=== PATIENT | female | born 1940 | race Caucasian/White ===

== ENCOUNTER → 2017-06-09 | Outpatient (CLI) | payer MEDICARE ==
[~2017-06-09] MED LIST: ASP81TEC PO; DABI150C5 PO; EZET10TA5 PO; LEVO75TA57 PO; METO200T32 PO; MULT1CAP27 PO; OMEG-9 PO; OMEG1CAP53 PO; POTA10CA43 PO; TORS20TA3 PO; TRS20T PO; VRP180TCR PO; VRP240TCR PO; [UNRECOGNIZED DRUG - CODE] PO
== END ==
LOC: CARD 13:13
PROVIDERS: ATTEND Internal Medicine Cardiovascular Disease
DX: I27.2 Other secondary pulmonary hypertension (principal); G47.33 Obstructive sleep apnea (adult) (pediatric); M79.89 Other specified soft tissue disorders; I10 Essential (primary) hypertension; I65.23 Occlusion and stenosis of bilateral carotid arteries; I48.0 Paroxysmal atrial fibrillation
CPT/HCPCS: 93306

== ENCOUNTER 2018-03-29 05:30 | Outpatient (CLI) | payer MEDICARE ==
[~2018-03-29] VITALS: Ht 162.6 cm; Wt 94.1 kg
[~2018-03-29 05:30] MED LIST changes: -METO200T32 PO; +METO200T48 PO
[2018-03-29] MEDS ORDERED: LEVO88TA54 PO (13:56)
[2018-03-29] MEDS ORDERED: DABI150C5 PO (13:56)
[2018-03-29] MEDS ORDERED: FEBU80TA PO (13:56)
[2018-03-29] MEDS ORDERED: POTA10TA10 PO (13:56)
[2018-03-29] MEDS ORDERED: PEDI18TA2 PO (13:56)
== END 2018-03-29 14:06 ==
LOC: PREOP 05:30
PROVIDERS: ATTEND Specialist
DX: Z01.818 Encounter for other preprocedural examination (principal)

== ENCOUNTER 2018-04-19 14:50 | Outpatient (CLI) | payer MEDICARE ==
[~2018-04-19] VITALS: Ht 162.6 cm; Wt 94.1 kg
[~2018-04-19 14:50] MED LIST changes: +FEBU80TA PO; +LEVO88TA54 PO; +PEDI18TA2 PO; +POTA10TA10 PO
== END 2018-04-19 15:00 ==
LOC: PREOP 14:50
PROVIDERS: ATTEND Specialist
DX: Z01.818 Encounter for other preprocedural examination (principal)

== ENCOUNTER 2018-04-21 08:20 | Day surgery (SDC) | payer MEDICARE ==
[~2018-04-21] VITALS: Ht 162.6 cm; Wt 94.1 kg
[2018-04-21] MEDS ORDERED: POVIDONE (BETADINE) OPHTH SOLN 5% 30 ML OP ONE (08:30)
[2018-04-21] MEDS ORDERED: VANCOMYCIN/BSS (COMPOUNDED) 10 MG/ML SYR OP ONE (08:30)
[2018-04-21] MEDS ORDERED: EPINEPHrine INJECTION 1 MG/ML AMP INJ ONE (08:30)
[2018-04-21] MEDS ORDERED: LIDOCAINE PF 1% 2 ML AMP IR PRN (08:30)
[2018-04-21] MEDS ORDERED: TIMOLOL MALEATE 0.5% 5 ML (TIMOPTIC) BTL OU PRN (08:30)
[2018-04-21 08:35] VITALS: BP 137/81
[2018-04-21] MEDS: TETRACAINE 0.5% OPHTH SOLN 4 ML BTL (SINGLE DOSE ONLY) OU PRN ×4 (08:40→09:00)
[2018-04-21] MEDS: PHENYLEPHRINE 10% OPHTH (NEO-SYN) 5 ML BTL OU SCH ×3 (08:51→09:01)
[2018-04-21] MEDS: CYCLOPENTOLATE 1% (CYCLOGYL) 2 ML DROPS OP SCH ×3 (08:51→09:00)
--- NOTE | 2018-04-21 09:23 | Ophthalmologist Pre-Op Note ---
Pre-Operative Progress Note H&P Reviewed The H&P was reviewed, patient examined and no changes noted. Date H&P Reviewed: Apr 21, 2018 Time H&P Reviewed: 09:23 Pre-Op Dx Cataract, Left Eye SARMAD LOUIS MD Apr 21, 2018 09:23
--- NOTE | 2018-04-21 09:47 | Ophthalmology Operative Report ---
Cataract removal/placement IOL PREOPERATIVE DIAGNOSIS: Cataract Left Eye POSTOPERATIVE DIAGNOSIS: Cataract Left Eye PROCEDURE: Cataract removal and placement of posterior chamber implant, left eye SURGEON: Ryan Louis ANESTHESIA: Topical with sedation COMPLICATIONS: None ESTIMATED BLOOD LOSS: Minimal DESCRIPTION OF PROCEDURE: After proper informed consent was obtained, the patient, a 77 female, was taken to the Operating Room and the left eye was anesthetized with tetracaine. The left eye was then prepped and draped in the usual manner. A wire lid speculum was placed. A paracentesis was made at the left hand position. Preservative free lidocaine was injected into the anterior chamber followed by viscoelastic. A clear corneal incision was made in the temporal position. A capsulorrhexis was preformed and the central nuclear and cortical material were removed. The posterior capsule was polished and an Ben 24.5 SN6CWS IOL was placed into the capsular bag. The residual viscoelastic was aspirated and balanced saline solution was injected into the anterior chamber. 0.1 ml of Vancomycin (1mg/0.1ml ) was injected into the anterior chamber. The wound was checked and found to be water tight. The patient tolerated the procedure well without complications. RYAN LOUIS MD Apr 21, 2018 09:47
[2018-04-21] MEDS ORDERED: MIDAZOLAM 2 MG/2 ML (VERSED) VIAL ONE (09:49)
[2018-04-21 10:00] VITALS: BP 133/91
--- NOTE | 2018-04-21 10:36 | Anesthesia-General Post-Op ---
MAC Patient Condition Mental Status/LOC: Same as Preop Cardiovascular: Satisfactory Nausea/Vomiting: Absent Respiratory: Satisfactory Pain: Controlled Complications: Absent Post Op Complications Complications None Follow Up Care/Instructions Patient Instructions None needed. Anesthesiology Discharge Order Discharge Order Patient is doing well, no complaints, stable vital signs, no apparent adverse anesthesia problems. No complications reported per nursing. RONAK ESPINOSA CRNA Apr 21, 2018 10:36
== END 2018-04-21 10:00 | disposition home or self-care (01) ==
LOC: SDC 08:20
PROVIDERS: ATTEND Specialist
DX: H26.9 Unspecified cataract (principal); I10 Essential (primary) hypertension; I48.91 Unspecified atrial fibrillation; G47.33 Obstructive sleep apnea (adult) (pediatric); Z79.01 Long term (current) use of anticoagulants; Z79.899 Other long term (current) drug therapy

== ENCOUNTER 2018-06-11 15:43 | Emergency (ER) | payer MEDICARE ==
[~2018-06-11] VITALS: Ht 161.3 cm; Wt 95.7 kg
--- NOTE | 2018-06-11 17:12 | Diagnostic Imaging Report ---
INDICATION: Left leg pain, mass. COMPARISON: None. EXAMINATION: Left lower extremity ultrasound. FINDINGS: There is a benign 23 x 48 mm cyst in the popliteal fossa. This is compatible with a benign Chavez's cyst. IMPRESSION: Benign Chavez's cyst. Dictated by: Dictated on workstation # [id number]
[2018-06-11] MEDS ORDERED: RX-TRAMADOL 50 MG (ULTRAM) TAB PPK#4 PO STA (17:25)
[2018-06-11] MEDS ORDERED: TRAM-42 PO (17:29)
--- NOTE | 2018-06-11 17:29 | ED Lower Extremity ---
General Chief Complaint: Lower Extremity Stated Complaint: L LEG PAIN Nursing Triage Note: Pt brought to ED via wheelchair by her . Pt states she was wearing thigh high compression hose this am when her left knee began hurting. Pt states she removed the hose and now can no longer bear weight on that leg. Pt has hx of leg swelling but states she believes the left outer and upper knee are more swollen than normal today. Pt denies injury. Nursing Sepsis Screen: No Definite Risk Source: patient, family Exam Limitations: no limitations History of Present Illness Date Seen by Provider: Jun 11, 2018 Time Seen by Provider: 16:21 Initial Comments This 78-year-old woman presents to emergency room with complaints of pain into the left the, mostly in the posterior aspect. She wears thigh-high stockings to help with edema and states these stockings caused extreme pain. She has since remove them. She denies any trauma. She is on Protonix for atrial fibrillation. She is now having difficulty with weightbearing. She denies any prior episodes. Onset: this morning Allergies and Home Medications Allergies Coded Allergies: codeine (Verified Allergy, Unknown, 03/29/18) levofloxacin (Verified Allergy, Unknown, 03/29/18) metronidazole (Verified Allergy, Unknown, 03/29/18) penicillin G (Verified Allergy, Unknown, 03/29/18) Home Medications Dabigatran Etexilate Mesylate 150 Mg Capsule, 150 MG PO BID, (Reported) Febuxostat 80 Mg Tablet, 80 MG PO DAILY, (Reported) Levothyroxine Sodium 88 Mcg Tablet, 88 MCG PO DAILY, (Reported) Metoprolol Succinate 200 Mg Tab.er.24h, 200 MG PO DAILY, (Reported) Pedi Mv No.79/Ferrous Fumarate 18 Mg Tab.chew, 36 MG PO DAILY, (Reported) Potassium Chloride 10 Meq Tablet.er, 10 MEQ PO TID, (Reported) Torsemide 20 Mg Tablet, 40 MG PO DAILY, (Reported) Tramadol HCl 50 Mg Tablet, 50 MG PO Q6H PRN for PAIN-MODERATE TO SEVERE Prescribed by: YO VAIL on 06/11/18 3765 Patient Home Medication List Home Medication List Reviewed: Yes Constitutional: no symptoms reported EENTM: no symptoms reported Respiratory: no symptoms reported Cardiovascular: no symptoms reported Gastrointestinal: no symptoms reported Genitourinary: no symptoms reported Musculoskeletal: see HPI Skin: no symptoms reported Psychiatric/Neurological: No Symptoms Reported Past Stizazo-Emscwn-Zofiwk Hx Patient Social History Alcohol Use: Denies Use Recreational Drug Use: No 2nd Hand Smoke Exposure: No Recent Foreign Travel: No Contact w/Someone Who Travel: No Recent Infectious Disease Expo: No Physical Abuse: No Sexual Abuse: No Immunizations Up To Date Tetanus Booster (TDap): Less than 5yrs Date of Pneumonia Vaccine: Oct 14, 2009 Date of Influenza Vaccine: Aug 06, 2015 Past Medical History Surgeries: Yes Eye Surgery Respiratory: Yes (SLEEP APNEA-HAS CPAP MACHINE) Cardiac: Yes (AFIB) Atrial Fibrillation, Hypertension Neurological: No Reproductive Disorders: No Genitourinary: No Gastrointestinal: No Musculoskeletal: Yes Gout Endocrine: Yes Hypothyroidsim Cancer: No Psychosocial: No Nursing Suicide Risk Score: 0 Integumentary: No Blood Disorders: No Family Medical History Cancer 09 SISTER (breast ) Family history: Hypertension 03 FATHER son History of - disorder 09 SISTER (lupus) Myocardial infarction 03 MOTHER Stroke 03 FATHER No Pertinent Family Hx Physical Exam Vital Signs Vital Signs - First Documented 06/11/18 06/11/18 15:54 17:40 Temp 98.4 Pulse 78 Resp 12 B/P (MAP) 145/67 (93) Pulse Ox 96 O2 Delivery Room Air Capillary Refill : Greater Than 3 Seconds Height, Weight, BMI Height: 5'3.50" Weight: 211lbs. 8.0oz. 95.412827aj; BMI Method:Stated General Appearance: WD/WN, no apparent distress HEENT: normal ENT inspection Neck: normal inspection Cardiovascular: regular rate, rhythm, no edema, no murmur Respiratory: lungs clear, normal breath sounds, no respiratory distress, no accessory muscle use Hips: left hip non-tender, left hip normal inspection, left hip normal range of motion, left hip no evidence of injury Legs: left leg non-tender, left leg normal inspection, left leg normal range of motion, left leg no evidence of injury Knees: left knee no evidence of injury, left knee soft tissue tenderness, left knee swelling, left knee other (Tenderness primarily posterior to the knee with subtle fullness in the area. There is pain with range of motion as well) Ankles: left ankle non-tender, left ankle normal inspection, left ankle normal range of motion, left ankle no evidence of injury Feet: left foot non-tender, left foot normal inspection, left foot normal range of motion, left foot no evidence of injury, left foot other (Normal pedal pulse) Neurologic/Tendon: normal sensation, normal motor functions, normal tendon functions, responds to pain Neurologic/Psychiatric: child psychiatrist II-XII nml as tested, no motor/sensory deficits, alert, normal mood/affect, oriented x 3 Skin: normal color, warm/dry Progress/Results/Core Measures Results/Orders My Orders Orders - YO DANIELS MD Tramadol Tablet (Ultram Tablet) (06/11/18 16:45) Us Left Lower Ext [id number] (06/11/18 16:32) Rx-Tramadol Hcl (Rx-Ultram) (06/11/18 17:25) Medications Given in ED Vital Signs/I&O 06/11/18 06/11/18 15:54 17:40 Temp 98.4 97.9 Pulse 78 68 Resp 12 18 B/P (MAP) 145/67 (93) 124/60 Pulse Ox 96 O2 Delivery Room Air Room Air Blood Pressure Mean: 93 Progress Progress Note : Progress Note Exam and symptoms seem to be consistent with Chavez cyst. DVT felt very unlikely based on exam and patient's compliance with Primaxin. Ultrasound was performed and revealed Chavez cyst. Pain was treated with Ultram. Take-home packet was dispensed. Diagnostic Imaging Diagonstic Imaging: Ultrasound Plain Films/CT/US/NM/MRI: leg Comments NAME: HÉCTOR AGUILLON MED REC#: [id number] PT STATUS: REG ER : 1941 PHYSICIAN: YO DANIELS MD ADMIT DATE: 06/11/18/ER Signed Date of Exam: 06/11/18 US LEFT LOWER EXT [id number] INDICATION: Left leg pain, mass. COMPARISON: None. EXAMINATION: Left lower extremity ultrasound. FINDINGS: There is a benign 23 x 48 mm cyst in the popliteal fossa. This is compatible with a benign Chavez's cyst. IMPRESSION: Benign Chavez's cyst. Dictated by: Dictated on workstation # [id number] Dict: 06/11/18 170 Trans: 06/11/18 171 Interpreted by: ANALISA AGUILAR Electronically signed by: ANALISA AGUILAR 06/11/18 1145 Departure Impression Primary Impression: Synovial cyst of popliteal space [Chavez], left knee Disposition: 01 HOME, SELF-CARE Condition: Improved Departure-Patient Inst. Decision time for Depature: 17:26 Referrals: LINETTE JOHNSON APRN (PCP/Family) Primary Care Physician Patient Instructions: Chavez's Cyst Add. Discharge Instructions: You may take Tylenol (acetaminophen) up to 1000 mg every 6 hours as needed for pain. Add Ultram (tramadol) as prescribed for pain not controlled by Tylenol. You may also try applying ice in 20 minute intervals. Follow-up with the orthopedic provider of your choice for further evaluation and to discuss treatment options. Return to care if you have worsening symptoms despite treatment. If the compression stockings are causing significant pain, temporarily discontinue their use on the left leg. Ultram (tramadol) may cause constipation. It may be hewitt to use a stool softener such as Colace once or twice daily to prevent constipation while taking Ultram. All discharge instructions reviewed with patient and/or family. Voiced understanding. Scripts Tramadol HCl (Ultram) 50 Mg Tablet 50 MG PO Q6H PRN for PAIN-MODERATE TO SEVERE, #20 TAB Prov: YO DANIELS MD 06/11/18 YO DANIELS MD Jun 11, 2018 17:29
[2018-06-11 17:40] VITALS: BP 124/60
== END 2018-06-11 17:50 | disposition home or self-care (01) ==
LOC: EDUNIT# 15:43 → ER 15:45
DX: M71.22 Synovial cyst of popliteal space [Baker], left knee (principal); I48.91 Unspecified atrial fibrillation; I10 Essential (primary) hypertension; M10.9 Gout, unspecified; E03.9 Hypothyroidism, unspecified; G47.30 Sleep apnea, unspecified; Z88.5 Allergy status to narcotic agent; Z82.49 Family history of ischemic heart disease and other diseases of the circulatory system; Z88.1 Allergy status to other antibiotic agents; Z88.0 Allergy status to penicillin; Z88.8 Allergy status to other drugs, medicaments and biological substances; Z80.3 Family history of malignant neoplasm of breast
CPT/HCPCS: 76881

== ENCOUNTER → 2019-02-14 | Outpatient (CLI) | payer MEDICARE ==
[~2019-02-14] MED LIST changes: +TRAM-42 PO
--- NOTE | 2019-02-14 11:36 | Diagnostic Imaging Report ---
PROCEDURE: US Renal Bilateral. TECHNIQUE: Multiple real-time grayscale images were obtained over the kidneys in various projections bilaterally. INDICATION: Chronic kidney disease stage 3. Right kidney measures 9.2 x 3.4 x 4.4 cm and the left kidney measures 9.7 x 4.1 x 4.2 cm. Cortical thickness and echogenicity is normal. No calculi or hydronephrosis is seen. Bladder is unremarkable. Ureteral jets could not be visualized. IMPRESSION: Unremarkable renal ultrasound. Dictated by: Dictated on workstation # [id number]
== END ==
LOC: RAD 10:09
PROVIDERS: ATTEND Internal Medicine Nephrology
DX: N18.3 Chronic kidney disease, stage 3 (moderate) (principal)
CPT/HCPCS: 76770

== ENCOUNTER → 2021-03-09 | Outpatient (CLI) | payer MEDICARE | LOC: CARD 08:30 | PROVIDERS: ATTEND Internal Medicine Cardiovascular Disease | DX: I08.1 Rheumatic disorders of both mitral and tricuspid valves (principal) | CPT/HCPCS: 93306 ==

== ENCOUNTER → 2021-03-10 | Outpatient (CLI) | payer MEDICARE ==
[~2021-03-10] VITALS: Ht 154 cm; Wt 98.0 kg
[~2021-03-10] MED LIST changes: +CATHETER FLUSH 10 ML SYR IV PRN; +REGADENOSON 0.4 MG/5 ML SYR (LEXISCAN) IV ONE
[2021-03-10 09:07] VITALS: BP 133/68
--- NOTE | 2021-03-11 12:01 | STRESS TEST ---
DATE OF SERVICE: 03/10/2021 RESTING AND POST REGADENOSON TECHNETIUM-99M TETROFOSMIN SPECT CT IMAGING ORDERING PHYSICIAN: Dr. Hammond. PRIMARY CARE PHYSICIAN: . CLINICAL DIAGNOSES: Shortness of breath. Baseline images were carried out after injection of 10.7 mCi of technetium-99m Tetrofosmin. This was followed by 0.4 mg of Regadenoson and 28.8 mCi of technetium-99m Tetrofosmin for stress imaging. The electrocardiogram showed atrial fibrillation at baseline. It did not change significantly with the Regadenoson infusion. The patient noted mild shortness of breath, which resolved in a few minutes after the Regadenoson infusion. Overall, she tolerated the procedure well. Review of images at rest and following stress does not indicate any distinct perfusion defects consistent with significant myocardial ischemia or infarction. Mild breast attenuation is seen both at rest and following Regadenoson infusion. Gated images show normal global left ventricular systolic function with normal regional wall motion. Left ventricular ejection fraction is calculated to be 70%. Left ventricular end diastolic volume is 58 mL. TID is absent (1.11). CONCLUSIONS: 1. No evidence of significant myocardial ischemia or infarction. 2. Normal regional wall motion, normal global left ventricular systolic function with a calculated ejection fraction of 70%. Job ID: [id number] DocumentID: [id number] Dictated Date: 03/11/2021 09:44:16 Air Export Agent Date: 03/11/2021 12:00:50 Dictated By: ISABELLE HAMMOND MD, MA, FACP, FACC,
== END ==
LOC: CARD 08:00
PROVIDERS: ATTEND Internal Medicine Cardiovascular Disease
DX: R06.02 Shortness of breath (principal)
CPT/HCPCS: 78452; 93017; A9502

== ENCOUNTER 2021-07-03 13:39 | Emergency (ER) | payer MEDICARE ==
[~2021-07-03] VITALS: Ht 160 cm; Wt 100.0 kg
[~2021-07-03 13:39] MED LIST changes: -CATHETER FLUSH 10 ML SYR IV PRN; -REGADENOSON 0.4 MG/5 ML SYR (LEXISCAN) IV ONE
[2021-07-03 14:53] LABS: BASOPHILS # (AUTO) 0.1 10^3/uL (0.0-0.1); BASOPHILS % (AUTO) 1 % (0-10); EOSINOPHILS # (AUTO) 0.1 10^3/uL (0.0-0.3); EOSINOPHILS % (AUTO) 1 % (0-10); HEMATOCRIT 42 % (35-52); HEMOGLOBIN 13.9 g/dL (11.5-16.0); LYMPHOCYTES # (AUTO) 1.1 10^3/uL (1.0-4.0); LYMPHOCYTES % (AUTO) 27 % (12-44); MEAN CORPUSCULAR HEMOGLOBIN 32 pg (25-34); MEAN CORPUSCULAR HGB CONC 33 g/dL (32-36); MEAN CORPUSCULAR VOLUME 95 fL (80-99); MEAN PLATELET VOLUME 13.2 fL (9.0-12.2); MONOCYTES # (AUTO) 0.7 10^3/uL (0.0-1.0); MONOCYTES % (AUTO) 16 % (0-12); NEUTROPHILS # (AUTO) 2.3 10^3/uL (1.8-7.8); NEUTROPHILS % (AUTO) 55 % (42-75); PLATELET COUNT 122 10^3/uL (130-400); WHITE BLOOD COUNT 4.1 10^3/uL (4.3-11.0)
[2021-07-03 14:55] LABS: ALBUMIN 3.5 GM/DL (3.2-4.5)
[2021-07-03 14:56] LABS: POTASSIUM 3.8 MMOL/L (3.6-5.0)
[2021-07-03 14:57] LABS: CALCIUM 9.7 MG/DL (8.5-10.1)
[2021-07-03 14:58] LABS: TOTAL PROTEIN 7.2 GM/DL (6.4-8.2)
[2021-07-03 15:02] LABS: CREATININE SERUM 1.3 MG/DL (0.60-1.30)
[2021-07-03] MEDS ORDERED: NYST1POW22 MC (15:45)
--- NOTE | 2021-07-03 15:45 | ED General ---
General Chief Complaint: General Problems/Pain Stated Complaint: ABD/LEGS SWOLLEN/RED Nursing Triage Note: Pt to ED in wheelchair. Pt c/o severe edema bilat lower extremeties. Pt complains edema has spread into abdomen. Pt reports weight gain. Symptoms have persisted for several months. Source of Information: Patient, Old Records Exam Limitations: No Limitations (YO DANIELS MD) Source of Information: Patient Exam Limitations: No Limitations (JERAMIE CAMPOS,MED STUDENT) History of Present Illness Date Seen by Provider: Jul 03, 2021 Time Seen by Provider: 14:48 Initial Comments Patient reports long-term use of diuretics without any changes in dosages for many years. Chart was reviewed and recent cardiac work-up revealed no signific ant heart failure or other cardiac problems. Patient additionally complained of some skin rash irritation in the inguinal folds. She has an additional rash with the appearance of stasis dermatitis on her shins. (YO DANIELS MD) Initial Comments Sultana Tobin is a 81yo F with PMH of afib and FABRIZIO who presents with CC of abdominal and leg swelling. She states that since January she has had difficulty with increased swelling of her bilateral lower extremities. She is having difficulty ambulating, and believes that she has gained at least 20lbs. There is associated tibial skin irritation. Over the last 3 weeks she has noticed dramatic abdominal, hip, and buttock swelling as well. She has had no recent major surgeries. She wears compression stockings but feels that they are no longer working to contain the edema. She has had previous workup of cardiac and renal function since this began without clear explanation. She denies chest pain, SOB, n/v/d, and fever. Timing/Duration: Other (Increasing since January 2021) Associated Systoms: Rash (Anterior tibial stasis dermatitis) (JERAMIE CAMPOS,MED STUDENT) Allergies and Home Medications Allergies Coded Allergies: codeine (Verified Allergy, Unknown, 03/29/18) levofloxacin (Verified Allergy, Unknown, 03/29/18) metronidazole (Verified Allergy, Unknown, 03/29/18) penicillin G (Verified Allergy, Unknown, 03/29/18) Home Medications Dabigatran Etexilate Mesylate 150 Mg Capsule, 150 MG PO BID, (Reported) Febuxostat 80 Mg Tablet, 80 MG PO DAILY, (Reported) Levothyroxine Sodium 88 Mcg Tablet, 88 MCG PO DAILY, (Reported) Metoprolol Succinate 200 Mg Tab.er.24h, 200 MG PO DAILY, (Reported) Nystatin 1 Each Powder.ea., 1 EACH MC BID Srinkle in the affected area twice daily. Prescribed by: YO VAIL on 07/03/21 1545 Pedi Mv No.79/Ferrous Fumarate 18 Mg Tab.chew, 36 MG PO DAILY, (Reported) Potassium Chloride 10 Meq Tablet.er, 10 MEQ PO TID, (Reported) Torsemide 20 Mg Tablet, 40 MG PO DAILY, (Reported) Tramadol HCl 50 Mg Tablet, 50 MG PO Q6H PRN for PAIN-MODERATE TO SEVERE Prescribed by: YO VAIL on 06/11/18 1729 Patient Home Medication List Home Medication List Reviewed: Yes (YO DANIELS MD) Review of Systems Review of Systems Constitutional: weight gain (20lbs over 5-6 months) EENTM: no symptoms reported Respiratory: no symptoms reported Cardiovascular: No chest pain; edema; No palpitations, No syncope Gastrointestinal: see HPI; No abdominal pain; other (ascities) Genitourinary: no symptoms reported : No Musculoskeletal: no symptoms reported Skin: see HPI, rash (Lower extremities) Psychiatric/Neurological: No Symptoms Reported Hematologic/Lymphatic: No Symptoms Reported Immunological/Allergic: no symptoms reported (JERAMIE CAMPOS,MED STUDENT) Past Flrtveq-Jzbrlk-Jonhmg Hx Patient Social History Tobacco Use?: No Substance use?: No Alcohol Use?: No Pt feels they are or have been: No (YO DANIELS MD) Immunizations Up To Date Tetanus Booster (TDap): Less than 5yrs First/Initial COVID19 Vaccinat: 01/14/21 Second COVID19 Vaccination Garett: 02/11/21 COVID19 Vaccine Sheep [employer] Worker: Modernmorteza (YO DANIELS MD) Past Medical History Surgeries: Yes Eye Surgery Respiratory: Yes (SLEEP APNEA-HAS CPAP MACHINE) Cardiac: Yes (AFIB) Atrial Fibrillation, Hypertension Neurological: No Reproductive Disorders: No Genitourinary: No Gastrointestinal: No Musculoskeletal: Yes Gout Endocrine: Yes Hypothyroidsim Cancer: No Psychosocial: No Integumentary: No Blood Disorders: No (YO DANIELS MD) Family Medical History Cancer 09 SISTER (breast ) Family history: Hypertension 03 FATHER son History of - disorder 09 SISTER (lupus) Myocardial infarction 03 MOTHER Stroke 03 FATHER No Pertinent Family Hx (YO DANIELS MD) Physical Exam Vital Signs Vital Signs - First Documented 07/03/21 14:20 Temp 36.9 Pulse 63 Resp 19 B/P (MAP) 139/78 (98) Pulse Ox 96 O2 Delivery Room Air (JERAMIE CAMPOS,MED STUDENT) Vital Signs Capillary Refill : Less Than 3 Seconds (YO DANIELS MD) Height, Weight, BMI Height: 5'3.50" Weight: 211lbs. 8.0oz. 95.444533ek; 39.00 BMI Method:Stated (YO DANIELS MD) General Appearance: No Apparent Distress, WD/WN HEENT: PERRL/EOMI Neck: Full Range of Motion, Normal Inspection, Non Tender Respiratory: Normal Breath Sounds, No Respiratory Distress Cardiovascular: Regular Rate, Rhythm; No Irregularly Irregular, No JVD Gastrointestinal: Non Tender, Soft Rectal: Deferred Back: Normal Inspection Extremity: No Calf Tenderness; Pedal Edema (3+), Swelling Neurologic/Psychiatric: Alert, Oriented x3 Skin: Normal Color, Warm/Dry, Other (Intertrigo in L inguinal fold; stasis dermatitis present on bilateral anterior surfaces of tibias) (JERAMIE CAMPOS,MED STUDENT) Progress/Results/Core Measures Suspected Sepsis SIRS Temperature: Pulse: 63 Respiratory Rate: 19 Laboratory Tests 07/03/21 14:35: White Blood Count 4.1L Blood Pressure 139 /78 Mean: 98 Laboratory Tests 07/03/21 14:35: Creatinine 1.30, Platelet Count 122L, Total Bilirubin 3.0H (YO DANIELS MD) Results/Orders Lab Results Laboratory Tests Test 07/03/21 14:35 Range/Units White Blood Count 4.1 L 4.3-11.0 10^3/uL Red Blood Count 4.40 3.80-5.11 10^6/uL Hemoglobin 13.9 11.5-16.0 g/dL Hematocrit 42 35-52 % Mean Corpuscular Volume 95 80-99 fL Mean Corpuscular Hemoglobin 32 25-34 pg Mean Corpuscular Hemoglobin Concent 33 32-36 g/dL Red Cell Distribution Width 19.1 H 10.0-14.5 % Platelet Count 122 L 130-400 10^3/uL Mean Platelet Volume 13.2 H 9.0-12.2 fL Immature Granulocyte % (Auto) 0 % Neutrophils (%) (Auto) 55 42-75 % Lymphocytes (%) (Auto) 27 12-44 % Monocytes (%) (Auto) 16 H 0-12 % Eosinophils (%) (Auto) 1 0-10 % Basophils (%) (Auto) 1 0-10 % Neutrophils # (Auto) 2.3 1.8-7.8 10^3/uL Lymphocytes # (Auto) 1.1 1.0-4.0 10^3/uL Monocytes # (Auto) 0.7 0.0-1.0 10^3/uL Eosinophils # (Auto) 0.1 0.0-0.3 10^3/uL Basophils # (Auto) 0.1 0.0-0.1 10^3/uL Immature Granulocyte # (Auto) 0.0 0.0-0.1 10^3/uL Sodium Level 139 135-145 MMOL/L Potassium Level 3.8 3.6-5.0 MMOL/L Chloride Level 104 98-107 MMOL/L Carbon Dioxide Level 23 21-32 MMOL/L Anion Gap 12 5-14 MMOL/L Blood Urea Nitrogen 28 H 7-18 MG/DL Creatinine 1.30 0.60-1.30 MG/DL Estimat Glomerular Filtration Rate 39 BUN/Creatinine Ratio 22 Glucose Level 96 70-105 MG/DL Calcium Level 9.7 8.5-10.1 MG/DL Corrected Calcium 10.1 8.5-10.1 MG/DL Total Bilirubin 3.0 H 0.1-1.0 MG/DL Aspartate Amino Transf (AST/SGOT) 53 H 5-34 U/L Alanine Aminotransferase (ALT/SGPT) 27 0-55 U/L Alkaline Phosphatase 172 H 40-136 U/L B-Type Natriuretic Peptide 842.3 H <100.0 PG/ML Total Protein 7.2 6.4-8.2 GM/DL Albumin 3.5 3.2-4.5 GM/DL (JERAMIE CAMPOS,MED STUDENT) Vital Signs/I&O 07/03/21 14:20 Temp 36.9 Pulse 63 Resp 19 B/P (MAP) 139/78 (98) Pulse Ox 96 O2 Delivery Room Air (JERAMIE CAMPOS,MED STUDENT) Vital Signs/I&O Capillary Refill : Less Than 3 Seconds (YO DANIELS MD) Blood Pressure Mean: 98 Progress Note : Progress Note Labs revealed a modest elevation in BNP. Otherwise there were no significant abnormalities to explain her edema increase. We have discussed increasing her diuretic dosing as she is currently on a rather low dose. She should then follow-up with her primary care provider and/or bag machine helper for further evaluation and monitoring of electrolytes. (YO DANIELS MD) Departure Impression Primary Impression: Lower extremity edema Additional Impression: Intertrigo Disposition: 01 HOME, SELF-CARE Condition: Stable Departure-Patient Inst. Decision time for Depature: 15:40 (YO DANIELS MD) Referrals: NO,LOCAL PHYSICIAN (PCP) Primary Care Physician LINETTE JOHNSON APRN (Family) Primary Care Physician Patient Instructions: Swelling Add. Discharge Instructions: You may continue using your compression hose and elevate your feet as much as possible when at rest at home. You may increase your torsemide to 60 mg daily. You should do this under surveillance of your kidney function and electrolytes by your primary care provider. Please follow-up with your primary care provider early next week. You should have labs checked again after you have been on the increased dose for about a week. Use the nystatin antifungal powder in your skin folds to reduce yeast irritation. Try to keep skin folds clean and dry. You may periodically use a clean towel to absorb moisture if needed. Call with questions or concerns. Return to the ER if you have worsening symptoms. All discharge instructions reviewed with patient and/or family. Voiced understanding. Scripts Nystatin (Nystatin) 1 Each Powder.ea. 1 EACH MC BID, #1 UNIT Srinkle in the affected area twice daily. Prov: YO DANIELS MD 07/03/21 Medical Student Attestation and Attending Note: I have personally interviewed and examined this patient along with Jordan Campos, MS4. I have reviewed student documentation including history, physical, and assessments. I agree with the documentation except where otherwise noted. Exam: General: Alert, oriented, no acute distress, well developed HEENT: Normocephalic and atraumatic Heart: Regular rate and rhythm without murmur Lungs: Clear to auscultation bilaterally with normal effort Abdomen: Soft, nontender, nondistended, normal bowel sounds Neuropsych: Alert, oriented, no focal deficits Extremities: Soft edema throughout the lower extremities, equal bilaterally. Nontender. Skin: Warm and dry. Patchy symmetrical rash on the shins. Rash in the inguinal folds. (YO DANIELS MD) Copy Copies To 1: ISABELLE CARLTON MD FACP FAC CCDS YO DANIELS MD Jul 03, 2021 15:45 JERAMIE CAMPOS,MED STUDENT Jul 03, 2021 16:05
[2021-07-03 16:10] VITALS: BP 132/72
== END 2021-07-03 16:13 | disposition home or self-care (01) ==
LOC: EDUNIT# 13:39 → ER 13:40
DX: R60.0 Localized edema (principal); L30.4 Erythema intertrigo; I10 Essential (primary) hypertension; E03.9 Hypothyroidism, unspecified; M10.9 Gout, unspecified; I48.91 Unspecified atrial fibrillation; G47.30 Sleep apnea, unspecified; Z79.890 Hormone replacement therapy; Z79.01 Long term (current) use of anticoagulants; Z79.899 Other long term (current) drug therapy
CPT/HCPCS: 36415; 80053; 83880; 85025

== ENCOUNTER 2021-08-06 16:41 | Observation (INO) | payer MEDICARE ==
[~2021-08-06] VITALS: Ht 160 cm; Wt 99.8 kg
[~2021-08-06 16:41] MED LIST changes: +NYST1POW22 MC
[2021-08-06 16:50] VITALS: BP 131/81
[2021-08-06] MEDS ORDERED: NS IV 1000 ML 1,000 ML IV SCH (17:00)
[2021-08-06 17:52] LABS: HEMOGLOBIN 13.5 g/dL (11.5-16.0)
--- NOTE | 2021-08-06 17:52 | Consultation - Surgery ---
SOLIS NOLASCO 08/06/211751: History of Present Illness History of Present Illness Patient Consulted On(car/time) 08/06/21 17:37 Date Seen by Provider: Aug 06, 2021 Time Seen by Provider: 17:25 Reason for Visit: Lower extremity swelling History of Present Illness Patient is an 81 y/o female with LE swelling that began 6 weeks ago. Patient said that the swelling has progressively been getting worse over the last 6 weeks. Patient reports that there is some pain in her ankles and feet especially when flexing them or trying to put on shoes. Patient reports the pain as an achy pain that is worse at the end of the day. She denies any associated symptoms. Patient says her swelling extends from her feet and ankles all the way to her groin and lower abdomen. Patient denies any abdominal tenderness or thigh tenderness. Patient rates the discomfort as a 6/10. Patient has a history of AFIB. Allergies and Home Medications Allergies Coded Allergies: codeine (Verified Allergy, Unknown, 08/06/21) levofloxacin (Verified Allergy, Unknown, 08/06/21) metronidazole (Verified Allergy, Unknown, 08/06/21) penicillin G (Verified Allergy, Unknown, 08/06/21) Patient Home Medication List Allopurinol (Allopurinol) 300 Mg Tablet, 300 MG PO DAILY, (Reported) Entered as Reported by: AISHA TURNER on 08/06/211754 Last Action: Reviewed Apixaban (Eliquis) 2.5 Mg Tablet, 2.5 MG PO BID, (Reported) Entered as Reported by: AISHA TURNER on 08/06/211754 Last Action: Reviewed Levothyroxine Sodium (Levothyroxine Sodium) 88 Mcg Tablet, 88 MCG PO DAILY, (Reported) Entered as Reported by: RANJEET CAUSEY on 03/29/18 1356 Last Action: Reviewed Metoprolol Succinate (Metoprolol Succinate) 200 Mg Tab.er.24h, 200 MG PO DAILY, (Reported) Entered as Reported by: CALLY CHARLES on 10/07/15 0716 Last Action: Reviewed Pedi Mv No.79/Ferrous Fumarate (Flintstones with Iron Tab Chew) 18 Mg Tab.chew, 36 MG PO DAILY, (Reported) Entered as Reported by: RANJEET CAUSEY on 03/29/181355 Last Action: Reviewed Potassium Chloride (Potassium Chloride) 10 Meq Tablet.er, 10 MEQ PO TID, (Reported) Entered as Reported by: RANJEET CAUSEY on 03/29/181355 Last Action: Reviewed Torsemide (Torsemide) 20 Mg Tablet, 40 MG PO DAILY, (Reported) Entered as Reported by: CALLY CHARLES on 10/07/15 0716 Last Action: Reviewed Discontinued Medications Dabigatran Etexilate Mesylate (Pradaxa) 150 Mg Capsule, 150 MG PO BID, (Reported) Discontinued Reason: No Longer Taking Entered as Reported by: RANJEET CAUSEY on 03/29/181355 Last Action: Discontinued Febuxostat (Uloric) 80 Mg Tablet, 80 MG PO DAILY, (Reported) Discontinued Reason: No Longer Taking Entered as Reported by: RANJEET CAUSEY on 03/29/181355 Last Action: Discontinued Nystatin (Nystatin) 1 Each Powder.ea., 1 EACH MC BID Discontinued Reason: No Longer Taking Prescribed by: YO VAIL on 07/03/21 1545 Last Action: Discontinued Tramadol HCl (Ultram) 50 Mg Tablet, 50 MG PO Q6H PRN for PAIN-MODERATE TO SEVERE Discontinued Reason: No Longer Taking Prescribed by: YO VAIL on 06/11/18 1729 Last Action: Discontinued Past Wcoeswi-Yxmori-Hrfjhv Hx Patient Social History Smoking Status: Never a Smoker 2nd Hand Smoke Exposure: No Alcohol Use?: No Substance type: Caffeine (1 soda a day) Immunizations Up To Date Tetanus Booster (TDap): Less than 5yrs Date of Pneumonia Vaccine: Oct 14, 2009 Date of Influenza Vaccine: Aug 06, 2015 Surgeries History of Surgeries: Yes Surgeries: Eye Surgery (cataracts), Orthopedic (Knee and finger) Respiratory History of Respiratory Disorde: Yes Respiratory Disorders: Sleep Apnea Cardiovascular History of Cardiac Disorders: Yes Cardiac Disorders: Atrial Fibrillation, Hypertension Neurological History of Neurological Disord: No Reproductive System Hx Reproductive Disorders: No Genitourinary History of Genitourinary Disor: No Gastrointestinal History of Gastrointestinal Di: No Musculoskeletal History of Musculoskeletal Dis: Yes Musculoskeletal Disorders: Gout Endocrine History of Endocrine Disorders: Yes Endocrine Disorders: Hypothyroidsim Cancer History of Cancer: No Psychosocial History of Psychiatric Problem: No Integumentary History of Skin or Integumenta: No Blood Transfusions History of Blood Disorders: No Family Medical History Significant Family History: Heart Disease (CO in mother, tachycardia in father, AFIB in sister), Stroke (Father) Family Medial History: Cancer 09 SISTER (breast ) Family history: Hypertension 03 FATHER son History of - disorder 09 SISTER (lupus) Myocardial infarction 03 MOTHER Stroke 03 FATHER Review of Systems-General Constitutional: No chills, No fever EENTM: No blurred vision, No vision loss Respiratory: No cough; dyspnea on exertion Cardiovascular: No chest pain; edema (b/l LE edema); No palpitations Gastrointestinal: No abdominal pain, No constipation, No diarrhea, No hematemesis, No heartburn, No nausea, No vomiting, No other (Denies hematochezia) Genitourinary: No dysuria, No frequency Musculoskeletal: No joint pain; joint swelling (Knees and ankles); No muscle pain Psychiatric/Neurological: Denies Headache, Denies Weakness Physical Exam-General Problems Physical Exam Vital Signs Capillary Refill : General Appearance: WD/WN, no apparent distress Eyes: Bilateral Eye PERRL, Bilateral Eye EOMI Neck: non-tender, normal inspection Respiratory: chest non-tender, lungs clear, normal breath sounds, no respiratory distress, no accessory muscle use Cardiovascular: normal peripheral pulses Peripheral Pulses: 2+ Radial Pulses (R), 2+ Radial Pulses (L) Gastrointestinal: normal bowel sounds, non tender, soft Extremities: No calf tenderness; pedal edema, swelling Neurologic/Psychiatric: communicable disease specialist II-XII nml as tested, no motor/sensory deficits, a lert, normal mood/affect, oriented x 3 Skin: ecchymosis (RLE bruising) Lymphatic: no adenopathy (head and neck) Assessment/Plan Assessment/Plan Assessment/Plan 1. LE Swelling 2. Atrial fibrillation 1. Continue on diuretic. Elevate legs and ambulate as tolerated. DELIA CRYSTAL DO 08/06/211941: History of Present Illness History of Present Illness Time Seen by Provider: 19:24 History of Present Illness Surgery asked to consult regarding B/L LE edema and cellulitis. HPI: When I spoke to pt she states legs are about the same, maybe slightly worse than back in June when she came into ER. States at that time she had "blister that was running" but does not have it now. She states there has been redness which is getting worse and spread to the back of her right leg; it had been there, got better and now is back. Was told to use lotion on her legs; "I have religiously used lubriderm and have not seen any difference." She has had the swelling since January, states she saw a PA in [place] who sent her to [facility] for US of arteries and veins; "they told me it was fine, no problems". Has tried diuretics, they have not helped. She states she had a colonoscopy 10-15 yrs ago and nothing found at that time. She is also seeing Cardiology. Pt states she tripped on her foot and bent her toes back (on the right foot) "and that is why they are black". Allergies and Home Medications Allergies Coded Allergies: codeine (Verified Allergy, Unknown, 08/06/21) levofloxacin (Verified Allergy, Unknown, 08/06/21) metronidazole (Verified Allergy, Unknown, 08/06/21) penicillin G (Verified Allergy, Unknown, 08/06/21) Patient Home Medication List Home Medication List Reviewed: Yes Allopurinol (Allopurinol) 300 Mg Tablet, 300 MG PO DAILY, (Reported) Entered as Reported by: AISHA TURNER on 08/06/211754 Last Action: Reviewed Apixaban (Eliquis) 2.5 Mg Tablet, 2.5 MG PO BID, (Reported) Entered as Reported by: AISHA TURNER on 08/06/211754 Last Action: Reviewed Levothyroxine Sodium (Levothyroxine Sodium) 88 Mcg Tablet, 88 MCG PO DAILY, (Reported) Entered as Reported by: RANJEET CAUSEY on 03/29/18 505 Last Action: Reviewed Metoprolol Succinate (Metoprolol Succinate) 200 Mg Tab.er.24h, 200 MG PO DAILY, (Reported) Entered as Reported by: CALLY CHARLES on 10/07/15 0716 Last Action: Reviewed Pedi Mv No.79/Ferrous Fumarate (Flintstones with Iron Tab Chew) 18 Mg Tab.chew, 36 MG PO DAILY, (Reported) Entered as Reported by: RANJEET CAUSEY on 03/29/18 9246 Last Action: Reviewed Potassium Chloride (Potassium Chloride) 10 Meq Tablet.er, 10 MEQ PO TID, (Reported) Entered as Reported by: RANJEET CAUSEY on 03/29/18 1356 Last Action: Reviewed Torsemide (Torsemide) 20 Mg Tablet, 40 MG PO DAILY, (Reported) Entered as Reported by: CALLY CHARLES on 10/07/15 0716 Last Action: Reviewed Discontinued Medications Dabigatran Etexilate Mesylate (Pradaxa) 150 Mg Capsule, 150 MG PO BID, (Reported) Discontinued Reason: No Longer Taking Entered as Reported by: RANJEET CAUSEY on 03/29/18 1356 Last Action: Discontinued Febuxostat (Uloric) 80 Mg Tablet, 80 MG PO DAILY, (Reported) Discontinued Reason: No Longer Taking Entered as Reported by: RANJEET CAUSEY on 03/29/18 135 Last Action: Discontinued Nystatin (Nystatin) 1 Each Powder.ea., 1 EACH MC BID Discontinued Reason: No Longer Taking Prescribed by: YO VAIL on 07/03/21 1545 Last Action: Discontinued Tramadol HCl (Ultram) 50 Mg Tablet, 50 MG PO Q6H PRN for PAIN-MODERATE TO SEVERE Discontinued Reason: No Longer Taking Prescribed by: YO VAIL on 06/11/18 1729 Last Action: Discontinued Past Vluvnkg-Yzuhqn-Xlgiif Hx Patient Social History Smoking Status: Never a Smoker Alcohol Use?: No Substance type: Caffeine (1 soda a day) Surgeries History of Surgeries: Yes Surgeries: Eye Surgery (cataracts), Orthopedic (Knee and finger) Respiratory History of Respiratory Disorde: Yes Respiratory Disorders: Sleep Apnea Cardiovascular History of Cardiac Disorders: Yes Cardiac Disorders: Atrial Fibrillation, Hypertension Neurological History of Neurological Disord: No Reproductive System : No Genitourinary History of Genitourinary Disor: No Gastrointestinal History of Gastrointestinal Di: No Musculoskeletal History of Musculoskeletal Dis: Yes Musculoskeletal Disorders: Gout Endocrine History of Endocrine Disorders: No HEENT History of HEENT Disorders: No Loss of Vision: Bilateral Hearing Impairment: Hard of Hearing Cancer History of Cancer: No Psychosocial History of Psychiatric Problem: No Family Medical History Significant Family History: Heart Disease (CO in mother, tachycardia in father, AFIB in sister), Hypertension, Stroke (Father) Family Medial History: Cancer 09 SISTER (breast ) Family history: Hypertension 03 FATHER son History of - disorder 09 SISTER (lupus) Myocardial infarction 03 MOTHER Stroke 03 FATHER Review of Systems-General Constitutional: No chills, No fever EENTM: No blurred vision, No vision loss Respiratory: No cough; dyspnea on exertion Cardiovascular: No chest pain; edema (b/l LE edema), palpitations Gastrointestinal: No abdominal pain, No constipation, No diarrhea, No hematemesis, No heartburn, No nausea, No vomiting, No other (Denies hematochezia) Genitourinary: No dysuria, No frequency Musculoskeletal: No joint pain; joint swelling (Knees and ankles); No muscle pain Skin: change in color; No change in hair/nails; rash Psychiatric/Neurological: Denies Anxiety, Denies Depressed, Denies Headache, Denies Weakness Physical Exam-General Problems Physical Exam General Appearance: WD/WN, no apparent distress, obese Eyes: Bilateral Eye PERRL, Bilateral Eye EOMI HEENT: pharynx normal; No scleral icterus (R), No scleral icterus (L) Neck: non-tender, supple Respiratory: chest non-tender, lungs clear, normal breath sounds, no respiratory distress, no accessory muscle use Cardiovascular: regular rate, rhythm, no murmur Gastrointestinal: normal bowel sounds, non tender, soft, no organomegaly Rectal: deferred Back: no CVA tenderness, no vertebral tenderness Extremities: No calf tenderness; pedal edema, swelling, other (rash over tibia bilaterally) Skin: warm/dry, ecchymosis (RLE bruising) Lymphatic: no adenopathy (head and neck) Assessment/Plan Assessment/Plan Assessment/Plan 1. LE Swelling 2. Atrial fibrillation 3. Chronic Renal Failure 1. Continue on diuretic. Elevate legs and ambulate as tolerated. Plan to get CT of abd/pelvis to rule out intra-abdominal cause for LE edema. Discussed case with Dr. Bertrand. Supervisory-Addendum Brief Verification & Attestation Participated in pt care: history, MDM, physical Personally performed: exam, history, MDM, supervision of care Care discussed with: Medical Student Procedures: n/a Verification and Attestation of Medical Student E/M Service A medical student performed and documented this service. I then reviewed and verified all information documented by the medical student and made modifications to such information, when appropriate. I personally performed a physical exam, medical decision making and then discussed any differences between the notes and made revisions as necessary to create one note. Delia Crystal , 08/06/21 , 19:46 SOLIS NOLASCO Aug 06, 2021 17:52 DELIA CRYSTAL DO Aug 06, 2021 19:42
[2021-08-06 17:53] LABS: BASOPHILS % (AUTO) 1 % (0-10); EOSINOPHILS % (AUTO) 0 % (0-10); HEMATOCRIT 40 % (35-52); LYMPHOCYTES % (AUTO) 26 % (12-44); MEAN CORPUSCULAR HEMOGLOBIN 31 pg (25-34); MEAN CORPUSCULAR HGB CONC 34 g/dL (32-36); MEAN CORPUSCULAR VOLUME 93 fL (80-99); MEAN PLATELET VOLUME 11.3 fL (9.0-12.2); MONOCYTES # (AUTO) 0.6 10^3/uL (0.0-1.0); MONOCYTES % (AUTO) 15 % (0-12); NEUTROPHILS # (AUTO) 2.3 10^3/uL (1.8-7.8); NEUTROPHILS % (AUTO) 58 % (42-75); PLATELET COUNT 105 10^3/uL (130-400); WHITE BLOOD COUNT 3.9 10^3/uL (4.3-11.0)
[2021-08-06] MEDS ORDERED: APIX2.5T PO (17:55)
[2021-08-06] MEDS ORDERED: ALLO300T2 PO (17:55)
[2021-08-06 18:07] LABS: ALBUMIN 3.2 GM/DL (3.2-4.5); POTASSIUM 4.6 MMOL/L (3.6-5.0)
[2021-08-06 18:08] LABS: CALCIUM 9.5 MG/DL (8.5-10.1)
[2021-08-06 18:09] LABS: TOTAL PROTEIN 6.5 GM/DL (6.4-8.2)
[2021-08-06 18:10] LABS: INR 1.5 (0.8-1.4); PROTHROMBIN TIME PATIENT 18.3 SEC (12.2-14.7)
[2021-08-06 18:13] LABS: CREATININE SERUM 1.42 MG/DL (0.60-1.30)
[2021-08-06 19:27] VITALS: BP 118/60
[2021-08-06] MEDS ORDERED: APIXABAN 2.5 MG (ELIQUIS) TABLET PO ONE (20:00)
[2021-08-06] MEDS ORDERED: KCL 10 MEQ TAB (MICRO K) PO ONE (20:00)
[2021-08-06] MEDS: NYSTATIN CREAM (MYCOSTATIN) 30 GM TUBE TP SCH (20:01)
[2021-08-06] MEDS: TRIAMCINOLONE 0.1% CR (KENALOG) 80 GM TUBE TP SCH (20:01)
[2021-08-06 23:30] VITALS: BP 111/65
[2021-08-07 03:38] VITALS: BP 116/68
[2021-08-07 06:12] LABS: BASOPHILS # (AUTO) 0.1 10^3/uL (0.0-0.1); BASOPHILS % (AUTO) 1 % (0-10); HEMATOCRIT 38 % (35-52); HEMOGLOBIN 12.9 g/dL (11.5-16.0); MEAN CORPUSCULAR HEMOGLOBIN 32 pg (25-34); MEAN CORPUSCULAR HGB CONC 34 g/dL (32-36); MEAN CORPUSCULAR VOLUME 92 fL (80-99); MONOCYTES # (AUTO) 0.7 10^3/uL (0.0-1.0)
[2021-08-07 06:14] LABS: EOSINOPHILS # (AUTO) 0.1 10^3/uL (0.0-0.3); EOSINOPHILS % (AUTO) 1 % (0-10); LYMPHOCYTES # (AUTO) 1.1 10^3/uL (1.0-4.0); LYMPHOCYTES % (AUTO) 21 % (12-44); MEAN PLATELET VOLUME 13.4 fL (9.0-12.2); MONOCYTES % (AUTO) 14 % (0-12); NEUTROPHILS # (AUTO) 3.2 10^3/uL (1.8-7.8); NEUTROPHILS % (AUTO) 63 % (42-75); PLATELET COUNT 95 10^3/uL (130-400); WHITE BLOOD COUNT 5.1 10^3/uL (4.3-11.0)
[2021-08-07 06:26] LABS: POTASSIUM 4.2 MMOL/L (3.6-5.0)
[2021-08-07 06:27] LABS: CALCIUM 9.2 MG/DL (8.5-10.1)
[2021-08-07 06:28] LABS: TOTAL PROTEIN 6.2 GM/DL (6.4-8.2)
[2021-08-07 06:31] LABS: CREATININE SERUM 1.33 MG/DL (0.60-1.30)
[2021-08-07 07:34] VITALS: BP 125/61
--- NOTE | 2021-08-07 08:48 | Diagnostic Imaging Report ---
INDICATION: Peripheral edema PA and lateral chest There is mild pulmonary vascular congestion. There are no effusions or pneumothoraces. Heart size is normal. 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
--- NOTE | 2021-08-07 09:14 | Diagnostic Imaging Report ---
PROCEDURE: CT chest, abdomen, and pelvis without contrast. TECHNIQUE: Multiple contiguous axial images were obtained through the chest, abdomen, and pelvis without the use of intravenous contrast. Auto Exposure Controls were utilized during the CT exam to meet ALARA standards for radiation dose reduction. INDICATION: Generalized body swelling. Fall 2 weeks ago. No known cancer. COMPARISON: None. CT chest: The heart size is mildly prominent. No pericardial effusion is present. There is calcified aortic and coronary atherosclerotic plaque without aneurysm. Mildly prominent mediastinal and bilateral hilar lymph nodes are seen. A marker lymph node in the precarinal station in the mediastinum measures 0.8 cm in short axis. Scattered opacities are seen in the lung bases, right greater than left. A soft tissue nodule seen in the right lung base measuring 0.6 cm. A small right and trace left pleural effusion are present. No central endobronchial obstructing lesions. No consolidative opacities or pulmonary masses are seen. No evidence of pneumothorax. No acute osseous abnormalities are seen in the chest. CT abdomen and pelvis: The liver, spleen, pancreas, adrenal glands, and kidneys have a normal noncontrast CT appearance. The gallbladder surgically absent. There is no pathologically enlarged mesenteric or retroperitoneal adenopathy. The bowel loops are nondilated. Diverticulosis of the descending and sigmoid colon is seen without evidence of acute diverticulitis. There is no free fluid or free air. No acute osseous abnormalities in the abdomen and pelvis. There is grade 1 anterolisthesis of L4 on L5. There is calcified aortic and iliac atherosclerotic plaque without aneurysm. The inferior vena cava is distended. Anasarca is noted. The urinary bladder is nondistended. There is no free air, loculated collection, or adenopathy in the pelvis. IMPRESSION: 1. Mild cardiomegaly with distended inferior vena cava. Findings are suggestive of right heart failure. Recommend correlation with EKG findings. 2. Bilateral pleural effusions with bibasilar opacities, likely representing atelectasis. Infectious or inflammatory process is not completely excluded. 3. Nodule in the right lung base measuring 0.6 cm. Consider follow-up with chest CT in 12 months to ensure stability. 4. Mildly prominent mediastinal and bilateral hilar lymph nodes. 5. Diverticulosis of the descending and sigmoid colon without evidence of acute diverticulitis. Dictated by: Dictated on workstation # [id number]
--- NOTE | 2021-08-07 09:41 | Progress Note - Surgery ---
SOLIS NOLASCO 08/07/21 0941: Subjective Date Seen by a Provider: Aug 07, 2021 Time Seen by a Provider: 08:30 Subjective/Events-last exam Patient is an 81 y/o female with LE swelling. Patient reports that she is doing the same as yesterday. Patient does not have any new pain in her LE. She reports her swelling has not gotten better or worse overnight. She says she had trouble sleeping last night. Patient is tender to palpation over shins and feet. Review of Systems General: No Chills, No Fatigue HEENT: No Head Aches, No Visual Changes Pulmonary: No Dyspnea, No Cough Cardiovascular: No: Chest Pain, Palpitations Gastrointestinal: No: Nausea, Vomiting, Abdominal Pain Genitourinary: No Dysuria, No Frequency Musculoskeletal: other (Knee pain), leg pain (With palpation), foot pain (With palpation) Neurological: No: Weakness, Confusion Focused Exam Respiratory: Chest Non Tender, Lungs Clear, Normal Breath Sounds, No Accessory Muscle Use, No Respiratory Distress Cardiovascular: No Murmur, Normal Peripheral Pulses Peripheral Pulses: 2+ Radial Pulses (R), 2+ Radial Pulses (L) Skin: ecchymosis (Lower legs) Objective Exam Vital Signs Date Time Temp Pulse Resp B/P (MAP) Pulse Ox O2 Delivery O2 Flow Rate FiO2 08/07/21 07:34 36.3 65 18 125/61 (82) 94 Room Air 08/07/21 07:00 65 08/07/21 03:38 36.4 63 18 116/68 (84) 95 Room Air 08/07/21 01:00 60 08/06/21 23:30 36.3 65 18 111/65 (80) 95 Room Air 08/06/21 20:02 Room Air 08/06/21 19:27 36.2 62 20 118/60 (79) 96 Room Air 08/06/21 19:00 56 08/06/21 17:32 Room Air 08/06/21 16:50 36.9 66 20 131/81 (98) 96 Room Air I & O 08/07/21 07:00 Intake Total 1040 ml Balance 1040 ml Capillary Refill : General Appearance: No Apparent Distress, WD/WN HEENT: PERRL/EOMI Neck: Normal Inspection, Non Tender Respiratory: Chest Non Tender, Lungs Clear, Normal Breath Sounds, No Accessory Muscle Use, No Respiratory Distress Cardiovascular: No Murmur, Normal Peripheral Pulses Peripheral Pulses: 2+ Radial Pulses (R), 2+ Radial Pulses (L) Gastrointestinal: normal bowel sounds, non tender, soft Extremity: No Calf Tenderness, Pedal Edema, Swelling Neurologic/Psychiatric: Alert, Oriented x3, No Motor/Sensory Deficits, Normal Mood/Affect, quarantine inspector II-XII Norm as Tested Skin: Ecchymosis Lymphatic: No Adenopathy (head and neck) Results Lab Laboratory Tests 08/06/21 17:40: White Blood Count 3.9L, Red Blood Count 4.32, Hemoglobin 13.5, Hematocrit 40, Mean Corpuscular Volume 93, Mean Corpuscular Hemoglobin 31, Mean Corpuscular Hemoglobin Concent 34, Red Cell Distribution Width 19.4H, Platelet Count 105L, Mean Platelet Volume 11.3, Immature Granulocyte % (Auto) 0, Neutrophils (%) (Auto) 58, Lymphocytes (%) (Auto) 26, Monocytes (%) (Auto) 15H, Eosinophils (%) (Auto) 0, Basophils (%) (Auto) 1, Neutrophils # (Auto) 2.3, Lymphocytes # (Auto) 1.0, Monocytes # (Auto) 0.6, Eosinophils # (Auto) 0.0, Basophils # (Auto) 0.0, Immature Granulocyte # (Auto) 0.0, Percent Immature Platelet Fraction 7.2, Prothrombin Time 18.3H, INR Comment 1.5H, Activated Partial Thromboplast Time 38H, Sodium Level 141, Potassium Level 4.6, Chloride Level 106, Carbon Dioxide Level 24, Anion Gap 11, Blood Urea Nitrogen 30H, Creatinine 1.42H, Estimat Glomerular Filtration Rate 36, BUN/Creatinine Ratio 21, Glucose Level 91, Braeden cium Level 9.5, Corrected Calcium 10.1, Total Bilirubin 3.0H, Aspartate Amino Transf (AST/SGOT) 48H, Alanine Aminotransferase (ALT/SGPT) 28, Alkaline Phosphatase 174H, Total Protein 6.5, Albumin 3.2 08/07/21 05:48: White Blood Count 5.1, Red Blood Count 4.10, Hemoglobin 12.9, Hematocrit 38, Mean Corpuscular Volume 92, Mean Corpuscular Hemoglobin 32, Mean Corpuscular Hemoglobin Concent 34, Red Cell Distribution Width 19.1H, Platelet Count 95L, Mean Platelet Volume 13.4H, Immature Granulocyte % (Auto) 0, Neutrophils (%) (Auto) 63, Lymphocytes (%) (Auto) 21, Monocytes (%) (Auto) 14H, Eosinophils (%) (Auto) 1, Basophils (%) (Auto) 1, Neutrophils # (Auto) 3.2, Lymphocytes # (Auto) 1.1, Monocytes # (Auto) 0.7, Eosinophils # (Auto) 0.1, Basophils # (Auto) 0.1, Immature Granulocyte # (Auto) 0.0, Percent Immature Platelet Fraction 7.1, Sodium Level 143, Potassium Level 4.2, Chloride Level 110H, Carbon Dioxide Level 21, Anion Gap 12, Blood Urea Nitrogen 29H, Creatinine 1.33H, Estimat Glomerular Filtration Rate 38, BUN/Creatinine Ratio 22, Glucose Level 72, Calcium Level 9.2, Corrected Calcium 10.0, Total Bilirubin 3.0H, Aspartate Amino Transf (AST/SGOT) 43H, Alanine Aminotransferase (ALT/SGPT) 24, Alkaline Phosphatase 158H, Total Protein 6.2L, Albumin 3.0L Assessment/Plan Assessment/Plan Assessment/Plan 1. LE Swelling 2. Atrial fibrillation 3. Chronic Renal Failure 1. Continue on diuretic. Elevate legs and ambulate as tolerated. Continue to work with collaborate with medicine. LEO CISNEROS DO 08/07/21 1220: Subjective Time Seen by a Provider: 09:58 Subjective/Events-last exam Pt seen and examined, states she still has swelling. No better or worse. Review of Systems General: No Chills, No Fatigue Pulmonary: No Dyspnea, No Cough Cardiovascular: No: Chest Pain, Palpitations Gastrointestinal: No: Nausea, Vomiting, Abdominal Pain Genitourinary: No Dysuria, No Frequency Objective Exam General Appearance: No Apparent Distress, WD/WN Respiratory: Chest Non Tender, Lungs Clear, Normal Breath Sounds, No Accessory Muscle Use, No Respiratory Distress Cardiovascular: Regular Rate, Rhythm, No Murmur Gastrointestinal: non tender, soft Extremity: Pedal Edema, Swelling Skin: Ecchymosis Assessment/Plan Assessment/Plan Assessment/Plan 1. 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 Atrial fibrillation 3. Chronic Renal Failure Unsure of cause of IVC syndrome; no thrombus seen on US, no mass seen on CT. I reviewed the CT myself and discussed case with Dr. Bertrand, her IVC is very dilated. No ascites. Continue on diuretic. Elevate legs and ambulate as tolerated. Nothing surgical at this time and will sign off; can re-consult if needed. Supervisory-Addendum Brief Verification & Attestation Participated in pt care: history, MDM, physical Personally performed: exam, history, MDM, supervision of care Care discussed with: Medical Student Procedures: n/a Verification and Attestation of Medical Student E/M Service A medical student performed and documented this service. I then reviewed and verified all information documented by the medical student and made modifications to such information, when appropriate. I personally performed a physical exam, medical decision making and then discussed any differences between the notes and made revisions as necessary to create one note. Leo Cisneros , 08/07/21 , 12:28 SOLIS NOLASCO Aug 07, 2021 09:41 LEO CISNEROS DO Aug 07, 2021 12:20
--- NOTE | 2021-08-07 10:12 | Diagnostic Imaging Report ---
PROCEDURE: US Venous Lower Ext Steve. TECHNIQUE: Multiple real-time grayscale images were obtained over the lower extremities in various projections, bilaterally. Additional duplex Doppler and color Doppler images were also obtained. INDICATION: Leg swelling The veins of lower extremities have good color filling and compressibility. There is phasic flow and a normal response to augmentation. IMPRESSION: There is no sonographic evidence for deep vein thrombosis. Dictated by: Dictated on workstation # [id number]
[2021-08-07] MEDS: NYSTATIN CREAM (MYCOSTATIN) 30 GM TUBE TP SCH ×2 (10:15→12:37)
[2021-08-07] MEDS: TRIAMCINOLONE 0.1% CR (KENALOG) 80 GM TUBE TP SCH ×2 (10:15→12:37)
[2021-08-07] MEDS ORDERED: PED18TAB2 PO (10:23)
[2021-08-07] MEDS ORDERED: ACET-2267 PO (10:23)
[2021-08-07] MEDS ORDERED: POTA20TA15 PO (10:23)
--- NOTE | 2021-08-07 10:41 | History & Physical ---
History of Present Illness History of Present Illness Date of Admission Aug 06, 2021 at 16:41 I consulted on this patient on 08/07/21 10:41 Attending Physician Yulisa Roman DO Admitting Physician Taryn,Local Physician Consult Allergies and Home Medications Allergies Coded Allergies: codeine (Verified Allergy, Unknown, 08/06/21) levofloxacin (Verified Allergy, Unknown, 08/06/21) metronidazole (Verified Allergy, Unknown, 08/06/21) penicillin G (Verified Allergy, Unknown, 08/06/21) Patient Home Medication List Acetaminophen (Tylenol Extra Strength) 500 Mg Tablet, 500-1,000 MG PO Q8H PRN for PAIN-MILD (1-4), (Reported) Entered as Reported by: AGATA FLETCHER on 08/07/21 1023 Last Action: Reviewed Allopurinol (Allopurinol) 300 Mg Tablet, 300 MG PO DAILY, (Reported) Entered as Reported by: AISHA TURNER on 08/06/21 175 Last Action: Reviewed Apixaban (Eliquis) 2.5 Mg Tablet, 2.5 MG PO BIDPC, (Reported) Entered as Reported by: AISHA TURNER on 08/06/21 175 Last Action: Reviewed Levothyroxine Sodium (Levothyroxine Sodium) 88 Mcg Tablet, 88 MCG PO DAILY, (Reported) Entered as Reported by: RANJEET CAUSEY on 03/29/18 1356 Last Action: Reviewed Levothyroxine Sodium (Synthroid) 50 Mcg Tablet, 50 MCG PO DAILY Prescribed by: YULISA ROMAN on 08/07/21 1225 Metolazone (Metolazone) 5 Mg Tablet, 5 MG PO UD Prescribed by: YULISA ROMAN on 08/07/21 1155 Metoprolol Succinate (Metoprolol Succinate) 200 Mg Tab.er.24h, 200 MG PO DAILY, (Reported) Entered as Reported by: CALLY CHARLES on 10/07/15 0716 Last Action: Reviewed Nystatin (Nystatin) 15 Gm Cream..g., 0 GM TP TID Prescribed by: YULISA ROMAN on 08/07/21 1155 Ped Multivit #43/Iron Fumarate (Flintstones Complete Chew Tab) 18 Mg Tab.chew, 18 MG PO BID, (Reported) Entered as Reported by: AGATA FLETCHER on 08/07/21 1023 Last Action: Reviewed Potassium Chloride (Potassium Chloride) 20 Meq Tab.er.prt, 20 MEQ PO BID, (Reported) Entered as Reported by: AGATA FLETCHER on 08/07/21 1023 Last Action: Reviewed Torsemide (Torsemide) 20 Mg Tablet, 60 MG PO DAILY, (Reported) Entered as Reported by: CALLY CHARLES on 10/07/15 0716 Last Action: Reviewed Triamcinolone Acet (Triamcinolone Acetonide 0.1% Cream) 15 Gm Cr, 0 GM TP BID Prescribed by: YULISA ROMAN on 08/07/21 1155 Discontinued Medications Dabigatran Etexilate Mesylate (Pradaxa) 150 Mg Capsule, 150 MG PO BID, (Reported) Discontinued Reason: No Longer Taking Entered as Reported by: RANJEET CAUSEY on 03/29/18 135 Last Action: Discontinued Febuxostat (Uloric) 80 Mg Tablet, 80 MG PO DAILY, (Reported) Discontinued Reason: No Longer Taking Entered as Reported by: RANJEET CAUSEY on 03/29/18 135 Last Action: Discontinued Nystatin (Nystatin) 1 Each Powder.ea., 1 EACH MC BID Discontinued Reason: No Longer Taking Prescribed by: YO VAIL on 07/03/21 1545 Last Action: Discontinued Pedi Mv No.79/Ferrous Fumarate (Flintstones with Iron Tab Chew) 18 Mg Tab.chew, 36 MG PO DAILY, (Reported) Discontinued Reason: Prescription changed Entered as Reported by: RANJEET CAUSEY on 03/29/18 135 Last Action: Reviewed Potassium Chloride (Potassium Chloride) 10 Meq Tablet.er, 10 MEQ PO TID, (Rep orted) Discontinued Reason: No Longer Taking Entered as Reported by: RANJEET CAUSEY on 03/29/18 135 Last Action: Discontinued Tramadol HCl (Ultram) 50 Mg Tablet, 50 MG PO Q6H PRN for PAIN-MODERATE TO SEVERE Discontinued Reason: No Longer Taking Prescribed by: YO VAIL on 06/11/18 0669 Last Action: Discontinued Past Knrwdns-Tomool-Jkbmsz Hx Patient Social History Tobacco Use?: No Smoking Status: Never a Smoker Substance use?: No Substance type: Caffeine (1 soda a day) Alcohol Use?: No Pt feels they are or have been: No Immunizations Up To Date Date of Influenza Vaccine: Aug 06, 2015 First/Initial COVID19 Vaccinat: January 14 Second COVID19 Vaccination Garett: February 11 Tetanus Booster (TDap): Less Than 5 Years Hepatitis A: Yes Hepatitis B: Yes Date of Pneumonia Vaccine: Oct 14, 2009 Current Status status: No Advance Directives: Yes Advance Directive Location: Home Communicates: Verbally Primary Language: Trinidadian Preferred Spoken Language: Trinidadian Is interpretation needed?: No Sensory deficits: Vision impairment Implanted or Applied Medical D: None Past Medical History Surgeries: Eye Surgery (cataracts), Orthopedic (Knee and finger) Sleep Apnea Atrial Fibrillation, Hypertension Gout Hypothyroidsim Loss of Vision: Bilateral Hearing Impairment: Hard of Hearing Blood Disorders: No Family Medical History Cancer 09 SISTER (breast ) Family history: Hypertension 03 FATHER son History of - disorder 09 SISTER (lupus) Myocardial infarction 03 MOTHER Stroke 03 FATHER Heart Disease (RI in mother, tachycardia in father, AFIB in sister), Hypertension, Stroke (Father) Physical Exam Vital Signs Vital Signs - First Documented 08/06/21 16:50 Temp 36.9 Pulse 66 Resp 20 B/P (MAP) 131/81 (98) Pulse Ox 96 O2 Delivery Room Air Capillary Refill : Height, Weight, BMI Height: 5'3.50" Weight: 211lbs. 8.0oz. 95.053628ti; 38.98 BMI Method:Stated GEO WOLFE Aug 07, 2021 10:41
[2021-08-07 11:33] VITALS: BP 132/61
[2021-08-07 11:50] LABS: BILIRUBIN,URINE NEGATIVE (NEGATIVE); CLARITY,URINE CLEAR; COLOR,URINE YELLOW; GLUCOSE, URINE (UA) NEGATIVE (NEGATIVE); KETONES,URINE NEGATIVE (NEGATIVE); LEUKOCYTE ESTERASE ,URINE NEGATIVE (NEGATIVE); NITRITE,URINE NEGATIVE (NEGATIVE); PROTEIN,URINE TRACE (NEGATIVE)
[2021-08-07] MEDS ORDERED: TR1C15 TP (11:55)
[2021-08-07] MEDS ORDERED: METO5TAB6 PO (11:55)
[2021-08-07] MEDS ORDERED: NYST15CR TP (11:55)
[2021-08-07 12:04] LABS: WBC,URINE 0-2 /HPF
[2021-08-07 12:05] LABS: BACTERIA,URINE NEGATIVE /HPF
--- NOTE | 2021-08-07 12:08 | Diagnostic Imaging Report ---
INDICATION: PROCEDURE: Ultrasound abdomen complete. TECHNIQUE: Multiple real-time grayscale images were obtained of the abdomen in various projections. INDICATION: Anasarca, cholecystectomy. COMPARISON: Exam is correlated with nonenhanced abdominal CT dated 08/07/2021. FINDINGS: There is no detectable free fluid. Liver parenchyma appeared unremarkable. The portal vein shows hepatopetal directional flow with hyperdynamic pulsatility. Hepatic veins as well as the intrahepatic cava are patent but distended and showed intermittent bidirectional flow. No vascular obstruction. The gallbladder is absent. There is no intrahepatic biliary ductal dilatation. The unobstructed right kidney is 11.4 cm. The unremarkable left kidney is 8.8 cm. No hydronephrosis. Spleen is 10 cm, within normal limits. The pancreas was obscured by gas. IMPRESSION: Pulsatile venous distention of the cava and hepatic veins, hyperpulsatile portal vein. No identifiable ascites or biliary dilatation. Absent gallbladder. Obscured pancreas. Unobstructed kidneys. Dictated by: Dictated on workstation # [id number]
--- NOTE | 2021-08-07 12:18 | Consultation-Cardiology ---
HPI-Cardiology Cardiology Consultation: Date of Consultation 08/07/21 Time Seen by a Provider: 09:20 Date of Admission Attending Physician Yulisa Roman DO Admitting Physician No,Local Physician Consulting Physician ISABELLE CARLTON MD, MA, FACP, FACC, FSCAI, CCDS Physician requesting Card consult: Dr Roman HPI: Chief Complaint: Reason for Card consult: Leg swelling HPI 81 yo woman with chronic leg swelling that has been progressively getting worse for the last several months. No cp or palp or syncope. No increase in chronic, mod shortness of breath. No focal weakness. Gen malaise present. Some feeling of abd distention. No n/v/d Review of Systems-Cardiology Review of Systems Constitutional: malaise, tiredness Ears/Nose/Throat: No ear discharge, No nasal drainage, No recent hearing loss Respiratory: As described under HPI Cardiovascular: As described under HPI Gastrointestinal: As described under HPI Genitourinary: No dysuria, No hematuria Musculoskeletal: back pain (chronic), joint pain (chronic) Skin: No rash, No ulcerations Psychiatric/Neurological: No seizure, No focal weakness, No syncope Hematologic: No bleeding abnormalities OAL-Ovvnar-Xjumhh Hx Patient Social History Smoking Status: Never a Smoker 2nd Hand Smoke Exposure: No Have you traveled recently?: No Alcohol Use?: No Substance type: Caffeine (1 soda a day) Pt feels they are or have been: No Immunizations Up To Date Tetanus Booster (TDap): Less than 5yrs Date of Pneumonia Vaccine: Oct 14, 2009 Date of Influenza Vaccine: Aug 06, 2015 Past Medical History PMH As described under Assessment. Family Medical History Family History: Cancer 09 SISTER (breast ) Family history: Hypertension 03 FATHER son History of - disorder 09 SISTER (lupus) Myocardial infarction 03 MOTHER Stroke 03 FATHER Allergies and Home Medications Allergies Coded Allergies: codeine (Verified Allergy, Unknown, 08/06/21) levofloxacin (Verified Allergy, Unknown, 08/06/21) metronidazole (Verified Allergy, Unknown, 08/06/21) penicillin G (Verified Allergy, Unknown, 08/06/21) Patient Home Medication List Home Medication List Reviewed: Yes Acetaminophen (Tylenol Extra Strength) 500 Mg Tablet, 500-1,000 MG PO Q8H PRN for PAIN-MILD (1-4), (Reported) Entered as Reported by: AGATA FLETCHER on 08/07/21 1023 Last Action: Reviewed Allopurinol (Allopurinol) 300 Mg Tablet, 300 MG PO DAILY, (Reported) Entered as Reported by: AISHA TURNER on 08/06/211754 Last Action: Reviewed Apixaban (Eliquis) 2.5 Mg Tablet, 2.5 MG PO BIDPC, (Reported) Entered as Reported by: AISHA TURNER on 08/06/211754 Last Action: Reviewed Levothyroxine Sodium (Levothyroxine Sodium) 88 Mcg Tablet, 88 MCG PO DAILY, (Reported) Entered as Reported by: RANJEET CAUSEY on 03/29/18 1356 Last Action: Reviewed Metolazone (Metolazone) 5 Mg Tablet, 5 MG PO UD Prescribed by: YULISA ROMAN on 08/07/21 115 Metoprolol Succinate (Metoprolol Succinate) 200 Mg Tab.er.24h, 200 MG PO DAILY, (Reported) Entered as Reported by: CALLY CHARLES on 10/07/1516 Last Action: Reviewed Nystatin (Nystatin) 15 Gm Cream..g., 0 GM TP TID Prescribed by: YULISA ROMAN on 08/07/21 1155 Ped Multivit #43/Iron Fumarate (Flintstones Complete Chew Tab) 18 Mg Tab.chew, 18 MG PO BID, (Reported) Entered as Reported by: AGATA FLETCHER on 08/07/21 102 Last Action: Reviewed Potassium Chloride (Potassium Chloride) 20 Meq Tab.er.prt, 20 MEQ PO BID, (Reported) Entered as Reported by: AGATA FLETCHER on 08/07/21 102 Last Action: Reviewed Torsemide (Torsemide) 20 Mg Tablet, 60 MG PO DAILY, (Reported) Entered as Reported by: CALLY CHARLES on 10/07/1516 Last Action: Reviewed Triamcinolone Acet (Triamcinolone Acetonide 0.1% Cream) 15 Gm Cr, 0 GM TP BID Prescribed by: YULISA ROMAN on 08/07/21 115 Discontinued Medications Dabigatran Etexilate Mesylate (Pradaxa) 150 Mg Capsule, 150 MG PO BID, (Reported) Discontinued Reason: No Longer Taking Entered as Reported by: RANJEET CAUSEY on 5/16/18 1356 Last Action: Discontinued Febuxostat (Uloric) 80 Mg Tablet, 80 MG PO DAILY, (Reported) Discontinued Reason: No Longer Taking Entered as Reported by: RANJEET CAUSEY on 03/29/181355 Last Action: Discontinued Nystatin (Nystatin) 1 Each Powder.ea., 1 EACH MC BID Discontinued Reason: No Longer Taking Prescribed by: YO VAIL on 07/03/21 1545 Last Action: Discontinued Pedi Mv No.79/Ferrous Fumarate (Flintstones with Iron Tab Chew) 18 Mg Tab.chew, 36 MG PO DAILY, (Reported) Discontinued Reason: Prescription changed Entered as Reported by: RANJEET CAUSEY on 03/29/181355 Last Action: Reviewed Potassium Chloride (Potassium Chloride) 10 Meq Tablet.er, 10 MEQ PO TID, (Reported) Discontinued Reason: No Longer Taking Entered as Reported by: RANJEET CAUSEY on 03/29/181355 Last Action: Discontinued Tramadol HCl (Ultram) 50 Mg Tablet, 50 MG PO Q6H PRN for PAIN-MODERATE TO SEVERE Discontinued Reason: No Longer Taking Prescribed by: YO VAIL on 06/11/18 1729 Last Action: Discontinued Physical Exam-Cardiology Physical Exam Vital Signs/I&O 08/07/21 08/07/21 08/07/21 08/07/21 01:00 03:38 07:00 07:34 Temp 36.4 36.3 Pulse 60 63 65 65 Resp 18 18 B/P (MAP) 116/68 (84) 125/61 (82) Pulse Ox 95 94 O2 Delivery Room Air Room Air 08/07/21 08/07/21 08:00 11:33 Temp 36.4 Pulse 68 Resp 18 B/P (MAP) 132/61 (84) Pulse Ox 92 O2 Delivery Room Air Room Air 08/07/21 00:00 Intake Total 240 ml Balance 240 ml Capillary Refill : Constitutional: AAO x 3, well-developed, well-nourished HEENT: EOMI, hearing is well preserved; No xanthelasmas are seen Neck: carotid pulses are 2 + bilaterally, with good upstrokes Respiratory: No accessory muscle use; other (good, bilateral air entry) Cardiovascular: regular rate-rhythm, S1 and S2, systolic murmur (soft JOAO at card base) Gastrointestinal: No tender; soft; No guarding, No rebound; audible bowel sounds Rectal: deferred Extremities: No clubbing, No cyanosis; significant edema (4+ leg edema, bilateral) Neurologic/Psychiatric: oriented x 3, other (moves all limbs equally) Skin: ecchymosis (Lower legs); No rash on exposed areas, No ulcerations on exposed areas; other (bilateral leg swelling and some redness of the lower legs) Data Review Labs Laboratory Tests 08/06/21 17:40: White Blood Count 3.9L, Red Blood Count 4.32, Hemoglobin 13.5, Hematocrit 40, Mean Corpuscular Volume 93, Mean Corpuscular Hemoglobin 31, Mean Corpuscular Hemoglobin Concent 34, Red Cell Distribution Width 19.4H, Platelet Count 105L, Mean Platelet Volume 11.3, Immature Granulocyte % (Auto) 0, Neutrophils (%) (Auto) 58, Lymphocytes (%) (Auto) 26, Monocytes (%) (Auto) 15H, Eosinophils (%) (Auto) 0, Basophils (%) (Auto) 1, Neutrophils # (Auto) 2.3, Lymphocytes # (Auto) 1.0, Monocytes # (Auto) 0.6, Eosinophils # (Auto) 0.0, Basophils # (Auto) 0.0, Immature Granulocyte # (Auto) 0.0, Percent Immature Platelet Fraction 7.2, Prothrombin Time 18.3H, INR Comment 1.5H, Activated Partial Thromboplast Time 38H, Sodium Level 141, Potassium Level 4.6, Chloride Level 106, Carbon Dioxide Level 24, Anion Gap 11, Blood Urea Nitrogen 30H, Creatinine 1.42H, Estimat Glomerular Filtration Rate 36, BUN/Creatinine Ratio 21, Glucose Level 91, Calcium Level 9.5, Corrected Calcium 10.1, Total Bilirubin 3.0H, Aspartate Amino Transf (AST/SGOT) 48H, Alanine Aminotransferase (ALT/SGPT) 28, Alkaline Phosphatase 174H, Total Protein 6.5, Albumin 3.2 08/07/21 05:48: White Blood Count 5.1, Red Blood Count 4.10, Hemoglobin 12.9, Hematocrit 38, Mean Corpuscular Volume 92, Mean Corpuscular Hemoglobin 32, Mean Corpuscular Hemoglobin Concent 34, Red Cell Distribution Width 19.1H, Platelet Count 95L, Mean Platelet Volume 13.4H, Immature Granulocyte % (Auto) 0, Neutrophils (%) (Auto) 63, Lymphocytes (%) (Auto) 21, Monocytes (%) (Auto) 14H, Eosinophils (%) (Auto) 1, Basophils (%) (Auto) 1, Neutrophils # (Auto) 3.2, Lymphocytes # (Auto) 1.1, Monocytes # (Auto) 0.7, Eosinophils # (Auto) 0.1, Basophils # (Auto) 0.1, Immature Granulocyte # (Auto) 0.0, Percent Immature Platelet Fraction 7.1, Sodium Level 143, Potassium Level 4.2, Chloride Level 110H, Carbon Dioxide Level 21, Anion Gap 12, Blood Urea Nitrogen 29H, Creatinine 1.33H, Estimat Glomerular Filtration Rate 38, BUN/Creatinine Ratio 22, Glucose Level 72, Calcium Level 9.2, Corrected Calcium 10.0, Total Bilirubin 3.0H, Aspartate Amino Transf (AST/SGOT) 43H, Alanine Aminotransferase (ALT/SGPT) 24, Alkaline Phosphatase 158H, Total Protein 6.2L, Albumin 3.0L 08/07/21 10:40: Urine Color YELLOW, Urine Clarity CLEAR, Urine pH 6.0, Urine Specific [place] >=1.030, Urine Protein TRACEH, Urine Glucose (UA) NEGATIVE, Urine Ketones NEGATIVE, Urine Nitrite NEGATIVE, Urine Bilirubin NEGATIVE, Urine Urobilinogen 0.2, Urine Leukocyte Esterase NEGATIVE, Urine RBC (Auto) NEGATIVE, Urine RBC NONE, Urine WBC 0-2, Urine Squamous Epithelial Cells 2-5, Urine Crystals NONE, Urine Bacteria NEGATIVE, Urine Casts NONE, Urine Mucus NEGATIVE, Urine Culture Indicated NO 08/07/21 11:30: Ammonia 29, Amylase Level 40, Lipase 21 Laboratory Tests 08/06/21 17:40 08/07/21 05:48 A/P-Cardiology Assessment/Admission Diagnosis Leg swelling due to chronic cor pulmonale and due to chronic lymphedema CAD - Cardiac cath of 10-07-15 showed minimal coronary plaques without any obstructive disease. LVEF 60-65%. Mod elevation of LVEDP. No significant MR - MPI of 03-10-2021 shows no evidence of ischemia or infarction. LVEF 70% Paroxysmal Atrial Fibrillation - OAC with Eliquis, low dose per PCP d/t propensity to bleeding, advanced age a nd CKD Mod pulm htn and chronic cor pulmonale - consider chronic pulm thromboembolism, inadequately treated FABRIZIO, pulm fibrosis, primary pulm hypertension, etc - Echo of 03-09-2021 showed LVEF 70-75%. Mod MR. Mod to severe TR. PASP 50-55 mmHg PAD - arterial Doppler of February 2021 reported mod atheromatous plaque on both sides w/o evidence of hemodynamic significance Hyperlipidemia - unable to take statins - followed by her PCP Obesity - with a BMI of approximately 40 Hypothyroidism - managed by PCP CKD-3. - Chronic renal insuff with Cr ranging between 1 and 1.4. CKD stage 3, followed by [facility] Impaired fasting glucose - managed by PCP Carotid dz - Mild bilateral carotid art disease on carotid u/s of 02-27-2021 FABRIZIO - for which she is on CPAP therapy and is managed by the Pulm services H/o gout - managed by PCP Discussion and Recomendations * Complex management due to multiple comorbidities * I have communicated with Dr Roman and recommended the following: consider chronic pulm thromboembolism, inadequately treated FABRIZIO, pulm fibrosis, primary pulm hypertension, etc * Recheck TSH * Treat with iv diuretics for now * Monitor labs closely * Dr Velasquez covering the Card svce over the weekend ISABELLE CARLTON MD FACP FAC CCDS Aug 07, 2021 12:18
[2021-08-07] MEDS ORDERED: LEVO50TA PO (12:25)
[2021-08-07] MEDS ORDERED: KCL 20 MEQ TAB (K-DUR) PO ONE (12:30)
[2021-08-07] MEDS ORDERED: LEVOTHYROXINE 50 MCG (LEVOTHROID) TAB PO ONE (12:30)
[2021-08-07] MEDS ORDERED: FUROSEMIDE 40 MG/4 ML INJ (LASIX) IVP ONE (12:30)
--- NOTE | 2021-08-07 13:28 | Short Stay Summary ---
GEO WOLFE 08/07/21 1328: History of Present Illness History of Present Illness Reason for visit/HPI Sultana Tobin is an 81 yo female with a past medical history of Afib, CHF, FABRIZIO w/ CPAP, hypothyroid who was admitted 08/06 for anasarca. Patient reports long history of BLE edema, with acute worsening in January. She follows regularly with a rug setter [place] for management of her CHF and afib. Her edema is managed with torsemide 20mg TID. She had an echo in February 2021 that was significant for pulmonary hypertension. Stress test in February was negative. However for the past 6 weeks she has noticed that her legs have become painfully swollen. Patient is currently experiencing stress at home, as she has to make frequent appointments to for her 's lung disease. Endorses increased sitting down for lung periods of time and decreased activity. She has noticed erythema and wounds around both legs. Pt reports having an US of her legs in [place] recently, but c laims that it was "normal." Due to this increased pain, patient went to Dr. Roman on 08/06. Pt was subsequently transferred to [facility] for severe anasarca and jaundice. Today Mrs. Tobin reports that her legs are still in pain, rating the pain 6/10. She has never experienced this level of swelling and redness in her legs. Reports that her abdomen is now swollen. Denies fevers, chills, SOB. Denies chest pain palpitations, Denies abdominal pain, tenderness. Denies diarrhea, constipation Date of Admission Aug 06, 2021 at 16:41 Date of Discharge Time Seen by Provider: 09:45 Attending Physician Yulisa Roman DO Admitting Physician No,Local Physician Consult Allergies and Home Medications Allergies Coded Allergies: codeine (Verified Allergy, Unknown, 08/06/21) levofloxacin (Verified Allergy, Unknown, 08/06/21) metronidazole (Verified Allergy, Unknown, 08/06/21) penicillin G (Verified Allergy, Unknown, 08/06/21) Patient Home Medication List Home Medication List Reviewed: Yes Acetaminophen (Tylenol Extra Strength) 500 Mg Tablet, 500-1,000 MG PO Q8H PRN for PAIN-MILD (1-4), (Reported) Entered as Reported by: AGATA FLETCHER on 08/07/21 1023 Last Action: Reviewed Allopurinol (Allopurinol) 300 Mg Tablet, 300 MG PO DAILY, (Reported) Entered as Reported by: AISHA TURNER on 08/06/211754 Last Action: Reviewed Apixaban (Eliquis) 2.5 Mg Tablet, 2.5 MG PO BIDPC, (Reported) Entered as Reported by: AISHA TURNER on 08/06/211754 Last Action: Reviewed Levothyroxine Sodium (Levothyroxine Sodium) 88 Mcg Tablet, 88 MCG PO DAILY, (Reported) Entered as Reported by: RANJEET CAUSEY on 03/29/18 1356 Last Action: Reviewed Levothyroxine Sodium (Synthroid) 50 Mcg Tablet, 50 MCG PO DAILY Prescribed by: YULISA ROMAN on 08/07/21 1225 Metolazone (Metolazone) 5 Mg Tablet, 5 MG PO UD Prescribed by: YULISA ROMAN on 08/07/21 115 Metoprolol Succinate (Metoprolol Succinate) 200 Mg Tab.er.24h, 200 MG PO DAILY, (Reported) Entered as Reported by: CALLY CHARLES on 10/07/15715 Last Action: Reviewed Nystatin (Nystatin) 15 Gm Cream..g., 0 GM TP TID Prescribed by: YULISA ROMAN on 08/07/21 1155 Ped Multivit #43/Iron Fumarate (Flintstones Complete Chew Tab) 18 Mg Tab.chew, 18 MG PO BID, (Reported) Entered as Reported by: AGATA FLETCHER on 08/07/21 1023 Last Action: Reviewed Potassium Chloride (Potassium Chloride) 20 Meq Tab.er.prt, 20 MEQ PO BID, ( Reported) Entered as Reported by: AGATA FLETCHER on 08/07/21 102 Last Action: Reviewed Torsemide (Torsemide) 20 Mg Tablet, 60 MG PO DAILY, (Reported) Entered as Reported by: CALLY CHARLES on 10/07/15715 Last Action: Reviewed Triamcinolone Acet (Triamcinolone Acetonide 0.1% Cream) 15 Gm Cr, 0 GM TP BID Prescribed by: YULISA ROMAN on 08/07/21 115 Discontinued Medications Dabigatran Etexilate Mesylate (Pradaxa) 150 Mg Capsule, 150 MG PO BID, (Reported) Discontinued Reason: No Longer Taking Entered as Reported by: RANJEET CAUSEY on 03/29/181355 Last Action: Discontinued Febuxostat (Uloric) 80 Mg Tablet, 80 MG PO DAILY, (Reported) Discontinued Reason: No Longer Taking Entered as Reported by: RANJEET CAUSEY on 03/29/181355 Last Action: Discontinued Nystatin (Nystatin) 1 Each Powder.ea., 1 EACH MC BID Discontinued Reason: No Longer Taking Prescribed by: YO VAIL on 07/03/21 1545 Last Action: Discontinued Pedi Mv No.79/Ferrous Fumarate (Flintstones with Iron Tab Chew) 18 Mg Tab.chew, 36 MG PO DAILY, (Reported) Discontinued Reason: Prescription changed Entered as Reported by: RANJEET CAUSEY on 03/29/181355 Last Action: Reviewed Potassium Chloride (Potassium Chloride) 10 Meq Tablet.er, 10 MEQ PO TID, (Reported) Discontinued Reason: No Longer Taking Entered as Reported by: RANJEET CAUSEY on 03/29/181355 Last Action: Discontinued Tramadol HCl (Ultram) 50 Mg Tablet, 50 MG PO Q6H PRN for PAIN-MODERATE TO SEVERE Discontinued Reason: No Longer Taking Prescribed by: YO VAIL on 06/11/18 1729 Last Action: Discontinued Past Vjvdrox-Tjxzfm-Vccrzb Hx Patient Social History Smoking Status: Never a Smoker 2nd Hand Smoke Exposure: No Have you traveled recently?: No Alcohol Use?: No Substance type: Caffeine (1 soda a day) Pt feels they are or have been: No Immunizations Up To Date Tetanus Booster (TDap): Less than 5yrs Date of Pneumonia Vaccine: Oct 14, 2009 Date of Influenza Vaccine: Aug 06, 2015 Surgeries Yes Eye Surgery (cataracts), Orthopedic (Knee and finger) Respiratory Yes Cardiovascular Yes Atrial Fibrillation, Hypertension Neurological No Reproductive System : No Hx Reproductive Disorders: No Genitourinary No Gastrointestinal No Musculoskeletal Yes Gout Endocrine History of Endocrine Disorders: No Endocrine Disorders: Hypothyroidsim HEENT History of HEENT Disorders: No Loss of Vision: Bilateral Hearing Impairment: Hard of Hearing Cancer No Psychosocial History of Psychiatric Problem: No Integumentary History of Skin or Integumenta: No Blood Transfusions History of Blood Disorders: No Family Medical History Significant Family History: Heart Disease (UT in mother, tachycardia in father, AFIB in sister), Hypertension, Stroke (Father) Family Hx: Cancer 09 SISTER (breast ) Family history: Hypertension 03 FATHER son History of - disorder 09 SISTER (lupus) Myocardial infarction 03 MOTHER Stroke 03 FATHER Physical Exam Vital Signs Vital Signs - First Documented 08/06/21 16:50 Temp 36.9 Pulse 66 Resp 20 B/P (MAP) 131/81 (98) Pulse Ox 96 O2 Delivery Room Air Capillary Refill : Height, Weight, BMI Height: 5'3.50" Weight: 211lbs. 8.0oz. [id number]; 38.98 BMI Method:Stated General Appearance: No Apparent Distress, Other (Jaundiced) Neck: Full Range of Motion, JVD Respiratory: Chest Non Tender, Lungs Clear, Normal Breath Sounds, No Accessory Muscle Use, No Respiratory Distress Cardiovascular: Regular Rate, Rhythm Gastrointestinal: Normal Bowel Sounds, No Pulsatile Mass, Non Tender, Soft Extremity: Normal Capillary Refill, No Calf Tenderness Neurologic/Psychiatric: Alert, Oriented x3 Skin: Warm/Dry, Jaundice Short Stay Diagnosis Discharge Diagnosis-Short Stay Admission Diagnosis: Anasarca Final Discharge Diagnosis: Anasarca is likely multifactoral due to components of the following components -Cor pulmonale and pulmonary hypertension: Echo 02/2021 demonstrating RV dilation, mod-severe TR, PASP 50-55. Chest xray 08/07 demonstrating hilar ymphadenopathy, pulm vasc congestion. CT chest 08/05 demonstrating bilateral pleural effusion, mild pulm HTN, dilated IVC and small lung nodule (0.6cm) -Lymphedema: Pt reports long history of lymphedema. Has been much less active the last 6 weeks when symptoms began. Travels in car often for frequent trips to and from -Nutrition: Albumin is 3.0, which may be contributing to third spacing -Liver disease: Pt jaundiced on exam and has BMI 39 concerning for fatty liver disease. CT abdomen and US abdomen demonstrate grossly normal - no signs of cirrhosis, morphologic changes, ascites. AST 43, ALk phos 158, bilirubin 3.0 -Hypothyroid: TSH 7.0 Conclusion Labs Laboratory Tests 08/06/21 17:40: White Blood Count 3.9L, Red Blood Count 4.32, Hemoglobin 13.5, Hematocrit 40, M elisabet Corpuscular Volume 93, Mean Corpuscular Hemoglobin 31, Mean Corpuscular Hemoglobin Concent 34, Red Cell Distribution Width 19.4H, Platelet Count 105L, Mean Platelet Volume 11.3, Immature Granulocyte % (Auto) 0, Neutrophils (%) (Auto) 58, Lymphocytes (%) (Auto) 26, Monocytes (%) (Auto) 15H, Eosinophils (%) (Auto) 0, Basophils (%) (Auto) 1, Neutrophils # (Auto) 2.3, Lymphocytes # (Auto) 1.0, Monocytes # (Auto) 0.6, Eosinophils # (Auto) 0.0, Basophils # (Auto) 0.0, Immature Granulocyte # (Auto) 0.0, Percent Immature Platelet Fraction 7.2, Prothrombin Time 18.3H, INR Comment 1.5H, Activated Partial Thromboplast Time 38H, Sodium Level 141, Potassium Level 4.6, Chloride Level 106, Carbon Dioxide Level 24, Anion Gap 11, Blood Urea Nitrogen 30H, Creatinine 1.42H, Estimat Glomerular Filtration Rate 36, BUN/Creatinine Ratio 21, Glucose Level 91, Calc ium Level 9.5, Corrected Calcium 10.1, Total Bilirubin 3.0H, Aspartate Amino Transf (AST/SGOT) 48H, Alanine Aminotransferase (ALT/SGPT) 28, Alkaline Phosphatase 174H, Total Protein 6.5, Albumin 3.2 08/07/21 05:48: White Blood Count 5.1, Red Blood Count 4.10, Hemoglobin 12.9, Hematocrit 38, Mean Corpuscular Volume 92, Mean Corpuscular Hemoglobin 32, Mean Corpuscular Hemoglobin Concent 34, Red Cell Distribution Width 19.1H, Platelet Count 95L, Mean Platelet Volume 13.4H, Immature Granulocyte % (Auto) 0, Neutrophils (%) (Auto) 63, Lymphocytes (%) (Auto) 21, Monocytes (%) (Auto) 14H, Eosinophils (%) (Auto) 1, Basophils (%) (Auto) 1, Neutrophils # (Auto) 3.2, Lymphocytes # (Auto) 1.1, Monocytes # (Auto) 0.7, Eosinophils # (Auto) 0.1, Basophils # (Auto) 0.1, Immature Granulocyte # (Auto) 0.0, Percent Immature Platelet Fraction 7.1, Sodium Level 143, Potassium Level 4.2, Chloride Level 110H, Carbon Dioxide Level 21, Anion Gap 12, Blood Urea Nitrogen 29H, Creatinine 1.33H, Estimat Glomerular Filtration Rate 38, BUN/Creatinine Ratio 22, Glucose Level 72, Calcium Level 9.2, Corrected Calcium 10.0, Total Bilirubin 3.0H, Aspartate Amino Transf (AST/SGOT) 43H, Alanine Aminotransferase (ALT/SGPT) 24, Alkaline Phosphatase 158H, Total Protein 6.2L, Albumin 3.0L, D-Dimer 0.33 08/07/21 10:40: Urine Color YELLOW, Urine Clarity CLEAR, Urine pH 6.0, Urine Specific [place] >=1.030, Urine Protein TRACEH, Urine Glucose (UA) NEGATIVE, Urine Ketones NEGATIVE, Urine Nitrite NEGATIVE, Urine Bilirubin NEGATIVE, Urine Urobilinogen 0.2, Urine Leukocyte Esterase NEGATIVE, Urine RBC (Auto) NEGATIVE, Urine RBC NONE, Urine WBC 0-2, Urine Squamous Epithelial Cells 2-5, Urine Crystals NONE, Urine Bacteria NEGATIVE, Urine Casts NONE, Urine Mucus NEGATIVE, Urine Culture Indicated NO 08/07/21 11:30: Ammonia 29, Amylase Level 40, Lipase 21, Thyroid Stimulating Hormone (TSH) 7.03H Conclusion/Plan Patient discharged 08/07 as hospital findings were negative for acute disease and is medically stable. Patient will follow up with Dr. Roman outpatient. Encouraged family to order leg compression wraps. Pt is currently taking 88mcg of levothyroxine and will be discharged with an additional 50mcg. Things that will be followed up outpatient -GGT pending -Hepatitis panel pending -Per surgery: possible concern for future IVC syndrome. Will continue to monitor YULISA ROMAN DO 08/08/21 0637: History of Present Illness History of Present Illness Reason for visit/HPI Chief complaint: Anasarca History present illness: This is an 81-year-old white female brand-new patient of mine as of yesterday in clinic who presented with severe lymphedema and anasarca. Reports this has been for the last 2 months. She has been maintained on Eliquis low-dose atrial fibrillation dosing of 2.5 mg twice daily per Dr. Hammond. She has been taking more torsemide and he added Zaroxolyn to the regimen the day before. She reports she is always had lower extremity edema diagnosed several years ago by Dr. Brambila but this had increased to the point she could barely walk. We did obtain CT scan without IV contrast due to renal insufficiency which did not show any evidence of what I assume to be end-stage liver disease with ascites. Abdominal ultrasound did not show any evidence of end-stage liver disease either. The fluid appeared to be soft tissue only. She has been in the car and sitting for doctor's appointments for her the last couple of months so likely several contributing factors have been assessed as the source of the worsening lymphedema and anasarca including TSH is 7 so I did add increased dose of thyroid to the regimen. 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 Pulmonary clinic will see her for pulmonary hypertension. Time Seen by Provider: 11:00 Allergies and Home Medications Allergies Coded Allergies: codeine (Verified Allergy, Unknown, 08/06/21) levofloxacin (Verified Allergy, Unknown, 08/06/21) metronidazole (Verified Allergy, Unknown, 08/06/21) penicillin G (Verified Allergy, Unknown, 08/06/21) Patient Home Medication List Home Medication List Reviewed: Yes Acetaminophen (Tylenol Extra Strength) 500 Mg Tablet, 500-1,000 MG PO Q8H PRN for PAIN-MILD (1-4), (Reported) Entered as Reported by: AGATA FLETCHER on 08/07/21 1023 Last Action: Reviewed Allopurinol (Allopurinol) 300 Mg Tablet, 300 MG PO DAILY, (Reported) Entered as Reported by: AISHA TURNER on 08/06/211754 Last Action: Reviewed Apixaban (Eliquis) 2.5 Mg Tablet, 2.5 MG PO BIDPC, (Reported) Entered as Reported by: AISHA TURNER on 08/06/21 175 Last Action: Reviewed Levothyroxine Sodium (Levothyroxine Sodium) 88 Mcg Tablet, 88 MCG PO DAILY, (Reported) Entered as Reported by: RANJEET CAUSEY on 03/29/18 1356 Last Action: Reviewed Levothyroxine Sodium (Synthroid) 50 Mcg Tablet, 50 MCG PO DAILY Prescribed by: YULISA ROMAN on 08/07/21 1225 Metolazone (Metolazone) 5 Mg Tablet, 5 MG PO UD Prescribed by: YULISA ROMAN on 08/07/21 1155 Metoprolol Succinate (Metoprolol Succinate) 200 Mg Tab.er.24h, 200 MG PO DAILY, (Reported) Entered as Reported by: CALLY CHARLES on 10/07/15715 Last Action: Reviewed Nystatin (Nystatin) 15 Gm Cream..g., 0 GM TP TID Prescribed by: YULISA ROMAN on 08/07/21 1155 Ped Multivit #43/Iron Fumarate (Flintstones Complete Chew Tab) 18 Mg Tab.chew, 18 MG PO BID, (Reported) Entered as Reported by: AGATA FLETCHER on 08/07/21 1023 Last Action: Reviewed Potassium Chloride (Potassium Chloride) 20 Meq Tab.er.prt, 20 MEQ PO BID, (Reported) Entered as Reported by: AGATA FLETCHER on 08/07/21 102 Last Action: Reviewed Torsemide (Torsemide) 20 Mg Tablet, 60 MG PO DAILY, (Reported) Entered as Reported by: CALLY CHARLES on 10/07/15715 Last Action: Reviewed Triamcinolone Acet (Triamcinolone Acetonide 0.1% Cream) 15 Gm Cr, 0 GM TP BID Prescribed by: YULISA ROMAN on 08/07/21 1155 Discontinued Medications Dabigatran Etexilate Mesylate (Pradaxa) 150 Mg Capsule, 150 MG PO BID, (Reported) Discontinued Reason: No Longer Taking Entered as Reported by: RANJEET CAUSEY on 03/29/18 135 Last Action: Discontinued Febuxostat (Uloric) 80 Mg Tablet, 80 MG PO DAILY, (Reported) Discontinued Reason: No Longer Taking Entered as Reported by: RANJEET CAUSEY on 03/29/18 135 Last Action: Discontinued Nystatin (Nystatin) 1 Each Powder.ea., 1 EACH MC BID Discontinued Reason: No Longer Taking Prescribed by: YO VAIL on 07/03/21 2025 Last Action: Discontinued Pedi Mv No.79/Ferrous Fumarate (Flintstones with Iron Tab Chew) 18 Mg Tab.chew, 36 MG PO DAILY, (Reported) Discontinued Reason: Prescription changed Entered as Reported by: RANJEET CAUSEY on 03/29/18 1356 Last Action: Reviewed Potassium Chloride (Potassium Chloride) 10 Meq Tablet.er, 10 MEQ PO TID, (Reported) Discontinued Reason: No Longer Taking Entered as Reported by: RANJEET CAUSEY on 03/29/18 1356 Last Action: Discontinued Tramadol HCl (Ultram) 50 Mg Tablet, 50 MG PO Q6H PRN for PAIN-MODERATE TO SEVERE Discontinued Reason: No Longer Taking Prescribed by: YO VAIL on 06/11/18 1729 Last Action: Discontinued Past Qguyqbo-[place]red[place]-Oddbvr Hx Patient Social History Marrital Status: Employed/Student: retired Smoking Status: Never a Smoker Respiratory Sleep Apnea Currently Using CPAP: Yes Cardiovascular Atrial Fibrillation, High Cholesterol, Hypertension Genitourinary Renal Failure Gastrointestinal No Musculoskeletal No Endocrine Endocrine Disorders: Hypothyroidsim Family Medical History Family Hx: Cancer 09 SISTER (breast ) Family history: Hypertension 03 FATHER son History of - disorder 09 SISTER (lupus) Myocardial infarction 03 MOTHER Stroke 03 FATHER Review of Systems Constitutional: see HPI EENTM: no symptoms reported Respiratory: dyspnea on exertion Cardiovascular: edema Gastrointestinal: no symptoms reported Genitourinary: no symptoms reported Musculoskeletal: no symptoms reported Skin: change in color All Other Systems Reviewed Negative Unless Noted: Yes Physical Exam General Appearance: No Apparent Distress, WD/WN, Chronically ill, Obese Eyes: Bilateral Eye Normal Inspection, Bilateral Eye PERRL, Bilateral Eye EOMI HEENT: PERRL/EOMI, Normal ENT Inspection, Pharynx Normal Neck: Full Range of Motion, Normal Inspection, Non Tender, Supple, Carotid Bruit Respiratory: Chest Non Tender, Lungs Clear, Normal Breath Sounds, No Accessory Muscle Use, No Respiratory Distress Cardiovascular: No Gallop, No JVD, No Murmur, Normal Peripheral Pulses, Irregularly Irregular Gastrointestinal: Normal Bowel Sounds, No Organomegaly, No Pulsatile Mass, Non Tender, Soft Back: Normal Inspection, No CVA Tenderness, No Vertebral Tenderness Extremity: Normal Capillary Refill, Normal Inspection, Normal Range of Motion, Non Tender, No Calf Tenderness, Pedal Edema, Swelling Neurologic/Psychiatric: Alert, Oriented x3, No Motor/Sensory Deficits, Normal Mood/Affect Skin: Normal Color, Warm/Dry, Rash (legs) Lymphatic: No Adenopathy Clinical Quality Measures Admission Status Admission Status: Observation Short Stay Diagnosis Discharge Diagnosis-Short Stay Admission Diagnosis: Anasarca Final Discharge Diagnosis: Anasarca of uncertain source History of chronic lymphedema 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 I reviewed and verified all information documented by the medical student and made modifications to such information, when appropriate. I personally performed the physical exam and medical decision making. Yulisa Roman, Aug 08, 2021,06:35 GEO WOLFE Aug 07, 2021 13:28 YULISA ROMAN DO Aug 08, 2021 06:37
--- NOTE | 2021-08-07 16:58 | Diagnostic Imaging Report ---
PROCEDURE: US PELVIC (NON OB) TECHNIQUE: Multiple real-time grayscale images were obtained over the pelvis in various projections transabdominally. INDICATION: Pelvic mass. COMPARISON: Exam is correlated with a CT earlier this same date. FINDINGS: Uterus is roughly 7 cm in maximal dimension. Acoustical detail is limited. No focal pathology. The endometrium could not be defined. The ovaries could not be visualized. No adnexal lesion apparent. No fluid collection or ascites. IMPRESSION: Limited sonographically. No appreciable adnexal lesion or uterine mass. Dictated by: Dictated on workstation # [id number]
[2021-08-07] MEDS ORDERED: FUROSEMIDE 40 MG/4 ML INJ (LASIX) IVP SCH (17:00)
[2021-08-07] MEDS ORDERED: APIXABAN 2.5 MG (ELIQUIS) TABLET PO SCH (21:00)
[2021-08-07 21:56] LABS: HEPATITIS C ANTIBODY C Non-Reactive (Non-Reactive)
[2021-08-08] MEDS ORDERED: KCL 20 MEQ TAB (K-DUR) PO SCH (07:00)
== END 2021-08-07 14:15 | disposition home or self-care (01) ==
LOC: 4TH 16:41
PROVIDERS: ADMIT Internal Medicine; ATTEND Internal Medicine
DX: R60.1 Generalized edema (principal); I13.0 Hypertensive heart and chronic kidney disease with heart failure and stage 1 through stage 4 chronic kidney disease, or unspecified chronic kidney disease; N18.30 Chronic kidney disease, stage 3 unspecified; I50.9 Heart failure, unspecified; G47.33 Obstructive sleep apnea (adult) (pediatric); E03.9 Hypothyroidism, unspecified; I73.9 Peripheral vascular disease, unspecified; M10.9 Gout, unspecified; I89.0 Lymphedema, not elsewhere classified; E78.00 Pure hypercholesterolemia, unspecified; I27.20 Pulmonary hypertension, unspecified; I25.10 Atherosclerotic heart disease of native coronary artery without angina pectoris; I48.0 Paroxysmal atrial fibrillation; E78.5 Hyperlipidemia, unspecified; E66.9 Obesity, unspecified; I65.23 Occlusion and stenosis of bilateral carotid arteries; Z79.899 Other long term (current) drug therapy; Z79.01 Long term (current) use of anticoagulants; Z79.890 Hormone replacement therapy; Z68.41 Body mass index [BMI] 40.0-44.9, adult
CPT/HCPCS: 36415; 71046; 71250; 74176; 76700; 76856; 80053; 80074; 81000; 82140; 82150; 82977; 83690; 84443; 85025; 85379; 85610; 85730; 93970; 99211; G0378

== ENCOUNTER 2021-09-12 16:21 | Emergency (ER) | payer MEDICARE ==
[~2021-09-12] VITALS: Ht 160 cm; Wt 88.0 kg
[~2021-09-12 16:21] MED LIST changes: +ACET-2267 PO; +ALLO300T2 PO; +APIX2.5T PO; +LEVO50TA PO; +METO5TAB6 PO; +NYST15CR TP; +PED18TAB2 PO; +POTA20TA15 PO; +TR1C15 TP
[2021-09-12] MEDS ORDERED: fentaNYL INJ 100 MCG/2 ML AMP IVP STA (18:02)
--- NOTE | 2021-09-12 18:41 | Diagnostic Imaging Report ---
EXAMINATION: Right tibia and fibula 2 views HISTORY: Leg pain. COMPARISON: None available. FINDINGS: There is soft tissue edema throughout the right lower extremity. No acute fracture is seen. There are degenerative changes in the right knee. IMPRESSION: No fracture of the right tibia or fibula. Dictated by: Dictated on workstation # [id number]
--- NOTE | 2021-09-12 18:42 | Diagnostic Imaging Report ---
EXAMINATION: Right foot 3 views. HISTORY: Foot pain. COMPARISON: None available. FINDINGS: There is soft tissue swelling about the right foot. There is a heel spur. No acute fracture is seen. IMPRESSION: Extensive soft tissue edema in the right foot. No acute fracture. Dictated by: Dictated on workstation # [id number]
--- NOTE | 2021-09-12 18:43 | Diagnostic Imaging Report ---
EXAMINATION: Right ankle 3 views. HISTORY: Ankle pain. COMPARISON: None available. FINDINGS: There is severe soft tissue swelling about the right ankle. No acute fracture. Mortise is intact. Ankle joint space is normal. IMPRESSION: No fracture in the right ankle, severe soft tissue edema is present. Dictated by: Dictated on workstation # [id number]
[2021-09-12 18:46] LABS: BASOPHILS % (AUTO) 0 % (0-10); HEMATOCRIT 38 % (35-52)
[2021-09-12 18:48] LABS: EOSINOPHILS % (AUTO) 0 % (0-10); HEMOGLOBIN 12.8 g/dL (11.5-16.0); LYMPHOCYTES % (AUTO) 13 % (12-44); MEAN CORPUSCULAR HEMOGLOBIN 32 pg (25-34); MEAN CORPUSCULAR HGB CONC 34 g/dL (32-36); MEAN CORPUSCULAR VOLUME 93 fL (80-99); MEAN PLATELET VOLUME 12.6 fL (9.0-12.2); MONOCYTES # (AUTO) 1.2 10^3/uL (0.0-1.0); MONOCYTES % (AUTO) 16 % (0-12); NEUTROPHILS # (AUTO) 5.1 10^3/uL (1.8-7.8); NEUTROPHILS % (AUTO) 70 % (42-75); PLATELET COUNT 92 10^3/uL (130-400); WHITE BLOOD COUNT 7.2 10^3/uL (4.3-11.0)
[2021-09-12 18:57] LABS: ALBUMIN 3.3 GM/DL (3.2-4.5); POTASSIUM 4.5 MMOL/L (3.6-5.0)
[2021-09-12 18:59] LABS: CALCIUM 9.1 MG/DL (8.5-10.1)
[2021-09-12 19:00] LABS: TOTAL PROTEIN 6.9 GM/DL (6.4-8.2)
[2021-09-12] MEDS ORDERED: L.E.T. SOLUTION 3 ML SYR TOP ONE (19:00)
[2021-09-12 19:01] LABS: BILIRUBIN,TOTAL 4.2 MG/DL (0.1-1.0)
[2021-09-12 19:03] LABS: CREATININE SERUM 1.76 MG/DL (0.60-1.30)
[2021-09-12 19:06] LABS: MAGNESIUM 2.6 MG/DL (1.6-2.4); URIC ACID 2.9 MG/DL (2.6-7.2)
[2021-09-12 19:10] LABS: ERYTHROCYTE SEDIMENTATION RATE 25 MM/HR (0-30)
--- NOTE | 2021-09-12 19:22 | ED Lower Extremity ---
General Chief Complaint: Lower Extremity Stated Complaint: RIGHT FOOT/ANKLE PAIN Nursing Triage Note: TO ED PER W/C ACCOMPIED BY DAUGHTER. PATIENT FEET AND LEG'S SWOLLEN DAUGHTER REPORTS THEY LOOK MUCH BETTER THAT THEY HAVE. 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 PATIENT DOES WALK WITH WALKER. Source: patient History of Present Illness Date Seen by Provider: Sep 12, 2021 Time Seen by Provider: 17:55 Initial Comments PT ARRIVES VIA POV FROM HOME, WITH DAUGHTER WALKS IN WITH A WALKER C/O PAIN AND SWELLING TO RIGHT ANKLE AND FOOT SINCE LAST NIGHT--WAS STANDING AND COOKING AND WASHING DISHES LAST NIGHT WHEN PAIN BEGAN STATES SHE CANNOT BEAR WEIGHT ON RIGHT FOOT DUE TO PAIN TODAY NO KNOWN INJURY YESTERDAY--STATES SHE FELL 4-5 WEEKS AGO, AND BENT RIGHT TOES BACK, BUT NO PROBLEMS WITH FOOT SINCE THEN, UNTIL LAST NIGHT HAS NOT TAKEN ANYTHING FOR PAIN NO PARESTHESIAS OR MOTOR DEFICITS NO CHEST PAIN OR SHORTNESS OF BREATH PT HAS HISTORY OF GOUT, HAS CHRONIC LEG EDEMA, BUT HAD BEEN MUCH BETTER, IN THE LAST FEW WEEKS, AFTER BEING HOSPITALIZED 08/06-08/07 FOR ANASARCA, AND 30# OF FLUID WAS TAKEN OFF HAS HAD DIURETICS CHANGED --WAS PLACED ON METOLAZONE FOR EDEMA FOR 3 WEEKS, BUT DC'D IT 1 1/2-2 WEEKS AGO DUE TO GI SIDE EFFECTS PT IS CURRENTLY ON TORSEMIDE 60 MG DAILY FOR EDEMA PCP: DR. ROMAN CHART CLERK: DR. CARLTON Allergies and Home Medications Allergies Coded Allergies: codeine (Verified Allergy, Unknown, 08/06/21) erythromycin base (Verified Allergy, Unknown, 09/12/21) ethyl alcohol (Verified Allergy, Unknown, 09/12/21) hydrocodone (Verified Allergy, Unknown, 09/12/21) levofloxacin (Verified Allergy, Unknown, 08/06/21) metronidazole (Verified Allergy, Unknown, 08/06/21) penicillin G (Verified Allergy, Unknown, 08/06/21) Patient Home Medication List Home Medication List Reviewed: Yes Acetaminophen (Tylenol Extra Strength) 500 Mg Tablet, 500-1,000 MG PO Q8H PRN for PAIN-MILD (1-4), (Reported) Entered as Reported by: AGATA FLETCHER on 08/07/21 1023 Allopurinol (Allopurinol) 300 Mg Tablet, 300 MG PO DAILY, (Reported) Entered as Reported by: AISHA TURNER on 08/06/21 175 Apixaban (Eliquis) 2.5 Mg Tablet, 2.5 MG PO BIDPC, (Reported) Entered as Reported by: AISHA TURNER on 08/06/21 175 Colchicine (Colchicine) 0.6 Mg Tablet, 0.6 MG PO UD Prescribed by: AURELIO DAVIS on 09/13/21 1110 Last Action: New Order Levothyroxine Sodium (Levothyroxine Sodium) 88 Mcg Tablet, 88 MCG PO DAILY, (Reported) Entered as Reported by: RANJEET CAUSEY on 03/29/18 1356 Levothyroxine Sodium (Synthroid) 50 Mcg Tablet, 50 MCG PO DAILY Prescribed by: VERNELL ROMAN on 08/07/21 1225 Metolazone (Metolazone) 5 Mg Tablet, 5 MG PO UD Prescribed by: VERNELL ROMAN on 08/07/21 1155 Metoprolol Succinate (Metoprolol Succinate) 200 Mg Tab.er.24h, 200 MG PO DAILY, (Reported) Entered as Reported by: CALLY CHARLES on 10/07/15 0716 Nystatin (Nystatin) 15 Gm Cream..g., 0 GM TP TID Prescribed by: VERNELL ROMAN on 08/07/21 1155 Ped Multivit #43/Iron Fumarate (Flintstones Complete Chew Tab) 18 Mg Tab.chew, 18 MG PO BID, (Reported) Entered as Reported by: AGATA FLETCHER on 08/07/21 1023 Potassium Chloride (Potassium Chloride) 20 Meq Tab.er.prt, 20 MEQ PO BID, (Reported) Entered as Reported by: AGATA FLETCHER on 08/07/21 1023 Prednisone (Prednisone) 20 Mg Tab, 40 MG PO DAILY Prescribed by: AURELIO DAVIS on 09/13/21 111 Last Action: New Order Torsemide (Torsemide) 20 Mg Tablet, 60 MG PO DAILY, (Reported) Entered as Reported by: CALLY CHARLES on 10/07/15 0716 Tramadol HCl (Ultram) 50 Mg Tablet, 50 MG PO Q4H Prescribed by: AURELIO DAVIS on 09/13/21 1111 Last Action: New Order Triamcinolone Acet (Triamcinolone Acetonide 0.1% Cream) 15 Gm Cr, 0 GM TP BID Prescribed by: VERNELL ROMAN on 08/07/21 1155 Review of Systems Constitutional: no symptoms reported Respiratory: no symptoms reported Cardiovascular: see HPI; No chest pain; edema; No palpitations, No syncope Gastrointestinal: no symptoms reported Genitourinary: no symptoms reported Musculoskeletal: see HPI Skin: no symptoms reported Psychiatric/Neurological: No Symptoms Reported Past Zikarlq-Cmtkkr-Azakxn Hx Patient Social History Tobacco Use?: No Substance use?: No Alcohol Use?: No Pt feels they are or have been: No Immunizations Up To Date Tetanus Booster (TDap): Less than 5yrs First/Initial COVID19 Vaccinat: JANUARY 14 Second COVID19 Vaccination Garett: FEBRUARY 11 COVID19 Vaccine Enterprise Application Analyst: THOR Past Medical History Surgery/Hospitalization HX: BILATERAL CATARACT SURGERY 2018 Surgeries: Yes Eye Surgery, Orthopedic Respiratory: Yes Sleep Apnea Currently Using CPAP: Yes Cardiac: Yes (CHF) Atrial Fibrillation, Chronic Edema/Swelling, High Cholesterol, Hypertension Neurological: No Reproductive Disorders: No Genitourinary: Yes Renal Failure Gastrointestinal: No Musculoskeletal: Yes Arthritis, Gout Endocrine: Yes (OBESITY) Hypothyroidsim HEENT: Yes Cataract Loss of Vision: Bilateral Hearing Impairment: Hard of Hearing Cancer: No Psychosocial: No Integumentary: No Blood Disorders: No Family Medical History Cancer 09 SISTER (breast ) Family history: Hypertension 03 FATHER son History of - disorder 09 SISTER (lupus) Myocardial infarction 03 MOTHER Stroke 03 FATHER Heart Disease, Hypertension, Stroke Physical Exam Vital Signs Vital Signs - First Documented 09/12/21 16:38 Temp 37.0 Pulse 72 Resp 18 B/P (MAP) 114/65 (81) O2 Delivery Room Air Capillary Refill : Less Than 3 Seconds Height, Weight, BMI Height: 5'3.50" Weight: 211lbs. 8.0oz. 95.609004fs; 34.00 BMI Method:Stated General Appearance: WD/WN, no apparent distress, obese, other (ANXIOUIS) Cardiovascular: irregularly irregular Respiratory: normal breath sounds, no respiratory distress, no accessory muscle use Gastrointestinal: soft Hips: bilateral hip non-tender Legs: bilateral leg other (PT HAS SIGNIFICANT EDEMA TO BILATERAL LEGS AND FEET, BUT IS WORSE ON RIGHT) Knees: bilateral knee non-tender Ankles: left ankle non-tender; right ankle other (MARKED TENDERNESS TO MOST OF RIGHT FOOT AND ANKLE WITH FAINT ERYTHEMA TO RIGHT FOOT AND ANKLE. NO BRUISING OR OTHER EXTERNAL EVIDENCE OF TRAUMA. MOTOR/SENSORY/VASCULAR INTACT. ) Feet: left foot non-tender; right foot other ( ABOVE) Neurologic/Tendon: normal sensation, normal motor functions, normal tendon functions Neurologic/Psychiatric: office lead II-XII nml as tested, no motor/sensory deficits, alert, oriented x 3, other (ANXIOUS) Skin: warm/dry, other ( ABOVE) Progress/Results/Core Measures Results/Orders Lab Results Laboratory Tests Test 09/12/21 18:40 Range/Units White Blood Count 7.2 4.3-11.0 10^3/uL Red Blood Count 4.06 3.80-5.11 10^6/uL Hemoglobin 12.8 11.5-16.0 g/dL Hematocrit 38 35-52 % Mean Corpuscular Volume 93 80-99 fL Mean Corpuscular Hemoglobin 32 25-34 pg Mean Corpuscular Hemoglobin Concent 34 32-36 g/dL Red Cell Distribution Width 18.6 H 10.0-14.5 % Platelet Count 92 L 130-400 10^3/uL Mean Platelet Volume 12.6 H 9.0-12.2 fL Immature Granulocyte % (Auto) 0 % Neutrophils (%) (Auto) 70 42-75 % Lymphocytes (%) (Auto) 13 12-44 % Monocytes (%) (Auto) 16 H 0-12 % Eosinophils (%) (Auto) 0 0-10 % Basophils (%) (Auto) 0 0-10 % Neutrophils # (Auto) 5.1 1.8-7.8 10^3/uL Lymphocytes # (Auto) 1.0 1.0-4.0 10^3/uL Monocytes # (Auto) 1.2 H 0.0-1.0 10^3/uL Eosinophils # (Auto) 0.0 0.0-0.3 10^3/uL Basophils # (Auto) 0.0 0.0-0.1 10^3/uL Immature Granulocyte # (Auto) 0.0 0.0-0.1 10^3/uL Percent Immature Platelet Fraction 8.7 H 0.0-7.6 % Erythrocyte Sedimentation Rate 25 0-30 MM/HR Sodium Level 140 135-145 MMOL/L Potassium Level 4.5 3.6-5.0 MMOL/L Chloride Level 104 98-107 MMOL/L Carbon Dioxide Level 24 21-32 MMOL/L Anion Gap 12 5-14 MMOL/L Blood Urea Nitrogen 56 H 7-18 MG/DL Creatinine 1.76 H 0.60-1.30 MG/DL Estimat Glomerular Filtration Rate 28 BUN/Creatinine Ratio 32 Glucose Level 97 70-105 MG/DL Uric Acid 2.9 2.6-7.2 MG/DL Calcium Level 9.1 8.5-10.1 MG/DL Corrected Calcium 9.7 8.5-10.1 MG/DL Magnesium Level 2.6 H 1.6-2.4 MG/DL Total Bilirubin 4.2 H 0.1-1.0 MG/DL Aspartate Amino Transf (AST/SGOT) 64 H 5-34 U/L Alanine Aminotransferase (ALT/SGPT) 36 0-55 U/L Alkaline Phosphatase 176 H 40-136 U/L C-Reactive Protein High Sensitivity 3.42 H 0.00-0.50 MG/DL B-Type Natriuretic Peptide 519.1 H <100.0 PG/ML Total Protein 6.9 6.4-8.2 GM/DL Albumin 3.3 3.2-4.5 GM/DL TSH [place] Testing 3.09 0.35-4.94 UIU/ML My Orders Orders - ANDRY CAVANAUGH DO Ed Iv/Invasive Line Start (09/12/21 18:02) Tibia/Fibula, Right, 2 Views (09/12/21 18:02) Foot, Right, 3 View (09/12/21 18:02) Ankle, Right, 3 Views (09/12/21 18:02) BNP (09/12/21 18:02) Cbc With Automated Diff (09/12/21 18:02) Comprehensive Metabolic Panel (09/12/21 18:02) Hs C Reactive Protein (09/12/21 18:02) Magnesium (09/12/21 18:02) Erythrocyte Sedimentation Rate (09/12/21 18:02) Fentanyl Inj (Sublimaze Injection) (09/12/21 18:02) Uric Acid (09/12/21 18:02) Thyroid Analyzer (09/12/21 18:07) Let Solution (Let Solution) (09/12/21 19:00) Methylprednisolone Sod Succ (Solu-Medrol (09/12/21 19:30) Colchicine Tablet (Colcrys Tablet) (09/12/21 19:30) Rx-Tramadol Hcl (Rx-Ultram) (09/12/21 19:27) Methylprednisolone Sod Succ (Solu-Medrol (09/12/21 20:01) Vital Signs/I&O 09/12/21 09/12/21 16:38 20:45 Temp 37.0 37.0 Pulse 72 72 Resp 18 18 B/P (MAP) 114/65 (81) 114/65 O2 Delivery Room Air Room Air Blood Pressure Mean: 81 Progress Progress Note : Progress Note GIVEN FENTANYL FOR PAIN WITH MUCH IMPROVEMENT GIVEN SOLU-MEDROL FOR SUSPECTED GOUT FLARE PT HAS A WALKER AT HOME, AND DOES NOT LIVE ALONE--HAS FAMILY WHO LIVE WITH HER, TO ASSIST HER WITH AMBULATION Diagnostic Imaging Comments XRAYS --PER RADIOLOGIST REPORTS AT 1852 RIGHT TIB-FIB FINDINGS: There is soft tissue edema throughout the right lower extremity. No acute fracture is seen. There are degenerative changes in the right knee. IMPRESSION: No fracture of the right tibia or fibula. RIGHT ANKLE-- FINDINGS: There is severe soft tissue swelling about the right ankle. No acute fracture. Mortise is intact. Ankle joint space is normal. IMPRESSION: No fracture in the right ankle, severe soft tissue edema is present. RIGHT FOOT-- FINDINGS: There is severe soft tissue swelling about the right ankle. No acute fracture. Mortise is intact. Ankle joint space is normal. IMPRESSION: No fracture in the right ankle, severe soft tissue edema is present. Reviewed: Reviewed by Me Departure Impression Primary Impression: RIGHT FOOT AND ANKLE PAIN Additional Impressions: SUSPECTED GOUT FLARE CHRONIC LEG EDEMA Chronic renal failure Disposition: HOME, SELF-CARE Condition: Stable Departure-Patient Inst. Decision time for Depature: 19:23 Referrals: VERNELL ROMAN DO (PCP/Family) Primary Care Physician Patient Instructions: Dependent Edema (DC), Gout (DC), Lifestyle Changes to Manage Gout, Renal Function Panel Add. Discharge Instructions: CONTINUE YOUR REGULAR MEDICATIONS PRESCRIBED SOAK FOOT AND ANKLE IN WARM EPSOM SALTS 2-3 TIMES A DAY, THEN APPLY COOL COMPRESSES TO AREAS AT 20 MINUTE INTERVALS ELEVATE FEET MUCH POSSIBLE USE WALKER AT ALL TIMES FOLLOW UP WITH DR. ROMAN IN 2-3 DAYS FOR FURTHER CARE, RETURN TO ER IF WORSE All discharge instructions reviewed with patient and/or family. Voiced understanding. Scripts Prednisone (Prednisone) 20 Mg Tab 40 MG PO DAILY, #6 TAB 0 Refills . Prov: AURELIO DAVIS APRN 09/13/21 Tramadol HCl (Ultram) 50 Mg Tablet 50 MG PO Q4H for Pain, #20 TAB . Prov: AURELIO DAVIS APRN 09/13/21 Colchicine (Colchicine) 0.6 Mg Tablet 0.6 MG PO UD, #6 TAB 1.2 MG AT ONSET OF GOUT FLARE, THEN MAY TAKE 0.6 MG BID. Prov: AURELIO DAVIS APRN 09/13/21 ANDRY ACVANAUGH DO Sep 12, 2021 19:22
[2021-09-12 19:26] LABS: TSH (THYROID ANALYZER) 3.09 UIU/ML (0.35-4.94)
[2021-09-12] MEDS ORDERED: COLC0.6T59 PO (19:26)
[2021-09-12] MEDS ORDERED: TRAM-42 PO (19:26)
[2021-09-12] MEDS ORDERED: PRD20T PO (19:26)
[2021-09-12] MEDS ORDERED: methylPREDNISolone 125 MG (Solu-MEDROL) VIAL IVP ONE (19:30)
[2021-09-12] MEDS ORDERED: COLCHICINE 0.6 MG (COLCRYS) TABLET PO ONE (19:30)
[2021-09-12] MEDS ORDERED: methylPREDNISolone 125 MG (Solu-MEDROL) VIAL ONE (20:01)
[2021-09-12 20:45] VITALS: BP 114/65
[2021-09-13] MEDS ORDERED: TRAM-42 PO (11:10)
[2021-09-13] MEDS ORDERED: PRD20T PO (11:10)
[2021-09-13] MEDS ORDERED: COLC0.6T59 PO (11:10)
== END 2021-09-12 20:46 | disposition home or self-care (01) ==
LOC: EDUNIT# 16:21 → ER 16:24
DX: M79.671 Pain in right foot (principal); M25.571 Pain in right ankle and joints of right foot; I12.9 Hypertensive chronic kidney disease with stage 1 through stage 4 chronic kidney disease, or unspecified chronic kidney disease; N18.9 Chronic kidney disease, unspecified; M10.9 Gout, unspecified; E03.9 Hypothyroidism, unspecified; I48.91 Unspecified atrial fibrillation; G47.30 Sleep apnea, unspecified; E66.9 Obesity, unspecified; Z68.34 Body mass index [BMI] 34.0-34.9, adult; Z79.01 Long term (current) use of anticoagulants; Z79.890 Hormone replacement therapy; Z79.899 Other long term (current) drug therapy
CPT/HCPCS: 36415; 73590; 73610; 73630; 80053; 83735; 83880; 84443; 84550; 85025; 85652; 86141; 96374; 96375

== ENCOUNTER 2021-09-22 14:04 | Observation (INO) | payer MEDICARE ==
[~2021-09-22] VITALS: Ht 160 cm; Wt 85.2 kg
[~2021-09-22 14:04] MED LIST changes: +COLC0.6T59 PO; +PRD20T PO
--- NOTE | 2021-09-22 14:36 | ED General ---
General Chief Complaint: General Problems/Pain Stated Complaint: GENERALIZED WEAKNESS Source of Information: Patient Exam Limitations: No Limitations History of Present Illness Date Seen by Provider: Sep 22, 2021 Time Seen by Provider: 14:18 Initial Comments Patient is an 81-year-old female who presents to the emergency room with a chief complaint of generalized weakness and pain. She states that she believes she was recently told she had a gouty flare in her feet. She was seen on Tuesday here in the emergency department and sent home with a prescription of tramadol. She states that she has been getting weaker and weaker and having a harder and harder time getting around, complaining of severe pain in her right shoulder. She had a fall at the end of July where she fell onto a touch onto her right shoulder. She is not sure if she ever got x-rays. She complains of some left-sided rib pain. She has extensive amounts of swelling in her feet and states that they feel "stiff". She was able to get out of bed this morning with significant assistance from her and use her walker to get to her chair, then when she attempted to get out of her chair this afternoon she was too weak to be able to stand. She denies any recent fevers, chills, cough or congestion. She has had decreased appetite secondary to her severe pain. She states she "just did not think about" taking her tramadol this afternoon. She states she is a little bit constipated, she thinks it is because she is not eating much. She denies any urinary complaints. She does see manager php and is on diuretics. She states her manager php recently increased her dose. All other review of systems reviewed and negative except as stated. Timing/Duration: 1 Week Severity: Moderate Modifying Factors: worse with Movement Associated Systoms: Malaise, Weakness, Other (swelling in feet) Allergies and Home Medications Allergies Coded Allergies: codeine (Verified Allergy, Unknown, 08/06/21) erythromycin base (Verified Allergy, Unknown, 09/12/21) ethyl alcohol (Verified Allergy, Unknown, 09/12/21) hydrocodone (Verified Allergy, Unknown, 09/12/21) levofloxacin (Verified Allergy, Unknown, 08/06/21) metronidazole (Verified Allergy, Unknown, 08/06/21) penicillin G (Verified Allergy, Unknown, 08/06/21) Patient Home Medication List Home Medication List Reviewed: Yes Acetaminophen (Tylenol Extra Strength) 500 Mg Tablet, 500-1,000 MG PO Q8H PRN for PAIN-MILD (1-4), (Reported) Entered as Reported by: AGATA FLETCHER on 08/07/21 1023 Allopurinol (Allopurinol) 300 Mg Tablet, 300 MG PO DAILY, (Reported) Entered as Reported by: AISHA TURNER on 08/06/21 175 Apixaban (Eliquis) 2.5 Mg Tablet, 2.5 MG PO BIDPC, (Reported) Entered as Reported by: AISHA TURNER on 08/06/21 175 Colchicine (Colchicine) 0.6 Mg Tablet, 0.6 MG PO UD Prescribed by: AURELIO DAVIS on 09/13/21 111 Levothyroxine Sodium (Levothyroxine Sodium) 88 Mcg Tablet, 88 MCG PO DAILY, (Reported) Entered as Reported by: RANJEET CAUSEY on 03/29/18 1356 Levothyroxine Sodium (Synthroid) 50 Mcg Tablet, 50 MCG PO DAILY Prescribed by: VERNELL ROMAN on 08/07/21 1225 Metolazone (Metolazone) 5 Mg Tablet, 5 MG PO UD Prescribed by: VERNELL ROMAN on 08/07/21 1155 Metoprolol Succinate (Metoprolol Succinate) 200 Mg Tab.er.24h, 200 MG PO DAILY, (Reported) Entered as Reported by: CALLY CHARLES on 10/07/15 0716 Nystatin (Nystatin) 15 Gm Cream..g., 0 GM TP TID Prescribed by: VERNELL ROMAN on 08/07/21 1155 Ped Multivit #43/Iron Fumarate (Flintstones Complete Chew Tab) 18 Mg Tab.chew, 18 MG PO BID, (Reported) Entered as Reported by: AGATA FLETCHER on 08/07/21 1023 Potassium Chloride (Potassium Chloride) 20 Meq Tab.er.prt, 20 MEQ PO BID, (Reported) Entered as Reported by: AGATA FLETCHER on 08/07/21 1023 Prednisone (Prednisone) 20 Mg Tab, 40 MG PO DAILY Prescribed by: AURELIO DAVIS on 09/13/21 1110 Torsemide (Torsemide) 20 Mg Tablet, 60 MG PO DAILY, (Reported) Entered as Reported by: CALLY CHARLES on 10/07/15 0716 Tramadol HCl (Ultram) 50 Mg Tablet, 50 MG PO Q4H Prescribed by: AURELIO DAVIS on 09/13/21 1111 Triamcinolone Acet (Triamcinolone Acetonide 0.1% Cream) 15 Gm Cr, 0 GM TP BID Prescribed by: VERNELL ROMAN on 08/07/21 1155 Review of Systems Review of Systems Constitutional: see HPI EENTM: no symptoms reported Respiratory: no symptoms reported Cardiovascular: no symptoms reported Gastrointestinal: other (decreased appetite) Genitourinary: no symptoms reported : No Musculoskeletal: joint pain (right shoulder), joint swelling (feet and ankles), muscle stiffness (bilateral feet) Skin: no symptoms reported Psychiatric/Neurological: Weakness (generalized) All Other Systems Reviewed Negative Unless Noted: Yes Past Smhdukg-Yadqgr-Wemitl Hx Patient Social History Tobacco Use?: No Substance use?: No Alcohol Use?: No Pt feels they are or have been: No Immunizations Up To Date Tetanus Booster (TDap): Less than 5yrs Influenza Vaccine Up-to-Date: Yes; Up-to-Date First/Initial COVID19 Vaccinat: JANUARY 14 Second COVID19 Vaccination Garett: FEBRUARY 11 COVID19 Vaccine Hatchery Helper: MODERNSammy Past Medical History Surgery/Hospitalization HX: BILATERAL CATARACT SURGERY 2018 Surgeries: Yes Eye Surgery, Orthopedic Respiratory: Yes Sleep Apnea Currently Using CPAP: Yes Cardiac: Yes (CHF) Atrial Fibrillation, Chronic Edema/Swelling, High Cholesterol, Hypertension Neurological: No Reproductive Disorders: No Genitourinary: Yes Renal Failure Gastrointestinal: No Musculoskeletal: Yes Arthritis, Gout Endocrine: Yes (OBESITY) Hypothyroidsim HEENT: Yes Cataract Loss of Vision: Bilateral Hearing Impairment: Hard of Hearing Cancer: No Psychosocial: No Integumentary: No Blood Disorders: No Family Medical History Cancer 09 SISTER (breast ) Family history: Hypertension 03 FATHER son History of - disorder 09 SISTER (lupus) Myocardial infarction 03 MOTHER Stroke 03 FATHER Heart Disease, Hypertension, Stroke Physical Exam Vital Signs Vital Signs - First Documented 09/22/21 14:12 Temp 36.8 Pulse 71 Resp 18 B/P (MAP) 118/56 (76) Pulse Ox 97 O2 Delivery Nasal Cannula O2 Flow Rate 2.00 Capillary Refill : Height, Weight, BMI Height: 5'3.50" Weight: 211lbs. 8.0oz. 95.874747bn; 34.00 BMI Method:Stated General Appearance: No Apparent Distress, WD/WN Eyes: Bilateral Eye Normal Inspection, Bilateral Eye PERRL, Bilateral Eye EOMI HEENT: Other (dry oral mucosa) Neck: Normal Inspection Respiratory: Lungs Clear, Normal Breath Sounds, No Accessory Muscle Use, No Respiratory Distress Cardiovascular: Normal Peripheral Pulses, Irregularly Irregular Gastrointestinal: Normal Bowel Sounds, Soft, Tenderness (mild diffuse tenderness), Other (morid obesity) Extremity: Normal Capillary Refill, No Calf Tenderness, Pedal Edema (significant bilateral Pedal edema, extends up the calves; no overlying joint erythema; no pain in the ankles or the feet with passive ROM;), Other ( patient is very apprehensive with ROM of the right shoulder, pain over the entiriety of the right shoulder joint and proximal humerus) Neurologic/Psychiatric: Alert, Oriented x3, No Motor/Sensory Deficits, Depressed Affect Skin: Normal Color, Warm/Dry Progress/Results/Core Measures Suspected Sepsis SIRS Temperature: Pulse: Respiratory Rate: Laboratory Tests 09/22/21 14:40: White Blood Count 7.3 Blood Pressure / Mean: Laboratory Tests 09/22/21 14:40: Creatinine 1.09, Platelet Count 88L Results/Orders Lab Results Laboratory Tests Test 09/22/21 14:40 09/22/21 14:50 Range/Units White Blood Count 7.3 4.3-11.0 10^3/uL Red Blood Count 4.13 3.80-5.11 10^6/uL Hemoglobin 13.0 11.5-16.0 g/dL Hematocrit 38 35-52 % Mean Corpuscular Volume 92 80-99 fL Mean Corpuscular Hemoglobin 32 25-34 pg Mean Corpuscular Hemoglobin Concent 34 32-36 g/dL Red Cell Distribution Width 18.6 H 10.0-14.5 % Platelet Count 88 L 130-400 10^3/uL Mean Platelet Volume 9.0-12.2 fL Immature Granulocyte % (Auto) 1 % Neutrophils (%) (Auto) 77 H 42-75 % Lymphocytes (%) (Auto) 10 L 12-44 % Monocytes (%) (Auto) 12 0-12 % Eosinophils (%) (Auto) 1 0-10 % Basophils (%) (Auto) 0 0-10 % Neutrophils # (Auto) 5.6 1.8-7.8 10^3/uL Lymphocytes # (Auto) 0.7 L 1.0-4.0 10^3/uL Monocytes # (Auto) 0.9 0.0-1.0 10^3/uL Eosinophils # (Auto) 0.0 0.0-0.3 10^3/uL Basophils # (Auto) 0.0 0.0-0.1 10^3/uL Immature Granulocyte # (Auto) 0.1 0.0-0.1 10^3/uL Percent Immature Platelet Fraction 9.0 H 0.0-7.6 % Sodium Level 140 135-145 MMOL/L Potassium Level 3.8 3.6-5.0 MMOL/L Chloride Level 102 98-107 MMOL/L Carbon Dioxide Level 24 21-32 MMOL/L Anion Gap 14 5-14 MMOL/L Blood Urea Nitrogen 35 H 7-18 MG/DL Creatinine 1.09 0.60-1.30 MG/DL Estimat Glomerular Filtration Rate 48 BUN/Creatinine Ratio 32 Glucose Level 89 70-105 MG/DL Calcium Level 8.8 8.5-10.1 MG/DL Urine Color YELLOW Urine Clarity CLEAR Urine pH 6.0 5-9 Urine Specific [place] 1.010 L 1.016-1.022 Urine Protein NEGATIVE NEGATIVE Urine Glucose (UA) NEGATIVE NEGATIVE Urine Ketones NEGATIVE NEGATIVE Urine Nitrite NEGATIVE NEGATIVE Urine Bilirubin NEGATIVE NEGATIVE Urine Urobilinogen 0.2 < = 1.0 MG/DL Urine Leukocyte Esterase NEGATIVE NEGATIVE Urine RBC (Auto) 1+ H NEGATIVE Urine RBC 0-2 /HPF Urine WBC 0-2 /HPF Urine Crystals NONE /LPF Urine Bacteria NEGATIVE /HPF Urine Casts NONE /LPF Urine Mucus NEGATIVE /LPF Urine Culture Indicated NO My Orders Orders - LUCAS LAKE MD Shoulder, Right, 3 Views (09/22/21 14:39) Cbc With Automated Diff (09/22/21 14:39) Basic Metabolic Panel (09/22/21 14:39) Ua Culture If Indicated (09/22/21 14:40) Ed Admission (Communication) (09/22/21 15:19) Vital Signs/I&O 09/22/21 14:12 Temp 36.8 Pulse 71 Resp 18 B/P (MAP) 118/56 (76) Pulse Ox 97 O2 Delivery Nasal Cannula O2 Flow Rate 2.00 Capillary Refill : Progress Note : Time: 15:20 Progress Note Discussed with Dr. Roman, she will do que'd mill order scheduler. Admission order has been placed on my end on the computer. Will admit for observation with generalized weakness and anasarca and bilateral lower extremity pain Departure Impression Primary Impression: Generalized weakness Additional Impressions: Anasarca Bilateral lower extremity pain Chronic kidney disease (CKD) Qualified Codes: N18.9 - Chronic kidney disease, unspecified Right shoulder pain Disposition: ADMITTED INPATIENT Condition: Stable Admissions Decision to Admit Reason: Admit from ER (General) Decision to Admit/Date: Sep 22, 2021 Time/Decision to Admit Time: 15:22 Departure-Patient Inst. Referrals: VERNELL ROMAN DO (PCP/Family) Primary Care Physician LUCAS LA[place] MD Sep 22, 2021 14:36
[2021-09-22 14:48] LABS: BASOPHILS % (AUTO) 0 % (0-10)
[2021-09-22 14:49] LABS: EOSINOPHILS % (AUTO) 1 % (0-10); HEMATOCRIT 38 % (35-52); LYMPHOCYTES # (AUTO) 0.7 10^3/uL (1.0-4.0); LYMPHOCYTES % (AUTO) 10 % (12-44); MEAN CORPUSCULAR HEMOGLOBIN 32 pg (25-34); MEAN CORPUSCULAR HGB CONC 34 g/dL (32-36); MEAN CORPUSCULAR VOLUME 92 fL (80-99); MONOCYTES # (AUTO) 0.9 10^3/uL (0.0-1.0); MONOCYTES % (AUTO) 12 % (0-12); NEUTROPHILS # (AUTO) 5.6 10^3/uL (1.8-7.8); NEUTROPHILS % (AUTO) 77 % (42-75); PLATELET COUNT 88 10^3/uL (130-400); WHITE BLOOD COUNT 7.3 10^3/uL (4.3-11.0)
[2021-09-22 14:55] LABS: BILIRUBIN,URINE NEGATIVE (NEGATIVE); CLARITY,URINE CLEAR; COLOR,URINE YELLOW; GLUCOSE, URINE (UA) NEGATIVE (NEGATIVE); KETONES,URINE NEGATIVE (NEGATIVE); LEUKOCYTE ESTERASE ,URINE NEGATIVE (NEGATIVE); NITRITE,URINE NEGATIVE (NEGATIVE); PROTEIN,URINE NEGATIVE (NEGATIVE)
[2021-09-22 14:57] LABS: POTASSIUM 3.8 MMOL/L (3.6-5.0)
[2021-09-22 14:58] LABS: CALCIUM 8.8 MG/DL (8.5-10.1)
[2021-09-22 15:02] LABS: BACTERIA,URINE NEGATIVE /HPF; RBC,URINE 0-2 /HPF; WBC,URINE 0-2 /HPF
[2021-09-22 15:03] LABS: CREATININE SERUM 1.09 MG/DL (0.60-1.30)
--- NOTE | 2021-09-22 15:37 | Diagnostic Imaging Report ---
INDICATION: Fall, right shoulder pain. TIME OF EXAM: 03:21 p.m. TECHNIQUE: Three views of the right shoulder were obtained. FINDINGS: Glenohumeral and acromioclavicular alignment are normal. Acromiohumeral space is normal. No fracture or dislocation is detected. IMPRESSION: No acute bony abnormality is detected. Dictated by: Dictated on workstation # [id number]
--- NOTE | 2021-09-22 15:38 | Consultation-Cardiology ---
HPI-Cardiology Cardiology Consultation: Date of Consultation 09/22/21 Time Seen by a Provider: 16:10 Date of Admission 09-22-21 Attending Physician Admitting Physician Yulisa Roman DO Consulting Physician Jacob Hammond MD HPI: Chief Complaint: Right shoulder pain Ms. Tobin is an 81 yr old female being admitted for right shoulder pain. She reports she fell at home a few weeks ago, non-syncopal fall, and injured her right shoulder. She has been taking tramadol at home, which helps, but she has continued to have the shoulder pain. She does not report any chest pain. She has chronic bilat LE swelling for which she is on chronic diuretic tx. She states this is unchanged in the recent past. She reports chronic MIKE, which is unchanged in the recent past. She reports poor appetite. No c/o n/v/d. No c/o fever or chills. Review of Systems-Cardiology Review of Systems Constitutional: No chills, No fever, No lightheadedness Eyes: No vision change Ears/Nose/Throat: No recent hearing loss Respiratory: As described under HPI Cardiovascular: As described under HPI Gastrointestinal: constipation; No diarrhea, No nausea, No vomiting Genitourinary: No dysuria, No hematuria : No Musculoskeletal: As describe under HPI Skin: No rash on exposed areas, No ulcerations on exposed areas Psychiatric/Neurological: No anxiety, No depression, No seizure, No focal weakness, No syncope Hematologic: No bleeding abnormalities All Other Systems Reviewed Negative Unless Noted: Yes [id number] Hx Patient Social History 2nd Hand Smoke Exposure: No Alcohol Use?: No Pt feels they are or have been: No Immunizations Up To Date Tetanus Booster (TDap): Less than 5yrs Date of Pneumonia Vaccine: Oct 14, 2009 Date of Influenza Vaccine: Aug 06, 2015 Past Medical History PMH As described under Assessment. Family Medical History Family Medical History: She has a reported family h/o mother having CAD and father having HTN. Family History: 03 FATHER Family history: Hypertension Stroke 03 MOTHER Myocardial infarction 09 SISTER History of - disorder (lupus) 09 SISTER Cancer (breast ) son Family history: Hypertension Allergies and Home Medications Allergies Coded Allergies: codeine (Verified Allergy, Unknown, 08/06/21) erythromycin base (Verified Allergy, Unknown, 09/12/21) ethyl alcohol (Verified Allergy, Unknown, 09/12/21) hydrocodone (Verified Allergy, Unknown, 09/12/21) levofloxacin (Verified Allergy, Unknown, 08/06/21) metronidazole (Verified Allergy, Unknown, 08/06/21) penicillin G (Verified Allergy, Unknown, 08/06/21) Patient Home Medication List Allopurinol (Allopurinol) 300 Mg Tablet, 300 MG PO DAILY, (Reported) Entered as Reported by: AISHA TURNER on 08/06/211754 Last Action: Reviewed Apixaban (Eliquis) 2.5 Mg Tablet, 2.5 MG PO BID, (Reported) Entered as Reported by: AISHA TURNER on 08/06/211754 Last Action: Reviewed Levothyroxine Sodium (Levothyroxine Sodium) 137 Mcg Tablet, 137 MCG PO DAILY, (Reported) Entered as Reported by: AGATA FLETCHER on 09/23/21 102 Last Action: Reviewed Metoprolol Succinate (Metoprolol Succinate) 200 Mg Tab.er.24h, 200 MG PO DAILY, (Reported) Entered as Reported by: CALLY CHARLES on 10/07/15715 Last Action: Reviewed Ped Multivit #43/Iron Fumarate (Flintstones Complete Chew Tab) 18 Mg Tab.chew, 18 MG PO BID, (Reported) Entered as Reported by: AGATA FLETCHER on 08/07/21 102 Last Action: Reviewed Potassium Chloride (Potassium Chloride) 20 Meq Tab.er.prt, 20 MEQ PO BID, (Reported) Entered as Reported by: AGATA FLETCHER on 08/07/21 102 Last Action: Reviewed Torsemide (Torsemide) 20 Mg Tablet, 60 MG PO DAILY, (Reported) Entered as Reported by: CALLY CHARLES on 10/07/15715 Last Action: Reviewed Tramadol HCl (Tramadol HCl) 50 Mg Tablet, 50 MG PO Q8H PRN for PAIN-MODERATE (5- 7), (Reported) Entered as Reported by: AGATA FLETCHER on 09/23/21 102 Last Action: Reviewed l Gasseri/B Bifidum/B Longum ([employer] Capsule) 1 Each Capsule, 1 EACH PO DAILY, (Reported) Entered as Reported by: AGATA FLETCHER on 09/23/21 102 Last Action: Reviewed Discontinued Medications Acetaminophen (Tylenol Extra Strength) 500 Mg Tablet, 500-1,000 MG PO Q8H PRN for PAIN-MILD (1-4), (Reported) Discontinued Reason: Duplicate Order Entered as Reported by: AGATA FLETCHER on 08/07/21 1023 Last Action: Discontinued Colchicine (Colchicine) 0.6 Mg Tablet, 0.6 MG PO UD Discontinued Reason: Duplicate Order Prescribed by: AURELIO DAVIS on 09/13/21 1110 Last Action: Discontinued Levothyroxine Sodium (Levothyroxine Sodium) 88 Mcg Tablet, 88 MCG PO DAILY, (Reported) Discontinued Reason: Duplicate Order Entered as Reported by: RANJEET CAUSEY on 03/29/18 1356 Last Action: Discontinued Levothyroxine Sodium (Synthroid) 50 Mcg Tablet, 50 MCG PO DAILY Discontinued Reason: Duplicate Order Prescribed by: YULISA ROMAN on 08/07/21 1225 Last Action: Discontinued Metolazone (Metolazone) 5 Mg Tablet, 5 MG PO UD Discontinued Reason: Duplicate Order Prescribed by: YULISA ROMAN on 08/07/21 1155 Last Action: Discontinued Nystatin (Nystatin) 15 Gm Cream..g., 0 GM TP TID Discontinued Reason: Duplicate Order Prescribed by: YULISA ROMAN on 08/07/21 1155 Last Action: Discontinued Prednisone (Prednisone) 20 Mg Tab, 40 MG PO DAILY Discontinued Reason: Duplicate Order Prescribed by: AURELIO DVAIS on 09/13/21 1110 Last Action: Discontinued Tramadol HCl (Ultram) 50 Mg Tablet, 50 MG PO Q4H Discontinued Reason: Duplicate Order Prescribed by: AURELIO DAVIS on 09/13/21 1111 Last Action: Discontinued Triamcinolone Acet (Triamcinolone Acetonide 0.1% Cream) 15 Gm Cr, 0 GM TP BID Discontinued Reason: Duplicate Order Prescribed by: YULISA ROMAN on 08/07/21 1155 Last Action: Discontinued Physical Exam-Cardiology Physical Exam Vital Signs/I&O 09/22/21 09/23/21 09/23/21 09/23/21 23:00 00:15 01:00 04:13 Temp 36.8 37.0 Pulse 59 66 62 Resp 16 16 B/P (MAP) 104/60 (75) 101/62 (75) Pulse Ox 95 96 95 O2 Delivery Nasal Cannula Nasal Cannula Nasal Cannula O2 Flow Rate 2.00 2.00 2.00 09/23/21 09/23/21 07:00 08:00 Temp 36.5 Pulse 61 68 Resp 18 B/P (MAP) 118/57 (77) Pulse Ox 94 O2 Delivery Nasal Cannula O2 Flow Rate 2.00 09/23/21 00:00 Intake Total 400 ml Output Total 500 ml Balance -100 ml Capillary Refill : Less Than 3 Seconds Constitutional: AAO x 3, well-developed, well-nourished HEENT: PERRL, hearing is well preserved, oral hygience is good Neck: No carotid bruit; carotid pulses are 2 + bilaterally Respiratory: No accessory muscle use, No respiratory distress; chest expansion is symmetric, chest is bilaterally symmetric, lungs clear to auscultation Cardiovascular: regular rate-rhythm; No JVD; S1 and S2 Gastrointestinal: No tender; soft, round, audible bowel sounds Extremities: other (bilat pitting LE swelling) Neurologic/Psychiatric: grossly intact (moves all extremities; did not manipulate RUE d/t c/o pain) Skin: No rash on exposed areas, No ulcerations on exposed areas Data Review Labs Laboratory Tests 09/22/21 14:40: White Blood Count 7.3, Red Blood Count 4.13, Hemoglobin 13.0, Hematocrit 38, Mean Corpuscular Volume 92, Mean Corpuscular Hemoglobin 32, Mean Corpuscular Hemoglobin Concent 34, Red Cell Distribution Width 18.6H, Platelet Count 88L, M elisabet Platelet Volume , Immature Granulocyte % (Auto) 1, Neutrophils (%) (Auto) 77H, Lymphocytes (%) (Auto) 10L, Monocytes (%) (Auto) 12, Eosinophils (%) (Auto) 1, Basophils (%) (Auto) 0, Neutrophils # (Auto) 5.6, Lymphocytes # (Auto) 0.7L, Monocytes # (Auto) 0.9, Eosinophils # (Auto) 0.0, Basophils # (Auto) 0.0, Immature Granulocyte # (Auto) 0.1, Percent Immature Platelet Fraction 9.0H, Sodium Level 140, Potassium Level 3.8, Chloride Level 102, Carbon Dioxide Level 24, Anion Gap 14, Blood Urea Nitrogen 35H, Creatinine 1.09, Estimat Glomerular Filtration Rate 48, BUN/Creatinine Ratio 32, Glucose Level 89, Calcium Level 8.8 09/22/21 14:50: Urine Color YELLOW, Urine Clarity CLEAR, Urine pH 6.0, Urine Specific [place] 1.010L, Urine Protein NEGATIVE, Urine Glucose (UA) NEGATIVE, Urine Ketones NEGATIVE, Urine Nitrite NEGATIVE, Urine Bilirubin NEGATIVE, Urine Urobilinogen 0.2, Urine Leukocyte Esterase NEGATIVE, Urine RBC (Auto) 1+H, Urine RBC 0-2, Urine WBC 0-2, Urine Crystals NONE, Urine Bacteria NEGATIVE, Urine Casts NONE, Urine Mucus NEGATIVE, Urine Culture Indicated NO 09/23/21 06:38: White Blood Count 7.3, Red Blood Count 4.09, Hemoglobin 12.9, Hematocrit 38, Mean Corpuscular Volume 93, Mean Corpuscular Hemoglobin 32, Mean Corpuscular Hemoglobin Concent 34, Red Cell Distribution Width 18.6H, Platelet Count 93L, Mean Platelet Volume 13.4H, Immature Granulocyte % (Auto) 1, Neutrophils (%) (Auto) 79H, Lymphocytes (%) (Auto) 9L, Monocytes (%) (Auto) 10, Eosinophils (%) (Auto) 2, Basophils (%) (Auto) 0, Neutrophils # (Auto) 5.7, Lymphocytes # (Auto) 0.7L, Monocytes # (Auto) 0.7, Eosinophils # (Auto) 0.1, Basophils # (Auto) 0.0, Immature Granulocyte # (Auto) 0.1, Percent Immature Platelet Fraction 9.9H, Sodium Level 141, Potassium Level 3.8, Chloride Level 103, Carbon Dioxide Level 26, Anion Gap 12, Blood Urea Nitrogen 35H, Creatinine 1.15, Estimat Glomerular Filtration Rate 45, BUN/Creatinine Ratio 30, Glucose Level 62L, Calcium Level 9.2, Corrected Calcium 10.2H, Total Bilirubin 4.8H, Aspartate Amino Transf (AST/SGOT) 37H, Alanine Aminotransferase (ALT/SGPT) 22, Alkaline Phosphatase 128, Total Protein 6.3L, Albumin 2.7L A/P-Cardiology Assessment/Admission Diagnosis Right shoulder discomfort following a non-syncopal fall - management per medical services Leg swelling due to chronic cor pulmonale and due to chronic lymphedema - consider chronic pulm thromboembolism, inadequately treated FABRIZIO, pulm fibrosis, primary pulm hypertension, etc CAD - Cardiac cath of 10-07-15 showed minimal coronary plaques without any obst ructive disease. LVEF 60-65%. Mod elevation of LVEDP. No significant MR - MPI of 03-10-2021 shows no evidence of ischemia or infarction. LVEF 70% Paroxysmal Atrial Fibrillation - OAC with Eliquis, low dose per PCP d/t propensity to bleeding, advanced age a nd CKD Mod pulm htn and chronic cor pulmonale - consider chronic pulm thromboembolism, inadequately treated FABRIZIO, pulm fibrosis, primary pulm hypertension, etc - Echo of 03-09-2021 showed LVEF 70-75%. Mod MR. Mod to severe TR. PASP 50-55 mmHg PAD - arterial Doppler of February 2021 reported mod atheromatous plaque on both sides w/o evidence of hemodynamic significance Hyperlipidemia - unable to take statins - followed by her PCP Obesity - with a BMI of approximately 40 Hypothyroidism - managed by PCP CKD-3. - Chronic renal insuff with Cr ranging between 1 and 1.4. CKD stage 3, followed by [facility] Impaired fasting glucose - managed by PCP Carotid dz - Mild bilateral carotid art disease on carotid u/s of 02-27-2021 FABRIZIO - for which she is on CPAP therapy and is managed by the Pulm services H/o gout - managed by PCP Discussion and Recomendations Right shoulder discomfort which appears to be musculoskeltal by description Chronic bilat LE swelling which is unchanged - continue home medications Continue OAC with Eliquis for stroke prophylaxis d/t PAF Monitor lab closely Further recs will be based on her hospital course We would like to thank medical services for this consult NEAL LIM Sep 22, 2021 15:38
--- NOTE | 2021-09-22 16:06 | History & Physical ---
PADMAJAEMMYBEKAH ARTHUR 09/22/21 1606: History of Present Illness History of Present Illness Reason for visit/HPI Patient presents in ED for pain and weakness in her BL lower extremity as well as right shoulder which prevent her from walking and doing activities of normal daily living. She presented in the ED 2 wks ago for pain and swelling in her ankles and was diagnosed with gout for which she has been taking colchicine and prednisione, which she claims have not helped her sx. Nothing else seems to improve her sx, and nothing seems to make it worse. She also complains of pain and weakness of her right arm made worse when moving and better with not moving. She also claims to hear and feel a pop from her neck when turning which began secondary to a recent fall. Both the pt and her son Sergo who was also present state that they would very much like to see her symptoms of swelling and pain resolve so she can return to activities of normal daily living. Date of Admission 09/22/2021 Date Seen by a Provider: Sep 22, 2021 Time Seen by a Provider: 15:46 I consulted on this patient on 09/22/21 16:00 Attending Physician Admitting Physician Yulisa Roman DO Consult Allergies and Home Medications Allergies Coded Allergies: codeine (Verified Allergy, Unknown, 08/06/21) erythromycin base (Verified Allergy, Unknown, 09/12/21) ethyl alcohol (Verified Allergy, Unknown, 09/12/21) hydrocodone (Verified Allergy, Unknown, 09/12/21) levofloxacin (Verified Allergy, Unknown, 08/06/21) metronidazole (Verified Allergy, Unknown, 08/06/21) penicillin G (Verified Allergy, Unknown, 08/06/21) Patient Home Medication List Allopurinol (Allopurinol) 300 Mg Tablet, 300 MG PO DAILY, (Reported) Entered as Reported by: AISHA TURNER on 08/06/211754 Last Action: Continued Apixaban (Eliquis) 2.5 Mg Tablet, 2.5 MG PO BID, (Reported) Entered as Reported by: AISHA TURNER on 08/06/211754 Last Action: Continued Levothyroxine Sodium (Levothyroxine Sodium) 137 Mcg Tablet, 137 MCG PO DAILY, (Reported) Entered as Reported by: AGATA FLETCHER on 09/23/21 1020 Last Action: Converted Metoprolol Succinate (Metoprolol Succinate) 200 Mg Tab.er.24h, 200 MG PO DAILY, (Reported) Entered as Reported by: CALLY CHARLES on 10/07/15 0716 Last Action: Converted Ped Multivit #43/Iron Fumarate (Flintstones Complete Chew Tab) 18 Mg Tab.chew, 18 MG PO BID, (Reported) Entered as Reported by: AGATA FLETCHER on 08/07/21 1023 Last Action: Held Potassium Chloride (Potassium Chloride) 20 Meq Tab.er.prt, 20 MEQ PO BID, (Reported) Entered as Reported by: AGATA FLETCHER on 08/07/21 1023 Last Action: Continued Torsemide (Torsemide) 20 Mg Tablet, 90 MG PO DAILY Prescribed by: YULISA ROMAN on 09/23/21 1056 Tramadol HCl (Tramadol HCl) 50 Mg Tablet, 50 MG PO Q8H PRN for PAIN-MODERATE (5- 7), (Reported) Entered as Reported by: AGATA FLETCHER on 09/23/21 1020 Last Action: Continued l Gasseri/B Bifidum/B Longum ([facility] Capsule) 1 Each Capsule, 1 EACH PO DAILY, (Reported) Entered as Reported by: AGATA FLETCHER on 09/23/21 1020 Last Action: Held Discontinued Medications Acetaminophen (Tylenol Extra Strength) 500 Mg Tablet, 500-1,000 MG PO Q8H PRN for PAIN-MILD (1-4), (Reported) Discontinued Reason: Duplicate Order Entered as Reported by: AGATA FLETCHER on 08/07/21 1023 Last Action: Discontinued Colchicine (Colchicine) 0.6 Mg Tablet, 0.6 MG PO UD Discontinued Reason: Duplicate Order Prescribed by: AURELIO DAVIS on 09/13/21 1110 Last Action: Discontinued Levothyroxine Sodium (Levothyroxine Sodium) 88 Mcg Tablet, 88 MCG PO DAILY, (Reported) Discontinued Reason: Duplicate Order Entered as Reported by: RANJEET CAUSEY on 03/29/18 1356 Last Action: Discontinued Levothyroxine Sodium (Synthroid) 50 Mcg Tablet, 50 MCG PO DAILY Discontinued Reason: Duplicate Order Prescribed by: YULISA ROMAN on 08/07/21 1225 Last Action: Discontinued Metolazone (Metolazone) 5 Mg Tablet, 5 MG PO UD Discontinued Reason: Duplicate Order Prescribed by: YULISA ROMAN on 08/07/21 115 Last Action: Discontinued Nystatin (Nystatin) 15 Gm Cream..g., 0 GM TP TID Discontinued Reason: Duplicate Order Prescribed by: YULISA ROMAN on 08/07/21 115 Last Action: Discontinued Prednisone (Prednisone) 20 Mg Tab, 40 MG PO DAILY Discontinued Reason: Duplicate Order Prescribed by: AURELIO DAVIS on 09/13/21 1110 Last Action: Discontinued Torsemide (Torsemide) 20 Mg Tablet, 60 MG PO DAILY, (Reported) Entered as Reported by: CALLY CHARLES on 10/07/15 0716 Last Action: Held Tramadol HCl (Ultram) 50 Mg Tablet, 50 MG PO Q4H Discontinued Reason: Duplicate Order Prescribed by: AURELIO DVAIS on 09/13/21 1111 Last Action: Discontinued Triamcinolone Acet (Triamcinolone Acetonide 0.1% Cream) 15 Gm Cr, 0 GM TP BID Discontinued Reason: Duplicate Order Prescribed by: YULISA ROMAN on 08/07/21 115 Last Action: Discontinued Past Avzxcyy-Zlxsdh-Xqajet Hx Patient Social History Marrital Status: Living Status: At home with - some minor assistance from family Employed/Student: retired Tobacco Use?: No Substance use?: No Alcohol Use?: No Pt feels they are or have been: No Immunizations Up To Date Date of Influenza Vaccine: Aug 06, 2015 First/Initial COVID19 Vaccinat: JANUARY 14 Second COVID19 Vaccination Garett: FEBRUARY 11 Tetanus Booster (TDap): Less Than 5 Years Hepatitis A: Yes Hepatitis B: Yes Date of Pneumonia Vaccine: Oct 14, 2009 Current Status Primary Language: Romansh Preferred Spoken Language: Romansh Sensory deficits: Vision impairment Past Medical History Surgeries: Eye Surgery, Orthopedic Sleep Apnea Currently Using CPAP: Yes Atrial Fibrillation, Chronic Edema/Swelling, High Cholesterol, Hypertension Renal Failure Arthritis, Gout Hypothyroidsim Cataract Loss of Vision: Bilateral Hearing Impairment: Hard of Hearing Blood Disorders: No Family Medical History Cancer 09 SISTER (breast ) FH: atrial fibrillation Family history: Hypertension 03 FATHER son History of - disorder 09 SISTER (lupus) Myocardial infarction 03 MOTHER Stroke 03 FATHER Heart Disease, Hypertension, Stroke Review of Systems Constitutional: No chills, No diaphoresis; dizziness; No fever; weakness EENTM: No hearing loss, No ear pain, No blurred vision, No double vision, No vision loss Respiratory: No cough, No hemoptysis, No phlegm Gastrointestinal: No RUQ, No LUQ, No RLQ, No LLQ, No abdominal pain, No hematemesis, No nausea, No vomiting Genitourinary: No discharge, No dysuria, No frequency Musculoskeletal: muscle weakness, other (Right arm and shoulder pain, leg pain) Skin: No change in color, No change in hair/nails, No lesions, No pruritus, No rash Psychiatric/Neurological: Denies Headache, Denies Numbness, Denies Paresthesia, Denies Tingling; Weakness Physical Exam Vital Signs Vital Signs - First Documented 09/22/21 09/22/21 14:12 17:33 Temp 36.8 Pulse 71 Resp 18 B/P (MAP) 118/56 (76) Pulse Ox 97 O2 Delivery Nasal Cannula O2 Flow Rate 2.00 FiO2 28 Capillary Refill : Less Than 3 Seconds Height, Weight, BMI Height: 5'3.50" Weight: 211lbs. 8.0oz. [id number]; 34.00 BMI Method:Stated General Appearance: No Apparent Distress, WD/WN, Chronically ill Eyes: Bilateral Eye PERRL, Bilateral Eye EOMI HEENT: PERRL/EOMI; No Moist Mucous Membranes (dry mouth and tounge) Neck: Non Tender, Supple, Limited Range of Motion (Limited to turning her head left - right is okay - PT claims to hear a pop when turning her neck after recent fall) Respiratory: Chest Non Tender, No Accessory Muscle Use, No Respiratory Distress, Crackles (In bases B/L), Expiration, Inspiration, Other (on 3L N/C, but claims she does not use O2 at home) Cardiovascular: No Gallop, No Murmur, Normal Peripheral Pulses, Irregularly Irregular (known chronic A-Fib - on Eliquis) Gastrointestinal: Normal Bowel Sounds, Non Tender, Soft Rectal: Deferred Back: No CVA Tenderness, Vertebral Tenderness (to left sided T7-T12 - she claims she hit something, but no bruise is evident) Extremity: Normal Capillary Refill, No Calf Tenderness, Pedal Edema (PROFOUND Edema 4+ pitting - extends to thighs BL), Other (RT arm ROM is limited secondary to pain that extends from shoulder to hand - Muscle strenght and sensation is intact at fingers and toes BL) Neurologic/Psychiatric: Alert, No Motor/Sensory Deficits, 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 Norm as Tested Skin: Normal Color, Warm/Dry Lymphatic: No Adenopathy (axillary or cervical) Assessment/Plan Admission Diagnosis Acute CHF exacerbation 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 Pt was admitted with severe weakness found to be in need of inpatient rehab along with wrapping her legs and right shoulder injection by Dr. Huerta who has seen her before. She was restarted on all of her home medication. She was on Torsemide 90mg daily for nephrology. Allergies and Home Medications Allergies Coded Allergies: codeine (Verified Allergy, Unknown, 08/06/21) erythromycin base (Verified Allergy, Unknown, 09/12/21) ethyl alcohol (Verified Allergy, Unknown, 09/12/21) hydrocodone (Verified Allergy, Unknown, 09/12/21) levofloxacin (Verified Allergy, Unknown, 08/06/21) metronidazole (Verified Allergy, Unknown, 08/06/21) penicillin G (Verified Allergy, Unknown, 08/06/21) Patient Home Medication List Home Medication List Reviewed: Yes Allopurinol (Allopurinol) 300 Mg Tablet, 300 MG PO DAILY, (Reported) Entered as Reported by: AISHA TURNER on 08/06/211754 Last Action: Continued Apixaban (Eliquis) 2.5 Mg Tablet, 2.5 MG PO BID, (Reported) Entered as Reported by: AISHA TURNER on 08/06/211754 Last Action: Continued Levothyroxine Sodium (Levothyroxine Sodium) 137 Mcg Tablet, 137 MCG PO DAILY, (Reported) Entered as Reported by: AGATA FLETCHER on 09/23/21 1020 Last Action: Converted Metoprolol Succinate (Metoprolol Succinate) 200 Mg Tab.er.24h, 200 MG PO DAILY, (Reported) Entered as Reported by: CALLY CHARLES on 10/07/15 0716 Last Action: Converted Ped Multivit #43/Iron Fumarate (Flintstones Complete Chew Tab) 18 Mg Tab.chew, 1 8 MG PO BID, (Reported) Entered as Reported by: AGATA FLETCHER on 08/07/21 1023 Last Action: Held Potassium Chloride (Potassium Chloride) 20 Meq Tab.er.prt, 20 MEQ PO BID, (Reported) Entered as Reported by: AGATA FLETCHER on 08/07/21 1023 Last Action: Continued Torsemide (Torsemide) 20 Mg Tablet, 90 MG PO DAILY Prescribed by: YULISA ROMAN on 09/23/21 1056 Tramadol HCl (Tramadol HCl) 50 Mg Tablet, 50 MG PO Q8H PRN for PAIN-MODERATE (5- 7), (Reported) Entered as Reported by: AGATA FLETCHER on 09/23/21 1020 Last Action: Continued l Gasseri/B Bifidum/B Longum ([facility] Capsule) 1 Each Capsule, 1 EACH PO DAILY, (Reported) Entered as Reported by: AGATA FLETCHER on 09/23/21 1020 Last Action: Held Discontinued Medications Acetaminophen (Tylenol Extra Strength) 500 Mg Tablet, 500-1,000 MG PO Q8H PRN for PAIN-MILD (1-4), (Reported) Discontinued Reason: Duplicate Order Entered as Reported by: AGATA FLETCHER on 08/07/21 1023 Last Action: Discontinued Colchicine (Colchicine) 0.6 Mg Tablet, 0.6 MG PO UD Discontinued Reason: Duplicate Order Prescribed by: AURELIO DAVIS on 09/13/21 1110 Last Action: Discontinued Levothyroxine Sodium (Levothyroxine Sodium) 88 Mcg Tablet, 88 MCG PO DAILY, (Reported) Discontinued Reason: Duplicate Order Entered as Reported by: RANJEET CAUSEY on 03/29/18 1356 Last Action: Discontinued Levothyroxine Sodium (Synthroid) 50 Mcg Tablet, 50 MCG PO DAILY Discontinued Reason: Duplicate Order Prescribed by: YULISA ROMAN on 08/07/21 1225 Last Action: Discontinued Metolazone (Metolazone) 5 Mg Tablet, 5 MG PO UD Discontinued Reason: Duplicate Order Prescribed by: YULISA ROMAN on 08/07/21 115 Last Action: Discontinued Nystatin (Nystatin) 15 Gm Cream..g., 0 GM TP TID Discontinued Reason: Duplicate Order Prescribed by: YULISA ROMAN on 08/07/21 115 Last Action: Discontinued Prednisone (Prednisone) 20 Mg Tab, 40 MG PO DAILY Discontinued Reason: Duplicate Order Prescribed by: AURELIO DAVIS on 09/13/21 1110 Last Action: Discontinued Torsemide (Torsemide) 20 Mg Tablet, 60 MG PO DAILY, (Reported) Entered as Reported by: CALLY CHARELS on 10/07/15 0716 Last Action: Held Tramadol HCl (Ultram) 50 Mg Tablet, 50 MG PO Q4H Discontinued Reason: Duplicate Order Prescribed by: AURELIO DAVIS on 09/13/21 1111 Last Action: Discontinued Triamcinolone Acet (Triamcinolone Acetonide 0.1% Cream) 15 Gm Cr, 0 GM TP BID Discontinued Reason: Duplicate Order Prescribed by: YULISA ROMAN on 08/07/211154 Last Action: Discontinued Past Rqddggj-Lchsoq-Cqljin Hx Patient Social History Marrital Status: Employed/Student: retired Smoking Status: Never a Smoker Past Medical History Sleep Apnea Atrial Fibrillation, Chronic Edema/Swelling, High Cholesterol, Hypertension Neuropathy Renal Failure Arthritis, Gout Hypothyroidsim Family Medical History Cancer 09 SISTER (breast ) FH: atrial fibrillation Family history: Hypertension 03 FATHER son History of - disorder 09 SISTER (lupus) Myocardial infarction 03 MOTHER Stroke 03 FATHER Review of Systems Constitutional: see HPI, weakness EENTM: no symptoms reported Respiratory: no symptoms reported Cardiovascular: no symptoms reported Gastrointestinal: no symptoms reported Genitourinary: no symptoms reported Musculoskeletal: back pain, joint pain Psychiatric/Neurological: No Symptoms Reported All Other Systems Reviewed Negative Unless Noted: Yes Physical Exam General Appearance: No Apparent Distress, WD/WN, Chronically ill Eyes: Bilateral Eye Normal Inspection, Bilateral Eye PERRL, Bilateral Eye EOMI HEENT: PERRL/EOMI, Pharynx Normal, Scleral Icterus (L), Scleral Icterus (R) Neck: Full Range of Motion, Normal Inspection, Non Tender, Supple, Carotid Bruit Respiratory: Chest Non Tender, Lungs Clear, Normal Breath Sounds, No Accessory Muscle Use, No Respiratory Distress Cardiovascular: Regular Rate, Rhythm, No Gallop, No JVD, No Murmur, Normal Peripheral Pulses, Irregularly Irregular (known chronic A-Fib - on Eliquis) Gastrointestinal: Normal Bowel Sounds, No Organomegaly, No Pulsatile Mass, Non Tender, Soft Back: Normal Inspection, No CVA Tenderness, No Vertebral Tenderness Extremity: Normal Capillary Refill, Normal Inspection, Normal Range of Motion, Non Tender, No Calf Tenderness, Pedal Edema (PROFOUND Edema 4+ pitting - extends to thighs BL), Other (RT arm ROM is limited secondary to pain that extends from shoulder to hand - Muscle strenght and sensation is intact at fingers and toes BL) Neurologic/Psychiatric: Alert, Oriented x3, No Motor/Sensory Deficits, Normal Mood/Affect Skin: Normal Color, Warm/Dry Lymphatic: No Adenopathy Assessment/Plan Assessment and Plan Assessment: AECHF Edema Lymphedema Hypothyroidism Cor pulmonale FABRIZIO on CPAP Scleral icterus Plan: IRF Cardiology consult ECHO Admission Diagnosis Admission Status: Observation Supervisory-Addendum Brief Verification & Attestation Participated in pt care: history, MDM, physical Personally performed: exam, history, MDM, supervision of care Care discussed with: Medical Student Procedures: n/a Results interpretation: Verified all documentation Verification and Attestation of Medical Student E/M Service A medical student performed and documented this service in my presence. I reviewed and verified all information documented by the medical student and made modifications to such information, when appropriate. I personally performed the physical exam and medical decision making. Yulisa Roman, Sep 24, 2021,05:13 BEKAH DELANEY Sep 22, 2021 16:06 YULISA ROMAN DO Sep 24, 2021 05:13
[2021-09-22] MEDS ORDERED: diphenhydrAMINE 25 MG TAB (BENADRYL) PO PRN (17:15)
[2021-09-22] MEDS ORDERED: ONDANSETRON 4 MG/2 ML (SDV) Z0FRAN IVP PRN (17:15)
[2021-09-22] MEDS ORDERED: CALCIUM CARBONATE 500 MG (TUMS) TAB.CHEW PO PRN (17:15)
[2021-09-22] MEDS ORDERED: DOCUSATE SODIUM 100 MG (COLACE) CAP PO PRN (17:15)
[2021-09-22] MEDS ORDERED: LOPERAMIDE 2 MG (IMODIUM) TABLET PO PRN (17:15)
[2021-09-22] MEDS ORDERED: ACETAMINOPHEN 500 MG TAB (TYLENOL) PO PRN (17:15)
[2021-09-22] MEDS ORDERED: MELATONIN 3 MG TABLET PO PRN (17:15)
--- NOTE | 2021-09-22 17:23 | Consultation-Cardiology ---
HPI-Cardiology Cardiology Consultation: Date of Consultation 09/22/21 Time Seen by a Provider: 16:50 Date of Admission Attending Physician Yulisa Roman DO Admitting Physician Yulisa Roman DO Consulting Physician ISABELLE CARLTON MD, MA, FACP, FACC, [facility] [place], CCDS Physician requesting consult: Dr Roman HPI: Chief Complaint: Right shoulder pain Ms. Tobin is an 81 yr old female being admitted for right shoulder pain. She reports she fell at home a few weeks ago, non-syncopal fall, and injured her right shoulder. She has been taking tramadol at home, which helps, but she has continued to have the shoulder pain. She does not report any chest pain. She has chronic bilat LE swelling for which she is on chronic diuretic tx. She states this is unchanged in the recent past. She reports chronic MIKE, which is unchanged in the recent past. She reports poor appetite. No c/o n/v/d. No c/o fever or chills. Review of Systems-Cardiology Review of Systems Constitutional: No chills, No fever, No lightheadedness Eyes: No vision change Ears/Nose/Throat: No recent hearing loss Respiratory: As described under HPI Cardiovascular: As described under HPI Gastrointestinal: constipation; No diarrhea, No nausea, No vomiting Genitourinary: No dysuria, No hematuria : No Musculoskeletal: As describe under HPI Skin: No rash on exposed areas, No ulcerations on exposed areas Psychiatric/Neurological: No anxiety, No depression, No seizure, No focal weakness, No syncope Hematologic: No bleeding abnormalities All Other Systems Reviewed Negative Unless Noted: Yes FJL-Yrrnfz-Evrrdz Hx Patient Social History Marrital Status: Living Status: At home with - some minor assistance from family Employed/Student: retired 2[employer] Hand Smoke Exposure: No Alcohol Use?: No Pt feels they are or have been: No Immunizations Up To Date Tetanus Booster (TDap): Less than 5yrs Date of Pneumonia Vaccine: Oct 14, 2009 Date of Influenza Vaccine: Aug 06, 2015 Past Medical History PMH As described under Assessment. Family Medical History Family Medical History: She has a reported family h/o mother having CAD and father having HTN. Family History: Cancer 09 SISTER (breast ) FH: atrial fibrillation Family history: Hypertension 03 FATHER son History of - disorder 09 SISTER (lupus) Myocardial infarction 03 MOTHER Stroke 03 FATHER Allergies and Home Medications Allergies Coded Allergies: codeine (Verified Allergy, Unknown, 08/06/21) erythromycin base (Verified Allergy, Unknown, 09/12/21) ethyl alcohol (Verified Allergy, Unknown, 09/12/21) hydrocodone (Verified Allergy, Unknown, 09/12/21) levofloxacin (Verified Allergy, Unknown, 08/06/21) metronidazole (Verified Allergy, Unknown, 08/06/21) penicillin G (Verified Allergy, Unknown, 08/06/21) Patient Home Medication List Home Medication List Reviewed: Yes Acetaminophen (Tylenol Extra Strength) 500 Mg Tablet, 500-1,000 MG PO Q8H PRN for PAIN-MILD (1-4), (Reported) Entered as Reported by: AGATA FLETCHER on 08/07/21 1023 Allopurinol (Allopurinol) 300 Mg Tablet, 300 MG PO DAILY, (Reported) Entered as Reported by: AISHA TURNER on 08/06/21 1755 Apixaban (Eliquis) 2.5 Mg Tablet, 2.5 MG PO BIDPC, (Reported) Entered as Reported by: AISHA TURNER on 08/06/21 1755 Colchicine (Colchicine) 0.6 Mg Tablet, 0.6 MG PO UD Prescribed by: AURELIO DAVIS on 09/13/21 1110 Levothyroxine Sodium (Levothyroxine Sodium) 88 Mcg Tablet, 88 MCG PO DAILY, (Rep orted) Entered as Reported by: RANJEET CAUSEY on 03/29/18 1356 Levothyroxine Sodium (Synthroid) 50 Mcg Tablet, 50 MCG PO DAILY Prescribed by: YULISA ROMAN on 08/07/21 1225 Metolazone (Metolazone) 5 Mg Tablet, 5 MG PO UD Prescribed by: YULISA ROMAN on 08/07/21 1155 Metoprolol Succinate (Metoprolol Succinate) 200 Mg Tab.er.24h, 200 MG PO DAILY, (Reported) Entered as Reported by: CALLY CHARLES on 10/07/15 0716 Nystatin (Nystatin) 15 Gm Cream..g., 0 GM TP TID Prescribed by: YULISA ROMAN on 08/07/21 1155 Ped Multivit #43/Iron Fumarate (Flintstones Complete Chew Tab) 18 Mg Tab.chew, 18 MG PO BID, (Reported) Entered as Reported by: AGATA FLETCHER on 08/07/21 1023 Potassium Chloride (Potassium Chloride) 20 Meq Tab.er.prt, 20 MEQ PO BID, (Reported) Entered as Reported by: AGATA FLETCHER on 08/07/21 1023 Prednisone (Prednisone) 20 Mg Tab, 40 MG PO DAILY Prescribed by: AURELIO DAVIS on 09/13/21 1110 Torsemide (Torsemide) 20 Mg Tablet, 60 MG PO DAILY, (Reported) Entered as Reported by: CALLY CHARLES on 10/07/15 0716 Tramadol HCl (Ultram) 50 Mg Tablet, 50 MG PO Q4H Prescribed by: AURELIO DAVIS on 09/13/21 1111 Triamcinolone Acet (Triamcinolone Acetonide 0.1% Cream) 15 Gm Cr, 0 GM TP BID Prescribed by: YULISA ROMAN on 08/07/21 1155 Physical Exam-Cardiology Physical Exam Vital Signs/I&O 09/22/21 09/22/21 14:12 17:10 Temp 36.8 36.8 Pulse 71 68 Resp 18 18 B/P (MAP) 118/56 (76) 135/68 Pulse Ox 97 98 O2 Delivery Nasal Cannula Nasal Cannula O2 Flow Rate 2.00 2.00 2.00 Capillary Refill : Less Than 3 Seconds Constitutional: AAO x 3, well-developed, well-nourished HEENT: PERRL, hearing is well preserved, oral hygience is good Neck: No carotid bruit; carotid pulses are 2 + bilaterally Respiratory: No accessory muscle use, No respiratory distress; chest expansion is symmetric, chest is bilaterally symmetric, lungs clear to auscultation Cardiovascular: regular rate-rhythm; No JVD; S1 and S2 Gastrointestinal: No tender; soft, round, audible bowel sounds Extremities: other (bilat pitting LE swelling) Neurologic/Psychiatric: grossly intact (moves all extremities; did not manipulate RUE d/t c/o pain) Skin: No rash on exposed areas, No ulcerations on exposed areas Data Review Labs Laboratory Tests 09/22/21 14:40: White Blood Count 7.3, Red Blood Count 4.13, Hemoglobin 13.0, Hematocrit 38, Mean Corpuscular Volume 92, Mean Corpuscular Hemoglobin 32, Mean Corpuscular Hemoglobin Concent 34, Red Cell Distribution Width 18.6H, Platelet Count 88L, Mean Platelet Volume , Immature Granulocyte % (Auto) 1, Neutrophils (%) (Auto) 77H, Lymphocytes (%) (Auto) 10L, Monocytes (%) (Auto) 12, Eosinophils (%) (Auto) 1, Basophils (%) (Auto) 0, Neutrophils # (Auto) 5.6, Lymphocytes # (Auto) 0.7L, Monocytes # (Auto) 0.9, Eosinophils # (Auto) 0.0, Basophils # (Auto) 0.0, Immature Granulocyte # (Auto) 0.1, Percent Immature Platelet Fraction 9.0H, Sodium Level 140, Potassium Level 3.8, Chloride Level 102, Carbon Dioxide Level 24, Anion Gap 14, Blood Urea Nitrogen 35H, Creatinine 1.09, Estimat Glomerular Filtration Rate 48, BUN/Creatinine Ratio 32, Glucose Level 89, Calcium Level 8.8 09/22/21 14:50: Urine Color YELLOW, Urine Clarity CLEAR, Urine pH 6.0, Urine Specific [place] 1.010L, Urine Protein NEGATIVE, Urine Glucose (UA) NEGATIVE, Urine Ketones NEGATIVE, Urine Nitrite NEGATIVE, Urine Bilirubin NEGATIVE, Urine Urobilinogen 0.2, Urine Leukocyte Esterase NEGATIVE, Urine RBC (Auto) 1+H, Urine RBC 0-2, Urine WBC 0-2, Urine Crystals NONE, Urine Bacteria NEGATIVE, Urine Casts NONE, Urine Mucus NEGATIVE, Urine Culture Indicated NO A/P-Cardiology Assessment/Admission Diagnosis Right shoulder discomfort following a non-syncopal fall in Jul 2021 - management is by Dr Roman Leg swelling due to chronic cor pulmonale and due to chronic lymphedema - consider chronic pulm thromboembolism, inadequately treated FABRIZIO, pulm fibrosis, primary pulm hypertension, etc CAD - Cardiac cath of 10-07-15 showed minimal coronary plaques without any obstructive disease. LVEF 60-65%. Mod elevation of LVEDP. No significant MR - MPI of 03-10-2021 shows no evidence of ischemia or infarction. LVEF 70% Paroxysmal Atrial Fibrillation - OAC with Eliquis, low dose per PCP d/t propensity to bleeding, advanced age and CKD Mod pulm htn and chronic cor pulmonale - consider chronic pulm thromboembolism, inadequately treated FABRIZIO, pulm fibro sis, primary pulm hypertension, etc - Echo of 4-26-2021 showed LVEF 70-75%. Mod MR. Mod to severe TR. PASP 50-55 mmHg PAD - arterial Doppler of February 2021 reported mod atheromatous plaque on both sides w/o evidence of hemodynamic significance Hyperlipidemia - unable to take statins - followed by her PCP Obesity - with a BMI of approximately 40 Hypothyroidism - managed by PCP CKD-3. - Chronic renal insuff with Cr ranging between 1 and 1.4. CKD stage 3, followed by [facility] Impaired fasting glucose - managed by PCP Carotid dz - Mild bilateral carotid art disease on carotid u/s of 02-27-2021 FABRIZIO - for which she is on CPAP therapy and is managed by the Pulm services H/o gout - managed by PCP Discussion and Recomendations Right shoulder discomfort which appears to be musculoskeletal by description and is to be managed by Dr Roman Chronic bilat LE swelling which is unchanged - continue home medications Continue OAC with Eliquis for stroke prophylaxis d/t PAF Monitor lab closely Further recs will be based on her hospital course We would like to thank Medical services for this consult ISABELLE CARLTON MD FACP FAC CCDS Sep 22, 2021 17:23
[2021-09-22] MEDS ORDERED: ACETAMINOPHEN 325 MG TABLET PO PRN (17:30)
[2021-09-22 17:33] VITALS: BP 118/56
[2021-09-22] MEDS ORDERED: RT-ALBUTEROL/IPRATROPIUM 3 ML (DUONEB) VIAL INH PRN (17:45)
[2021-09-22 17:50] VITALS: BP 132/67
[2021-09-22 20:22] VITALS: BP 122/57
[2021-09-22] MEDS: polyethylene glycoL POWDER 17 GM (MIRALAX) PACK PO SCH (20:36)
[2021-09-22] MEDS: APIXABAN 2.5 MG (ELIQUIS) TABLET PO SCH (20:49)
[2021-09-22] MEDS: SENNA W/DOCUSATE (SENOKOT S) TABLET PO SCH (20:50)
[2021-09-22] MEDS ORDERED: APIXABAN 2.5 MG (ELIQUIS) TABLET PO SCH (21:00)
[2021-09-23 00:15] VITALS: BP 104/60
[2021-09-23 04:13] VITALS: BP 101/62
[2021-09-23] MEDS ORDERED: LEVOTHYROXINE 25 MCG (LEVOTHROID) TAB PO SCH (06:30)
[2021-09-23] MEDS ORDERED: LEVOTHYROXINE 125 MCG (LEVOTHROID) TABLET PO SCH (06:30)
[2021-09-23 08:00] VITALS: BP 118/57
[2021-09-23 08:00] LABS: BASOPHILS % (AUTO) 0 % (0-10); HEMOGLOBIN 12.9 g/dL (11.5-16.0)
[2021-09-23 08:03] LABS: EOSINOPHILS # (AUTO) 0.1 10^3/uL (0.0-0.3); EOSINOPHILS % (AUTO) 2 % (0-10); HEMATOCRIT 38 % (35-52); LYMPHOCYTES # (AUTO) 0.7 10^3/uL (1.0-4.0); LYMPHOCYTES % (AUTO) 9 % (12-44); MEAN CORPUSCULAR HEMOGLOBIN 32 pg (25-34); MEAN CORPUSCULAR HGB CONC 34 g/dL (32-36); MEAN CORPUSCULAR VOLUME 93 fL (80-99); MEAN PLATELET VOLUME 13.4 fL (9.0-12.2); MONOCYTES # (AUTO) 0.7 10^3/uL (0.0-1.0); MONOCYTES % (AUTO) 10 % (0-12); NEUTROPHILS # (AUTO) 5.7 10^3/uL (1.8-7.8); NEUTROPHILS % (AUTO) 79 % (42-75); PLATELET COUNT 93 10^3/uL (130-400); WHITE BLOOD COUNT 7.3 10^3/uL (4.3-11.0)
[2021-09-23] MEDS: polyethylene glycoL POWDER 17 GM (MIRALAX) PACK PO SCH (08:16)
[2021-09-23] MEDS: APIXABAN 2.5 MG (ELIQUIS) TABLET PO SCH (08:16)
[2021-09-23] MEDS: SENNA W/DOCUSATE (SENOKOT S) TABLET PO SCH (08:16)
[2021-09-23 08:30] LABS: ALBUMIN 2.7 GM/DL (3.2-4.5); BILIRUBIN,TOTAL 4.8 MG/DL (0.1-1.0); CALCIUM 9.2 MG/DL (8.5-10.1); CREATININE SERUM 1.15 MG/DL (0.60-1.30); POTASSIUM 3.8 MMOL/L (3.6-5.0); TOTAL PROTEIN 6.3 GM/DL (6.4-8.2)
[2021-09-23] MEDS ORDERED: TORSEMIDE 20 MG (DEMADEX) TAB PO SCH (09:00)
--- NOTE | 2021-09-23 09:01 | Physical Therapy Evaluation ---
PT Evaluation-General Medical Diagnosis Admission Date Sep 22, 2021 at 15:20 Medical Diagnosis: right shoulder pain and BLE edema Onset Date: Sep 22, 2021 Therapy Diagnosis Therapy Diagnosis: impaired mobility, strength, endurance Height/Weight Height (Feet): 5 Height (Inches): 3.50 Weight (Pounds): 211 Weight (Ounces): 8.0 Precautions Precautions/Isolations: Fall Prevention, Standard Precautions Weight Bear Status Right Lower Extremity: Right Weight Bearing/Tolerated Left Lower Extremity: Left Weight Bearing/Tolerated Referral Physician: Yulisa Bertrand DO Reason for Referral: Evaluation/Treatment Medical History Additional Medical History Past Medical History Surgeries: Eye Surgery, Orthopedic Sleep Apnea Currently Using CPAP: Yes Atrial Fibrillation, Chronic Edema/Swelling, High Cholesterol, Hypertension Renal Failure Arthritis, Gout Hypothyroidsim Cataract Loss of Vision: Bilateral Hearing Impairment: Hard of Hearing Reviewed History: Yes Social History Current Living Status: Spouse Entry Into Home: Ramp Prior Prior Level of Function SCALE: Activities may be completed with or without assistive devices. 0-Rvuhsnsnfs-eedpgzq completes the activity by him/herself with no assistance from a helper. 5-Set-up or Clean-up Assistance-helper sets up or cleans up; patient completes activity. [place] assists only prior to or following the activity. 4-Supervision or Touching Assistance-helper provides verbal cues and/or touching/steadying and/or contact guard assistance as patient completes activity. Assistance may be provided throughout the activity or intermittently. 3-Partial/Moderate Assistance-helper does LESS THAN HALF the effort. [place] lifts, holds or supports trunk or limbs, but provides less than half the effort. 2-Substantial/Maximal Assistance-helper does MORE THAN HALF the effort. [place] lifts or holds trunk or limbs and provides more than half the effort. 0-Guicethzz-kjrlvs does ALL the effort. Patient does none of the effort to complete the activity. Or, the assistance of 2 or more helpers is required for the patient to complete the activity. If activity was not attempted, code reason: 7-Patient Refused. 9-Not Applicable-not attempted and the patient did not perform the activity before the current illness, exacerbation or injury. 10-Not Attempted due to Environmental Limitations-(lack of equipment, weather restraints, etc.). 88-Not Attempted due to Medical Conditions or Safety Concerns. Bed Mobility: 6 Transfers (B,C,W/C): 6 Gait: 6 Indoor Mobility (Ambulation): Independent Prior Devices Use: Walker PT Evaluation-Current Subjective Patient in bed pre tx, agrees to PT, has unrated but severe pain in right shoulder with movement. Pt/Family Goals decrease pain Objective Patient Orientation: Person, Place, Situation ROM/Strength ROM Lower Extremities limited due to LE edema Strength Lower Extremities LLE (hip flexion 2/5, knee flexion 3+/5, knee extension 3+/5, dorsiflexion 4- /5), RLE (hip flexion 3-/5, knee flexion 4-/5, knee extension 4-/5, dorsiflexion 4/5) Sensory Hearing: Functional Sensation Right Lower Extremit: Intact Sensation Left Lower Extremity: Intact Transfers Roll Left to Right (QC): 4 Sit to Lying (QC): 3 Lying to Sitting/Side of Bed(Q: 3 Sit to Stand (QC): 3 Patient needs min assist for supine to sit, min assist for sit to stand. At this point another healthcare worker comes in and she needs to do an ultrasound on patient's heart and needs her back in bed. Patient sits and needs mod assist to get legs back into bed when laying down, she can scoot up in bed with SBA and cues for positioning. Balance Sitting Static: Normal Sitting Dynamic: Normal Standing Static: Fair Assessment/Needs Patient in bed post tx with nurse call, phone, tray, all needs met. Patient has impaired mobility, strength, endurance. She has severe pain in right shoulder w ith movement. She also has severe BLE edema. Rehab Potential: Fair PT [facility] Goals Sas Architect Goals PT [facility] Goals Time Frame: Sep 30, 2021 Roll Left & Right (QC): 6 Sit to Lying (QC): 4 Lying-Sitting on Side/Bed(QC): 4 Sit to Stand (QC): 4 Chair/Gho-mw-Afsmd Xfer(QC): 4 Walk 10 feet (QC): 4 PT Plan Problem List Problem List: Activity Tolerance, Functional Strength, Safety, Balance, Gait, Transfer, Bed Mobility, ROM Treatment/Plan Treatment Plan: Continue Plan of Care Treatment Plan: Bed Mobility, Education, Functional Activity [place], Functional Strength, Gait, Safety, Therapeutic Exercise, Transfers Treatment Duration: Sep 30, 2021 Frequency: 6 times per week Estimated Hrs Per Day: .25 hour per day Patient and/or Family Agrees t: Yes Safety Risks/Education Patient Education: Transfer Techniques, Correct Positioning, Safety Issues Teaching Recipient: Patient Teaching Methods: Demonstration, Discussion Response to Teaching: Reinforcement Needed Discharge Recommendations Plan Patient will perform bed mobility and transfer training, balance and endurance training, functional strengthening, gait training, and education, to improve functional mobility and independence at home. Therapy Discharge Recommendati: Scheduled Assistance, Home & Family, Post Acute PT Time/GCodes Time In: 811 Time Out: 827 Total Billed Treatment Time: 16 Total Billed Treatment 1 visit EDDIE 16' CARI OG PT Sep 23, 2021 09:01
[2021-09-23] MEDS ORDERED: L GA1CAP2 PO (10:20)
[2021-09-23] MEDS ORDERED: TRAM50TA3 PO (10:20)
[2021-09-23] MEDS ORDERED: LEVO137T2 PO (10:20)
--- NOTE | 2021-09-23 10:32 | Occupational Therapy Eval ---
OT Evaluation-General/PLF Medical Diagnosis Admission Date Sep 22, 2021 at 15:20 Medical Diagnosis: right shoulder pain and BLE edema Onset Date: Sep 22, 2021 Height/Weight Height (Feet): 5 Height (Inches): 3.50 Weight (Pounds): 211 Weight (Ounces): 8.0 Referral Physician: Yulisa Bertrand DO Social History Entry Into Home: Ramp ADL-Prior Level of Function SCALE: Activities may be completed with or without assistive devices. 3-Qhbilrzprz-gaxpemt completes the activity by him/herself with no assistance from a helper. 5-Set-up or Clean-up Assistance-helper sets up or cleans up; patient completes activity. [place] assists only prior to or following the activity. 4-Supervision or Touching Assistance-helper provides verbal cues and/or touching/steadying and/or contact guard assistance as patient completes activity. Assistance may be provided throughout the activity or intermittently. 3-Partial/Moderate Assistance-helper does LESS THAN HALF the effort. [place] lifts, holds or supports trunk or limbs, but provides less than half the effort. 2-Substantial/Maximal Assistance-helper does MORE THAN HALF the effort. [place] lifts or holds trunk or limbs and provides more than half the effort. 9-Kmpbkqlxy-awtbjb does ALL the effort. Patient does none of the effort to complete the activity. Or, the assistance of 2 or more helpers is required for the patient to complete the activity. If activity was not attempted, code reason: 7-Patient Refused. 9-Not Applicable-not attempted and the patient did not perform the activity before the current illness, exacerbation or injury. 10-Not Attempted due to Environmental Limitations-(lack of equipment, weather restraints, etc.). 88-Not Attempted due to Medical Conditions or Safety Concerns. OT Detention Goals [place] Goals 1=Demonstrate adherence to instructed precautions during ADL tasks. 2=Patient will verbalize/demonstrate understanding of assistive devices/modifications for ADL. 3=Patient will improve strength/tolerance for activity to enable patient to perform ADL's. OT Education/Plan Treatment Plan/Plan of Care Patient would benefit from OT for education, treatment and training to promote independence in ADL's, mobility, safety and/or upper extremity function for ADL's. Rehab Potential: Glenna Noriega OT Sep 23, 2021 10:32
--- NOTE | 2021-09-23 10:42 | Progress Note - Cardiology ---
Cardiology SOAP Progress Note Subjective: Lying in bed States she is going to IRU today No c/o CP or SOB Chronic bilat LE swelling which is unchanged Continues to d/o right shoulder pain with any movement of her right arm Objective: I&O/Vital Signs 09/22/21 09/23/21 09/23/21 09/23/21 23:00 00:15 01:00 04:13 Temp 36.8 37.0 Pulse 59 66 62 Resp 16 16 B/P (MAP) 104/60 (75) 101/62 (75) Pulse Ox 95 96 95 O2 Delivery Nasal Cannula Nasal Cannula Nasal Cannula O2 Flow Rate 2.00 2.00 2.00 09/23/21 09/23/21 07:00 08:00 Temp 36.5 Pulse 61 68 Resp 18 B/P (MAP) 118/57 (77) Pulse Ox 94 O2 Delivery Nasal Cannula O2 Flow Rate 2.00 09/23/21 00:00 Intake Total 400 ml Output Total 500 ml Balance -100 ml Weight (Pounds): 211 Weight (Ounces): 8.0 Weight (Calculated Kilograms): 95.692324 Constitutional: AAO x 3, well-developed, well-nourished Respiratory: No accessory muscle use, No respiratory distress; chest expansion is symmetric, chest is bilaterally symmetric, lungs clear to auscultation Cardiovascular: regular rate-rhythm; No JVD; S1 and S2 Gastrointestional: No tender; soft, round, audible bowel sounds Extremities: other (bilat pitting LE swelling) Neurologic/Psychiatric: grossly intact (moves all extremities; did not manipulate RUE d/t c/o pain) Skin: No rash on exposed areas, No ulcerations on exposed areas Results/Procedures: Labs Laboratory Tests 09/22/21 14:40: White Blood Count 7.3, Red Blood Count 4.13, Hemoglobin 13.0, Hematocrit 38, Mean Corpuscular Volume 92, Mean Corpuscular Hemoglobin 32, Mean Corpuscular Hemoglobin Concent 34, Red Cell Distribution Width 18.6H, Platelet Count 88L, Mean Platelet Volume , Immature Granulocyte % (Auto) 1, Neutrophils (%) (Auto) 77H, Lymphocytes (%) (Auto) 10L, Monocytes (%) (Auto) 12, Eosinophils (%) (Auto) 1, Basophils (%) (Auto) 0, Neutrophils # (Auto) 5.6, Lymphocytes # (Auto) 0.7L, Monocytes # (Auto) 0.9, Eosinophils # (Auto) 0.0, Basophils # (Auto) 0.0, Immature Granulocyte # (Auto) 0.1, Percent Immature Platelet Fraction 9.0H, Sodium Level 140, Potassium Level 3.8, Chloride Level 102, Carbon Dioxide Level 24, Anion Gap 14, Blood Urea Nitrogen 35H, Creatinine 1.09, Estimat Glomerular Filtration Rate 48, BUN/Creatinine Ratio 32, Glucose Level 89, Calcium Level 8.8 09/22/21 14:50: Urine Color YELLOW, Urine Clarity CLEAR, Urine pH 6.0, Urine Specific [place] 1.010L, Urine Protein NEGATIVE, Urine Glucose (UA) NEGATIVE, Urine Ketones NEGATIVE, Urine Nitrite NEGATIVE, Urine Bilirubin NEGATIVE, Urine Urobilinogen 0.2, Urine Leukocyte Esterase NEGATIVE, Urine RBC (Auto) 1+H, Urine RBC 0-2, Urine WBC 0-2, Urine Crystals NONE, Urine Bacteria NEGATIVE, Urine Casts NONE, Urine Mucus NEGATIVE, Urine Culture Indicated NO 09/23/21 06:38: White Blood Count 7.3, Red Blood Count 4.09, Hemoglobin 12.9, Hematocrit 38, Mean Corpuscular Volume 93, Mean Corpuscular Hemoglobin 32, Mean Corpuscular Hemoglobin Concent 34, Red Cell Distribution Width 18.6H, Platelet Count 93L, Mean Platelet Volume 13.4H, Immature Granulocyte % (Auto) 1, Neutrophils (%) (Auto) 79H, Lymphocytes (%) (Auto) 9L, Monocytes (%) (Auto) 10, Eosinophils (%) (Auto) 2, Basophils (%) (Auto) 0, Neutrophils # (Auto) 5.7, Lymphocytes # (Auto) 0.7L, Monocytes # (Auto) 0.7, Eosinophils # (Auto) 0.1, Basophils # (Auto) 0.0, Immature Granulocyte # (Auto) 0.1, Percent Immature Platelet Fraction 9.9H, Sodium Level 141, Potassium Level 3.8, Chloride Level 103, Carbon Dioxide Level 26, Anion Gap 12, Blood Urea Nitrogen 35H, Creatinine 1.15, Estimat Glomerular Filtration Rate 45, BUN/Creatinine Ratio 30, Glucose Level 62L, Calcium Level 9.2, Corrected Calcium 10.2H, Total Bilirubin 4.8H, Aspartate Amino Transf (AST/SGOT) 37H, Alanine Aminotransferase (ALT/SGPT) 22, Alkaline Phosphatase 128, Total Protein 6.3L, Albumin 2.7L Laboratory Tests 09/22/21 14:40 09/23/21 06:38 A/P: Assessment: Right shoulder discomfort following a non-syncopal fall in Jul 2021 - management is by Dr Bertrand Leg swelling due to chronic cor pulmonale and due to chronic lymphedema - consider chronic pulm thromboembolism, inadequately treated FABRIZIO, pulm fibrosis, primary pulm hypertension, etc CAD - Cardiac cath of 10-07-15 showed minimal coronary plaques without any obstructive disease. LVEF 60-65%. Mod elevation of LVEDP. No significant MR - MPI of 03-10-2021 shows no evidence of ischemia or infarction. LVEF 70% Paroxysmal Atrial Fibrillation - OAC with Eliquis, low dose per PCP d/t propensity to bleeding, advanced age and CKD Mod pulm htn and chronic cor pulmonale - consider chronic pulm thromboembolism, inadequately treated FABRIZIO, pulm fibrosis, primary pulm hypertension, etc - Echo of 03-09-2021 showed LVEF 70-75%. Mod MR. Mod to severe TR. PASP 50-55 mmHg PAD - arterial Doppler of February 2021 reported mod atheromatous plaque on both sides w/o evidence of hemodynamic significance Hyperlipidemia - unable to take statins - followed by her PCP Obesity - with a BMI of approximately 40 Hypothyroidism - managed by PCP CKD-3. - Chronic renal insuff with Cr ranging between 1 and 1.4. CKD stage 3, followed by [facility] Impaired fasting glucose - managed by PCP Carotid dz - Mild bilateral carotid art disease on carotid u/s of 02-27-2021 FABRIZIO - for which she is on CPAP therapy and is managed by the Pulm services H/o gout - managed by PCP Plan: Right shoulder discomfort which appears to be musculoskeletal by description and is to be managed by Dr Bertrand Chronic bilat LE swelling which is unchanged - continue home medications Continue OAC with Eliquis for stroke prophylaxis d/t PAF Monitor lab closely OK to discharge from cardiac stand point with out pt f/u 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
--- NOTE | 2021-09-23 10:50 | Occupational Therapy Eval ---
OT Evaluation-General/PLF Medical Diagnosis Admission Date Sep 22, 2021 at 15:20 Medical Diagnosis: right shoulder pain and BLE edema Onset Date: Sep 22, 2021 Therapy Diagnosis Therapy Diagnosis: Impaired adls, balance, strength, rom, endurance Height/Weight Height (Feet): 5 Height (Inches): 3.50 Weight (Pounds): 211 Weight (Ounces): 8.0 Precautions Precautions/Isolations: Fall Prevention, Standard Precautions Referral Physician: Yulisa Bertrand DO Referral Reason: Evaluation/Treatment Medical History Current History 81 yr old female being admitted for right shoulder pain and BLE edema. She reports she fell at home back in July, non-syncopal fall, and injured her right shoulder. She states that she was getting better but recently the pain came back. She has chronic bilat LE swelling for which she is on chronic diuretic tx. She states this is unchanged in the recent past. She lives in a single level home with her spouse. She was supervision for adls for safety only. She uses a walker and a cane; does not drive. She reports having a built in shower seat but that she stands to shower because the seat is too low and difficulty to stand from. Reviewed History: Yes Social History Home: Single Level Current Living Status: Spouse Entry Into Home: Ramp ADL-Prior Level of Function SCALE: Activities may be completed with or without assistive devices. 9-Nigbyifhcd-fzdewki completes the activity by him/herself with no assistance from a helper. 5-Set-up or Clean-up Assistance-helper sets up or cleans up; patient completes activity. [place] assists only prior to or following the activity. 4-Supervision or Touching Assistance-helper provides verbal cues and/or touching/steadying and/or contact guard assistance as patient completes activity. Assistance may be provided throughout the activity or intermittently. 3-Partial/Moderate Assistance-helper does LESS THAN HALF the effort. [place] lifts, holds or supports trunk or limbs, but provides less than half the effort. 2-Substantial/Maximal Assistance-helper does MORE THAN HALF the effort. [place] l ifts or holds trunk or limbs and provides more than half the effort. 1-Twdqvvzud-tzlstf does ALL the effort. Patient does none of the effort to complete the activity. Or, the assistance of 2 or more helpers is required for the patient to complete the activity. If activity was not attempted, code reason: 7-Patient Refused. 9-Not Applicable-not attempted and the patient did not perform the activity before the current illness, exacerbation or injury. 10-Not Attempted due to Environmental Limitations-(lack of equipment, weather restraints, etc.). 88-Not Attempted due to Medical Conditions or Safety Concerns. Self Care: Independent Functional Cognition: Needed Some Help DME/Equipment: Bath Chair, Grab Bars, Shower Drive Self: No OT Current Status Subjective Pt initially declines pain until OT asked if she was still having R shoulder pain. Pt reports that she is still having R shoulder pain but that the pain is worse in the elbow. Appearance Pt returned to supine in bed, all needs within reach. Mental Status/Objective Patient Orientation: Person Attachments: IV, Oxygen Current Upper Extremity ROM Impaired RUE: Shoulder PROM to ~30 degrees (pain tolerance). Pt reports more pain in elbow but able to actively flex/extend 30-100 degrees. LUE shoulder: 145 degrees. 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 OT encouraging patient to use commode instead. Pt in agreement. Mod-max a to sit EOB. Unable to stand from low height due to inability to push off with RUE. With elevated bed height: min-mod a to stand with extra time. Pt able to take 2-3 steps toward commode with min a and use of walker. Assist for teddy care in standing due to pt needing BUE support on walker. Max a to lift UE's back into bed. Education OT Patient Education: Correct positioning, Disease process, Energy conservation, Modified ADL techniques, Progress toward Goal/Update tx plan, Purpose of tx/functional activities, Reviewed precautions, Rehab process, Safety issues, Transfer techniques Teaching Recipient: Patient, Family Teaching Methods: Demonstration, Discussion Response to Teaching: Verbalize Understanding, Reinforcement Needed OT Longterm Goals Longterm Goals Time Frame: Oct 13, 2021 Oral Hygiene (QC): 4 Toileting Hygiene (QC): 3 Upper Body Dressing (QC): 3 Lower Body Dressing (QC): 3 On/Off Footwear (QC): 3 1=Demonstrate adherence to instructed precautions during ADL tasks. 2=Patient will verbalize/demonstrate understanding of assistive devices/modifications for ADL. 3=Patient will improve strength/tolerance for activity to enable patient to perform ADL's. OT Education/Plan Problem List/Assessment Assessment: Decreased Activ Tolerance, Decreased Safety Aware, Decreased UE Strength, Impaired Bed Mobility, Impaired Coordination, Impaired Funct Balance, Impaired I ADL's, Impaired Self-Care Skills, Restricted Funct UE ROM Discharge Recommendations Plan/Recommendations: Continue POC Therapy Discharge Recommendati: Post Acute OT Treatment Plan/Plan of Care Treatment,Training & Education: Yes Patient would benefit from OT for education, treatment and training to promote independence in ADL's, mobility, safety and/or upper extremity function for ADL's. Plan of Care: ADL Retraining, Functional Mobility, Group Exercise/Act as Ind, UE Funct Exercise/Act Treatment Duration: Oct 13, 2021 Frequency: 5 times per week Estimated Hrs Per Day: .25 hour per day Agreement: Yes Rehab Potential: Fair Time/GCodes Start Time: 09:58 Stop Time: 10:21 Total Time Billed (hr/min): 23 Billed Treatment Time 1 visit EVM (10 min) ADL (13 min) Glenna Reynoso OT Sep 23, 2021 10:49
[2021-09-23] MEDS ORDERED: TORS20TA3 PO (10:56)
--- NOTE | 2021-09-23 10:57 | Short Stay Summary ---
BEKAH DELANEY 09/23/21 1057: History of Present Illness History of Present Illness Reason for visit/HPI HPI from 09/22/2021 - Patient presents in ED for pain and weakness in her BL lower extremity as well as right shoulder which prevent her from walking and doing activities of normal daily living. She presented in the ED 2 wks ago for pain and swelling in her ankles and was diagnosed with gout for which she has been taking colchicine and prednisione, which she claims have not helped her sx. Nothing else seems to improve her sx, and nothing seems to make it worse. She also complains of pain and weakness of her right arm made worse when moving and better with not moving. She also claims to hear and feel a pop from her neck when turning which began secondary to a recent fall. Both the pt and her son Sergo who was also present state that they would very much like to see her symptoms of swelling and pain resolve so she can return to activities of normal daily living. 09/23/2021 - Today when I visited the patient she was undergoing echocardiography. She states that she is feeling fine, but still complains of LE weakness and pain in the right shoulder. She also states today that she requires help to stand up and that her pulls on her arm firmly to assist her to stand, she states that she feels this action as well as increased UE use with a walker has contributed to the pain she is now feeling in her shoulder. Her shoulder remains exquisitely tender to palpation and movement, however distal fuller brush worker strength and sensitivity is approximately equal BL. Pt also confirms that she was able to stand and walk a little with the aid of physical therapy this morning. She also states that she has not been physically able to put on her compression stockings at home, which has help significantly with her LE edema in the past. Date of Admission Sep 22, 2021 at 15:20 Date of Discharge 09/23/2021 (to rehab) Time Seen by Provider: 08:41 Attending Physician Yulisa Roman DO Admitting Physician Yulisa Roman DO Consult Allergies and Home Medications Allergies Coded Allergies: codeine (Verified Allergy, Unknown, 08/06/21) erythromycin base (Verified Allergy, Unknown, 09/12/21) ethyl alcohol (Verified Allergy, Unknown, 09/12/21) hydrocodone (Verified Allergy, Unknown, 09/12/21) levofloxacin (Verified Allergy, Unknown, 08/06/21) metronidazole (Verified Allergy, Unknown, 08/06/21) penicillin G (Verified Allergy, Unknown, 08/06/21) Patient Home Medication List Allopurinol (Allopurinol) 300 Mg Tablet, 300 MG PO DAILY, (Reported) Entered as Reported by: AISHA TURNER on 08/06/211754 Last Action: Continued Apixaban (Eliquis) 2.5 Mg Tablet, 2.5 MG PO BID, (Reported) Entered as Reported by: AISHA TURNER on 08/06/211754 Last Action: Continued Levothyroxine Sodium (Levothyroxine Sodium) 137 Mcg Tablet, 137 MCG PO DAILY, (Reported) Entered as Reported by: AGATA FLETCHER on 09/23/21 102 Last Action: Converted Metoprolol Succinate (Metoprolol Succinate) 200 Mg Tab.er.24h, 200 MG PO DAILY, (Reported) Entered as Reported by: CALLY CHARLES on 10/07/15 0716 Last Action: Converted Ped Multivit #43/Iron Fumarate (Flintstones Complete Chew Tab) 18 Mg Tab.chew, 18 MG PO BID, (Reported) Entered as Reported by: AGATA FLETCHER on 08/07/21 1023 Last Action: Held Potassium Chloride (Potassium Chloride) 20 Meq Tab.er.prt, 20 MEQ PO BID, (Reported) Entered as Reported by: AGATA FLETCHER on 08/07/21 102 Last Action: Continued Torsemide (Torsemide) 20 Mg Tablet, 90 MG PO DAILY Prescribed by: YULISA ROMAN on 09/23/21 1056 Tramadol HCl (Tramadol HCl) 50 Mg Tablet, 50 MG PO Q8H PRN for PAIN-MODERATE (5- 7), (Reported) Entered as Reported by: AGATA FLETCHER on 09/23/21 1020 Last Action: Continued l Gasseri/B Bifidum/B Longum (BitGravity Health Capsule) 1 Each Capsule, 1 EACH PO DAILY, (Reported) Entered as Reported by: AGATA FLETCHER on 09/23/21 1020 Last Action: Held Discontinued Medications Acetaminophen (Tylenol Extra Strength) 500 Mg Tablet, 500-1,000 MG PO Q8H PRN for PAIN-MILD (1-4), (Reported) Discontinued Reason: Duplicate Order Entered as Reported by: AGATA FLETCHER on 08/07/21 1023 Last Action: Discontinued Colchicine (Colchicine) 0.6 Mg Tablet, 0.6 MG PO UD Discontinued Reason: Duplicate Order Prescribed by: AURELIO DAVIS on 09/13/21 1110 Last Action: Discontinued Levothyroxine Sodium (Levothyroxine Sodium) 88 Mcg Tablet, 88 MCG PO DAILY, (Re ported) Discontinued Reason: Duplicate Order Entered as Reported by: RANJEET CUASEY on 03/29/18 1356 Last Action: Discontinued Levothyroxine Sodium (Synthroid) 50 Mcg Tablet, 50 MCG PO DAILY Discontinued Reason: Duplicate Order Prescribed by: YULISA ROMAN on 08/07/21 1225 Last Action: Discontinued Metolazone (Metolazone) 5 Mg Tablet, 5 MG PO UD Discontinued Reason: Duplicate Order Prescribed by: YULISA ROMAN on 08/07/21 1155 Last Action: Discontinued Nystatin (Nystatin) 15 Gm Cream..g., 0 GM TP TID Discontinued Reason: Duplicate Order Prescribed by: YULISA ROMAN on 08/07/21 1155 Last Action: Discontinued Prednisone (Prednisone) 20 Mg Tab, 40 MG PO DAILY Discontinued Reason: Duplicate Order Prescribed by: AURELIO DAVIS on 09/13/21 1110 Last Action: Discontinued Torsemide (Torsemide) 20 Mg Tablet, 60 MG PO DAILY, (Reported) Entered as Reported by: CALLY CHARLES on 10/07/15 0716 Last Action: Held Tramadol HCl (Ultram) 50 Mg Tablet, 50 MG PO Q4H Discontinued Reason: Duplicate Order Prescribed by: AURELIO DAVIS on 09/13/21 1111 Last Action: Discontinued Triamcinolone Acet (Triamcinolone Acetonide 0.1% Cream) 15 Gm Cr, 0 GM TP BID Discontinued Reason: Duplicate Order Prescribed by: YULISA ROMAN on 08/07/21 1155 Last Action: Discontinued Past Qqinewf-Kpiqpm-Tilcjo Hx Patient Social History Marrital Status: Living Status: At home with - some minor assistance from family Employed/Student: retired Smoking Status: Never a Smoker 2nd Hand Smoke Exposure: No Have you traveled recently?: No Alcohol Use?: No Pt feels they are or have been: No Immunizations Up To Date Tetanus Booster (TDap): Less than 5yrs Date of Pneumonia Vaccine: Oct 14, 2009 Date of Influenza Vaccine: Aug 19, 2021 Surgeries Yes Eye Surgery, Orthopedic Respiratory Yes Sleep Apnea Currently Using CPAP: Yes Cardiovascular Yes (CHF) Atrial Fibrillation, Chronic Edema/Swelling, High Cholesterol, Hypertension Neurological No Reproductive System Hx Reproductive Disorders: No Genitourinary Yes Renal Failure Gastrointestinal No Musculoskeletal Yes Arthritis, Gout Endocrine History of Endocrine Disorders: Yes (OBESITY) Endocrine Disorders: Hypothyroidsim HEENT History of HEENT Disorders: Yes HEENT Disorders: Cataract Loss of Vision: Bilateral Hearing Impairment: Hard of Hearing Cancer No Psychosocial History of Psychiatric Problem: No Integumentary History of Skin or Integumenta: No Blood Transfusions History of Blood Disorders: No Family Medical History Significant Family History: Heart Disease, Hypertension, Stroke Family Hx: Cancer 09 SISTER (breast ) FH: atrial fibrillation Family history: Hypertension 03 FATHER son History of - disorder 09 SISTER (lupus) Myocardial infarction 03 MOTHER Stroke 03 FATHER Review of Systems Constitutional: No chills; dizziness (when rising quickly); No fever; weakness EENTM: other (dry mouth and tounge); No ear pain, No blurred vision, No double vision, No eye pain, No mouth pain, No nose pain Respiratory: No cough; dyspnea on exertion; No hemoptysis, No phlegm Cardiovascular: No chest pain; edema; No syncope Gastrointestinal: No RUQ, No LUQ, No RLQ, No LLQ, No dysphagia, No hematemesis, No heartburn, No nausea, No vomiting Genitourinary: No decreased output, No discharge, No dysuria, No frequency Musculoskeletal: No back pain; joint pain (Rt shoulder), muscle pain (Rt Shoulder); No muscle cramps; muscle weakness (LE B/L) Skin: No change in color, No change in hair/nails, No dryness, No hx of skin cancer Psychiatric/Neurological: Denies Headache, Denies Numbness, Denies Paresthesia, Denies Tingling, Denies Tremors; Weakness Physical Exam Vital Signs Vital Signs - First Documented 09/22/21 09/22/21 14:12 17:33 Temp 36.8 Pulse 71 Resp 18 B/P (MAP) 118/56 (76) Pulse Ox 97 O2 Delivery Nasal Cannula O2 Flow Rate 2.00 FiO2 28 Capillary Refill : Less Than 3 Seconds Height, Weight, BMI Height: 5'3.50" Weight: 211lbs. 8.0oz. [id number]; 33.28 BMI Method:Stated General Appearance: No Apparent Distress, WD/WN Eyes: Bilateral Eye PERRL, Bilateral Eye EOMI HEENT: PERRL/EOMI; No Moist Mucous Membranes (Dry mouth and tounge) Neck: Non Tender, Supple, Limited Range of Motion Respiratory: Chest Non Tender, No Accessory Muscle Use, No Respiratory Distress, Crackles (both lung bases), Inspiration Cardiovascular: No Gallop, No Murmur, Normal Peripheral Pulses, Irregularly Irregular (chronic a-fib) Gastrointestinal: Normal Bowel Sounds, No Organomegaly, No Pulsatile Mass, Non Tender, Soft Rectal: Deferred Back: CVA Tenderness (L), CVA Tenderness (R), Vertebral Tenderness (Lumbar) Extremity: Normal Capillary Refill, No Calf Tenderness, Pedal Edema (profound 4+ pitting edema), Other (exquisit pain from right shoulder with movement limiting ROM - distal NV status intact and equal B/L, no Fx on X-Ray) Neurologic/Psychiatric: Alert, Oriented x3, No Motor/Sensory Deficits, Normal Mood/Affect, 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 Norm as Tested Reflexes: 2+ Bicep (R), 2+ Bicep (L) Skin: Normal Color, Warm/Dry Lymphatic: No Adenopathy (cervical and axillary) Clinical Quality Measures Admission Status Admission Dx Acute CHF exacerbation vs Inferior Vena Cava Synd - Profound LE edema Cervical radiculopathy vs mylopathy Plural effusion vs atalectasis Thrombocytopenia Plan - Cervical X-ray Diuresis CXR Cardiology consult Hematolgy consult Short Stay Diagnosis Discharge Diagnosis-Short Stay Admission Diagnosis: Generalized weakness & Rt shoulder pain Final Discharge Diagnosis: Chronic weakness Rt shoulder over-use injury Conclusion Labs Laboratory Tests 09/22/21 14:40: White Blood Count 7.3, Red Blood Count 4.13, Hemoglobin 13.0, Hematocrit 38, Mean Corpuscular Volume 92, Mean Corpuscular Hemoglobin 32, Mean Corpuscular Hemoglobin Concent 34, Red Cell Distribution Width 18.6H, Platelet Count 88L, Mean Platelet Volume , Immature Granulocyte % (Auto) 1, Neutrophils (%) (Auto) 77H, Lymphocytes (%) (Auto) 10L, Monocytes (%) (Auto) 12, Eosinophils (%) (Auto) 1, Basophils (%) (Auto) 0, Neutrophils # (Auto) 5.6, Lymphocytes # (Auto) 0.7L, Monocytes # (Auto) 0.9, Eosinophils # (Auto) 0.0, Basophils # (Auto) 0.0, Immature Granulocyte # (Auto) 0.1, Percent Immature Platelet Fraction 9.0H, Sodium Level 140, Potassium Level 3.8, Chloride Level 102, Carbon Dioxide Level 24, Anion Gap 14, Blood Urea Nitrogen 35H, Creatinine 1.09, Estimat Glomerular Filtration Rate 48, BUN/Creatinine Ratio 32, Glucose Level 89, Calcium Level 8.8 09/22/21 14:50: Urine Color YELLOW, Urine Clarity CLEAR, Urine pH 6.0, Urine Specific [place] 1.010L, Urine Protein NEGATIVE, Urine Glucose (UA) NEGATIVE, Urine Ketones NEGATIVE, Urine Nitrite NEGATIVE, Urine Bilirubin NEGATIVE, Urine Urobilinogen 0.2, Urine Leukocyte Esterase NEGATIVE, Urine RBC (Auto) 1+H, Urine RBC 0-2, Urine WBC 0-2, Urine Crystals NONE, Urine Bacteria NEGATIVE, Urine Casts NONE, Urine Mucus NEGATIVE, Urine Culture Indicated NO 09/23/21 06:38: White Blood Count 7.3, Red Blood Count 4.09, Hemoglobin 12.9, Hematocrit 38, Mean Corpuscular Volume 93, Mean Corpuscular Hemoglobin 32, Mean Corpuscular Hemoglobin Concent 34, Red Cell Distribution Width 18.6H, Platelet Count 93L, Mean Platelet Volume 13.4H, Immature Granulocyte % (Auto) 1, Neutrophils (%) (Auto) 79H, Lymphocytes (%) (Auto) 9L, Monocytes (%) (Auto) 10, Eosinophils (%) (Auto) 2, Basophils (%) (Auto) 0, Neutrophils # (Auto) 5.7, Lymphocytes # (Auto) 0.7L, Monocytes # (Auto) 0.7, Eosinophils # (Auto) 0.1, Basophils # (Auto) 0.0, Immature Granulocyte # (Auto) 0.1, Percent Immature Platelet Fraction 9.9H, Sodium Level 141, Potassium Level 3.8, Chloride Level 103, Carbon Dioxide Level 26, Anion Gap 12, Blood Urea Nitrogen 35H, Creatinine 1.15, Estimat Glomerular Filtration Rate 45, BUN/Creatinine Ratio 30, Glucose Level 62L, Calcium Level 9.2, Corrected Calcium 10.2H, Total Bilirubin 4.8H, Aspartate Amino Transf (AST/SGOT) 37H, Alanine Aminotransferase (ALT/SGPT) 22, Alkaline Phosphatase 128, Total Protein 6.3L, Albumin 2.7L Conclusion/Plan Right shoulder soft tissue injury LE edema - due to CHF CAD Paroxysmal Atrial Fibrillation - OAC with Eliquis PAD Hyperlipidemia Hypothyroidism CKD-3 - followed by [facility] CAD FABRIZIO - on CPAP therapy and is managed by the Pulm services H/o gout Plan: Rehab for shoulder and activities of daily living to include self-application of LE compression stockings Continue OAC with Eliquis for stroke prophylaxis d/t PAF Diuretic recently increased to 90mg by nephrology -> monitor results YULISA ROMAN DO 09/24/21 0544: History of Present Illness History of Present Illness Reason for visit/HPI See h&p Allergies and Home Medications Allergies Coded Allergies: codeine (Verified Allergy, Unknown, 08/06/21) erythromycin base (Verified Allergy, Unknown, 09/12/21) ethyl alcohol (Verified Allergy, Unknown, 09/12/21) hydrocodone (Verified Allergy, Unknown, 09/12/21) levofloxacin (Verified Allergy, Unknown, 08/06/21) metronidazole (Verified Allergy, Unknown, 08/06/21) penicillin G (Verified Allergy, Unknown, 08/06/21) Patient Home Medication List Home Medication List Reviewed: Yes Allopurinol (Allopurinol) 300 Mg Tablet, 300 MG PO DAILY, (Reported) Entered as Reported by: AISHA TURNER on 08/06/211754 Last Action: Continued Apixaban (Eliquis) 2.5 Mg Tablet, 2.5 MG PO BID, (Reported) Entered as Reported by: AISHA TURNER on 08/06/211754 Last Action: Continued Levothyroxine Sodium (Levothyroxine Sodium) 137 Mcg Tablet, 137 MCG PO DAILY, (Reported) Entered as Reported by: AGATA FLETCHER on 09/23/21 1020 Last Action: Converted Metoprolol Succinate (Metoprolol Succinate) 200 Mg Tab.er.24h, 200 MG PO DAILY, (Reported) Entered as Reported by: CALLY CHARLES on 10/07/15 0716 Last Action: Converted Ped Multivit #43/Iron Fumarate (Flintstones Complete Chew Tab) 18 Mg Tab.chew, 18 MG PO BID, (Reported) Entered as Reported by: AGATA FLETCHER on 08/07/21 1023 Last Action: Held Potassium Chloride (Potassium Chloride) 20 Meq Tab.er.prt, 20 MEQ PO BID, (Reported) Entered as Reported by: AGATA FLETCHER on 08/07/21 1023 Last Action: Continued Torsemide (Torsemide) 20 Mg Tablet, 90 MG PO DAILY Prescribed by: YULISA ROMAN on 09/23/21 1056 Tramadol HCl (Tramadol HCl) 50 Mg Tablet, 50 MG PO Q8H PRN for PAIN-MODERATE (5- 7), (Reported) Entered as Reported by: AGATA FLETCHER on 09/23/21 1020 Last Action: Continued l Gasseri/B Bifidum/B Longum (BitGravity Health Capsule) 1 Each Capsule, 1 EACH PO DAILY, (Reported) Entered as Reported by: AGATA FLETCHER on 09/23/21 1020 Last Action: Held Discontinued Medications Acetaminophen (Tylenol Extra Strength) 500 Mg Tablet, 500-1,000 MG PO Q8H PRN for PAIN-MILD (1-4), (Reported) Discontinued Reason: Duplicate Order Entered as Reported by: AGATA FLETCHER on 08/07/21 1023 Last Action: Discontinued Colchicine (Colchicine) 0.6 Mg Tablet, 0.6 MG PO UD Discontinued Reason: Duplicate Order Prescribed by: AURELIO DAVIS on 09/13/21 1110 Last Action: Discontinued Levothyroxine Sodium (Levothyroxine Sodium) 88 Mcg Tablet, 88 MCG PO DAILY, (Reported) Discontinued Reason: Duplicate Order Entered as Reported by: RANJEET CAUSEY on 03/29/18 1356 Last Action: Discontinued Levothyroxine Sodium (Synthroid) 50 Mcg Tablet, 50 MCG PO DAILY Discontinued Reason: Duplicate Order Prescribed by: YULISA ROMAN on 08/07/21 1225 Last Action: Discontinued Metolazone (Metolazone) 5 Mg Tablet, 5 MG PO UD Discontinued Reason: Duplicate Order Prescribed by: YULISA ROMAN on 08/07/21 1155 Last Action: Discontinued Nystatin (Nystatin) 15 Gm Cream..g., 0 GM TP TID Discontinued Reason: Duplicate Order Prescribed by: YULISA ROMAN on 08/07/21 1155 Last Action: Discontinued Prednisone (Prednisone) 20 Mg Tab, 40 MG PO DAILY Discontinued Reason: Duplicate Order Prescribed by: AURELIO DAVIS on 09/13/21 1110 Last Action: Discontinued Torsemide (Torsemide) 20 Mg Tablet, 60 MG PO DAILY, (Reported) Entered as Reported by: CALLY CHARLES on 10/07/15 0716 Last Action: Held Tramadol HCl (Ultram) 50 Mg Tablet, 50 MG PO Q4H Discontinued Reason: Duplicate Order Prescribed by: AURELIO DAVIS on 09/13/21 1111 Last Action: Discontinued Triamcinolone Acet (Triamcinolone Acetonide 0.1% Cream) 15 Gm Cr, 0 GM TP BID Discontinued Reason: Duplicate Order Prescribed by: YULISA ROMAN on 08/07/21 1155 Last Action: Discontinued Past Srlsfla-Umuemg-Wopfhg Hx Family Medical History Family Hx: Cancer 09 SISTER (breast ) FH: atrial fibrillation Family history: Hypertension 03 FATHER son History of - disorder 09 SISTER (lupus) Myocardial infarction 03 MOTHER Stroke 03 FATHER Review of Systems Constitutional: see HPI Respiratory: dyspnea on exertion Cardiovascular: edema Physical Exam General Appearance: No Apparent Distress, WD/WN, Chronically ill, Obese Respiratory: Decreased Breath Sounds Cardiovascular: Irregularly Irregular, Tachycardia Short Stay Diagnosis Discharge Diagnosis-Short Stay Admission Diagnosis: Weakness Right shoulder pain Cor pulmonale FABRIZIO Liver congestion Final Discharge Diagnosis: same as above Conclusion Conclusion/Plan IRF Supervisory-Addendum Brief Verification & Attestation Participated in pt care: history, MDM, physical Personally performed: exam, history, MDM, supervision of care Care discussed with: Medical Student Procedures: n/a Results interpretation: Verified all documentation Verification and Attestation of Medical Student E/M Service A medical student performed and documented this service in my presence. I reviewed and verified all information documented by the medical student and made modifications to such information, when appropriate. I personally performed the physical exam and medical decision making. Yulisa Roman, Sep 24, 2021,05:44 BEKAH DELANEY Sep 23, 2021 10:57 YULISA ROMAN DO Sep 24, 2021 05:44
[2021-09-23 11:50] VITALS: BP 126/57
--- NOTE | 2021-09-23 12:06 | Consultation - Ortho ---
Consult - Ortho Subjective Date of Exam 09/23/21 Chief Complaint Right Shoulder Pain HPI/Events since last exam Requesting right shoulder injection for pain Medical, Surgical History not obtained Social History not obtained Family History not obtained Review of Systems not obtained Allergies: Coded Allergies: codeine (Verified Allergy, Unknown, 08/06/21) erythromycin base (Verified Allergy, Unknown, 09/12/21) ethyl alcohol (Verified Allergy, Unknown, 09/12/21) hydrocodone (Verified Allergy, Unknown, 09/12/21) levofloxacin (Verified Allergy, Unknown, 08/06/21) metronidazole (Verified Allergy, Unknown, 08/06/21) penicillin G (Verified Allergy, Unknown, 08/06/21) Home Meds Active Scripts Torsemide (Torsemide) 20 Mg Tablet, 90 MG PO DAILY for 90 Days, TAB Prov:VERNELL ROMAN DO 09/23/21 Reported Medications l Gasseri/B Bifidum/B Longum ([facility] Capsule) 1 Each Capsule, 1 EACH PO DAILY, CAP 09/23/21 Levothyroxine Sodium (Levothyroxine Sodium) 137 Mcg Tablet, 137 MCG PO DAILY, TAB 09/23/21 Tramadol HCl (Tramadol HCl) 50 Mg Tablet, 50 MG PO Q8H PRN for PAIN-MODERATE (5- 7), TAB 09/23/21 Potassium Chloride (Potassium Chloride) 20 Meq Tab.er.prt, 20 MEQ PO BID, TAB 08/07/21 Ped Multivit #43/Iron Fumarate (Flintstones Complete Chew Tab) 18 Mg Tab.chew, 18 MG PO BID, TAB 08/07/21 Apixaban (Eliquis) 2.5 Mg Tablet, 2.5 MG PO BID, TAB 08/06/21 Allopurinol (Allopurinol) 300 Mg Tablet, 300 MG PO DAILY, TAB 08/06/21 Metoprolol Succinate (Metoprolol Succinate) 200 Mg Tab.er.24h, 200 MG PO DAILY, TAB 10/07/15 Torsemide (Torsemide) 20 Mg Tablet, 60 MG PO DAILY, TAB TAKES 3 (20MG) TABS 10/07/15 Discontinued Reported Medications Acetaminophen (Tylenol Extra Strength) 500 Mg Tablet, 500-1000 MG PO Q8H PRN for PAIN-MILD (1-4), TAB 08/07/21 Levothyroxine Sodium (Levothyroxine Sodium) 88 Mcg Tablet, 88 MCG PO DAILY, TAB 03/29/18 Discontinued Scripts Prednisone (Prednisone) 20 Mg Tab, 40 MG PO DAILY, #6 TAB 0 Refills . Prov:AURELIO DAVIS FA[employer] FOOD CASHIER 09/13/21 Tramadol HCl (Ultram) 50 Mg Tablet, 50 MG PO Q4H for Pain, #20 TAB . Prov:AURELIO DAVIS [employer] FO[employer] CASHIER 09/13/21 Colchicine (Colchicine) 0.6 Mg Tablet, 0.6 MG PO UD, #6 TAB 1.2 MG AT ONSET OF GOUT FLARE, THEN MAY TAKE 0.6 MG BID. Prov:AURELIO DAVIS [employer] FOOD CASHIER 09/13/21 Levothyroxine Sodium (Synthroid) 50 Mcg Tablet, 50 MCG PO DAILY, #90 TAB 3 Refills Prov:VERNELL ROMAN DO 08/07/21 Metolazone (Metolazone) 5 Mg Tablet, 5 MG PO UD for 14 Days, TAB take 1 pill 30 minutes before Torsemide twice a week prn edema Prov:VERNELL ROMAN DO 08/07/21 Triamcinolone Acet (Triamcinolone Acetonide 0.1% Cream) 15 Gm Cr, 0 GM TP BID, #1 TUBE Prov:VERNELL ROMAN DO 08/07/21 Nystatin (Nystatin) 15 Gm Cream..g., 0 GM TP TID, #1 TUBE 2 Refills Prov:ROMANVERNELL HERNANDEZ 08/07/21 Objective Exam PROCEDURE Right shoulder prepped with alcohol and betadine. 22 gauge needle used to deliver 40 mg of Kenalog to the subacromial space. Site dressed with a band- aid. Vital Signs Vital Signs Date Time Temp Pulse Resp B/P (MAP) Pulse Ox O2 Delivery O2 Flow Rate FiO2 09/23/21 11:50 36.5 71 18 126/57 (80) 94 Nasal Cannula 2.00 09/23/21 08:00 36.5 68 18 118/57 (77) 94 Nasal Cannula 2.00 09/23/21 07:00 61 09/23/21 04:13 37.0 62 16 101/62 (75) 95 Nasal Cannula 2.00 09/23/21 01:00 66 09/23/21 00:15 36.8 59 16 104/60 (75) 96 Nasal Cannula 2.00 09/22/21 23:00 95 Nasal Cannula 2.00 09/22/21 20:22 36.5 69 18 122/57 (78) 95 NIV Bilevel 2.00 09/22/21 19:50 69 09/22/21 17:50 37.0 74 18 132/67 (88) 96 Nasal Cannula 2.00 09/22/21 17:33 36.8 71 97 28 09/22/21 17:29 Nasal Cannula 2.00 09/22/21 17:10 36.8 68 18 135/68 98 Nasal Cannula 2.00 2.00 09/22/21 14:12 36.8 71 18 118/56 (76) 97 Nasal Cannula 2.00 I & O 09/23/21 07:00 Intake Total 600 ml Output Total 750 ml Balance -150 ml Lab Results Laboratory Tests 09/22/21 14:40: White Blood Count 7.3, Red Blood Count 4.13, Hemoglobin 13.0, Hematocrit 38, Mean Corpuscular Volume 92, Mean Corpuscular Hemoglobin 32, Mean Corpuscular Hemoglobin Concent 34, Red Cell Distribution Width 18.6H, Platelet Count 88L, Mean Platelet Volume , Immature Granulocyte % (Auto) 1, Neutrophils (%) (Auto) 7 7H, Lymphocytes (%) (Auto) 10L, Monocytes (%) (Auto) 12, Eosinophils (%) (Auto) 1, Basophils (%) (Auto) 0, Neutrophils # (Auto) 5.6, Lymphocytes # (Auto) 0.7L, Monocytes # (Auto) 0.9, Eosinophils # (Auto) 0.0, Basophils # (Auto) 0.0, Immature Granulocyte # (Auto) 0.1, Percent Immature Platelet Fraction 9.0H, S odium Level 140, Potassium Level 3.8, Chloride Level 102, Carbon Dioxide Level 24, Anion Gap 14, Blood Urea Nitrogen 35H, Creatinine 1.09, Estimat Glomerular Filtration Rate 48, BUN/Creatinine Ratio 32, Glucose Level 89, Calcium Level 8.8 09/22/21 14:50: Urine Color YELLOW, Urine Clarity CLEAR, Urine pH 6.0, Urine Specific [place] 1.010L, Urine Protein NEGATIVE, Urine Glucose (UA) NEGATIVE, Urine Ketones NEGATIVE, Urine Nitrite NEGATIVE, Urine Bilirubin NEGATIVE, Urine Urobilinogen 0.2, Urine Leukocyte Esterase NEGATIVE, Urine RBC (Auto) 1+H, Urine RBC 0-2, Urine WBC 0-2, Urine Crystals NONE, Urine Bacteria NEGATIVE, Urine Casts NONE, Urine Mucus NEGATIVE, Urine Culture Indicated NO 09/23/21 06:38: White Blood Count 7.3, Red Blood Count 4.09, Hemoglobin 12.9, Hematocrit 38, Mean Corpuscular Volume 93, Mean Corpuscular Hemoglobin 32, Mean Corpuscular Hemoglobin Concent 34, Red Cell Distribution Width 18.6H, Platelet Count 93L, Mean Platelet Volume 13.4H, Immature Granulocyte % (Auto) 1, Neutrophils (%) (Auto) 79H, Lymphocytes (%) (Auto) 9L, Monocytes (%) (Auto) 10, Eosinophils (%) (Auto) 2, Basophils (%) (Auto) 0, Neutrophils # (Auto) 5.7, Lymphocytes # (Auto) 0.7L, Monocytes # (Auto) 0.7, Eosinophils # (Auto) 0.1, Basophils # (Auto) 0.0, Immature Granulocyte # (Auto) 0.1, Percent Immature Platelet Fraction 9.9H, Sodium Level 141, Potassium Level 3.8, Chloride Level 103, Carbon Dioxide Level 26, Anion Gap 12, Blood Urea Nitrogen 35H, Creatinine 1.15, Estimat Glomerular Filtration Rate 45, BUN/Creatinine Ratio 30, Glucose Level 62L, Calcium Level 9.2, Corrected Calcium 10.2H, Total Bilirubin 4.8H, Aspartate Amino Transf (AST/SGOT) 37H, Alanine Aminotransferase (ALT/SGPT) 22, Alkaline Phosphatase 128, Total Protein 6.3L, Albumin 2.7L Assessment and Plan Assessment Right Shoulder Pain Problem List Right Shoulder Pain Plan Injected right shoulder Final Diagonsis Right Shoulder Pain Level of the visit: Level 3 (injection only) MARGARITA LEE MD Sep 23, 2021 12:06
--- NOTE | 2021-09-23 15:30 | Progress Note - Cardiology ---
Cardiology SOAP Progress Note Subjective: Chronic, exertional shortness of breath at its usual baseline No cp or palp or syncope Chronic, bilat leg swelling, much worse lately because unable to apply compression stockings due to arm pain No n/v/d Gen weakness and malaise Objective: I&O/Vital Signs 09/23/21 09/23/21 09/23/21 09/23/21 04:13 07:00 08:00 08:00 Temp 37.0 36.5 Pulse 62 61 68 Resp 16 18 B/P (MAP) 101/62 (75) 118/57 (77) Pulse Ox 95 94 94 O2 Delivery Nasal Cannula Nasal Cannula Nasal Cannula O2 Flow Rate 2.00 2.00 2.00 09/23/21 11:50 Temp 36.5 Pulse 71 Resp 18 B/P (MAP) 126/57 (80) Pulse Ox 94 O2 Delivery Nasal Cannula O2 Flow Rate 2.00 09/23/21 00:00 Intake Total 400 ml Output Total 500 ml Balance -100 ml Weight (Pounds): 211 Weight (Ounces): 8.0 Weight (Calculated Kilograms): [id number] Constitutional: AAO x 3, well-developed, well-nourished Respiratory: No accessory muscle use, No respiratory distress; chest expansion is symmetric, chest is bilaterally symmetric, lungs clear to auscultation Cardiovascular: regular rate-rhythm; No JVD; S1 and S2 Gastrointestional: No tender; soft, round, audible bowel sounds Extremities: other (bilat pitting LE swelling) Neurologic/Psychiatric: other (moves all limbs equally) Skin: No rash on exposed areas, No ulcerations on exposed areas Results/Procedures: Labs Laboratory Tests 09/23/21 06:38: White Blood Count 7.3, Red Blood Count 4.09, Hemoglobin 12.9, Hematocrit 38, Mean Corpuscular Volume 93, Mean Corpuscular Hemoglobin 32, Mean Corpuscular Hemoglobin Concent 34, Red Cell Distribution Width 18.6H, Platelet Count 93L, Mean Platelet Volume 13.4H, Immature Granulocyte % (Auto) 1, Neutrophils (%) (Auto) 79H, Lymphocytes (%) (Auto) 9L, Monocytes (%) (Auto) 10, Eosinophils (%) (Auto) 2, Basophils (%) (Auto) 0, Neutrophils # (Auto) 5.7, Lymphocytes # (Auto) 0.7L, Monocytes # (Auto) 0.7, Eosinophils # (Auto) 0.1, Basophils # (Auto) 0.0, Immature Granulocyte # (Auto) 0.1, Percent Immature Platelet Fraction 9.9H, Sodium Level 141, Potassium Level 3.8, Chloride Level 103, Carbon Dioxide Level 26, Anion Gap 12, Blood Urea Nitrogen 35H, Creatinine 1.15, Estimat Glomerular Filtration Rate 45, BUN/Creatinine Ratio 30, Glucose Level 62L, Calcium Level 9.2, Corrected Calcium 10.2H, Total Bilirubin 4.8H, Aspartate Amino Transf (AST/SGOT) 37H, Alanine Aminotransferase (ALT/SGPT) 22, Alkaline Phosphatase 128, Total Protein 6.3L, Albumin 2.7L Laboratory Tests 09/22/21 14:40 09/23/21 06:38 A/P: Assessment: Right shoulder discomfort following a non-syncopal fall in Jul 2021 - management is by Dr Bertrand Leg swelling due to chronic cor pulmonale and due to chronic lymphedema - consider chronic pulm thromboembolism, inadequately treated FABRIZIO, pulm fibrosis, primary pulm hypertension, etc CAD - Cardiac cath of 10-07-15 showed minimal coronary plaques without any ob structive disease. LVEF 60-65%. Mod elevation of LVEDP. No significant MR - MPI of 03-10-2021 shows no evidence of ischemia or infarction. LVEF 70% Paroxysmal Atrial Fibrillation - OAC with Eliquis, low dose per PCP d/t propensity to bleeding, advanced age and CKD Mod pulm htn and chronic cor pulmonale - consider chronic pulm thromboembolism, inadequately treated FABRIZIO, pulm fibrosis, primary pulm hypertension, etc - Echo of 03-09-2021 showed LVEF 70-75%. Mod MR. Mod to severe TR. PASP 50-55 mmHg - Echo of 09-23-21:LVEF 60-65%, mod MR, triv AI, mod TR, PASP 50-55 mmHg (not significantly changed from the study of February 2021) PAD - arterial Doppler of February 2021 reported mod atheromatous plaque on both sides w/o evidence of hemodynamic significance Hyperlipidemia - unable to take statins - followed by her PCP Obesity - with a BMI of approximately 40 Hypothyroidism - managed by PCP CKD-3. - Chronic renal insuff with Cr ranging between 1 and 1.4. CKD stage 3, followed by [facility] Impaired fasting glucose - managed by PCP Carotid dz - Mild bilateral carotid art disease on carotid u/s of 02-27-2021 FABRIZIO - for which she is on CPAP therapy and is managed by the Pulm services H/o gout - managed by PCP Plan: Complex management due to multiple risk factors Right shoulder discomfort which appears to be musculoskeletal by description and is to be managed by Dr Bertrand Chronic bilat LE swelling: iv diuretic, thigh-high compression stockings recommended Continue OAC with Eliquis for stroke prophylaxis d/t PAF Monitor lab closely I discussed her case in detail with Dr Bertrand today ISABELLE CARLTON MD FACP FAC CCDS Sep 23, 2021 15:30
[2021-09-23] MEDS ORDERED: APIXABAN 2.5 MG (ELIQUIS) TABLET PO SCH (21:00)
[2021-09-23] MEDS ORDERED: KCL 20 MEQ TAB (K-DUR) PO SCH (21:00)
[2021-09-24] MEDS ORDERED: ALLOPURINOL 300 MG (ZYLOPRIM) TAB PO SCH (09:00)
[2021-09-24] MEDS ORDERED: meTOprolol SUCCINATE 100 MG (TOPROL XL) TAB PO SCH (09:00)
[2021-09-24] MEDS ORDERED: NON-FORMULARY MEDICATION 1 EA EA (Levothyroxine Sodium 137 MCG) PO SCH (09:00)
== END 2021-09-23 13:10 ==
LOC: EDUNIT# 14:04 → ER 14:06 → 4TH 15:20
PROVIDERS: ADMIT Internal Medicine; ATTEND Internal Medicine
DX: R53.1 Weakness (principal); M70.811 Other soft tissue disorders related to use, overuse and pressure, right shoulder; I13.0 Hypertensive heart and chronic kidney disease with heart failure and stage 1 through stage 4 chronic kidney disease, or unspecified chronic kidney disease; I50.9 Heart failure, unspecified; N18.30 Chronic kidney disease, stage 3 unspecified; I89.0 Lymphedema, not elsewhere classified; I27.81 Cor pulmonale (chronic); E78.00 Pure hypercholesterolemia, unspecified; M10.9 Gout, unspecified; E03.9 Hypothyroidism, unspecified; E66.9 Obesity, unspecified; D69.6 Thrombocytopenia, unspecified; G47.33 Obstructive sleep apnea (adult) (pediatric); I08.1 Rheumatic disorders of both mitral and tricuspid valves; I25.10 Atherosclerotic heart disease of native coronary artery without angina pectoris; I48.0 Paroxysmal atrial fibrillation; I27.20 Pulmonary hypertension, unspecified; I73.9 Peripheral vascular disease, unspecified; E78.5 Hyperlipidemia, unspecified; I65.23 Occlusion and stenosis of bilateral carotid arteries; Z68.41 Body mass index [BMI] 40.0-44.9, adult; Z79.01 Long term (current) use of anticoagulants; Z79.899 Other long term (current) drug therapy; Z79.890 Hormone replacement therapy; Z79.891 Long term (current) use of opiate analgesic
CPT/HCPCS: 73030; 80048; 80053; 81000; 85025 ×2; 93306; 94760; 97162; 97166; 97535; 99284; G0378; 36415

== ENCOUNTER 2021-09-23 10:44 | Inpatient (IN) | payer MEDICARE ==
[~2021-09-23] VITALS: Ht 161.3 cm; Wt 95.1 kg
[~2021-09-23 10:44] MED LIST changes: +L GA1CAP2 PO; +LEVO137T2 PO; +POTA-179 PO; -POTA20TA15 PO; +TRAM50TA3 PO
[2021-09-23] MEDS ORDERED: TORS20TA3 PO (10:56)
[2021-09-23] MEDS ORDERED: DOCUSATE SODIUM 100 MG (COLACE) CAP PO PRN (12:15)
[2021-09-23] MEDS ORDERED: ALPRAZolam 0.25 MG (XANAX) TAB PO PRN (12:15)
[2021-09-23] MEDS ORDERED: LOPERAMIDE 2 MG (IMODIUM) TABLET PO PRN (12:15)
[2021-09-23] MEDS ORDERED: MELATONIN 3 MG TABLET PO PRN (12:15)
[2021-09-23] MEDS ORDERED: BISACODYL 10 MG SUPP (DULCOLAX) PR PRN (12:15)
[2021-09-23] MEDS ORDERED: LACTULOSE SYRUP 10GM/15ML (ENULOSE) 30ML UDC PO PRN (12:15)
[2021-09-23] MEDS ORDERED: CALCIUM CARBONATE 500 MG (TUMS) TAB.CHEW PO PRN (12:15)
[2021-09-23] MEDS ORDERED: FLEET ENEMA ADULT 1 EA BTL PR PRN (12:15)
[2021-09-23] MEDS ORDERED: diphenhydrAMINE 25 MG TAB (BENADRYL) PO PRN (12:15)
[2021-09-23] MEDS ORDERED: ONDANSETRON 4 MG (ZOFRAN) ORAL DISSOLVE TAB PO PRN (12:15)
[2021-09-23 13:20] VITALS: BP 127/63
--- NOTE | 2021-09-23 14:09 | Physical Therapy Evaluation ---
PT Evaluation-General Medical Diagnosis Admission Date Sep 23, 2021 at 13:00 Medical Diagnosis: right shoulder pain and BLE edema Onset Date: Sep 22, 2021 Therapy Diagnosis Therapy Diagnosis: impaired mobility, strength, endurance Height/Weight Height (Feet): 5 Height (Inches): 3.50 Weight (Pounds): 211 Weight (Ounces): 8.0 Referral Physician: Yulisa Bertrand DO Reason for Referral: Evaluation/Treatment Medical History Additional Medical History Past Medical History Surgeries: Eye Surgery, Orthopedic Sleep Apnea Currently Using CPAP: Yes Atrial Fibrillation, Chronic Edema/Swelling, High Cholesterol, Hypertension Renal Failure Arthritis, Gout Hypothyroidsim Cataract Loss of Vision: Bilateral Hearing Impairment: Hard of Hearing Reviewed History: Yes Social History Current Living Status: Spouse Entry Into Home: Ramp Prior Prior Level of Function SCALE: Activities may be completed with or without assistive devices. 9-Wmopzajqlq-trnjzog completes the activity by him/herself with no assistance from a helper. 5-Set-up or Clean-up Assistance-helper sets up or cleans up; patient completes activity. [place] assists only prior to or following the activity. 4-Supervision or Touching Assistance-helper provides verbal cues and/or touching/steadying and/or contact guard assistance as patient completes activity. Assistance may be provided throughout the activity or intermittently. 3-Partial/Moderate Assistance-helper does LESS THAN HALF the effort. [place] lifts, holds or supports trunk or limbs, but provides less than half the effort. 2-Substantial/Maximal Assistance-helper does MORE THAN HALF the effort. [place] lifts or holds trunk or limbs and provides more than half the effort. 5-Bzaukwuxu-pbdfgz does ALL the effort. Patient does none of the effort to co mplete the activity. Or, the assistance of 2 or more helpers is required for the patient to complete the activity. If activity was not attempted, code reason: 7-Patient Refused. 9-Not Applicable-not attempted and the patient did not perform the activity before the current illness, exacerbation or injury. 10-Not Attempted due to Environmental Limitations-(lack of equipment, weather restraints, etc.). 88-Not Attempted due to Medical Conditions or Safety Concerns. Bed Mobility: 6 Transfers (B,C,W/C): 6 Gait: 6 Indoor Mobility (Ambulation): Independent Prior Devices Use: Walker PT Evaluation-Current Subjective Patient in bed pre tx, agrees to PT, has 9/10 pain in right shoulder. Will be co-treating for part of tx with OT due to poor patient mobility, strength, endurance, severe pain with activity, coordinate UE and LE with activity, safety and reduce risk of falls. Pt/Family Goals to be independent at home Objective Patient Orientation: Person, Place, Situation ROM/Strength ROM Lower Extremities limited due to edema Strength Lower Extremities LLE (hip flexion 2/5, knee flexion 3+/5, knee extension 3+/5, dorsiflexion 4- /5), RLE (hip flexion 3-/5, knee flexion 4-/5, knee extension 4-/5, dorsiflexion 4/5) Sensory Hearing: Functional Sensation Right Lower Extremit: Intact Sensation Left Lower Extremity: Intact Transfers Roll Left & Right (QC): 3 Sit to Lying (QC): 3 Lying to Sitting/Side of Bed(Q: 3 Sit to Stand (QC): 3 Chair/Jny-tz-[place]zdu[place] Xfer(QC): 3 Toilet Transfer (QC): 3 Car Transfer (QC): 3 Patient performs rolling with min assist, supine <-> sit mod assist, sit <-> stand and transfers min assist, car transfer mod assist. Patient needs cues for hand placement and positioning, this is difficult because she has decreased function in her right shoulder. Gait Does the Patient Walk?: Yes Mode of Locomotion: Walk Anticipated Mode of Locomotion: Walk Walk 10 feet (QC): 4 Walk 50 ft with 2 Turns(QC): 4 Walk 150 ft (QC): 88 Walking 10ft/uneven surface-QC: 88 Distance: 100' Gait Assistive Device: FWW Comments/Gait Description Patient can ambulate 100' with a rolling walker with CGA (including 50' with at least 2 turns of 90 degrees). Patient is not safe to ambulate over an uneven s urface, patient ambulates very slowly, has poor foot clearance. Wheelchair Training Wheel 50 ft with 2 turns (QC): 9 Wheel 150 ft (QC): 9 Stairs 1 Step (curb) (QC): 88 4 Steps (QC): 88 12 Steps (QC): 88 Balance Sitting Static: Fair Sitting Dynamic: Fair Standing Static: Fair Standing Dynamic: Fair Picking up an Object (QC): 88 Treatment PT performed bed mobility and transfers, ambulation, OT performed UE positioning and safety during activity. Assessment/Needs Patient has impaired mobility, strength, endurance. Patient has severe pain and limited mobility of the right shoulder that is going to be a big obstacle for rehab. Rehab Potential: Fair PT Short Term Goals Short Term Goals Time Frame: Sep 30, 2021 Roll Left & Right: 4 Sit to lyin Lying to sitting on side of be: 3 Sit to stand: 4 Chair/ttf-vr-zhsmz transfer: 4 Walk 10 feet: 4 Walk 50 feet with two turns: 4 Walk 150 feet: 4 PT Director Database Goals Long-Term Goals PT Long-Term Goals Time Frame: Oct 14, 2021 Roll Left & Right (QC): 4 Sit to Lying (QC): 4 Lying-Sitting on Side/Bed(QC): 4 Sit to Stand (QC): 4 Chair/Ugo-un-Gvypu Xfer(QC): 4 Toilet Transfer (QC): 4 Car Transfer (QC): 3 Does the Patient Walk: Yes Walk 10 feet (QC): 4 Walk 50ft with 2 Turns (QC): 4 Walk 150 ft (QC): 4 Walking 10ft on Uneven Surface: 4 1 Step (curb) (QC): 4 4 Steps (QC): 88 12 Steps (QC): 88 Picking up an Object (QC): 4 Wheel 50 feet with 2 turns (QC: 9 Wheel 150 feet: 9 PT Plan Problem List Problem List: Activity Tolerance, Functional Strength, Safety, Balance, Gait, Transfer, Bed Mobility, ROM Treatment/Plan Treatment Plan: Continue Plan of Care Treatment Plan: Bed Mobility, Education, Functional Activity [place], Functional Strength, Group Therapy, Gait, Safety, Therapeutic Exercise, Transfers Treatment Duration: Oct 14, 2021 Frequency: At least 5 of 7 days/Wk (IRF) Estimated Hrs Per Day: 1.5 hours per day Patient and/or Family Agrees t: Yes Safety Risks/Education Patient Education: Gait Training, Transfer Techniques, Correct Positioning, Safety Issues Teaching Recipient: Patient Teaching Methods: Demonstration, Discussion Response to Teaching: Reinforcement Needed Discharge Recommendations Plan Patient will perform bed mobility and transfer training, balance and endurance training, functional strengthening, stair training, gait training, and education, to improve functional mobility and independence at home Therapy Discharge Recommendati: Scheduled Assistance, Home & Family, Post Acute PT Time/GCodes Time In: 1300 Time Out: 1330 Total Billed Treatment Time: 30 Total Billed Treatment 1 visit EVM 10' PT eval from [id number], OT eval from [id number], co-treat from [id number] CARI OG PT Sep 23, 2021 14:09
--- NOTE | 2021-09-23 14:46 | Occupational Therapy Eval ---
OT Evaluation-General/PLF Medical Diagnosis Admission Date Sep 23, 2021 at 13:00 Medical Diagnosis: right shoulder pain and BLE edema Onset Date: Sep 22, 2021 Therapy Diagnosis Therapy Diagnosis: Impaired adls, balance, strength, rom, endurance Height/Weight Height (Feet): 5 Height (Inches): 3.50 Weight (Pounds): 211 Weight (Ounces): 8.0 Precautions Precautions/Isolations: Fall Prevention, Standard Precautions Referral Physician: Yulisa Bertrand DO Referral Reason: Evaluation/Treatment Medical History Current History 81 yr old female being admitted for right shoulder pain and BLE edema. She reports she fell at home back in July, non-syncopal fall, and injured her right shoulder. She states that she was getting better but recently the pain came back. She has chronic bilat LE swelling for which she is on chronic diuretic tx. She states this is unchanged in the recent past. She lives in a single level home with her spouse. She was supervision for adls for safety only. She uses a walker and a cane; does not drive. She reports having a built in shower seat but that she stands to shower because the seat is too low and difficulty to stand from. Reviewed History: Yes Social History Home: Single Level Current Living Status: Spouse Entry Into Home: Ramp ADL-Prior Level of Function SCALE: Activities may be completed with or without assistive devices. 8-Oojisaawue-plvproy completes the activity by him/herself with no assistance from a helper. 5-Set-up or Clean-up Assistance-helper sets up or cleans up; patient completes activity. [place] assists only prior to or following the activity. 4-Supervision or Touching Assistance-helper provides verbal cues and/or touching/steadying and/or contact guard assistance as patient completes activity. Assistance may be provided throughout the activity or intermittently. 3-Partial/Moderate Assistance-helper does LESS THAN HALF the effort. [place] lifts, holds or supports trunk or limbs, but provides less than half the effort. 2-Substantial/Maximal Assistance-helper does MORE THAN HALF the effort. [place] lifts or holds trunk or limbs and provides more than half the effort. 0-Ljgxtdbdy-wtbvto does ALL the effort. Patient does none of the effort to complete the activity. Or, the assistance of 2 or more helpers is required for the patient to complete the activity. If activity was not attempted, code reason: 7-Patient Refused. 9-Not Applicable-not attempted and the patient did not perform the activity before the current illness, exacerbation or injury. 10-Not Attempted due to Environmental Limitations-(lack of equipment, weather restraints, etc.). 88-Not Attempted due to Medical Conditions or Safety Concerns. Self Care: Independent Functional Cognition: Needed Some Help DME/Equipment: Bath Bench, Grab Bars, Shower Drive Self: No OT Current Status Subjective Pt reports pain as 8/10 in RUE. Pain more intense on volar forearm and goes up into shoulder. She reports having a shot in shoulder earlier this am. RN notified. Appearance Pt left sitting in chair, all needs within reach, RN in room at end of session. Mental Status/Objective Patient Orientation: Person, Situation Attachments: IV Current Glasses/Contacts: Yes Hearing Aids: No Dentures/Partials: No Hand Dominance: Right Upper Extremity ROM Impaired RUE: Shoulder PROM to ~30 degrees (to pain tolerance). Elbow: 0-100 degrees, wrist/digits: WFL LUE shoulder: 145 degrees. Elbow-distally: WFL Upper Extremity Strength Not tested secondary to pain ADL-Treatment Eating (QC): 5 Oral Hygiene (QC): 4 Shower/Bathe Self (QC): 3 (mod) Upper Body Dressing (QC): 10 Lower Body Dressing (QC): 3 On/Off Footwear (QC): 1 Toileting Hygiene (QC): 3 Co-treat with PT due to poor activity tolerance/endurance, pain, balance, high fall risk, and reduced safety. Shower performed and assessed at PLOF (standing). Sit<>stand: min-mod a depending of fatigue level and height of surface. CGA-min a needed for safety while standing with single UE support on grab bar at all times. Limited use of RUE throughout task secondary to pain. She is able to demonstrate good problem solving and utilizes one handed technique to wash L axilla. Mod a to wash R side of buttocks due to pain with any movement of R arm and inability to reach with Left. Due to poor standing tolerance/endurance and inability to reach below knees in standing, pt cued to sit to finish task. In sitting, she was able to reach down to mid calf, assist needed to wash down to feet. Pt could benefit from use of LHS for energy conservation and safety with task. She sat in w/c to dress. She was unable to bend at waist to thread foot into brief and instead placed brief onto floor. Pt able to place L foot into brief Post cue to use UE to assist in lifting off floor. Assist needed to thread RLE due to inability to lift foot (even with assist of UE) secondary to significant edema and extra weight of leg. Assist required to reach RUE to grab bar in order to help pull self into standing. Once standing, pt able to use LUE to manage brief up to waist with extra time. Only minimal assist required to pull up completely over R hip. Dep to don socks after effortful attempt. She sat in w/c to complete grooming tasks, anticipate CGA-min a for balance required if performed at baseline (standing). Other Treatments Pt initially on 2L, O2 94%. Oxygen spot checked throughout adls and ambulation a nd remains stable at 94%. Oxygen reduced to 1L and pt continues to stay above 93%. Oxygen removed and stats remain constant at 93%. RN notified on removal of oxygen and to spot check throughout evening. Education OT Patient Education: Correct positioning, Energy conservation, Modified ADL techniques, Progress toward Goal/Update tx plan, Purpose of tx/functional activities, Reviewed precautions, Rehab process, Safety issues, Transfer techniques, Other Teaching Recipient: Patient Teaching Methods: Demonstration, Discussion Response to Teaching: Verbalize Understanding, Return Demonstration, Reinforcement Needed OT Short Term Goals Short Term Goals Time Frame: Oct 02, 2021 Eatin Oral hygiene: 4 Toileting hygiene: 4 Shower/bathe self: 3 (min) Upper body dressin Lower body dressin (min) Putting on/taking off footwear: 3 OT Group Home Goals Braiding Machine Operator Goals Time Frame: Oct 13, 2021 Eating (QC): 6 Oral Hygiene (QC): 6 Toileting Hygiene (QC): 6 Shower/Bathe Self (QC): 4 Upper Body Dressing (QC): 4 Lower Body Dressing (QC): 5 On/Off Footwear (QC): 4 1=Demonstrate adherence to instructed precautions during ADL tasks. 2=Patient will verbalize/demonstrate understanding of assistive devices/modifications for ADL. 3=Patient will improve strength/tolerance for activity to enable patient to perform ADL's. OT Education/Plan Problem List/Assessment Assessment: Decreased Activ Tolerance, Decreased Safety Aware, Decreased UE Strength, Impaired Coordination, Impaired Funct Balance, Impaired I ADL's, Impaired Self-Care Skills, Restricted Funct UE ROM Discharge Recommendations Plan/Recommendations: Continue POC Comment continue to assess Target Placement Home health pending progress Treatment Plan/Plan of Care Treatment,Training & Education: Yes Patient would benefit from OT for education, treatment and training to promote independence in ADL's, mobility, safety and/or upper extremity function for ADL's. Plan of Care: ADL Retraining, Functional Mobility, Group Exercise/Act as Ind, UE Funct Exercise/Act Treatment Duration: Oct 13, 2021 Frequency: At least 5 of 7 days/Wk (IRF) Estimated Hrs Per Day: 1.5 hours per day Rehab Potential: Fair Time/GCodes Start Time: 13:10 Stop Time: 14:40 Total Time Billed (hr/min): 90 Billed Treatment Time 1 visit EVM (10 min) FA (20 min) ADL x4 (60 min) PT eval ([id number]), OT eval ([id number]), Co-treat ([id number]) Glenna Reynoso OT Sep 23, 2021 14:46
--- NOTE | 2021-09-23 14:53 | Physical Therapy Daily Note ---
PT Daily Note-Current Subjective Pt in halls w/ OT upon arrival and agrees to co-treat. Use of 2 skilled clinicians d/t pt poor mobility, weakness, transfers, safety, and decrease risk of falls. Pt states pain in R shoulder and elbow. Mental Status Patient Orientation: Person, Place, Situation Transfers SCALE: Activities may be completed with or without assistive devices. 7-Frqanogvys-vndkwqn completes the activity by him/herself with no assistance from a helper. 5-Set-up or Clean-up Assistance-helper sets up or cleans up; patient completes activity. [place] assists only prior to or following the activity. 4-Supervision or Touching Assistance-helper provides verbal cues and/or touching/steadying and/or contact guard assistance as patient completes activity. Assistance may be provided throughout the activity or intermittently. 3-Partial/Moderate Assistance-helper does LESS THAN HALF the effort. Wetmore lifts, holds or supports trunk or limbs, but provides less than half the effort. 2-Substantial/Maximal Assistance-helper does MORE THAN HALF the effort. Wetmore lifts or holds trunk or limbs and provides more than half the effort. 2-Arpsurqwx-ngvyhb does ALL the effort. Patient does none of the effort to complete the activity. Or, the assistance of 2 or more helpers is required for the patient to complete the activity. If activity was not attempted, code reason: 7-Patient Refused. 9-Not Applicable-not attempted and the patient did not perform the activity before the current illness, exacerbation or injury. 10-Not Attempted due to Environmental Limitations-(lack of equipment, weather restraints, etc.). 88-Not Attempted due to Medical Conditions or Safety Concerns. Sit to Stand (QC): 3 Gait Training Does the Patient Walk?: Yes Distance: 10' Walk 10 feet (QC): 4 Gait Assistive Device: FWW Pt has slow, but steady gait. Shuffles with wide IVANA Exercises Supine Ex: Scooting Seated Therapy Exercises: Sit to stand, Long arc quads Treatments OT focused on bathing, dressing, ADLs and UE placement/sequencing. PT focused on mobility, transfers, gait, and LE placement/sequencing. Pt in WC, propelled by PT to bathroom. Pt amb 10' in room to shower bench to complete shower. Pt then transfers from bench back to . During sit to stand, pt requires A w/ L UE for placement. In WC, pt completes ADLs (see OT note). Pt then given rest break, then completes sit to stands x3. While standing RN in room and assesses pt. Pt then amb to recliner in room, instructed to scoot back in chair. Pt able to complete, only a couple inches. Leg rest elevated and pt instructed to scoot again but unable to complete. PT and OT A pt in scooting back in recliner. Pt remains in recliner with RN in room, all needs met and call light in hand. Assessment Current Status: Fair Progress Pt O2 monitored throughout tx as pt on 2L at beginning of tx. O2 remained >94% while on 2L. Post shower dropped to 1L, stayed >94%. Pt taken off O2, post sit to stands O2 >93%. Pt remains off O2 with nursing notified. Pt extremely weak, low activity tolerance, and has impaired mobility. PT Short Term Goals Short Term Goals Time Frame: Sep 30, 2021 Roll Left & Right: 4 Sit to lyin Lying to sitting on side of be: 3 Sit to stand: 4 Chair/gtm-wp-tyfcj transfer: 4 Walk 10 feet: 4 Walk 50 feet with two turns: 4 Walk 150 feet: 4 PT Halfway Goals Halfway Goals PT Halfway Goals Time Frame: Oct 14, 2021 Roll Left & Right (QC): 4 Sit to Lying (QC): 4 Lying-Sitting on Side/Bed(QC): 4 Sit to Stand (QC): 4 Chair/Cnq-ld-Zkudy Xfer(QC): 4 Toilet Transfer (QC): 4 Car Transfer (QC): 3 Does the Patient Walk: Yes Walk 10 feet (QC): 4 Walk 50ft with 2 Turns (QC): 4 Walk 150 ft (QC): 4 Walking 10ft on Uneven Surface: 4 1 Step (curb) (QC): 4 4 Steps (QC): 88 12 Steps (QC): 88 Picking up an Object (QC): 4 Wheel 50 feet with 2 turns (QC: 9 Wheel 150 feet: 9 PT Plan Problem List Problem List: Activity Tolerance, Functional Strength, Safety, Balance Treatment/Plan Treatment Plan: Continue Plan of Care Treatment Plan: Bed Mobility, Education, Functional Activity [place], Functional Strength, Group Therapy, Gait, Safety, Therapeutic Exercise, Transfers Treatment Duration: Oct 14, 2021 Frequency: At least 5 of 7 days/Wk (IRF) Estimated Hrs Per Day: 1.5 hours per day Patient and/or Family Agrees t: Yes Time/GCodes Time In: 1330 Time Out: 1440 Total Billed Treatment Time: 70 Total Billed Treatment 1, FA x3, Ex, GT JERALD COHEN [employer]ESS TENDER Sep 23, 2021 14:53
--- NOTE | 2021-09-23 16:38 | PM&R Post Admission Assessment ---
PM&R HP Date of Visit: Sep 23, 2021 Time of Visit: 16:40 History of Present Illness CC: Debility from CHF HPI: This is an 81[facility]WF clinic pt of [facility] who presents to inpatient rehab after a short stay observation upstairs due to severe weakness and cor pulmonale from valvular heart disease specifically severe tricuspid regurgitation and FABRIZIO. She does have liver disease from chronic liver congestion from severe lower extremity edema and ascites. Currently she is very tearful. We will have Dr. Huerta perform a right shoulder steroid injection in order to help her recover in inpatient rehab in order to return home. HPI from 09/22/2021 - Patient presents in ED for pain and weakness in her BL lower extremity as well as right shoulder which prevent her from walking and doing activities of normal daily living. She presented in the ED 2 wks ago for pain and swelling in her ankles and was diagnosed with gout for which she has been taking colchicine and prednisione, which she claims have not helped her sx. Nothing else seems to improve her sx, and nothing seems to make it worse. She also complains of pain and weakness of her right arm made worse when moving and better with not moving. She also claims to hear and feel a pop from her neck when turning which began secondary to a recent fall. Both the pt and her son Sergo who was also present state that they would very much like to see her symptoms of swelling and pain resolve so she can return to activities of normal daily living. 09/23/2021 - Today when I visited the patient she was undergoing echocardiography. She states that she is feeling fine, but still complains of LE weakness and pain in the right shoulder. She also states today that she requires help to stand up and that her pulls on her arm firmly to assist her to stand, she states that she feels this action as well as increased UE use with a walker has contributed to the pain she is now feeling in her shoulder. Her shoulder remains exquisitely tender to palpation and movement, however distal mold breaker strength and sensitivity is approximately equal BL. Pt also confirms that she was able to stand and walk a little with the aid of physical therapy this morning. She also states that she has not been physically able to put on her compression stockings at home, which has help significantly with her LE edema in the past. Past Ymfgzcn-Qhxgum-Oqbjse Hx Past Med/Social Hx: Reviewed Nursing Past Med/Soc Hx, Reviewed and Corrections made Patient Social History Marrital Status: Employed/Student: retired Smoking Status: Never a Smoker 2nd Hand Smoke Exposure: No Immunizations Up To Date Tetanus Booster (TDap): Less than 5yrs Date of Pneumonia Vaccine: Oct 14, 2009 Date of Influenza Vaccine: Aug 19, 2021 Past Medical History Surgeries: Eye Surgery, Orthopedic Respiratory: Sleep Apnea Currently Using CPAP: Yes Cardiac: Atrial Fibrillation, Chronic Edema/Swelling, High Cholesterol, Hypertension Reproductive: No Genitourinary: Renal Failure Musculoskeletal: Arthritis, Gout Endocrine: Hypothyroidsim HEENT: Cataract Loss of Vision: Bilateral Hearing Impairment: Hard of Hearing History of Blood Disorders: No Family History Cancer 09 SISTER (breast ) FH: atrial fibrillation Family history: Hypertension 03 FATHER son History of - disorder 09 SISTER (lupus) Myocardial infarction 03 MOTHER Stroke 03 FATHER Heart Disease, Hypertension, Stroke Prior Level of Function Bed Mobility: 6 Transfers: 6 Gait: 6 Indoor Mobility (Ambulation): Independent Prior Devices Use: Walker Self Care: Independent Functional Cognition: Needed Some Help Drive Self: No Current Level of Fuctioning Roll Left to Right: 3 Sit to Lyin Lying to Sitting/Side of Bed: 3 Sit to Stand: 3 Chair/Lic-yu-Mijsc Xfer: 3 Car Transfer: 3 Does the Patient Walk: Yes Mode of Locomotion: Walk Anticipated Mode of Locomotion: Walk Walk 10 feet: 4 Walk 50 ft with 2 Turns: 4 Walk 150 ft: 88 Walking 10ft on uneven surface: 88 Gait Assistive Device: FWW Wheel 50 ft with 2 turns: 9 Wheel 150 ft: 9 1 Step (curb): 88 4 Steps: 88 12 Steps: 88 Picking up an Object: 88 Eatin Oral Hygiene: 4 Shower/Bathe Self: 3 (mod) Upper Body Dressin Lower Body Dressin On/Off Footwear: 1 Toileting Hygiene: 3 PM&R Allergy/Meds/Data Review Allergies Coded Allergies: codeine (Verified Allergy, Unknown, 08/06/21) erythromycin base (Verified Allergy, Unknown, 09/12/21) ethyl alcohol (Verified Allergy, Unknown, 09/12/21) hydrocodone (Verified Allergy, Unknown, 09/12/21) levofloxacin (Verified Allergy, Unknown, 08/06/21) metronidazole (Verified Allergy, Unknown, 08/06/21) penicillin G (Verified Allergy, Unknown, 08/06/21) Home Medications Scheduled Allopurinol (Allopurinol), 300 MG PO DAILY, (Reported) Apixaban (Eliquis), 2.5 MG PO BID, (Reported) Levothyroxine Sodium (Levothyroxine Sodium), 137 MCG PO DAILY, (Reported) Metoprolol Succinate (Metoprolol Succinate), 200 MG PO DAILY, (Reported) Ped Multivit #43/Iron Fumarate (Flintstones Complete Chew Tab), 18 MG PO BID, (Reported) Potassium Chloride (Potassium Chloride), 20 MEQ PO BID, (Reported) Torsemide (Torsemide), 90 MG PO DAILY l Gasseri/B Bifidum/B Longum (Samba.me Capsule), 1 EACH PO DAILY, (Reported) Scheduled PRN Tramadol HCl (Tramadol HCl), 50 MG PO Q8H PRN for PAIN-MODERATE (5-7), (Reported) Discontinued Medications Acetaminophen (Tylenol Extra Strength), 500-1,000 MG PO Q8H PRN for PAIN-MILD (1-4), (Reported) Discontinued Reason: Duplicate Order Colchicine (Colchicine), 0.6 MG PO UD Discontinued Reason: Duplicate Order Levothyroxine Sodium (Levothyroxine Sodium), 88 MCG PO DAILY, (Reported) Discontinued Reason: Duplicate Order Levothyroxine Sodium (Synthroid), 50 MCG PO DAILY Discontinued Reason: Duplicate Order Metolazone (Metolazone), 5 MG PO UD Discontinued Reason: Duplicate Order Nystatin (Nystatin), 0 GM TP TID Discontinued Reason: Duplicate Order Prednisone (Prednisone), 40 MG PO DAILY Discontinued Reason: Duplicate Order Torsemide (Torsemide), 60 MG PO DAILY, (Reported) Tramadol HCl (Ultram), 50 MG PO Q4H Discontinued Reason: Duplicate Order Triamcinolone Acet (Triamcinolone Acetonide 0.1% Cream), 0 GM TP BID Discontinued Reason: Duplicate Order Current Medications Current Medications Reviewed Review of Systems Constitutional: see HPI, malaise, weakness EENTM: no symptoms reported Respiratory: no symptoms reported Cardiovascular: no symptoms reported Gastrointestinal: no symptoms reported Genitourinary: no symptoms reported Musculoskeletal: back pain, joint pain, muscle pain, muscle stiffness Skin: no symptoms reported Psychiatric/Neurological: Depressed All Other Systems Reviewed Negative Unless Noted: Yes Physical Exam Physical Exam Vital Signs Vital Signs - First Documented 09/23/21 13:20 Temp 36.6 Pulse 80 Resp 18 B/P (MAP) 127/63 (84) Pulse Ox 96 O2 Delivery Room Air Capillary Refill : Height, Weight, BMI Height: 5'3.50" Weight: 211lbs. 8.0oz. 95.516166fl; 32.74 BMI Method:Stated General Appearance: No Apparent Distress, WD/WN, Chronically ill, Obese Eyes: Bilateral Eye Normal Inspection, Bilateral Eye PERRL HEENT: PERRL/EOMI, Normal ENT Inspection, Pharynx Normal Neck: Full Range of Motion, Normal Inspection, Non Tender, Supple, Carotid Bruit Respiratory: Chest Non Tender, Lungs Clear, Normal Breath Sounds, No Accessory Muscle Use, No Respiratory Distress Cardiovascular: Regular Rate, Rhythm, No Gallop, No JVD, No Murmur, Normal Peripheral Pulses, Irregularly Irregular Gastrointestinal: Normal Bowel Sounds, No Organomegaly, No Pulsatile Mass, Non Tender, Soft Back: Normal Inspection, No CVA Tenderness, No Vertebral Tenderness Extremity: Normal Capillary Refill, Normal Inspection, Normal Range of Motion, Non Tender, No Calf Tenderness, Pedal Edema Neurologic/Psychiatric: Alert, Oriented x3, No Motor/Sensory Deficits, Normal Mood/Affect, marketing editor II-XII Norm as Tested, Motor Weakness (generalized) Skin: Normal Color, Warm/Dry Lymphatic: No Adenopathy PM&R Medical Assessment & Plan REHAB/MEDICAL ASSESSMENT AND PLAN: 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 The comorbidities that impact the patients function and/or functional outcome by: CHF, FABRIZIO, obesity, cor pulmonale, CKD, hypothyroidism REHAB PLAN: The patient is being admitted to our comprehensive inpatient rehabilitation facility and can tolerate the intensity of service consisting of at least: 180 minutes of therapy a day, 5 out of 7 days a week Rehab treatment will consist of: PT OT will focus on regaining function with strengthening techniques and increased use of assistive devices in order to return home The patient/family has a good understanding of our discharge process and will benefit from an interdisciplinary inpatient rehabilitation program. The patient has potential to make improvement and is in need of at least two of the following multidisciplinary therapies including but not limited to physical, occupational, speech, and prosthetics and orthotics. Additionally the patient will need services from respiratory, nutritional services, wound care, psychology, etc. (Customize this to each patient). Given the patients complex condition and risk of further medical complications, rehabilitation services cannot be safely or effectively provided at a lower level of care such as a senior living facility. BARRIERS TO DISCHARGE: Debility ESTIMATED LOS: 7 days DISPOSITION: Home RELEVANT CHANGES SINCE PREADMISSION SCREENING: I have compared the patients medical and functional status at the time of the preadmission screening and there are: no changes PROGNOSIS: Fair REHABILITATION GOALS: 1.PT OT will focus on regaining function with strengthening techniques and increased use of assistive devices in order to return home All the above goals were reviewed with the patient and he/she is in agreement. By signing this document, I acknowledge that I have personally performed a full physical examination on this patient within 24 hours of admission to this inpatient rehabilitation facility and have determined the patient to be able to tolerate the above course of treatment at an intensive level for a reasonable period of time. I will be completing a detailed individualized Plan of Care for this patient by day #4 of the patients stay based upon the Preadmission Screen, the Post-Admission Evaluation, and the therapy evaluations. Admission Dx/Comorbidities: (1) Congestive heart failure Status: Acute ICD Codes: I50.9 - Congestive heart failure (2) Bilateral lower extremity pain Status: Acute ICD Codes: M79.604 - Pain in right leg; M79.605 - Pain in left leg (3) Chronic kidney disease (CKD) Status: Acute ICD Codes: N18.9 - Chronic kidney disease, unspecified (4) Generalized weakness Status: Acute ICD Codes: R53.1 - Weakness; M79.605 - Pain in left leg (5) Anasarca Status: Acute ICD Codes: R60.1 - Generalized edema; M79.605 - Pain in left leg Assessment/Plan Assessment and Plan Assess & Plan/Chief Complaint Assessment: CHF Right shoulder soft tissue injury LE edema - due to CHF and lymphedema CAD Paroxysmal Atrial Fibrillation - OAC with Eliquis PAD Venous insufficiency Hyperlipidemia Hypothyroidism CKD-3 - followed by [facility] CAD FABRIZIO - on CPAP therapy and is managed by the Pulm services H/o gout Plan: Ortho consult Monitor renal function Cardiology consultation Rehab protocol VERNELL ROMAN DO Sep 23, 2021 16:38
[2021-09-23] MEDS: KCL 20 MEQ TAB (K-DUR) PO SCH (18:15)
[2021-09-23 19:58] VITALS: BP 111/57
[2021-09-23] MEDS ORDERED: IRON FUMARATE PO SCH (21:00)
[2021-09-23] MEDS ORDERED: [UNRECOGNIZED DRUG - OTHER] PO SCH (21:00)
[2021-09-23] MEDS: APIXABAN 2.5 MG (ELIQUIS) TABLET PO SCH (21:01)
[2021-09-23] MEDS: DOCUSATE SODIUM 100 MG (COLACE) CAP PO SCH (21:01)
[2021-09-23] MEDS: SENNA W/DOCUSATE (SENOKOT S) TABLET PO SCH (21:01)
[2021-09-23] MEDS: polyethylene glycoL POWDER 17 GM (MIRALAX) PACK PO SCH (21:02)
[2021-09-24 06:12] LABS: BASOPHILS % (AUTO) 0 % (0-10); EOSINOPHILS % (AUTO) 0 % (0-10)
[2021-09-24 06:14] LABS: HEMATOCRIT 36 % (35-52); HEMOGLOBIN 12.4 g/dL (11.5-16.0); LYMPHOCYTES # (AUTO) 0.7 10^3/uL (1.0-4.0); LYMPHOCYTES % (AUTO) 8 % (12-44); MEAN CORPUSCULAR HEMOGLOBIN 32 pg (25-34); MEAN CORPUSCULAR HGB CONC 35 g/dL (32-36); MEAN CORPUSCULAR VOLUME 92 fL (80-99); MEAN PLATELET VOLUME 13.2 fL (9.0-12.2); MONOCYTES # (AUTO) 0.6 10^3/uL (0.0-1.0); MONOCYTES % (AUTO) 7 % (0-12); NEUTROPHILS # (AUTO) 7.3 10^3/uL (1.8-7.8); NEUTROPHILS % (AUTO) 85 % (42-75); PLATELET COUNT 106 10^3/uL (130-400); WHITE BLOOD COUNT 8.6 10^3/uL (4.3-11.0)
[2021-09-24 06:21] LABS: ALBUMIN 2.5 GM/DL (3.2-4.5)
[2021-09-24 06:23] LABS: CALCIUM 8.9 MG/DL (8.5-10.1)
[2021-09-24 06:24] LABS: TOTAL PROTEIN 5.9 GM/DL (6.4-8.2)
[2021-09-24] MEDS: LEVOTHYROXINE 25 MCG (LEVOTHROID) TAB PO SCH (06:24)
[2021-09-24] MEDS: MULTIVITAMINS LIQUID 15 ML UDC PO SCH (06:25)
[2021-09-24] MEDS: LEVOTHYROXINE 112 MCG (LEVOTHROID) TAB PO SCH (06:25)
[2021-09-24 06:26] LABS: BILIRUBIN,TOTAL 3.7 MG/DL (0.1-1.0)
[2021-09-24 06:28] LABS: CREATININE SERUM 1.17 MG/DL (0.60-1.30)
[2021-09-24 07:28] VITALS: BP 123/57
--- NOTE | 2021-09-24 08:34 | Physical Therapy Daily Note ---
PT Daily Note-Current Subjective Pt in bed with nursing in room upon arrival and agrees to co-treat. Use of 2 skilled clinicians d/t pt poor mobility, weakness, low activity tolerance, safety and transfers. Pt states pain in R UE and bottom, nursing notified Mental Status Patient Orientation: Person, Place, Time, Situation Transfers SCALE: Activities may be completed with or without assistive devices. 3-Tqewxsezae-bckejdw completes the activity by him/herself with no assistance from a helper. 5-Set-up or Clean-up Assistance-helper sets up or cleans up; patient completes activity. [place] assists only prior to or following the activity. 4-Supervision or Touching Assistance-helper provides verbal cues and/or touching/steadying and/or contact guard assistance as patient completes ac tivity. Assistance may be provided throughout the activity or intermittently. 3-Partial/Moderate Assistance-helper does LESS THAN HALF the effort. [place] lifts, holds or supports trunk or limbs, but provides less than half the effort. 2-Substantial/Maximal Assistance-helper does MORE THAN HALF the effort. [place] lifts or holds trunk or limbs and provides more than half the effort. 5-Dnkdalkkh-oduqbv does ALL the effort. Patient does none of the effort to complete the activity. Or, the assistance of 2 or more helpers is required for the patient to complete the activity. If activity was not attempted, code reason: 7-Patient Refused. 9-Not Applicable-not attempted and the patient did not perform the activity before the current illness, exacerbation or injury. 10-Not Attempted due to Environmental Limitations-(lack of equipment, weather restraints, etc.). 88-Not Attempted due to Medical Conditions or Safety Concerns. Roll Left & Right (QC): 3 Lying to Sitting/Side of Bed(Q: 3 Sit to Stand (QC): 3 Transfers and mobility Osmin, A for advancing R UE with bed mobility and [place] sit to stand Gait Training Does the Patient Walk?: Yes Distance: 10' x2 Walk 10 feet (QC): 4 Gait Assistive Device: FWW Treatments OT focused on ADLs, UE strengthening, and UE positioning. PT focused on mobility, gait, and LE positioning. Pt rolls in bed as RN is assessing pt skin, Osmin w/ A with positioning R UE. Pt then sits EOB, sit to stand Osmin and amb to toilet in bathroom. Pt able to doff/don pants and clean self CGA. Pt holds static standing balance at sink, partially supported w/ one UE at a time while brushing teeth and hair approx 8 mins. Pt then amb back in room to recliner, able to scoot back a couple inches but requiring [place] x2 to scoot farther back into chair. Pt LE elevated and R UE elevated on pillow. Pt remains in recliner with all needs met, call light in hand. Assessment Current Status: Good Progress Pt increased ROM in R UE. Pt able to complete mobility with <A than yesterday tx. Increasing mobility, strength, and ROM. PT Short Term Goals Short Term Goals Time Frame: Sep 30, 2021 Roll Left & Right: 4 Sit to lyin Lying to sitting on side of be: 3 Sit to stand: 4 Chair/zmq-un-kkkzr transfer: 4 Walk 10 feet: 4 Walk 50 feet with two turns: 4 Walk 150 feet: 4 PT Director Center Goals Retirement Goals PT Director Center Goals Time Frame: Oct 14, 2021 Roll Left & Right (QC): 4 Sit to Lying (QC): 4 Lying-Sitting on Side/Bed(QC): 4 Sit to Stand (QC): 4 Chair/Dqj-zd-Pbpgc Xfer(QC): 4 Toilet Transfer (QC): 4 Car Transfer (QC): 3 Does the Patient Walk: Yes Walk 10 feet (QC): 4 Walk 50ft with 2 Turns (QC): 4 Walk 150 ft (QC): 4 Walking 10ft on Uneven Surface: 4 1 Step (curb) (QC): 4 4 Steps (QC): 88 12 Steps (QC): 88 Picking up an Object (QC): 4 Wheel 50 feet with 2 turns (QC: 9 Wheel 150 feet: 9 PT Plan Problem List Problem List: Activity Tolerance, Functional Strength, Safety Treatment/Plan Treatment Plan: Continue Plan of Care Treatment Plan: Bed Mobility, Education, Functional Activity [place], Functional Strength, Group Therapy, Gait, Safety, Therapeutic Exercise, Transfers Treatment Duration: Oct 14, 2021 Frequency: At least 5 of 7 days/Wk (IRF) Estimated Hrs Per Day: 1.5 hours per day Patient and/or Family Agrees t: Yes Safety Risks/Education Patient Education: Gait Training, Transfer Techniques, Correct Positioning Teaching Recipient: Patient Teaching Methods: Demonstration, Discussion Response to Teaching: Verbalize Understanding, Return Demonstration Time/GCodes Time In: 800 Time Out: 830 Total Billed Treatment Time: 30 Total Billed Treatment 1, FA, JERALD CLAY GLASS BLOWING LATHE OPERATOR Sep 24, 2021 08:34
--- NOTE | 2021-09-24 08:35 | Occupational Ther Daily Note ---
OT Current Status-Daily Note Subjective Pt continues to have pain in R shoulder and buttocks, but reports significantly better than previous date. No numerical value given. RN in room, aware. Co-treat for part of session ([id number]) due to need of 2 skilled clinicians d/t pt poor mobility, weakness, low activity tolerance, safety and transfer. Appearance Pt left sitting in chair, all needs within reach. Mental Status/Objective Patient Orientation: Person, Place Attachments: IV ADL-Treatment Therapy Code Descriptions/Definitions Functional Hubbard Measure: 0=Not Assessed/NA 4=Minimal Assistance 1=Total Assistance 5=Supervision or Setup 2=Maximal Assistance 6=Modified [place] 3=Moderate Assistance 7=Complete IndependenceSCALE: Activities may be completed with or without assistive devices. 9-Oediyebcjr-nvvqupn completes the activity by him/herself with no assistance from a helper. 5-Set-up or Clean-up Assistance-helper sets up or cleans up; patient completes activity. [place] assists only prior to or following the activity. 4-Supervision or Touching Assistance-helper provides verbal cues and/or touching/steadying and/or contact guard assistance as patient completes activity. Assistance may be provided throughout the activity or intermittently. 3-Partial/Moderate Assistance-helper does LESS THAN HALF the effort. [place] lifts, holds or supports trunk or limbs, but provides less than half the effort. 2-Substantial/Maximal Assistance-helper does MORE THAN HALF the effort. [place] lifts or holds trunk or limbs and provides more than half the effort. 4-Soxudylxv-jxtvue does ALL the effort. Patient does none of the effort to complete the activity. Or, the assistance of 2 or more helpers is required for the patient to complete the activity. If activity was not attempted, code reason: 7-Patient Refused. 9-Not Applicable-not attempted and the patient did not perform the activity before the current illness, exacerbation or injury. 10-Not Attempted due to Environmental Limitations-(lack of equipment, weather restraints, etc.). 88-Not Attempted due to Medical Conditions or Safety Concerns. Oral Hygiene (QC): 4 Upper Body Dressing (QC): 4 Lower Body Dressing (QC): 3 (min) On/Off Footwear: 4 (Extra time and min cues to incorporate both UE's as pt bent at waist to reach feet. Less swelling exhibited in BLE's this date. ) Toileting Hygiene (QC): 3 Toilet Transfer (QC): 4 1st session: Pt supine in bed at therapy arrival. Min a to bring RUE over when rolling L and to elevate trunk. She stood from lower bed height with CGA-min a this date and extra time to come to full extension. She ambulated to from bathroom with CGA and use of walker. Mild-mod edema noted in R hand this date, RN aware. Pt able to manage clothing over waist pre/post toileting with steadying assist and extra time. Pt continues to be slightly guarded of RUE, but does attempt to incorporate into functional tasks (as much as tolerable) this session. She stood at sink for oral care, CGA. Pt able to utilize RUE to hold/maintain toothbrush during oral care. Min a under elbow when lifting to brush R side of head. Pt able to tolerate PROM of r shoulder to ~90 degrees this am. 2nd session: Dressing tasks performed seated in chair. No physical assist required when donning UB clothing but extra time/effort and min vc's for preferred technique needed. She bent at waist to reach feet, continues to require cues to utilize both hands during task. Pt often lifting toes and then heels when threading feet through underwear/pants due to inability to lift whole foot off floor (secondary to extra weight from edema). Reminder to assist in lifting leg with use of UE's. Min a for RLE due to pants getting stuck on non slip socks. She stood with CGA and managed up to waist with extra time, min a to pull up completely in the back. Good effort with RUE. Pt continues to demonstrate improvement with transfers, endurance, and balance with each session. Education OT Patient Education: Correct positioning, Disease process, Energy conservation, Modified ADL techniques, Progress toward Goal/Update tx plan, Purpose of tx/functional activities, Reviewed precautions, Rehab process, Safety issues, Transfer techniques Teaching Recipient: Patient Teaching Methods: Demonstration, Discussion Response to Teaching: Verbalize Understanding, Return Demonstration, Reinforcement Needed OT Short Term Goals Short Term Goals Time Frame: Oct 02, 2021 Eatin Oral hygiene: 4 Toileting hygiene: 4 Shower/bathe self: 3 (min) Upper body dressin Lower body dressin (min) Putting on/taking off footwear: 3 OT Verification Clerk Goals Verification Clerk Goals Time Frame: Oct 13, 2021 Eating (QC): 6 Oral Hygiene (QC): 6 Toileting Hygiene (QC): 6 Shower/Bathe Self (QC): 4 Upper Body Dressing (QC): 4 Lower Body Dressing (QC): 5 On/Off Footwear (QC): 4 1=Demonstrate adherence to instructed precautions during ADL tasks. 2=Patient will verbalize/demonstrate understanding of assistive devices/modifications for ADL. 3=Patient will improve strength/tolerance for activity to enable patient to perform ADL's. OT Education/Plan Problem List/Assessment Assessment: Decreased Activ Tolerance, Decreased Safety Aware, Decreased UE Strength, Impaired Funct Balance, Impaired I ADL's, Impaired Self-Care Skills, Restricted Funct UE ROM Discharge Recommendations Plan/Recommendations: Continue POC Treatment Plan/Plan of Care Treatment,Training & Education: Yes Patient would benefit from OT for education, treatment and training to promote independence in ADL's, mobility, safety and/or upper extremity function for ADL's. Plan of Care: ADL Retraining, Functional Mobility, Group Exercise/Act as Ind, UE Funct Exercise/Act Treatment Duration: Oct 13, 2021 Frequency: At least 5 of 7 days/Wk (IRF) Estimated Hrs Per Day: 1.5 hours per day Rehab Potential: Fair Time/GCodes Start Time: 08:00 (0930) Stop Time: 08:30 (1000) Total Time Billed (hr/min): 60 Billed Treatment Time 2 visits, ([id number]) and ([id number]) for a total time of 60 min. co-treat with PT for 30 min. ADL x 4 Glenna Reynoso OT Sep 24, 2021 08:35
[2021-09-24] MEDS ORDERED: [UNRECOGNIZED DRUG - OTHER] PO SCH (09:00)
[2021-09-24] MEDS ORDERED: NON-FORMULARY MEDICATION 1 EA EA (Levothyroxine Sodium 137 MCG) PO SCH (09:00)
[2021-09-24] MEDS ORDERED: B LONGUM PO SCH (09:00)
[2021-09-24] MEDS ORDERED: FUROSEMIDE 40 MG/4 ML INJ (LASIX) IVP SCH (09:00)
[2021-09-24] MEDS ORDERED: NON-FORMULARY MEDICATION 1 EA EA (Metoprolol Succinate 200 MG) PO SCH (09:00)
[2021-09-24] MEDS ORDERED: GASSERI PO SCH (09:00)
[2021-09-24] MEDS ORDERED: TORSEMIDE 20 MG (DEMADEX) TAB PO SCH (09:00)
[2021-09-24] MEDS ORDERED: B BIFIDUM PO SCH (09:00)
--- NOTE | 2021-09-24 09:48 | ST Cognitive Linguistic Eval ---
Speech Evaluation-General Medical Diagnosis right shoulder pain and BLE edema Onset Date: Sep 22, 2021 Therapy Diagnosis Therapy Diagnosis: Cognitive-communication Referral Referring Physician: Dr. Bertrand Medical History Reviewed History: Yes Social History Current Living Status: Spouse Speech PLF-Current Status Prior Level of Function Patient lives at home with her and was independent for much of her daily needs. Subjective Patient was pleasant and cooperative with the cognitive assessment. Language Eval: Auditory Comprehends Simple Yes/No Ques: Functional Indent/Objects Multiple Agarwal: Functional Ident/Pics in Multiple Agarwal: Functional Follows 1-Step Commands: Functional Follows Complex Directions: Mild Follows General Conversations: Functional Language Eval: Verbal Language Completes Spontaneous Greeting: Functional Produces Auto, Serial Info: Functional Imitates Simple Words/Phrases: Functional Word Finding: Mild Requests Basic Needs: Functional States Basic Personal Info: Functional Expresses Complex Ideas: Mild Objective Cognitive Domain Attention: WNL Memory: Mild Problem Solving: Mild Executive Functions: Mild Visuospatial Skills: Mild Composite Severity Rating: Mild Clock Drawing Severity Rating: Mild Objective Formal/Standardized Tests [facility] Status ([facility]) Results 24/30, within Mild Neurocognitive Disorder range of function Oral Motor/Speech Production Within Normal Limits Impression Patient is a pleasant 81 y/o female who was admitted to the ARU for BLE edema. Patient was given the UMS with a score of 24/30 obtained. Patient's score is within the MNCD which indicates a need for skilled ST services. Therapy focus will be on safety awareness and memory. Speech Patient Assess Expression of Ideas/Wants: Exhibits (3) Understanding Verbal Content: Usually Understands (3) Brief Interview-Mental Status: Yes Repetition of Three Words: Three (3) Temporal Orientation: Year: Correct (3) Temporal Orientation: Month: Accurate within 5 days(2) Temporal Orientation: Day: Correct (1) Recall : Wear to say "Sock": Yes,after cueing (1) Recall : Color: No, could not recall (0) Recall : Bed: Yes,after cueing (1) Memory/Recall Ability: Current season, That he or she is in a hsp/hsp unit Speech Short Term Goals Short Term Goals Short Term Goals 1) Patient will complete memory tasks related to her daily needs at 80% or greater with minimal cues. 2) Patient will complete safety awareness tasks related to her daily needs at 80% or greater with minimal cues. 3) Patient will complete problem solving tasks related to her daily needs at 80% or greater with minimal cues. 4) Patient will demonstrate ability to consume Dysphagia II diet level with left hand at 90% or greater. Speech Mainframe Software Developer Goals Shelter Goals Patient will increase functional level for ability to complete daily tasks with minimal assist. Patient will maintain adequate nutrition/hydration with alternate hand utilization. Speech-Plan Patient/Family Goals Patient/Family Goals: Patient plans on returning home with her of 64 years. Treatment Plan Speech Therapy Treatment Plan: Continue Plan of Care Frequency: 4 times per week (Patient will receive skilled ST 4-5x per week) Estimated Hrs Per Day: .5 hour per day Rehab Potential: Fair Barriers to Learning: Patient's mild decrease in cognitive function Pt/Family Agrees to Plan: Yes Safety Risks/Education Teaching Recipient: Patient, Significant Other Teaching Methods: Discussion Response to Teaching: Verbalize Understanding Education Topics Provided: Safety within her room, communication of wants/needs Time Speech Therapy Time In: 09:00 Speech Therapy Time Out: 09:30 Total Billed Time: 30 Billed Treatment Time 1, SALVADOR, MOHINDER, DYSEVS, DYST EVER Anderson Sep 24, 2021 09:48
[2021-09-24 09:53] VITALS: BP 132/60
[2021-09-24] MEDS: LACTOBACILLUS ACIDOPHILUS (PROBIOTIC) CAPSULE PO SCH (09:56)
[2021-09-24] MEDS: KCL 20 MEQ TAB (K-DUR) PO SCH ×2 (09:56→18:20)
[2021-09-24] MEDS: DOCUSATE SODIUM 100 MG (COLACE) CAP PO SCH ×2 (09:56→21:28)
[2021-09-24] MEDS: SENNA W/DOCUSATE (SENOKOT S) TABLET PO SCH ×2 (09:56→21:28)
[2021-09-24] MEDS: polyethylene glycoL POWDER 17 GM (MIRALAX) PACK PO SCH ×2 (09:57→21:28)
[2021-09-24] MEDS: ALLOPURINOL 300 MG (ZYLOPRIM) TAB PO SCH (09:57)
[2021-09-24] MEDS: meTOprolol SUCCINATE 100 MG (TOPROL XL) TAB PO SCH (09:57)
[2021-09-24] MEDS: APIXABAN 2.5 MG (ELIQUIS) TABLET PO SCH ×2 (09:57→21:28)
--- NOTE | 2021-09-24 10:36 | Physical Therapy Daily Note ---
PT Daily Note-Current Subjective Pt in recliner upon arrival w/ nursing and spouse in room and agrees to tx. Post tx, states R UE is fatigued and hurting a little Mental Status Patient Orientation: Person, Place, Time, Situation Transfers SCALE: Activities may be completed with or without assistive devices. 1-Iiaqznlvor-jlttqbw completes the activity by him/herself with no assistance from a helper. 5-Set-up or Clean-up Assistance-helper sets up or cleans up; patient completes activity. [place] assists only prior to or following the activity. 4-Supervision or Touching Assistance-helper provides verbal cues and/or touching/steadying and/or contact guard assistance as patient completes activity. Assistance may be provided throughout the activity or intermittently. 3-Partial/Moderate Assistance-helper does LESS THAN HALF the effort. [place] lifts, holds or supports trunk or limbs, but provides less than half the effort. 2-Substantial/Maximal Assistance-helper does MORE THAN HALF the effort. [place] lifts or holds trunk or limbs and provides more than half the effort. 2-Mmmxqbnco-pitxrn does ALL the effort. Patient does none of the effort to complete the activity. Or, the assistance of 2 or more helpers is required for the patient to complete the activity. If activity was not attempted, code reason: 7-Patient Refused. 9-Not Applicable-not attempted and the patient did not perform the activity before the current illness, exacerbation or injury. 10-Not Attempted due to Environmental Limitations-(lack of equipment, weather restraints, etc.). 88-Not Attempted due to Medical Conditions or Safety Concerns. Sit to Stand (QC): 3 Gait Training Does the Patient Walk?: Yes Distance: 200', 150' Walk 10 feet (QC): 4 Walk 50 ft with 2 Turns(QC): 4 Walk 150 ft (QC): 4 Gait Persons Needed: 1 Gait Assistive Device: FWW Exercises NuStep Minutes: 8 NuStep Workload: 3 Treatments Pt sit to stand from recliner and amb 200' on ARU to therapy gym. Pt completes NuStep on WL of 3 for 8 minutes, then amb 150' back to room. Pt request to use bathroom, able to doff/don pants and clean self SBA. Pt returns to recliner and is left with all needs met, spouse remains in room and call light in hand. Assessment Current Status: Fair Progress Pt increasing strength, endurance, and mobility. Able to increase amb distance PT Short Term Goals Short Term Goals Time Frame: Sep 30, 2021 Roll Left & Right: 4 Sit to lyin Lying to sitting on side of be: 3 Sit to stand: 4 Chair/xhp-ur-xigps transfer: 4 Walk 10 feet: 4 Walk 50 feet with two turns: 4 Walk 150 feet: 4 PT Substation Design Draftsperson Goals [facility] Goals PT [facility] Goals Time Frame: Oct 14, 2021 Roll Left & Right (QC): 4 Sit to Lying (QC): 4 Lying-Sitting on Side/Bed(QC): 4 Sit to Stand (QC): 4 Chair/Itl-jo-Kybre Xfer(QC): 4 Toilet Transfer (QC): 4 Car Transfer (QC): 3 Does the Patient Walk: Yes Walk 10 feet (QC): 4 Walk 50ft with 2 Turns (QC): 4 Walk 150 ft (QC): 4 Walking 10ft on Uneven Surface: 4 1 Step (curb) (QC): 4 4 Steps (QC): 88 12 Steps (QC): 88 Picking up an Object (QC): 4 Wheel 50 feet with 2 turns (QC: 9 Wheel 150 feet: 9 PT Plan Problem List Problem List: Activity Tolerance, Functional Strength, Safety Treatment/Plan Treatment Plan: Continue Plan of Care Treatment Plan: Bed Mobility, Education, Functional Activity [place], Functional Strength, Group Therapy, Gait, Safety, Therapeutic Exercise, Transfers Treatment Duration: Oct 14, 2021 Frequency: At least 5 of 7 days/Wk (IRF) Estimated Hrs Per Day: 1.5 hours per day Patient and/or Family Agrees t: Yes Time/GCodes Time In: 1000 Time Out: 1030 Total Billed Treatment Time: 30 Total Billed Treatment 1, GT, EX JERALD COHEN SENIOR TECHNICAL SUPPORT ENGINEER Sep 24, 2021 10:36
--- NOTE | 2021-09-24 11:17 | Individualized Plan of Care ---
Individualized Plan of Care Rehab Nursing IPOC Order Admission Date Sep 23, 2021 at 13:00 Current Orders Orders Admission Order(Inpt,Obs,Sdc) (09/23/21 12:15) Vital Signs: Per Unit Policy ( 08,16,00 (09/23/21 12:15) Hydrologic Engineer-Inpt Rehab Con (09/23/21 12:15) Rehab Nursing Orders-Ipoc (09/23/21 12:15) Physical Therapy Rehab Orders (09/23/21 12:15) Occupational Therapy Rehab Ord (09/23/21 12:15) Speech Therapy Rehab Orders (09/23/21 12:15) Cbc With Automated Diff (09/24/21 06:00) Comprehensive Metabolic Panel (09/24/21 06:00) Precautions (Aru) (09/23/21 12:15) Rehab-Intensity Of Therapy (09/23/21 12:15) Initiate Admission Nursing Pro .admission (09/23/21 12:15) Alprazolam Tablet (Xanax Tablet) (09/23/21 12:15) Calcium Carbonate Chew Tablet (Antacid C (09/23/21 12:15) Diphenhydramine Tablet (Benadryl Tablet) (09/23/21 12:15) Docusate Sodium Capsule (Colace Capsule) (09/23/21 21:00) Docusate Sodium Capsule (Colace Capsule) (09/23/21 12:15) Bisacodyl Suppository (Dulcolax Supposit (09/23/21 12:15) Lactulose Oral Solution (Enulose Oral So (09/23/21 12:15) Na Phos/Na Biphos Enema (Fleet Enema Royal (09/23/21 12:15) Loperamide Tablet (Imodium Tablet) (09/23/21 12:15) Melatonin Tablet (Melatonin Tablet) (09/23/21 12:15) Polyethylene Glycol Powder Pkt (Miralax (09/23/21 21:00) Ondansetron Oral Dissolve Tab (Zofran (09/23/21 12:15) Senna S Tablet (Senokot S Tablet) (09/23/21 21:00) Initiate Admission Nursing Pro .admission (09/23/21 12:15) Allopurinol Tablet (Zyloprim Tablet) (09/24/21 09:00) Apixaban Tablet (Eliquis Tablet) (09/23/21 21:00) Potassium Chloride (Tablet) (K Dur Table (09/23/21 18:00) Torsemide Tablet (Demadex Tablet) (09/24/21 09:00) Rx-Tramadol Hcl (Rx-Ultram) (09/23/21 12:30) (Nf) L Gasseri/B Bifidum/B Longum (Moisés (09/24/21 09:00) (Nf) Levothyroxine Sodium (09/24/21 09:00) (Nf) Metoprolol Succinate (09/24/21 09:00) (Nf) Ped Multivit #43/Iron Fumarate (Fli (09/23/21 21:00) Nursing Communication (Order) (09/23/21 12:28) Admission Arrival Bed Request (09/23/21 13:16) Metoprolol Succinate (Xl) Tab (Toprol Xl (09/24/21 09:00) Levothyroxine Tablet (Synthroid Tablet) (09/24/21 06:30) Levothyroxine Tablet (Synthroid Tablet) (09/24/21 06:30) Tramadol Tablet (Ultram Tablet) (09/23/21 14:15) Lactobacillus Acidophilus Cap (Acidophil (09/24/21 09:00) Multivitamins Liquid (Geritol Liquid) (09/24/21 07:00) Patient Visit (09/23/21 ) Functional Activities, Ea 15 (09/23/21 ) Exercise Therap, Ea 15 Min (09/23/21 ) Gait Training, Ea 15 Min (09/23/21 ) Furosemide Injection (Lasix Injection) (09/24/21 09:00) Patient Visit (09/23/21 ) Pt Eval Moderate Complexity (09/23/21 ) Sodium 2g (2000 Mg) (09/23/21 Dinner) Patient Visit (09/24/21 ) Speech Sound Lang Comp (09/24/21 ) Treat. Speech/Lang/Voice (09/24/21 ) Dysphagia Evaluation Std (09/24/21 ) Dysphagia Therapy (09/24/21 ) Dys3 Advanced (09/24/21 Lunch) Patient Visit (09/24/21 ) Functional Activities, Ea 15 (09/24/21 ) Gait Training, Ea 15 Min (09/24/21 ) Exercise Therap, Ea 15 Min (09/24/21 ) Communication For Respiratory (09/24/21 14:07) Furosemide Injection (Lasix Injection) (09/25/21 09:00) Potassium Chloride (Tablet) (K Dur Table (09/25/21 08:00) Rehab Nursing Orders: Ongoing Assess. of Cognitive Status, Ongoing Assess. of Function Status, Bladder Management, Bladder Scan, Bladder Training, Bowel Management, Bowel Training, Disease Management & Educaiton, DVT Prophylaxis, Fall Prevention, Fluid/Electrolyte/Nutrition Mgmt, Infection Prevention, Medication Management & Education, Management of Risks & Complications, Management of Skin Intergrity, Nutrition Management, Pain Management, Patient/Family Support, Safety Management, Weight Bearing Precaution Intensity of Therapy to be met Patient to be seen: Min.3h per day/5 of 7d PT IPOC Problem List: Activity Tolerance, Functional Strength, Safety Treatment Plan: Continue Plan of Care Bed Mobility, Education, Functional Activity [place], Functional Strength, Group Therapy, Gait, Safety, Therapeutic Exercise, Transfers Treatment Duration: Oct 14, 2021 Frequency: At least 5 of 7 days/Wk (IRF) Estimated Hrs Per Day: 1.5 hours per day OT IPOC Problems: Decreased Activ Tolerance, Decreased Safety Aware, Decreased UE Strength, Impaired Funct Balance, Impaired I ADL's, Impaired Self-Care Skills, Restricted Funct UE ROM OT Treatment, Training and Edu: Yes Plan of Care: ADL Retraining, Functional Mobility, Group Exercise/Act as Ind, UE Funct Exercise/Act Treatment Duration: Oct 13, 2021 Frequency: At least 5 of 7 days/Wk (IRF) Estimated Hrs Per Day: 1.[address] IPOC Speech Therapy Treatment Plan: Continue Plan of Care Treatment Duration: Sep 24, 2021 Frequency: 4 times per week (Patient will receive skilled ST 4-5x per week) Estimated Hrs Per Day: .5 hour per day Hydrologic Engineer/Case Mgmt Hydrologic Engineer/Case Managemen: Discharge Planning Dietitian/Neuroscientist Dietitian/Neuroscientist to monitor nutritional status and make changes and/or recommendations as needed and work with speech pathology on dietary upgrades as the occur. Physician IPOC Medical Issues being managed closely and that require the 24 hour availability of a physician: Recent severe weakness due to cor pulmonale and chronic severe lymphedema with chronic kidney disease on high dose of torsemide will require close monitoring for any decompensation Medical Issues: Bowel/Bladder Function, DVT Prophylaxis, Falls Precautions, Fluid/Electrolyte/Nutrition Balance, Infection Protection, Pain Management Brief Synthesis of Preadmission Screen, Post-Admission Evaluation, and Therapy Evaluations: PT and OT will focus on increasing ambulatory stamina with use of assistive device in addition help wrapping legs to decrease lymphedema and help recover from declining health Medical Prognosis: Fair Anticipated Length of Stay: 7 days VERNELL ROMAN DO Sep 24, 2021 11:17
--- NOTE | 2021-09-24 11:17 | PM&R Progress Note ---
Subjective HPI/CC On Admission Date Seen by Provider: Sep 24, 2021 Time Seen by Provider: 11:15 Subjective/Events-last exam 09/24/2021: Patient settling in well Was already able to walk around Right shoulder pain improved since Dr. Huerta injected it Has been brought her CPAP into use at night Wrapping legs with Tony wraps Speech therapy will evaluate dysphagia Review of Systems General: Fatigue, Malaise Cardiovascular: Edema Neurological: Weakness Objective Exam Vital Signs Vital Signs Date Time Temp Pulse Resp B/P (MAP) Pulse Ox O2 Delivery O2 Flow Rate FiO2 09/24/21 22:08 36.4 09/24/21 21:00 91 Room Air 09/24/21 20:00 77 16 114/57 (76) Capillary Refill : General Appearance: No Apparent Distress, WD/WN, Chronically ill, Obese HEENT: PERRL/EOMI, Normal ENT Inspection, Pharynx Normal Neck: Full Range of Motion, Normal Inspection, Non Tender, Supple, Carotid Bruit Respiratory: Chest Non Tender, Lungs Clear, Normal Breath Sounds, No Accessory Muscle Use, No Respiratory Distress Cardiovascular: Regular Rate, Rhythm, No Gallop, No JVD, No Murmur, Normal Peripheral Pulses, Irregularly Irregular Gastrointestinal: Normal Bowel Sounds, No Organomegaly, No Pulsatile Mass, Non Tender, Soft Back: Normal Inspection, No CVA Tenderness, No Vertebral Tenderness Extremity: Normal Capillary Refill, Normal Inspection, Normal Range of Motion, Non Tender, No Calf Tenderness, Pedal Edema Neurologic/Psychiatric: Alert, Oriented x3, No Motor/Sensory Deficits, Normal Mood/Affect, technical support consultant II-XII Norm as Tested, Motor Weakness (generalized) Skin: Normal Color, Warm/Dry Lymphatic: No Adenopathy Results/Procedures Lab Laboratory Tests 09/24/21 05:19 Patient resulted labs reviewed. FIM Transfers Therapy Code Descriptions/Definitions Functional [place] Measure: 0=Not Assessed/NA 4=Minimal Assistance 1=Total Assistance 5=Supervision or Setup 2=Maximal Assistance 6=Modified [place] 3=Moderate Assistance 7=Complete IndependenceSCALE: Activities may be completed with or without assistive devices. 5-Sikwfzswxv-bgccwwb completes the activity by him/herself with no assistance from a helper. 5-Set-up or Clean-up Assistance-helper sets up or cleans up; patient completes activity. [place] assists only prior to or following the activity. 4-Supervision or Touching Assistance-helper provides verbal cues and/or touching/steadying and/or contact guard assistance as patient completes activity. Assistance may be provided throughout the activity or intermittently. 3-Partial/Moderate Assistance-helper does LESS THAN HALF the effort. [place] lifts, holds or supports trunk or limbs, but provides less than half the effort. 2-Substantial/Maximal Assistance-helper does MORE THAN HALF the effort. [place] lifts or holds trunk or limbs and provides more than half the effort. 9-Bgqvwfesx-yiahsx does ALL the effort. Patient does none of the effort to complete the activity. Or, the assistance of 2 or more helpers is required for the patient to complete the activity. If activity was not attempted, code reason: 7-Patient Refused. 9-Not Applicable-not attempted and the patient did not perform the activity before the current illness, exacerbation or injury. 10-Not Attempted due to Environmental Limitations-(lack of equipment, weather restraints, etc.). 88-Not Attempted due to Medical Conditions or Safety Concerns. Roll Left to Right (QC): 3 Sit to Lying (QC): 3 Sit to Stand (QC): 3 Chair/Vnw-nz-Vpjib Xfer(QC): 3 Car Transfer (QC): 3 Gait Training Does the Patient Walk?: Yes Distance: 200', 150' Walk 10 feet (QC): 4 Walk 50 ft with 2 Turns(QC): 4 Walk 150 ft (QC): 4 Walking 10ft/uneven surface-QC: 88 Gait Persons Needed: 1 Gait Assistive Device: FWW Wheelchair Training Wheel 50 ft with 2 turns (QC): 9 Wheel 150 ft (QC): 9 Stair Training 1 Step (curb) (QC): 88 4 Steps (QC): 88 12 Steps (QC): 88 Balance Picking up an Object (QC): 88 ADL-Treatment Eating (QC): 5 Oral Hygiene (QC): 4 Shower/Bathe Self (QC): 3 (mod) Upper Body Dressing (QC): 4 Lower Body Dressing (QC): 3 (min) On/Off Footwear (QC): 4 (Extra time and min cues to incorporate both UE's as pt bent at waist to reach feet. Less swelling exhibited in BLE's this date. ) Toileting Hygiene (QC): 3 Toilet Transfer (QC): 4 Assessment/Plan Assessment and Plan Assess & Plan/Chief Complaint Assessment: CHF Right shoulder soft tissue injury status post injection by Dr. Huerta on 09/23/2021 LE edema - due to CHF and lymphedema CAD Paroxysmal Atrial Fibrillation - OAC with Eliquis PAD Venous insufficiency Hyperlipidemia Hypothyroidism CKD-3 - followed by [facility] CAD FABRIZIO - on CPAP therapy and is managed by the Pulm services H/o gout Hyperbilirubinemia due to liver congestion work-up for Aponte and cirrhosis negative Ascites on last ultrasound Plan: Ortho consult Monitor renal function Cardiology consultation Rehab protocol 09/24/2021: Appreciate Dr. Huerta Continue aggressive therapy Wrap legs Use home CPAP (1) Congestive heart failure Status: Acute (2) Bilateral lower extremity pain Status: Acute (3) Chronic kidney disease (CKD) Status: Acute (4) Generalized weakness Status: Acute (5) Anasarca Status: Acute VERNELL ROMAN DO Sep 24, 2021 11:17
--- NOTE | 2021-09-24 14:19 | Therapy Group Daily Note ---
Therapy Daily Group Note Patient Education Topic Other List Below Exercises LE Seated Exercise, UE Exercise Session Ratio (pt:therapist): 4:1 Goal of Session: Education on ARU Expectations, UE/LE Strengthing, Safety with Transfers, Use of Adaptive Equipment Goal Met for this Session: Yes Pt Benefit of Group: Contributions to Others, F/U Use of Strategies @Home, Increased Functional Safety, Increased Functional Strength, Improved Cognition, Recognition of Peers, Socialization Other/Notes Pt participated in group therapy with focus on topics including bed mobility, UE/LE strengthening, safety, tub/shower transfers and DME. She interacted well with others and asked appropriate questions throughout. Pt had difficulty with RUE exercises secondary to pain but was able to perform modified versions including AAROM with use of LUE. She ambulated to/from group with use of walker and CGA. After prolong sitting, mod a needed to stand from low chair. Start Time: 13:00 Stop Time: 14:00 Total Billed Treatment Time: 60 Total Billed Treatment 1, Group Glenna Reynoso OT Sep 24, 2021 14:19
[2021-09-24 20:00] VITALS: BP 114/57
--- NOTE | 2021-09-24 22:35 | Progress Note - Cardiology ---
Cardiology SOAP Progress Note Subjective: Less arm pain today Less leg swelling No cp or palp or syncope No shortness of breath at rest Gen weakness and malaise present No n/v/d Objective: I&O/Vital Signs 09/24/21 09/24/21 09/24/21 09/24/21 20:00 21:00 21:28 22:08 Temp 36.4 36.4 36.4 Pulse 77 Resp 16 B/P (MAP) 114/57 (76) Pulse Ox 96 91 O2 Delivery Room Air Room Air Weight (Pounds): 211 Weight (Ounces): 8.0 Weight (Calculated Kilograms): 95.961884 Constitutional: AAO x 3, well-developed, well-nourished Respiratory: No accessory muscle use; other (good, bilat air entry) Cardiovascular: regular rate-rhythm, S1 and S2, systolic murmur (soft HSM at card apex) Gastrointestional: No tender; soft; No guarding, No rebound; audible bowel sounds Extremities: swelling (moderate, bilat leg edema), clubbing, cyanosis Neurologic/Psychiatric: oriented x 3, other (moves all limb; limited at R shoulder due to R shoulder pain) Skin: No rash on exposed areas, No ulcerations on exposed areas Results/Procedures: Labs Laboratory Tests 09/24/21 05:19: White Blood Count 8.6, Red Blood Count 3.90, Hemoglobin 12.4, Hematocrit 36, Mean Corpuscular Volume 92, Mean Corpuscular Hemoglobin 32, Mean Corpuscular Hemoglobin Concent 35, Red Cell Distribution Width 18.5H, Platelet Count 106L, Mean Platelet Volume 13.2H, Immature Granulocyte % (Auto) 1, Neutrophils (%) (Auto) 85H, Lymphocytes (%) (Auto) 8L, Monocytes (%) (Auto) 7, Eosinophils (%) (Auto) 0, Basophils (%) (Auto) 0, Neutrophils # (Auto) 7.3, Lymphocytes # (Auto) 0.7L, Monocytes # (Auto) 0.6, Eosinophils # (Auto) 0.0, Basophils # (Auto) 0.0, Immature Granulocyte # (Auto) 0.0, Percent Immature Platelet Fraction 9.8H, Sodium Level 139, Potassium Level 4.0, Chloride Level 102, Carbon Dioxide Level 24, Anion Gap 13, Blood Urea Nitrogen 42H, Creatinine 1.17, Estimat Glomerular Filtration Rate 45, BUN/Creatinine Ratio 36, Glucose Level 93, Calcium Level 8.9, Corrected Calcium 10.1, Total Bilirubin 3.7H, Aspartate Amino Transf (AST/SGOT) 38H, Alanine Aminotransferase (ALT/SGPT) 21, Alkaline Phosphatase 129, Total Protein 5.9L, Albumin 2.5L Laboratory Tests 09/24/21 05:19 A/P: Assessment: Right shoulder discomfort following a non-syncopal fall in Jul 2021 - management is by Dr Bertrand Leg swelling due to chronic cor pulmonale and due to chronic lymphedema - consider chronic pulm thromboembolism, inadequately treated FABRIZIO, pulm fibrosis, primary pulm hypertension, etc CAD - Cardiac cath of 10-07-15 showed minimal coronary plaques without any obstructive disease. LVEF 60-65%. Mod elevation of LVEDP. No significant MR - MPI of 03-10-2021 shows no evidence of ischemia or infarction. LVEF 70% Paroxysmal Atrial Fibrillation - OAC with Eliquis, low dose per PCP d/t propensity to bleeding, advanced age and CKD Mod pulm htn and chronic cor pulmonale - consider chronic pulm thromboembolism, inadequately treated FABRIZIO, pulm fibrosis, primary pulm hypertension, etc - Echo of 03-09-2021 showed LVEF 70-75%. Mod MR. Mod to severe TR. PASP 50-55 mmHg - Echo of 09-23-21:LVEF 60-65%, mod MR, triv AI, mod TR, PASP 50-55 mmHg (not significantly changed from the study of February 2021) PAD - arterial Doppler of February 2021 reported mod atheromatous plaque on both sides w/o evidence of hemodynamic significance Hyperlipidemia - unable to take statins - followed by her PCP Obesity - with a BMI of approximately 40 Hypothyroidism - managed by PCP CKD-3. - Chronic renal insuff with Cr ranging between 1 and 1.4. CKD stage 3, followed by [facility] Impaired fasting glucose - managed by PCP Carotid dz - Mild bilateral carotid art disease on carotid u/s of 02-27-2021 FABRIZIO - for which she is on CPAP therapy and is managed by the Pulm services H/o gout - managed by PCP Plan: * Continue diuretic regimen * Compression stocking during the daytime for control of leg swelling * Monitor labs * Discussed with Dr Bertrand on 09/23/21 ISABELLE CARLTON MD [facility] Sep 24, 2021 22:35
--- NOTE | 2021-09-25 05:55 | PM&R Progress Note ---
Subjective HPI/CC On Admission Date Seen by Provider: Sep 25, 2021 Time Seen by Provider: 11:30 Subjective/Events-last exam 09/25/21: Patient doing better than she thinks she is Pain both shoulders limits her Patient appears to be frightened about what is to come with decline Working with therapy Wrapping legs is really helping her 09/24/2021: Patient settling in well Was already able to walk around Right shoulder pain improved since Dr. Huerta injected it Has been brought her CPAP into use at night Wrapping legs with Tony wraps Speech therapy will evaluate dysphagia Review of Systems General: Fatigue, Malaise Musculoskeletal: neck pain, shoulder pain, leg pain Objective Exam Vital Signs Vital Signs Date Time Temp Pulse Resp B/P (MAP) Pulse Ox O2 Delivery O2 Flow Rate FiO2 09/25/21 21:00 93 Room Air 09/25/21 20:32 36.9 71 20 124/61 (82) Capillary Refill : General Appearance: No Apparent Distress, WD/WN, Chronically ill, Obese HEENT: PERRL/EOMI, Normal ENT Inspection, Pharynx Normal Neck: Full Range of Motion, Normal Inspection, Non Tender, Supple, Carotid Bruit Respiratory: Chest Non Tender, Lungs Clear, Normal Breath Sounds, No Accessory Muscle Use, No Respiratory Distress Cardiovascular: Regular Rate, Rhythm, No Gallop, No JVD, No Murmur, Normal Peripheral Pulses, Irregularly Irregular Gastrointestinal: Normal Bowel Sounds, No Organomegaly, No Pulsatile Mass, Non Tender, Soft Back: Normal Inspection, No CVA Tenderness, No Vertebral Tenderness Extremity: Normal Capillary Refill, Normal Inspection, Normal Range of Motion, Non Tender, No Calf Tenderness, Pedal Edema Neurologic/Psychiatric: Alert, Oriented x3, No Motor/Sensory Deficits, Normal Mood/Affect, automatic profile sander operator II-XII Norm as Tested, Motor Weakness (generalized) Skin: Normal Color, Warm/Dry Lymphatic: No Adenopathy Results/Procedures Lab Patient resulted labs reviewed. FIM Transfers Therapy Code Descriptions/Definitions Functional [place] Measure: 0=Not Assessed/NA 4=Minimal Assistance 1=Total Assistance 5=Supervision or Setup 2=Maximal Assistance 6=Modified [place] 3=Moderate Assistance 7=Complete IndependenceSCALE: Activities may be completed with or without assistive devices. 7-Dmsrjgtqaz-gjhkfrf completes the activity by him/herself with no assistance from a helper. 5-Set-up or Clean-up Assistance-helper sets up or cleans up; patient completes activity. [place] assists only prior to or following the activity. 4-Supervision or Touching Assistance-helper provides verbal cues and/or touching/steadying and/or contact guard assistance as patient completes activity. Assistance may be provided throughout the activity or intermittently. 3-Partial/Moderate Assistance-helper does LESS THAN HALF the effort. [place] lifts, holds or supports trunk or limbs, but provides less than half the effort. 2-Substantial/Maximal Assistance-helper does MORE THAN HALF the effort. [place] lifts or holds trunk or limbs and provides more than half the effort. 7-Jghxgarip-mjikyz does ALL the effort. Patient does none of the effort to complete the activity. Or, the assistance of 2 or more helpers is required for the patient to complete the activity. If activity was not attempted, code reason: 7-Patient Refused. 9-Not Applicable-not attempted and the patient did not perform the activity before the current illness, exacerbation or injury. 10-Not Attempted due to Environmental Limitations-(lack of equipment, weather restraints, etc.). 88-Not Attempted due to Medical Conditions or Safety Concerns. Roll Left to Right (QC): 3 Sit to Lying (QC): 3 Sit to Stand (QC): 3 Chair/Xeb-ax-Gzkxc Xfer(QC): 3 Car Transfer (QC): 3 Gait Training Does the Patient Walk?: Yes Distance: 200', 150' Walk 10 feet (QC): 4 Walk 50 ft with 2 Turns(QC): 4 Walk 150 ft (QC): 4 Walking 10ft/uneven surface-QC: 88 Gait Persons Needed: 1 Gait Assistive Device: FWW Wheelchair Training Wheel 50 ft with 2 turns (QC): 9 Wheel 150 ft (QC): 9 Stair Training 1 Step (curb) (QC): 88 4 Steps (QC): 88 12 Steps (QC): 88 Balance Picking up an Object (QC): 88 ADL-Treatment Eating (QC): 5 Oral Hygiene (QC): 4 Shower/Bathe Self (QC): 3 (mod) Upper Body Dressing (QC): 4 Lower Body Dressing (QC): 3 (min) On/Off Footwear (QC): 4 (Extra time and min cues to incorporate both UE's as pt bent at waist to reach feet. Less swelling exhibited in BLE's this date. ) Toileting Hygiene (QC): 3 Toilet Transfer (QC): 4 Assessment/Plan Assessment and Plan Assess & Plan/Chief Complaint Assessment: CHF Right shoulder soft tissue injury status post injection by Dr. Huerta on 09/23/2021 LE edema - due to CHF and lymphedema CAD Paroxysmal Atrial Fibrillation - OAC with Eliquis PAD Venous insufficiency Hyperlipidemia Hypothyroidism CKD-3 - followed by [facility] CAD FABRIZIO - on CPAP therapy and is managed by the Pulm services H/o gout Hyperbilirubinemia due to liver congestion work-up for Aponte and cirrhosis negative Ascites on last ultrasound Plan: Ortho consult Monitor renal function Cardiology consultation Rehab protocol 09/24/2021: Appreciate Dr. Huerta Continue aggressive therapy Wrap legs Use home CPAP 09/25/21: Therapy Wraps legs Pain control (1) Congestive heart failure Status: Acute (2) Bilateral lower extremity pain Status: Acute (3) Chronic kidney disease (CKD) Status: Acute (4) Generalized weakness Status: Acute (5) Anasarca Status: Acute VERNELL ROMAN DO Sep 25, 2021 05:55
[2021-09-25] MEDS: MULTIVITAMINS LIQUID 15 ML UDC PO SCH (06:14)
[2021-09-25] MEDS: LEVOTHYROXINE 112 MCG (LEVOTHROID) TAB PO SCH (06:14)
[2021-09-25] MEDS: LEVOTHYROXINE 25 MCG (LEVOTHROID) TAB PO SCH (06:14)
[2021-09-25 07:54] VITALS: BP 131/61
--- NOTE | 2021-09-25 09:28 | Speech Therapy Daily Note ---
Speech Daily Progress Note Subjective Date Seen by Provider: Sep 25, 2021 Time Seen by Provider: 00:30 Patient states she is having a great amount of pain in her right arm. She stated she is having pain all the way up in to her neck. Objective Patient completed safety awareness q/a at 80% with 20% verbal cues. Assessment Assessment Current Status: Good Progress Treatment Plan Continue Plan of Care Speech Short Term Goals Short Term Goals Short Term Goals 1) Patient will complete memory tasks related to her daily needs at 80% or greater with minimal cues. 2) Patient will complete safety awareness tasks related to her daily needs at 80% or greater with minimal cues. 3) Patient will complete problem solving tasks related to her daily needs at 80% or greater with minimal cues. 4) Patient will demonstrate ability to consume Dysphagia II diet level with left hand at 90% or greater. Speech Mcc Goals [employer] Project Manager Goals Patient will increase functional level for ability to complete daily tasks with minimal assist. Patient will maintain adequate nutrition/hydration with alternate hand utilization. Speech-Plan Patient/Family Goals Patient/Family Goals: Patient plans to return home where she lives with her . Treatment Plan Speech Therapy Treatment Plan: Continue Plan of Care Patient has been placed on Dysphagia 3 advanced, however she will be changed to Dysphagia II today due to needing chopped foods for easier intake with her left hand. Treatment Duration: Sep 24, 2021 Frequency: 4 times per week (Patient will receive skilled ST 4-5x per week) Estimated Hrs Per Day: .5 hour per day Rehab Potential: Fair Barriers to Learning: Patient's age and cognitive deficits Pt/Family Agrees to Plan: Yes Safety Risks/Education Teaching Recipient: Patient Teaching Methods: Discussion Response to Teaching: Verbalize Understanding Education Topics Provided: Continued safety and communication Time Speech Therapy Time In: 09:00 Speech Therapy Time Out: 09:30 Total Billed Time: 30 Billed Treatment Time 1, LIZET, EVER Fisher Sep 25, 2021 09:28
--- NOTE | 2021-09-25 09:35 | Occupational Ther Daily Note ---
OT Current Status-Daily Note Subjective Pt reports increased pain in RUE this date. She verbalizes that pain is in volar side of forearm and into her shoulder. Appearance Pt sitting in chair at OT departure. Mental Status/Objective Patient Orientation: Person, Place, Situation Attachments: IV ADL-Treatment Therapy Code Descriptions/Definitions Functional [place] Measure: 0=Not Assessed/NA 4=Minimal Assistance 1=Total Assistance 5=Supervision or Setup 2=Maximal Assistance 6=Modified [place] 3=Moderate Assistance 7=Complete IndependenceSCALE: Activities may be completed with or without assistive devices. 1-Kxqsdiwvtf-rywgklb completes the activity by him/herself with no assistance from a helper. 5-Set-up or Clean-up Assistance-helper sets up or cleans up; patient completes activity. [place] assists only prior to or following the activity. 4-Supervision or Touching Assistance-helper provides verbal cues and/or touching/steadying and/or contact guard assistance as patient completes activity. Assistance may be provided throughout the activity or intermittently. 3-Partial/Moderate Assistance-helper does LESS THAN HALF the effort. [place] lifts, holds or supports trunk or limbs, but provides less than half the effort. 2-Substantial/Maximal Assistance-helper does MORE THAN HALF the effort. [place] lifts or holds trunk or limbs and provides more than half the effort. 9-Mwrkdktoq-rvfjea does ALL the effort. Patient does none of the effort to complete the activity. Or, the assistance of 2 or more helpers is required for the patient to complete the activity. If activity was not attempted, code reason: 7-Patient Refused. 9-Not Applicable-not attempted and the patient did not perform the activity before the current illness, exacerbation or injury. 10-Not Attempted due to Environmental Limitations-(lack of equipment, weather restraints, etc.). 88-Not Attempted due to Medical Conditions or Safety Concerns. Shower/Bathe Self (QC): 4 Upper Body Dressing (QC): 4 Lower Body Dressing (QC): 3 Toileting Hygiene (QC): 4 Toilet Transfer (QC): 4 Pt supine in bed at therapy arrival. Min a to bring RUE over when rolling L and to elevate trunk. She reports increased pain in RUE when compared to previous date and requires extra time to find comfortable position to push up from surface. She stood from lower bed height with CGA and extra time to come to full extension. She ambulated to from bathroom with SBA and use of walker. Pt able to manage clothing over waist pre/post toileting with steadying assist, extra time, and min a to pull up completely on Right side. Pt continues to be slightly guarded of RUE, but does attempt to incorporate into functional tasks (as much as tolerable). Shower performed, ~50% in sitting/standing. Assist needed to position RUE on grab bar with all sit<>stands but no other physical assist need ed during bathing task this date. Close sup-cga for safety as she stood throughout shower with single UE support on grab bar at all times. OT issued and instructed pt on use of LHS for improved safety and energy conservation when washing feet. Post education, pt able to reach/wash feet without assist. She sat in chair to dress. Min vc's to ensure R sleeve is fully over elbow before bringing overhead. Pt able to don shirt with extra time post cue. She bent at waist to reach feet, continues to require cues to utilize both hands during task. Pt often lifting toes and then heels when threading feet through underwear/pants due to inability to lift whole foot off floor (secondary to extra weight from edema). (Edema is getting better in LE's). She stood with CGA and managed up to waist with extra time, min a to pull up completely in the back. Education OT Patient Education: Correct positioning, Energy conservation, Modified ADL techniques, Progress toward Goal/Update tx plan, Purpose of tx/functional activities, Rehab process, Transfer techniques, Use of adapted equipment Teaching Recipient: Patient Teaching Methods: Demonstration, Discussion Response to Teaching: Verbalize Understanding, Return Demonstration OT Short Term Goals Short Term Goals Time Frame: Oct 02, 2021 Eatin Oral hygiene: 4 Toileting hygiene: 4 Shower/bathe self: 3 (min) Upper body dressin Lower body dressin (min) Putting on/taking off footwear: 3 OT Skilled Nursing Goals Perioperative Assistant Goals Time Frame: Oct 13, 2021 Eating (QC): 6 Oral Hygiene (QC): 6 Toileting Hygiene (QC): 6 Shower/Bathe Self (QC): 4 Upper Body Dressing (QC): 4 Lower Body Dressing (QC): 5 On/Off Footwear (QC): 4 1=Demonstrate adherence to instructed precautions during ADL tasks. 2=Patient will verbalize/demonstrate understanding of assistive devices/modifications for ADL. 3=Patient will improve strength/tolerance for activity to enable patient to perform ADL's. OT Education/Plan Problem List/Assessment Assessment: Decreased Activ Tolerance, Decreased UE Strength, Impaired Coordination, Impaired Funct Balance, Impaired I ADL's, Impaired Self-Care Skills, Restricted Funct UE ROM Discharge Recommendations Plan/Recommendations: Continue POC Treatment Plan/Plan of Care Treatment,Training & Education: Yes Patient would benefit from OT for education, treatment and training to promote independence in ADL's, mobility, safety and/or upper extremity function for ADL's. Plan of Care: ADL Retraining, Functional Mobility, Group Exercise/Act as Ind, UE Funct Exercise/Act Treatment Duration: Oct 13, 2021 Frequency: At least 5 of 7 days/Wk (IRF) Estimated Hrs Per Day: 1.5 hours per day Rehab Potential: Fair Time/GCodes Start Time: 07:41 Stop Time: 08:35 Total Time Billed (hr/min): 54 Billed Treatment Time 1 visit, ADL x4 Glenna Reynoso OT Sep 25, 2021 09:35
[2021-09-25] MEDS: KCL 20 MEQ TAB (K-DUR) PO SCH ×2 (10:04→17:51)
[2021-09-25] MEDS: SENNA W/DOCUSATE (SENOKOT S) TABLET PO SCH ×2 (10:04→20:49)
[2021-09-25] MEDS: DOCUSATE SODIUM 100 MG (COLACE) CAP PO SCH ×2 (10:04→20:49)
[2021-09-25] MEDS: FUROSEMIDE 40 MG/4 ML INJ (LASIX) IVP SCH (10:04)
[2021-09-25] MEDS: ALLOPURINOL 300 MG (ZYLOPRIM) TAB PO SCH (10:04)
[2021-09-25] MEDS: LACTOBACILLUS ACIDOPHILUS (PROBIOTIC) CAPSULE PO SCH (10:04)
[2021-09-25] MEDS: APIXABAN 2.5 MG (ELIQUIS) TABLET PO SCH ×2 (10:04→20:49)
[2021-09-25] MEDS: meTOprolol SUCCINATE 100 MG (TOPROL XL) TAB PO SCH (10:05)
--- NOTE | 2021-09-25 10:31 | Occupational Ther Daily Note ---
OT Current Status-Daily Note Subjective Pt agreeable to treatment, continues to have pain in RUE. RN aware. Co-treat with PT ([id number]) due to impaired activity tolerance, pain tolerance, safety, and endurance. Appearance Pt left sitting in therapy gym with Physical therapy. Mental Status/Objective Attachments: IV ADL-Treatment Therapy Code Descriptions/Definitions Functional [place] Measure: 0=Not Assessed/NA 4=Minimal Assistance 1=Total Assistance 5=Supervision or Setup 2=Maximal Assistance 6=Modified [place] 3=Moderate Assistance 7=Complete IndependenceSCALE: Activities may be completed with or without assistive devices. 0-Rpzowpkcuu-jdocwlj completes the activity by him/herself with no assistance from a helper. 5-Set-up or Clean-up Assistance-helper sets up or cleans up; patient completes activity. [place] assists only prior to or following the activity. 4-Supervision or Touching Assistance-helper provides verbal cues and/or touching/steadying and/or contact guard assistance as patient completes activity. Assistance may be provided throughout the activity or intermittently. 3-Partial/Moderate Assistance-helper does LESS THAN HALF the effort. [place] lifts, holds or supports trunk or limbs, but provides less than half the effort. 2-Substantial/Maximal Assistance-helper does MORE THAN HALF the effort. [place] lifts or holds trunk or limbs and provides more than half the effort. 7-Ihelnlhir-alxfvx does ALL the effort. Patient does none of the effort to complete the activity. Or, the assistance of 2 or more helpers is required for the patient to complete the activity. If activity was not attempted, code reason: 7-Patient Refused. 9-Not Applicable-not attempted and the patient did not perform the activity before the current illness, exacerbation or injury. 10-Not Attempted due to Environmental Limitations-(lack of equipment, weather restraints, etc.). 88-Not Attempted due to Medical Conditions or Safety Concerns. Other Treatment Pt participated in dynamic standing activity with focus on balance, LE strength, functional reach, RUE strength/rom/use, and reducing UE support needed during functional tasks. Pt side stepped ~8 feet x10 before needing rest break. Intermittent single UE support required but no significant LOB. PT focusing on gait, posture, and balance as OT focused on posture and RUE use. Cue needed to take bigger steps and for improving foot clearance. CGA-min a for safety while standing. Assist at R elbow when reaching to place almendarez bag in bucket placed at different heights. Pt only able to tolerate ~80 degrees shoulder flexion. Tactile and verbal cues to reduce compensation of shoulder elevation. Good account technician throughout. Education OT Patient Education: Correct positioning, Progress toward Goal/Update tx plan, Purpose of tx/functional activities, Rehab process, Safety issues, Transfer techniques Teaching Recipient: Patient Teaching Methods: Demonstration, Discussion Response to Teaching: Verbalize Understanding, Return Demonstration OT Short Term Goals Short Term Goals Time Frame: Oct 02, 2021 Eatin Oral hygiene: 4 Toileting hygiene: 4 Shower/bathe self: 3 (min) Upper body dressin Lower body dressin (min) Putting on/taking off footwear: 3 OT Fiber Optic Splicer Goals Correction Goals Time Frame: Oct 13, 2021 Eating (QC): 6 Oral Hygiene (QC): 6 Toileting Hygiene (QC): 6 Shower/Bathe Self (QC): 4 Upper Body Dressing (QC): 4 Lower Body Dressing (QC): 5 On/Off Footwear (QC): 4 1=Demonstrate adherence to instructed precautions during ADL tasks. 2=Patient will verbalize/demonstrate understanding of assistive devices/modifications for ADL. 3=Patient will improve strength/tolerance for activity to enable patient to perform ADL's. OT Education/Plan Problem List/Assessment Assessment: Decreased Activ Tolerance, Decreased UE Strength, Edema, Impaired Coordination, Impaired Funct Balance, Impaired I ADL's, Impaired Self-Care Skills, Restricted Funct UE ROM Discharge Recommendations Plan/Recommendations: Continue POC Treatment Plan/Plan of Care Treatment,Training & Education: Yes Patient would benefit from OT for education, treatment and training to promote independence in ADL's, mobility, safety and/or upper extremity function for ADL's. Plan of Care: ADL Retraining, Functional Mobility, Group Exercise/Act as Ind, UE Funct Exercise/Act Treatment Duration: Oct 13, 2021 Frequency: At least 5 of 7 days/Wk (IRF) Estimated Hrs Per Day: 1.5 hours per day Rehab Potential: Fair Time/GCodes Start Time: 10:00 Stop Time: 10:21 Total Time Billed (hr/min): 21 Billed Treatment Time 1 visit, Glenna Trotter OT Sep 25, 2021 10:31
--- NOTE | 2021-09-25 10:49 | Physical Therapy Daily Note ---
PT Daily Note-Current Subjective Pt in recliner upon arrival and agrees to co-treat. Use of 2 skilled clinicians d/t weakness, poor ROM, low activity tolerance, and safety. Pt states pain in R shoulder and R forearm. Transfers SCALE: Activities may be completed with or without assistive devices. 3-Xmwmwmzouf-crzeoki completes the activity by him/herself with no assistance from a helper. 5-Set-up or Clean-up Assistance-helper sets up or cleans up; patient completes activity. [place] assists only prior to or following the activity. 4-Supervision or Touching Assistance-helper provides verbal cues and/or touching/steadying and/or contact guard assistance as patient completes activity. Assistance may be provided throughout the activity or intermittently. 3-Partial/Moderate Assistance-helper does LESS THAN HALF the effort. [place] lifts, holds or supports trunk or limbs, but provides less than half the effort. 2-Substantial/Maximal Assistance-helper does MORE THAN HALF the effort. [place] lifts or holds trunk or limbs and provides more than half the effort. 7-Xswanqjea-okitmz does ALL the effort. Patient does none of the effort to complete the activity. Or, the assistance of 2 or more helpers is required for the patient to complete the activity. If activity was not attempted, code reason: 7-Patient Refused. 9-Not Applicable-not attempted and the patient did not perform the activity before the current illness, exacerbation or injury. 10-Not Attempted due to Environmental Limitations-(lack of equipment, weather restraints, etc.). 88-Not Attempted due to Medical Conditions or Safety Concerns. Sit to Stand (QC): 3 CGA/[place] sit <> stand dependent on height of surface and fatigue Gait Training Does the Patient Walk?: Yes Distance: 200', 100' Walk 10 feet (QC): 4 Walk 50 ft with 2 Turns(QC): 4 Walk 150 ft (QC): 4 Gait Persons Needed: 1 Gait Assistive Device: FWW Pt slow, but steady with no deviations noted at this time Treatments OT focused on UE strengthening, sequencing, and coordination. PT focused on gait, balance, and LE strengthening. Pt sit to stand from recliner CGA and amb 100' to therapy gym. Pt completes functional activity at // bars, side stepping, reaching w/ L UE and tossing w/ R UE while stretching w/ AAROM. Pt then amb 200' and returns to recliner. pt remains in room with spouse with all needs met, call light in hand. Assessment Current Status: Fair Progress Pt limited in R UE from pain. Overall increasing strength, mobility and endurance PT Short Term Goals Short Term Goals Time Frame: Sep 30, 2021 Roll Left & Right: 4 Sit to lyin Lying to sitting on side of be: 3 Sit to stand: 4 Chair/vxk-dz-ntbdw transfer: 4 Walk 10 feet: 4 Walk 50 feet with two turns: 4 Walk 150 feet: 4 PT Vocational Technical Education Teacher Goals [place]way Goals PT Vocational Technical Education Teacher Goals Time Frame: Oct 14, 2021 Roll Left & Right (QC): 4 Sit to Lying (QC): 4 Lying-Sitting on Side/Bed(QC): 4 Sit to Stand (QC): 4 Chair/Ugr-zb-Wsyxl Xfer(QC): 4 Toilet Transfer (QC): 4 Car Transfer (QC): 3 Does the Patient Walk: Yes Walk 10 feet (QC): 4 Walk 50ft with 2 Turns (QC): 4 Walk 150 ft (QC): 4 Walking 10ft on Uneven Surface: 4 1 Step (curb) (QC): 4 4 Steps (QC): 88 12 Steps (QC): 88 Picking up an Object (QC): 4 Wheel 50 feet with 2 turns (QC: 9 Wheel 150 feet: 9 PT Plan Problem List Problem List: Activity Tolerance, Functional Strength, Safety Treatment/Plan Treatment Plan: Continue Plan of Care Treatment Plan: Bed Mobility, Education, Functional Activity [place], Functional Strength, Group Therapy, Gait, Safety, Therapeutic Exercise, Transfers Treatment Duration: Oct 14, 2021 Frequency: At least 5 of 7 days/Wk (IRF) Estimated Hrs Per Day: 1.5 hours per day Patient and/or Family Agrees t: Yes Safety Risks/Education Patient Education: Gait Training Teaching Recipient: Patient Teaching Methods: Discussion Response to Teaching: Verbalize Understanding Time/GCodes Time In: 1000 Time Out: 1045 Total Billed Treatment Time: 45 Total Billed Treatment 1, GT x2, FA JERALD COHEN FABRIC AND TEXTILE FACTORY WORKER Sep 25, 2021 10:49
[2021-09-25] MEDS: polyethylene glycoL POWDER 17 GM (MIRALAX) PACK PO SCH ×2 (11:08→21:38)
--- NOTE | 2021-09-25 13:57 | Physical Therapy Daily Note ---
PT Daily Note-Current Subjective Pt in recliner upon arrival and agrees to PT. Pt states pain in R shoulder 6/10. Pain Numeric Pain Scale: 6 Location: Right Location Body Site: Shoulder Pain Description: Sharp Mental Status Patient Orientation: Person, Place, Situation Transfers SCALE: Activities may be completed with or without assistive devices. 1-Rwgtwgopik-zgeeryf completes the activity by him/herself with no assistance from a helper. 5-Set-up or Clean-up Assistance-helper sets up or cleans up; patient completes activity. [place] assists only prior to or following the activity. 4-Supervision or Touching Assistance-helper provides verbal cues and/or touchi ng/steadying and/or contact guard assistance as patient completes activity. Assistance may be provided throughout the activity or intermittently. 3-Partial/Moderate Assistance-helper does LESS THAN HALF the effort. [place] lifts, holds or supports trunk or limbs, but provides less than half the effort. 2-Substantial/Maximal Assistance-helper does MORE THAN HALF the effort. [place] lifts or holds trunk or limbs and provides more than half the effort. 2-Pzmgvpwsy-czmenh does ALL the effort. Patient does none of the effort to complete the activity. Or, the assistance of 2 or more helpers is required for the patient to complete the activity. If activity was not attempted, code reason: 7-Patient Refused. 9-Not Applicable-not attempted and the patient did not perform the activity before the current illness, exacerbation or injury. 10-Not Attempted due to Environmental Limitations-(lack of equipment, weather restraints, etc.). 88-Not Attempted due to Medical Conditions or Safety Concerns. Sit to Stand (QC): 3 Min/ModA dependent on fatigue Gait Training Does the Patient Walk?: Yes Distance: 150' x2 Walk 10 feet (QC): 4 Walk 50 ft with 2 Turns(QC): 4 Walk 150 ft (QC): 4 Gait Assistive Device: FWW Pt has slow, but steady gait Exercises NuStep Minutes: 8 NuStep Workload: 4 Treatments Pt in recliner, sit to stand ModA and amb 150' on ARU to therapy gym. Pt completes NuStep on WL of 4, then amb 150' back to room. Pt returns to recliner, unable to scoot self back into chair, MaxA x2 to scoot pt farther into chair. Pt requires A to elevate leg rest and place R UE on pillow. Pt remains in recliner with all needs met, call light in hand Assessment Current Status: Fair Progress Pt limited d/t pain in R UE PT Short Term Goals Short Term Goals Time Frame: Sep 30, 2021 Roll Left & Right: 4 Sit to lyin Lying to sitting on side of be: 3 Sit to stand: 4 Chair/mdb-gj-jnrfw transfer: 4 Walk 10 feet: 4 Walk 50 feet with two turns: 4 Walk 150 feet: 4 PT Business Technology Architect Goals Business Technology Architect Goals PT Business Technology Architect Goals Time Frame: Oct 14, 2021 Roll Left & Right (QC): 4 Sit to Lying (QC): 4 Lying-Sitting on Side/Bed(QC): 4 Sit to Stand (QC): 4 Chair/Rmo-ks-Iigag Xfer(QC): 4 Toilet Transfer (QC): 4 Car Transfer (QC): 3 Does the Patient Walk: Yes Walk 10 feet (QC): 4 Walk 50ft with 2 Turns (QC): 4 Walk 150 ft (QC): 4 Walking 10ft on Uneven Surface: 4 1 Step (curb) (QC): 4 4 Steps (QC): 88 12 Steps (QC): 88 Picking up an Object (QC): 4 Wheel 50 feet with 2 turns (QC: 9 Wheel 150 feet: 9 PT Plan Problem List Problem List: Functional Strength, Safety Treatment/Plan Treatment Plan: Continue Plan of Care Treatment Plan: Bed Mobility, Education, Functional Activity [place], Functional Strength, Group Therapy, Gait, Safety, Therapeutic Exercise, Transfers Treatment Duration: Oct 14, 2021 Frequency: At least 5 of 7 days/Wk (IRF) Estimated Hrs Per Day: 1.5 hours per day Patient and/or Family Agrees t: Yes Time/GCodes Time In: 1330 Time Out: 1400 Total Billed Treatment Time: 30 Total Billed Treatment 1, GT, JERALD CANNON ADJUSTMENT CLERK Sep 25, 2021 13:57
[2021-09-25 20:32] VITALS: BP 124/61
[2021-09-26] MEDS: LEVOTHYROXINE 25 MCG (LEVOTHROID) TAB PO SCH (06:58)
[2021-09-26] MEDS: LEVOTHYROXINE 112 MCG (LEVOTHROID) TAB PO SCH (06:58)
[2021-09-26] MEDS: MULTIVITAMINS LIQUID 15 ML UDC PO SCH (06:58)
[2021-09-26 07:30] VITALS: BP 120/56
--- NOTE | 2021-09-26 08:04 | Physical Therapy Daily Note ---
PT Daily Note-Current Subjective Pt. up in chair upon arrival, agrees to therapy. States her knees feel "stiff" today. She states she is still have trouble with the R UE. Mental Status Patient Orientation: Person, Place, Time, Situation Transfers SCALE: Activities may be completed with or without assistive devices. 7-Kriwxlzutw-akdejpb completes the activity by him/herself with no assistance from a helper. 5-Set-up or Clean-up Assistance-helper sets up or cleans up; patient completes activity. [place] assists only prior to or following the activity. 4-Supervision or Touching Assistance-helper provides verbal cues and/or touching/steadying and/or contact guard assistance as patient completes activity. Assistance may be provided throughout the activity or intermittently. 3-Partial/Moderate Assistance-helper does LESS THAN HALF the effort. [place] lifts, holds or supports trunk or limbs, but provides less than half the effort. 2-Substantial/Maximal Assistance-helper does MORE THAN HALF the effort. [place] lifts or holds trunk or limbs and provides more than half the effort. 7-Bcvpznfnj-ybxfkv does ALL the effort. Patient does none of the effort to comp lete the activity. Or, the assistance of 2 or more helpers is required for the patient to complete the activity. If activity was not attempted, code reason: 7-Patient Refused. 9-Not Applicable-not attempted and the patient did not perform the activity before the current illness, exacerbation or injury. 10-Not Attempted due to Environmental Limitations-(lack of equipment, weather restraints, etc.). 88-Not Attempted due to Medical Conditions or Safety Concerns. Sit to Stand (QC): 3 Gait Training Does the Patient Walk?: Yes Distance: x 125 ft, x 225 ft Walk 150 ft (QC): 4 Gait Persons Needed: 1 Gait Assistive Device: FWW Exercises NuStep Minutes: 10 NuStep Workload: 4 Treatments transfers, gait training, Nustep Assessment Current Status: Good Progress, Fair Progress Pt. continues to guard the R UE during transfers. She initially needed mod A with sit to stand, otherwise min A for later transfers. She is steady with ambulation but fatigues. Pt. returned to bedside chair post session, all needs met. PT Short Term Goals Short Term Goals Time Frame: Sep 30, 2021 Roll Left & Right: 4 Sit to lyin Lying to sitting on side of be: 3 Sit to stand: 4 Chair/lit-om-hgboq transfer: 4 Walk 10 feet: 4 Walk 50 feet with two turns: 4 Walk 150 feet: 4 PT Decorator Mannequin Goals Fci Goals PT Fci Goals Time Frame: Oct 14, 2021 Roll Left & Right (QC): 4 Sit to Lying (QC): 4 Lying-Sitting on Side/Bed(QC): 4 Sit to Stand (QC): 4 Chair/Rpy-jk-Icnsl Xfer(QC): 4 Toilet Transfer (QC): 4 Car Transfer (QC): 3 Does the Patient Walk: Yes Walk 10 feet (QC): 4 Walk 50ft with 2 Turns (QC): 4 Walk 150 ft (QC): 4 Walking 10ft on Uneven Surface: 4 1 Step (curb) (QC): 4 4 Steps (QC): 88 12 Steps (QC): 88 Picking up an Object (QC): 4 Wheel 50 feet with 2 turns (QC: 9 Wheel 150 feet: 9 PT Plan Treatment/Plan Treatment Plan: Continue Plan of Care Treatment Plan: Bed Mobility, Education, Functional Activity [place], Functional Strength, Group Therapy, Gait, Safety, Therapeutic Exercise, Transfers Treatment Duration: Oct 14, 2021 Frequency: At least 5 of 7 days/Wk (IRF) Estimated Hrs Per Day: 1.5 hours per day Patient and/or Family Agrees t: Yes Time/GCodes Time In: 45 Time Out: 814 Total Billed Treatment Time: 30 Total Billed Treatment 1, GT 15', Ex 10', (FA 5') JACKIE THOMPSON PT Sep 26, 2021 08:04
[2021-09-26] MEDS: APIXABAN 2.5 MG (ELIQUIS) TABLET PO SCH ×2 (08:34→21:07)
[2021-09-26] MEDS: FUROSEMIDE 40 MG/4 ML INJ (LASIX) IVP SCH (08:34)
[2021-09-26] MEDS: LACTOBACILLUS ACIDOPHILUS (PROBIOTIC) CAPSULE PO SCH (08:34)
[2021-09-26] MEDS: KCL 20 MEQ TAB (K-DUR) PO SCH ×2 (08:34→18:19)
[2021-09-26] MEDS: meTOprolol SUCCINATE 100 MG (TOPROL XL) TAB PO SCH (08:34)
[2021-09-26] MEDS: ALLOPURINOL 300 MG (ZYLOPRIM) TAB PO SCH (08:34)
[2021-09-26] MEDS: DOCUSATE SODIUM 100 MG (COLACE) CAP PO SCH ×2 (09:44→21:07)
[2021-09-26] MEDS: SENNA W/DOCUSATE (SENOKOT S) TABLET PO SCH ×2 (09:44→21:22)
[2021-09-26] MEDS: polyethylene glycoL POWDER 17 GM (MIRALAX) PACK PO SCH ×2 (09:44→21:22)
--- NOTE | 2021-09-26 10:59 | PM&R Progress Note ---
Subjective HPI/CC On Admission Date Seen by Provider: Sep 26, 2021 Time Seen by Provider: 11:00 Subjective/Events-last exam 09/26/21: Patient doing well at bedside Wrapping legs Patient and her would do well with assisted living 09/25/21: Patient doing better than she thinks she is Pain both shoulders limits her Patient appears to be frightened about what is to come with decline Working with therapy Wrapping legs is really helping her 09/24/2021: Patient settling in well Was already able to walk around Right shoulder pain improved since Dr. Huerta injected it Has been brought her CPAP into use at night Wrapping legs with Tony wraps Speech therapy will evaluate dysphagia Review of Systems General: Fatigue, Malaise Musculoskeletal: arm pain, leg pain Objective Exam Vital Signs Vital Signs Date Time Temp Pulse Resp B/P (MAP) Pulse Ox O2 Delivery O2 Flow Rate FiO2 09/27/21 07:14 36.8 75 18 119/58 (78) 94 Room Air Capillary Refill : General Appearance: No Apparent Distress, WD/WN, Chronically ill, Obese HEENT: PERRL/EOMI, Normal ENT Inspection, Pharynx Normal Neck: Full Range of Motion, Normal Inspection, Non Tender, Supple, Carotid Bruit Respiratory: Chest Non Tender, Lungs Clear, Normal Breath Sounds, No Accessory Muscle Use, No Respiratory Distress Cardiovascular: Regular Rate, Rhythm, No Gallop, No JVD, No Murmur, Normal Peripheral Pulses, Irregularly Irregular Gastrointestinal: Normal Bowel Sounds, No Organomegaly, No Pulsatile Mass, Non Tender, Soft Back: Normal Inspection, No CVA Tenderness, No Vertebral Tenderness Extremity: Normal Capillary Refill, Normal Inspection, Normal Range of Motion, Non Tender, No Calf Tenderness, Pedal Edema Neurologic/Psychiatric: Alert, Oriented x3, No Motor/Sensory Deficits, Normal Mood/Affect, 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 FIM Transfers Therapy Code Descriptions/Definitions Functional [place] Measure: 0=Not Assessed/NA 4=Minimal Assistance 1=Total Assistance 5=Supervision or Setup 2=Maximal Assistance 6=Modified [place] 3=Moderate Assistance 7=Complete IndependenceSCALE: Activities may be completed with or without assistive devices. 7-Vernlvfulj-gmdplxi completes the activity by him/herself with no assistance from a helper. 5-Set-up or Clean-up Assistance-helper sets up or cleans up; patient completes activity. [place] assists only prior to or following the activity. 4-Supervision or Touching Assistance-helper provides verbal cues and/or touch ing/steadying and/or contact guard assistance as patient completes activity. Assistance may be provided throughout the activity or intermittently. 3-Partial/Moderate Assistance-helper does LESS THAN HALF the effort. [place] lifts, holds or supports trunk or limbs, but provides less than half the effort. 2-Substantial/Maximal Assistance-helper does MORE THAN HALF the effort. [place] lifts or holds trunk or limbs and provides more than half the effort. 5-Ahbtbtpzx-wpnhmf does ALL the effort. Patient does none of the effort to complete the activity. Or, the assistance of 2 or more helpers is required for the patient to complete the activity. If activity was not attempted, code reason: 7-Patient Refused. 9-Not Applicable-not attempted and the patient did not perform the activity before the current illness, exacerbation or injury. 10-Not Attempted due to Environmental Limitations-(lack of equipment, weather restraints, etc.). 88-Not Attempted due to Medical Conditions or Safety Concerns. Roll Left to Right (QC): 3 Sit to Lying (QC): 3 Sit to Stand (QC): 3 Chair/Ppu-ns-Flspf Xfer(QC): 3 Car Transfer (QC): 3 Gait Training Does the Patient Walk?: Yes Distance: x 125 ft, x 225 ft Walk 10 feet (QC): 4 Walk 50 ft with 2 Turns(QC): 4 Walk 150 ft (QC): 4 Walking 10ft/uneven surface-QC: 88 Gait Persons Needed: 1 Gait Assistive Device: FWW Wheelchair Training Wheel 50 ft with 2 turns (QC): 9 Wheel 150 ft (QC): 9 Stair Training 1 Step (curb) (QC): 88 4 Steps (QC): 88 12 Steps (QC): 88 Balance Picking up an Object (QC): 88 ADL-Treatment Eating (QC): 5 Oral Hygiene (QC): 4 Shower/Bathe Self (QC): 4 Upper Body Dressing (QC): 4 Lower Body Dressing (QC): 3 On/Off Footwear (QC): 4 (Extra time and min cues to incorporate both UE's as pt bent at waist to reach feet. Less swelling exhibited in BLE's this date. ) Toileting Hygiene (QC): 4 Toilet Transfer (QC): 4 Assessment/Plan Assessment and Plan Assess & Plan/Chief Complaint Assessment: CHF Right shoulder soft tissue injury status post injection by Dr. Huerta on 09/23/2021 LE edema - due to CHF and lymphedema CAD Paroxysmal Atrial Fibrillation - OAC with Eliquis PAD Venous insufficiency Hyperlipidemia Hypothyroidism CKD-3 - followed by [facility] CAD FABRIZIO - on CPAP therapy and is managed by the Pulm services H/o gout Hyperbilirubinemia due to liver congestion work-up for Aponte and cirrhosis negative Ascites on last ultrasound Plan: Ortho consult Monitor renal function Cardiology consultation Rehab protocol 09/24/2021: Appreciate Dr. Huerta Continue aggressive therapy Wrap legs Use home CPAP 09/25/21: Therapy Wraps legs Pain control 09/26/21: Wrap legs Shoulder pain management (1) Congestive heart failure Status: Acute (2) Bilateral lower extremity pain Status: Acute (3) Chronic kidney disease (CKD) Status: Acute (4) Generalized weakness Status: Acute (5) Anasarca Status: Acute VERNELL ROMAN DO Sep 26, 2021 10:59
[2021-09-26] MEDS: DICLOFENAC 1% GEL 100 GM (VOLTAREN) TUBE TOP SCH ×3 (13:32→21:08)
[2021-09-26 19:34] VITALS: BP 115/55
[2021-09-27] MEDS: LEVOTHYROXINE 112 MCG (LEVOTHROID) TAB PO SCH (06:49)
[2021-09-27] MEDS: LEVOTHYROXINE 25 MCG (LEVOTHROID) TAB PO SCH (06:49)
[2021-09-27 07:14] VITALS: BP 119/58
--- NOTE | 2021-09-27 07:44 | PM&R Progress Note ---
Subjective HPI/CC On Admission Date Seen by Provider: Sep 27, 2021 Time Seen by Provider: 14:45 Subjective/Events-last exam 09/27/21: Patient doing better DC MVI due to nausea Suppository given and had complete evacuation of bowels finally TONY wraps to lower legs working out well for her Diclofenac gel with Kpad working well for her right shoulder and arm DC daily weights 09/26/21: Patient doing well at bedside Wrapping legs Patient and her would do well with assisted living 09/25/21: Patient doing better than she thinks she is Pain both shoulders limits her Patient appears to be frightened about what is to come with decline Working with therapy Wrapping legs is really helping her 09/24/2021: Patient settling in well Was already able to walk around Right shoulder pain improved since Dr. Huerta injected it Has been brought her CPAP into use at night Wrapping legs with Tony wraps Speech therapy will evaluate dysphagia Review of Systems General: Fatigue, Malaise Cardiovascular: Edema Objective Exam Vital Signs Vital Signs Date Time Temp Pulse Resp B/P (MAP) Pulse Ox O2 Delivery O2 Flow Rate FiO2 09/27/21 21:00 Room Air 09/27/21 20:00 36.7 69 20 122/57 (78) 95 Capillary Refill : General Appearance: No Apparent Distress, WD/WN, Chronically ill, Obese HEENT: PERRL/EOMI, Normal ENT Inspection, Pharynx Normal Neck: Full Range of Motion, Normal Inspection, Non Tender, Supple, Carotid Bruit Respiratory: Chest Non Tender, Lungs Clear, Normal Breath Sounds, No Accessory Muscle Use, No Respiratory Distress Cardiovascular: Regular Rate, Rhythm, No Gallop, No JVD, No Murmur, Normal Peripheral Pulses, Irregularly Irregular Gastrointestinal: Normal Bowel Sounds, No Organomegaly, No Pulsatile Mass, Non Tender, Soft Back: Normal Inspection, No CVA Tenderness, No Vertebral Tenderness Extremity: Normal Capillary Refill, Normal Inspection, Normal Range of Motion, Non Tender, No Calf Tenderness, Pedal Edema Neurologic/Psychiatric: Alert, Oriented x3, No Motor/Sensory Deficits, Normal Mood/Affect, finisher cold rolling II-XII Norm as Tested, Motor Weakness (generalized) Skin: Normal Color, Warm/Dry Lymphatic: No Adenopathy Results/Procedures Lab Patient resulted labs reviewed. FIM Transfers Therapy Code Descriptions/Definitions Functional [place] Measure: 0=Not Assessed/NA 4=Minimal Assistance 1=Total Assistance 5=Supervision or Setup 2=Maximal Assistance 6=Modified [place] 3=Moderate Assistance 7=Complete IndependenceSCALE: Activities may be completed with or without assistive devices. 1-Twkrqjdrkm-mtspkhl completes the activity by him/herself with no assistance from a helper. 5-Set-up or Clean-up Assistance-helper sets up or cleans up; patient completes activity. [place] assists only prior to or following the activity. 4-Supervision or Touching Assistance-helper provides verbal cues and/or touching/steadying and/or contact guard assistance as patient completes activity. Assistance may be provided throughout the activity or intermittently. 3-Partial/Moderate Assistance-helper does LESS THAN HALF the effort. [place] lifts, holds or supports trunk or limbs, but provides less than half the effort. 2-Substantial/Maximal Assistance-helper does MORE THAN HALF the effort. [place] lifts or holds trunk or limbs and provides more than half the effort. 7-Zwinjuriq-ocbdsx does ALL the effort. Patient does none of the effort to complete the activity. Or, the assistance of 2 or more helpers is required for the patient to complete the activity. If activity was not attempted, code reason: 7-Patient Refused. 9-Not Applicable-not attempted and the patient did not perform the activity before the current illness, exacerbation or injury. 10-Not Attempted due to Environmental Limitations-(lack of equipment, weather restraints, etc.). 88-Not Attempted due to Medical Conditions or Safety Concerns. Roll Left to Right (QC): 3 Sit to Lying (QC): 3 Sit to Stand (QC): 3 Chair/Mjq-sm-Vigsz Xfer(QC): 3 Car Transfer (QC): 3 Gait Training Does the Patient Walk?: Yes Distance: x 125 ft, x 225 ft Walk 10 feet (QC): 4 Walk 50 ft with 2 Turns(QC): 4 Walk 150 ft (QC): 4 Walking 10ft/uneven surface-QC: 88 Gait Persons Needed: 1 Gait Assistive Device: FWW Wheelchair Training Wheel 50 ft with 2 turns (QC): 9 Wheel 150 ft (QC): 9 Stair Training 1 Step (curb) (QC): 88 4 Steps (QC): 88 12 Steps (QC): 88 Balance Picking up an Object (QC): 88 ADL-Treatment Eating (QC): 5 Oral Hygiene (QC): 4 Shower/Bathe Self (QC): 4 Upper Body Dressing (QC): 4 Lower Body Dressing (QC): 3 On/Off Footwear (QC): 4 (Extra time and min cues to incorporate both UE's as pt bent at waist to reach feet. Less swelling exhibited in BLE's this date. ) Toileting Hygiene (QC): 4 Toilet Transfer (QC): 4 Assessment/Plan Assessment and Plan Assess & Plan/Chief Complaint Assessment: CHF Right shoulder soft tissue injury status post injection by Dr. Huerta on 09/23/2021 LE edema - due to CHF and lymphedema CAD Paroxysmal Atrial Fibrillation - OAC with Eliquis PAD Venous insufficiency Hyperlipidemia Hypothyroidism CKD-3 - followed by [facility] CAD FABRIZIO - on CPAP therapy and is managed by the Pulm services H/o gout Hyperbilirubinemia due to liver congestion work-up for Aponte and cirrhosis negative Ascites on last ultrasound Plan: Ortho consult Monitor renal function Cardiology consultation Rehab protocol 09/24/2021: Appreciate Dr. Huerta Continue aggressive therapy Wrap legs Use home CPAP 09/25/21: Therapy Wraps legs Pain control 09/26/21: Wrap legs Shoulder pain management 09/27/21: Shoulder and right arm pain management Supportive care (1) Congestive heart failure Status: Acute (2) Bilateral lower extremity pain Status: Acute (3) Chronic kidney disease (CKD) Status: Acute (4) Generalized weakness Status: Acute (5) Anasarca Status: Acute VERNELL ROMAN DO Sep 27, 2021 07:44
[2021-09-27] MEDS: DICLOFENAC 1% GEL 100 GM (VOLTAREN) TUBE TOP SCH ×4 (08:11→21:46)
[2021-09-27] MEDS: MULTIVITAMINS LIQUID 15 ML UDC PO SCH (08:11)
[2021-09-27] MEDS: SENNA W/DOCUSATE (SENOKOT S) TABLET PO SCH ×2 (08:12→21:45)
[2021-09-27] MEDS: KCL 20 MEQ TAB (K-DUR) PO SCH ×2 (08:12→17:49)
[2021-09-27] MEDS: LACTOBACILLUS ACIDOPHILUS (PROBIOTIC) CAPSULE PO SCH (08:12)
[2021-09-27] MEDS: ALLOPURINOL 300 MG (ZYLOPRIM) TAB PO SCH (08:12)
[2021-09-27] MEDS: meTOprolol SUCCINATE 100 MG (TOPROL XL) TAB PO SCH (08:12)
[2021-09-27] MEDS: APIXABAN 2.5 MG (ELIQUIS) TABLET PO SCH ×2 (08:12→21:45)
[2021-09-27] MEDS: DOCUSATE SODIUM 100 MG (COLACE) CAP PO SCH ×2 (08:12→21:45)
[2021-09-27] MEDS: FUROSEMIDE 40 MG/4 ML INJ (LASIX) IVP SCH (08:12)
[2021-09-27] MEDS: polyethylene glycoL POWDER 17 GM (MIRALAX) PACK PO SCH ×2 (09:36→22:49)
[2021-09-27 20:00] VITALS: BP 122/57
[2021-09-28 05:49] LABS: BASOPHILS % (AUTO) 0 % (0-10); EOSINOPHILS % (AUTO) 0 % (0-10); HEMATOCRIT 38 % (35-52); HEMOGLOBIN 12.7 g/dL (11.5-16.0); LYMPHOCYTES # (AUTO) 0.8 10^3/uL (1.0-4.0); LYMPHOCYTES % (AUTO) 8 % (12-44); MEAN CORPUSCULAR HEMOGLOBIN 31 pg (25-34); MEAN CORPUSCULAR HGB CONC 34 g/dL (32-36); MEAN CORPUSCULAR VOLUME 92 fL (80-99); MEAN PLATELET VOLUME 12.7 fL (9.0-12.2); MONOCYTES # (AUTO) 0.8 10^3/uL (0.0-1.0); MONOCYTES % (AUTO) 8 % (0-12); NEUTROPHILS # (AUTO) 8.2 10^3/uL (1.8-7.8); NEUTROPHILS % (AUTO) 82 % (42-75); PLATELET COUNT 213 10^3/uL (130-400)
[2021-09-28 06:01] LABS: ALBUMIN 2.6 GM/DL (3.2-4.5); POTASSIUM 4.3 MMOL/L (3.6-5.0)
[2021-09-28 06:03] LABS: CALCIUM 9.2 MG/DL (8.5-10.1)
[2021-09-28 06:06] LABS: BILIRUBIN,TOTAL 3.7 MG/DL (0.1-1.0)
[2021-09-28 06:07] LABS: CREATININE SERUM 1.28 MG/DL (0.60-1.30)
[2021-09-28] MEDS: LEVOTHYROXINE 112 MCG (LEVOTHROID) TAB PO SCH (06:12)
[2021-09-28] MEDS: LEVOTHYROXINE 25 MCG (LEVOTHROID) TAB PO SCH (06:12)
--- NOTE | 2021-09-28 06:44 | PM&R Progress Note ---
Subjective HPI/CC On Admission Date Seen by Provider: Sep 28, 2021 Time Seen by Provider: 09:00 Subjective/Events-last exam 09/28/2021: Pt doing a lot better Albumin 2.6 Creatinine 1. 28 Checked meds and labs Working hard 09/27/21: Patient doing better DC MVI due to nausea Suppository given and had complete evacuation of bowels finally TONY wraps to lower legs working out well for her Diclofenac gel with Kpad working well for her right shoulder and arm DC daily weights 09/26/21: Patient doing well at bedside Wrapping legs Patient and her would do well with assisted living 09/25/21: Patient doing better than she thinks she is Pain both shoulders limits her Patient appears to be frightened about what is to come with decline Working with therapy Wrapping legs is really helping her 09/24/2021: Patient settling in well Was already able to walk around Right shoulder pain improved since Dr. Huerta injected it Has been brought her CPAP into use at night Wrapping legs with Tony wraps Speech therapy will evaluate dysphagia Review of Systems General: Fatigue, Malaise Objective Exam Vital Signs Vital Signs Date Time Temp Pulse Resp B/P (MAP) Pulse Ox O2 Delivery O2 Flow Rate FiO2 09/28/21 20:40 37.5 79 23 118/56 (76) 94 Room Air Capillary Refill : General Appearance: No Apparent Distress, WD/WN, Chronically ill, Obese HEENT: PERRL/EOMI, Normal ENT Inspection, Pharynx Normal Neck: Full Range of Motion, Normal Inspection, Non Tender, Supple, Carotid Bruit Respiratory: Chest Non Tender, Lungs Clear, Normal Breath Sounds, No Accessory Muscle Use, No Respiratory Distress Cardiovascular: Regular Rate, Rhythm, No Gallop, No JVD, No Murmur, Normal Peripheral Pulses, Irregularly Irregular Gastrointestinal: Normal Bowel Sounds, No Organomegaly, No Pulsatile Mass, Non Tender, Soft Back: Normal Inspection, No CVA Tenderness, No Vertebral Tenderness Extremity: Normal Capillary Refill, Normal Inspection, Normal Range of Motion, Non Tender, No Calf Tenderness, Pedal Edema Neurologic/Psychiatric: Alert, Oriented x3, No Motor/Sensory Deficits, Normal Mood/Affect, 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 FIM Transfers Therapy Code Descriptions/Definitions Functional [place] Measure: 0=Not Assessed/NA 4=Minimal Assistance 1=Total Assistance 5=Supervision or Setup 2=Maximal Assistance 6=Modified [place] 3=Moderate Assistance 7=Complete IndependenceSCALE: Activities may be completed with or without assistive devices. 5-Bgewwfrdhs-qgowvhu completes the activity by him/herself with no assistance from a helper. 5-Set-up or Clean-up Assistance-helper sets up or cleans up; patient completes activity. [place] assists only prior to or following the activity. 4-Supervision or Touching Assistance-helper provides verbal cues and/or touching/steadying and/or contact guard assistance as patient completes act ivity. Assistance may be provided throughout the activity or intermittently. 3-Partial/Moderate Assistance-helper does LESS THAN HALF the effort. [place] lifts, holds or supports trunk or limbs, but provides less than half the effort. 2-Substantial/Maximal Assistance-helper does MORE THAN HALF the effort. [place] lifts or holds trunk or limbs and provides more than half the effort. 9-Suwuyblyx-abzfoe does ALL the effort. Patient does none of the effort to complete the activity. Or, the assistance of 2 or more helpers is required for the patient to complete the activity. If activity was not attempted, code reason: 7-Patient Refused. 9-Not Applicable-not attempted and the patient did not perform the activity before the current illness, exacerbation or injury. 10-Not Attempted due to Environmental Limitations-(lack of equipment, weather restraints, etc.). 88-Not Attempted due to Medical Conditions or Safety Concerns. Roll Left to Right (QC): 3 Sit to Lying (QC): 3 Sit to Stand (QC): 3 Chair/Qwt-rp-Tizqs Xfer(QC): 3 Car Transfer (QC): 3 Gait Training Does the Patient Walk?: Yes Distance: x 125 ft, x 225 ft Walk 10 feet (QC): 4 Walk 50 ft with 2 Turns(QC): 4 Walk 150 ft (QC): 4 Walking 10ft/uneven surface-QC: 88 Gait Persons Needed: 1 Gait Assistive Device: FWW Wheelchair Training Wheel 50 ft with 2 turns (QC): 9 Wheel 150 ft (QC): 9 Stair Training 1 Step (curb) (QC): 88 4 Steps (QC): 88 12 Steps (QC): 88 Balance Picking up an Object (QC): 88 ADL-Treatment Eating (QC): 5 Oral Hygiene (QC): 4 Shower/Bathe Self (QC): 4 Upper Body Dressing (QC): 4 Lower Body Dressing (QC): 3 On/Off Footwear (QC): 4 (Extra time and min cues to incorporate both UE's as pt bent at waist to reach feet. Less swelling exhibited in BLE's this date. ) Toileting Hygiene (QC): 4 Toilet Transfer (QC): 4 Assessment/Plan Assessment and Plan Assess & Plan/Chief Complaint Assessment: CHF Right shoulder soft tissue injury status post injection by Dr. Huerta on 09/23/2021 LE edema - due to CHF and lymphedema CAD Paroxysmal Atrial Fibrillation - OAC with Eliquis PAD Venous insufficiency Hyperlipidemia Hypothyroidism CKD-3 - followed by [facility] CAD FABRIZIO - on CPAP therapy and is managed by the Pulm services H/o gout Hyperbilirubinemia due to liver congestion work-up for Aponte and cirrhosis negative Ascites on last ultrasound Plan: Ortho consult Monitor renal function Cardiology consultation Rehab protocol 09/24/2021: Appreciate Dr. Huerta Continue aggressive therapy Wrap legs Use home CPAP 09/25/21: Therapy Wraps legs Pain control 09/26/21: Wrap legs Shoulder pain management 09/27/21: Shoulder and right arm pain management Supportive care 09/28/2021: Pain management Supportive care (1) Congestive heart failure Status: Acute (2) Bilateral lower extremity pain Status: Acute (3) Chronic kidney disease (CKD) Status: Acute (4) Generalized weakness Status: Acute (5) Anasarca Status: Acute VERNELL ROMAN DO Sep 28, 2021 06:44
[2021-09-28] MEDS: meTOprolol SUCCINATE 100 MG (TOPROL XL) TAB PO SCH (07:27)
[2021-09-28] MEDS: KCL 20 MEQ TAB (K-DUR) PO SCH ×2 (07:28→16:55)
[2021-09-28] MEDS: LACTOBACILLUS ACIDOPHILUS (PROBIOTIC) CAPSULE PO SCH (07:28)
[2021-09-28] MEDS: APIXABAN 2.5 MG (ELIQUIS) TABLET PO SCH ×2 (07:28→20:19)
[2021-09-28] MEDS: FUROSEMIDE 40 MG/4 ML INJ (LASIX) IVP SCH (07:28)
[2021-09-28] MEDS: ALLOPURINOL 300 MG (ZYLOPRIM) TAB PO SCH (07:28)
[2021-09-28] MEDS: DICLOFENAC 1% GEL 100 GM (VOLTAREN) TUBE TOP SCH ×4 (07:30→20:21)
[2021-09-28 07:33] VITALS: BP 126/59
[2021-09-28] MEDS: SENNA W/DOCUSATE (SENOKOT S) TABLET PO SCH ×2 (08:09→20:26)
[2021-09-28] MEDS: DOCUSATE SODIUM 100 MG (COLACE) CAP PO SCH ×2 (08:09→20:26)
[2021-09-28] MEDS: polyethylene glycoL POWDER 17 GM (MIRALAX) PACK PO SCH ×2 (08:09→20:26)
--- NOTE | 2021-09-28 08:46 | Progress Note - Cardiology ---
Cardiology SOAP Progress Note Objective: I&O/Vital Signs 09/28/21 09/28/21 09/29/21 20:25 20:40 07:29 Temp 37.5 37.0 Pulse 79 88 Resp 23 18 B/P (MAP) 118/56 (76) 115/56 (75) Pulse Ox 94 93 O2 Delivery Room Air Room Air Room Air Weight (Pounds): 211 Weight (Ounces): 8.0 Weight (Calculated Kilograms): 95.348128 Constitutional: AAO x 3, well-developed, well-nourished Respiratory: No accessory muscle use; other (good, bilat air entry) Cardiovascular: regular rate-rhythm, S1 and S2, systolic murmur (soft HSM at card apex) Gastrointestional: No tender; soft; No guarding, No rebound; audible bowel sounds Extremities: swelling (moderate, bilat leg edema), clubbing, cyanosis Neurologic/Psychiatric: oriented x 3, other (moves all limb; limited at R shoulder due to R shoulder pain) Skin: No rash on exposed areas, No ulcerations on exposed areas Results/Procedures: Labs Laboratory Tests 09/29/21 05:44: Sodium Level 134L, Potassium Level 4.5, Chloride Level 100, Carbon Dioxide Level 23, Anion Gap 11, Blood Urea Nitrogen 33H, Creatinine 1.11, Estimat Glomerular Filtration Rate 47, BUN/Creatinine Ratio 30, Glucose Level 74, Calcium Level 9.1 A/P: Assessment: Right shoulder discomfort following a non-syncopal fall in Jul 2021 - management is by Dr Bertrand Leg swelling due to chronic cor pulmonale and due to chronic lymphedema - consider chronic pulm thromboembolism, inadequately treated FABRIZIO, pulm fibrosis, primary pulm hypertension, etc CAD - Cardiac cath of 10-07-15 showed minimal coronary plaques without any obstructive disease. LVEF 60-65%. Mod elevation of LVEDP. No significant MR - MPI of 03-10-2021 shows no evidence of ischemia or infarction. LVEF 70% Paroxysmal Atrial Fibrillation - OAC with Eliquis, low dose per PCP d/t propensity to bleeding, advanced age and CKD Mod pulm htn and chronic cor pulmonale - consider chronic pulm thromboembolism, inadequately treated FABRIZIO, pulm fibrosis, primary pulm hypertension, etc - Echo of 03-09-2021 showed LVEF 70-75%. Mod MR. Mod to severe TR. PASP 50-55 mmHg - Echo of 09-23-21:LVEF 60-65%, mod MR, triv AI, mod TR, PASP 50-55 mmHg (not significantly changed from the study of February 2021) PAD - arterial Doppler of February 2021 reported mod atheromatous plaque on both sides w/o evidence of hemodynamic significance Hyperlipidemia - unable to take statins - followed by her PCP Obesity - with a BMI of approximately 40 Hypothyroidism - managed by PCP CKD-3. - Chronic renal insuff with Cr ranging between 1 and 1.4. CKD stage 3, followed by [facility] Impaired fasting glucose - managed by PCP Carotid dz - Mild bilateral carotid art disease on carotid u/s of 02-27-2021 FABRIZIO - for which she is on CPAP therapy and is managed by the Pulm services H/o gout - managed by PCP Plan: * Continue diuretic regimen - change to oral * Compression stocking during the daytime for control of leg swelling * Monitor labs NEAL LIM Sep 28, 2021 08:46
--- NOTE | 2021-09-28 09:19 | Occupational Ther Daily Note ---
OT Current Status-Daily Note Subjective Pt reports pain in RUE (elbow to shoulder) as 5/10. RN informed Appearance Pt left sitting in chair, all needs within reach. Mental Status/Objective Patient Orientation: Person, Place, Situation Attachments: IV ADL-Treatment Therapy Code Descriptions/Definitions Functional [place] Measure: 0=Not Assessed/NA 4=Minimal Assistance 1=Total Assistance 5=Supervision or Setup 2=Maximal Assistance 6=Modified [place] 3=Moderate Assistance 7=Complete IndependenceSCALE: Activities may be completed with or without assistive devices. 6-Gwkruixedb-oysjifv completes the activity by him/herself with no assistance from a helper. 5-Set-up or Clean-up Assistance-helper sets up or cleans up; patient completes activity. [place] assists only prior to or following the activity. 4-Supervision or Touching Assistance-helper provides verbal cues and/or touching/steadying and/or contact guard assistance as patient completes activity. Assistance may be provided throughout the activity or intermittently. 3-Partial/Moderate Assistance-helper does LESS THAN HALF the effort. [place] lifts, holds or supports trunk or limbs, but provides less than half the effort. 2-Substantial/Maximal Assistance-helper does MORE THAN HALF the effort. [place] lifts or holds trunk or limbs and provides more than half the effort. 4-Dkszqgwrm-ntbrfd does ALL the effort. Patient does none of the effort to complete the activity. Or, the assistance of 2 or more helpers is required for the patient to complete the activity. If activity was not attempted, code reason: 7-Patient Refused. 9-Not Applicable-not attempted and the patient did not perform the activity be fore the current illness, exacerbation or injury. 10-Not Attempted due to Environmental Limitations-(lack of equipment, weather restraints, etc.). 88-Not Attempted due to Medical Conditions or Safety Concerns. Oral Hygiene (QC): 4 Shower/Bathe Self (QC): 4 Upper Body Dressing (QC): 4 Lower Body Dressing (QC): 3 (min) Toileting Hygiene (QC): 4 Toilet Transfer (QC): 4 Pt retrieved clothes with use of walker and SBA. She reports using a 4ww at home and will place clothes directly onto the seat. Instruction on draping clothes over FWW. Shower performed; majority in standing. Pt sat only to wash LE's. Good recall to utilize LHS to wash feet. Post shower, OT provided demonstration on how to use same adaptive equipment to dry feet. No unsteadiness when standing; unilateral UE support on GB at all times in standing. She sat on shower bench to dress. Extra time to thread BLE's through underwear/pants, but no assist needed. Pt declines using AE for improved ease/energy, despite education. She stood with SBA-CGA to manage clothing up to waist. Pt continues to require cues to utilize RUE during functional tasks (within pain tolerance). Min a to pull pants completely up in the back secondary to tight fit. OT donned socks secondary to maddie wraps on raúl feet. She stood at sink for grooming tasks, able to use RUE to brush teeth. Due to pain, pt unable to lift RUE high enough to reach head to brush, thus used LUE. Education OT Patient Education: Correct positioning, Energy conservation, Modified ADL techniques, Progress toward Goal/Update tx plan, Purpose of tx/functional activities, Rehab process, Safety issues, Transfer techniques, Use of adapted equipment Teaching Recipient: Patient Teaching Methods: Demonstration Response to Teaching: Verbalize Understanding, Return Demonstration OT Short Term Goals Short Term Goals Time Frame: Oct 02, 2021 Eatin Oral hygiene: 4 Toileting hygiene: 4 Shower/bathe self: 3 (min) Upper body dressin Lower body dressin (min) Putting on/taking off footwear: 3 OT Shift Leader Goals Shift Leader Goals Time Frame: Oct 13, 2021 Eating (QC): 6 Oral Hygiene (QC): 6 Toileting Hygiene (QC): 6 Shower/Bathe Self (QC): 4 Upper Body Dressing (QC): 4 Lower Body Dressing (QC): 5 On/Off Footwear (QC): 4 1=Demonstrate adherence to instructed precautions during ADL tasks. 2=Patient will verbalize/demonstrate understanding of assistive devices/modifications for ADL. 3=Patient will improve strength/tolerance for activity to enable patient to perform ADL's. OT Education/Plan Problem List/Assessment Assessment: Decreased Activ Tolerance, Decreased UE Strength, Impaired Coordination, Impaired I ADL's, Impaired Self-Care Skills, Restricted Funct UE ROM Discharge Recommendations Plan/Recommendations: Continue POC Treatment Plan/Plan of Care Treatment,Training & Education: Yes Patient would benefit from OT for education, treatment and training to promote independence in ADL's, mobility, safety and/or upper extremity function for ADL's. Plan of Care: ADL Retraining, Functional Mobility, Group Exercise/Act as Ind, UE Funct Exercise/Act Treatment Duration: Oct 13, 2021 Frequency: At least 5 of 7 days/Wk (IRF) Estimated Hrs Per Day: 1.5 hours per day Agreement: Yes Rehab Potential: Fair Time/GCodes Start Time: 07:45 Stop Time: 09:15 Total Time Billed (hr/min): 90 Billed Treatment Time 1 visit ADL x6 Glenna Reynoso OT Sep 28, 2021 09:19
--- NOTE | 2021-09-28 09:44 | Progress Note - Cardiology ---
Cardiology SOAP Progress Note Subjective: No shortness of breath at rest Leg swelling better No cp or palp or syncope No n/v/d Gen malaise and weakness present Objective: I&O/Vital Signs 09/28/21 07:33 Temp 36.4 Pulse 72 Resp 24 B/P (MAP) 126/59 (81) Pulse Ox 91 O2 Delivery Room Air Weight (Pounds): 211 Weight (Ounces): 8.0 Weight (Calculated Kilograms): 95.777856 Constitutional: AAO x 3, well-developed, well-nourished Respiratory: No accessory muscle use; other (good, bilat air entry) Cardiovascular: regular rate-rhythm, S1 and S2, systolic murmur (soft HSM at card apex) Gastrointestional: No tender; soft; No guarding, No rebound; audible bowel sounds Extremities: swelling (moderate, bilat leg edema), clubbing, cyanosis Neurologic/Psychiatric: oriented x 3, other (moves all limb; limited at R shoulder due to R shoulder pain) Skin: No rash on exposed areas, No ulcerations on exposed areas Results/Procedures: Labs Laboratory Tests 09/28/21 05:30: White Blood Count 10.0, Red Blood Count 4.08, Hemoglobin 12.7, Hematocrit 38, Mean Corpuscular Volume 92, Mean Corpuscular Hemoglobin 31, Mean Corpuscular Hemoglobin Concent 34, Red Cell Distribution Width 18.5H, Platelet Count 213, Mean Platelet Volume 12.7H, Immature Granulocyte % (Auto) 1, Neutrophils (%) (Auto) 82H, Lymphocytes (%) (Auto) 8L, Monocytes (%) (Auto) 8, Eosinophils (%) (Auto) 0, Basophils (%) (Auto) 0, Neutrophils # (Auto) 8.2H, Lymphocytes # (Auto) 0.8L, Monocytes # (Auto) 0.8, Eosinophils # (Auto) 0.0, Basophils # (Auto) 0.0, Immature Granulocyte # (Auto) 0.1, Sodium Level 135, Potassium Level 4.3, Chloride Level 100, Carbon Dioxide Level 23, Anion Gap 12, Blood Urea Nitrogen 36H, Creatinine 1.28, Estimat Glomerular Filtration Rate 40, BUN/Creatinine Ratio 28, Glucose Level 83, Calcium Level 9.2, Corrected Calcium 10.3H, Total Bilirubin 3.7H, Aspartate Amino Transf (AST/SGOT) 34, Alanine Aminotransferase (ALT/SGPT) 21, Alkaline Phosphatase 152H, Total Protein 6.0L, Albumin 2.6L Laboratory Tests 09/28/21 05:30 A/P: Assessment: Right shoulder discomfort following a non-syncopal fall in Jul 2021 - management is by Dr Bertrand Leg swelling due to chronic cor pulmonale and due to chronic lymphedema - consider chronic pulm thromboembolism, inadequately treated FABRIZIO, pulm fibrosis, primary pulm hypertension, etc CAD - Cardiac cath of 10-07-15 showed minimal coronary plaques without any obstructive disease. LVEF 60-65%. Mod elevation of LVEDP. No significant MR - MPI of 03-10-2021 shows no evidence of ischemia or infarction. LVEF 70% Paroxysmal Atrial Fibrillation - OAC with Eliquis, low dose per PCP d/t propensity to bleeding, advanced age and CKD Mod pulm htn and chronic cor pulmonale - consider chronic pulm thromboembolism, inadequately treated FABRIZIO, pulm f ibrosis, primary pulm hypertension, etc - Echo of 03-09-2021 showed LVEF 70-75%. Mod MR. Mod to severe TR. PASP 50-55 mmHg - Echo of 09-23-21:LVEF 60-65%, mod MR, triv AI, mod TR, PASP 50-55 mmHg (not significantly changed from the study of February 2021) PAD - arterial Doppler of February 2021 reported mod atheromatous plaque on both sides w/o evidence of hemodynamic significance Hyperlipidemia - unable to take statins - followed by her PCP Obesity - with a BMI of approximately 40 Hypothyroidism - managed by PCP CKD-3. - Chronic renal insuff with Cr ranging between 1 and 1.4. CKD stage 3, followed by [facility] Impaired fasting glucose - managed by PCP Carotid dz - Mild bilateral carotid art disease on carotid u/s of 02-27-2021 FABRIZIO - for which she is on CPAP therapy and is managed by the Pulm services H/o gout - managed by PCP Plan: * Continue diuretic regimen - change to oral * Compression stocking during the daytime for control of leg swelling * Monitor labs ISABELLE CARLTON MD FACP [facility] Sep 28, 2021 09:44
--- NOTE | 2021-09-28 11:45 | Physical Therapy Daily Note ---
PT Daily Note-Current Subjective Pt sitting in recliner upon arrival. Pt reports discomfort in R UE (from elbow to shoulder). Pt agrees to PT. Pain Location Body Site: Elbow Pain Description: Ache Comment: Reports but doesn't rate Mental Status Patient Orientation: Person, Place, Time, Situation Transfers SCALE: Activities may be completed with or without assistive devices. 5-Sydnhcibov-roasmgr completes the activity by him/herself with no assistance from a helper. 5-Set-up or Clean-up Assistance-helper sets up or cleans up; patient completes activity. [place] assists only prior to or following the activity. 4-Supervision or Touching Assistance-helper provides verbal cues and/or to uching/steadying and/or contact guard assistance as patient completes activity. Assistance may be provided throughout the activity or intermittently. 3-Partial/Moderate Assistance-helper does LESS THAN HALF the effort. Force lifts, holds or supports trunk or limbs, but provides less than half the effort. 2-Substantial/Maximal Assistance-helper does MORE THAN HALF the effort. Force lifts or holds trunk or limbs and provides more than half the effort. 2-Xmmfijnfx-dfwima does ALL the effort. Patient does none of the effort to complete the activity. Or, the assistance of 2 or more helpers is required for the patient to complete the activity. If activity was not attempted, code reason: 7-Patient Refused. 9-Not Applicable-not attempted and the patient did not perform the activity before the current illness, exacerbation or injury. 10-Not Attempted due to Environmental Limitations-(lack of equipment, weather restraints, etc.). 88-Not Attempted due to Medical Conditions or Safety Concerns. Sit to Stand (QC): 4 Weight Bearing Full Weight Bearing Full Weight Bearing Gait Training Does the Patient Walk?: Yes Distance: 150' x2 Walk 10 feet (QC): 5 Walk 50 ft with 2 Turns(QC): 4 Walk 150 ft (QC): 4 Gait Persons Needed: 1 Gait Assistive Device: FWW Wheelchair Training Does the Pt Use a Wheelchair?: No Exercises Seated Therapy Exercises: Ankle pumps, Long arc quads Seated Reps: 10 Standing: Hip Abduction, Hamstring curls, Heel/toe raises, Marching, Weight shifts Standing Reps: 10 NuStep Minutes: 10 NuStep Workload: 4 Treatments [id number]: TF to standing and amb. in hallway. RB upon reaching Therapy Gym. Pt uses NuStep for 10m at WL 4. Pt completes Seated Ex before amb. back to room. Pt declines need for BR. All needs met, call light in hand. [id number]: TF to standing and amb. in hallway. Pt takes RB then completes Standing Ex at //bars. Pt takes RB then amb. in hallway before returning to room to rest in recliner. All needs met, call light in hand. Assessment Current Status: Good Progress [id number]: Pt is gaining strength, activity tolerance & independence of tasks leon. transfers. 1312-0625: Pt tolerated tx well. RB as needed. PT Short Term Goals Short Term Goals Time Frame: Sep 30, 2021 Roll Left & Right: 4 Sit to lyin Lying to sitting on side of be: 3 Sit to stand: 4 Chair/ljk-fq-gxfyv transfer: 4 Walk 10 feet: 4 Walk 50 feet with two turns: 4 Walk 150 feet: 4 PT Lacrosse Coach Goals Lacrosse Coach Goals PT Fdc Goals Time Frame: Oct 14, 2021 Roll Left & Right (QC): 4 Sit to Lying (QC): 4 Lying-Sitting on Side/Bed(QC): 4 Sit to Stand (QC): 4 Chair/Fxz-ls-Npomd Xfer(QC): 4 Toilet Transfer (QC): 4 Car Transfer (QC): 3 Does the Patient Walk: Yes Walk 10 feet (QC): 4 Walk 50ft with 2 Turns (QC): 4 Walk 150 ft (QC): 4 Walking 10ft on Uneven Surface: 4 1 Step (curb) (QC): 4 4 Steps (QC): 88 12 Steps (QC): 88 Picking up an Object (QC): 4 Wheel 50 feet with 2 turns (QC: 9 Wheel 150 feet: 9 PT Plan Problem List Problem List: Functional Strength Treatment/Plan Treatment Plan: Continue Plan of Care Treatment Plan: Bed Mobility, Education, Functional Activity [place], Functional Strength, Group Therapy, Gait, Safety, Therapeutic Exercise, Transfers Treatment Duration: Oct 14, 2021 Frequency: At least 5 of 7 days/Wk (IRF) Estimated Hrs Per Day: 1.5 hours per day Patient and/or Family Agrees t: Yes Safety Risks/Education Patient Education: Gait Training, Transfer Techniques, Correct Positioning Teaching Recipient: Patient Teaching Methods: Discussion Response to Teaching: Verbalize Understanding Time/GCodes Time In: 1000 Time Out: 1045 Total Billed Treatment Time: 45 Total Billed Treatment [id number]: 1, GT (15m) & EX x2 (30m) [id number]: GT x2 (25m) & EX (20m) ASHOK LORD BIBLE TEACHER Sep 28, 2021 11:45
[2021-09-28 20:40] VITALS: BP 118/56
[2021-09-29 06:28] LABS: POTASSIUM 4.5 MMOL/L (3.6-5.0)
[2021-09-29 06:29] LABS: CALCIUM 9.1 MG/DL (8.5-10.1)
[2021-09-29 06:34] LABS: CREATININE SERUM 1.11 MG/DL (0.60-1.30)
[2021-09-29] MEDS: LEVOTHYROXINE 112 MCG (LEVOTHROID) TAB PO SCH (06:45)
[2021-09-29] MEDS: LEVOTHYROXINE 25 MCG (LEVOTHROID) TAB PO SCH (06:45)
[2021-09-29 07:29] VITALS: BP 115/56
[2021-09-29] MEDS: SENNA W/DOCUSATE (SENOKOT S) TABLET PO SCH ×2 (08:06→20:39)
[2021-09-29] MEDS: DOCUSATE SODIUM 100 MG (COLACE) CAP PO SCH ×2 (08:06→20:39)
[2021-09-29] MEDS: polyethylene glycoL POWDER 17 GM (MIRALAX) PACK PO SCH ×2 (08:06→20:39)
[2021-09-29] MEDS: DICLOFENAC 1% GEL 100 GM (VOLTAREN) TUBE TOP SCH ×4 (08:10→20:39)
[2021-09-29] MEDS: LACTOBACILLUS ACIDOPHILUS (PROBIOTIC) CAPSULE PO SCH (08:10)
[2021-09-29] MEDS: meTOprolol SUCCINATE 100 MG (TOPROL XL) TAB PO SCH (08:10)
[2021-09-29] MEDS: APIXABAN 2.5 MG (ELIQUIS) TABLET PO SCH ×2 (08:10→20:38)
[2021-09-29] MEDS: FUROSEMIDE 40 MG (LASIX) TAB PO SCH (08:10)
[2021-09-29] MEDS: ALLOPURINOL 300 MG (ZYLOPRIM) TAB PO SCH (08:10)
[2021-09-29] MEDS: KCL 20 MEQ TAB (K-DUR) PO SCH ×2 (08:10→17:32)
--- NOTE | 2021-09-29 08:52 | PM&R Progress Note ---
Subjective HPI/CC On Admission Date Seen by Provider: Sep 29, 2021 Time Seen by Provider: 08:50 Subjective/Events-last exam 09/29/2021: Pt doing better Standby assist Bowels moved 2 days ago K Pad to the right arm is helpful 09/28/2021: Pt doing a lot better Albumin 2.6 Creatinine 1. 28 Checked meds and labs Working hard 09/27/21: Patient doing better DC MVI due to nausea Suppository given and had complete evacuation of bowels finally TONY wraps to lower legs working out well for her Diclofenac gel with Kpad working well for her right shoulder and arm DC daily weights 09/26/21: Patient doing well at bedside Wrapping legs Patient and her would do well with assisted living 09/25/21: Patient doing better than she thinks she is Pain both shoulders limits her Patient appears to be frightened about what is to come with decline Working with therapy Wrapping legs is really helping her 09/24/2021: Patient settling in well Was already able to walk around Right shoulder pain improved since Dr. Huerta injected it Has been brought her CPAP into use at night Wrapping legs with Tony wraps Speech therapy will evaluate dysphagia Review of Systems General: Fatigue, Malaise Musculoskeletal: arm pain Objective Exam Vital Signs Vital Signs Date Time Temp Pulse Resp B/P (MAP) Pulse Ox O2 Delivery O2 Flow Rate FiO2 09/29/21 21:10 Room Air 09/29/21 20:15 37.2 85 24 103/66 (78) 09/29/21 07:29 93 Capillary Refill : General Appearance: No Apparent Distress, WD/WN, Chronically ill, Obese HEENT: PERRL/EOMI, Normal ENT Inspection, Pharynx Normal Neck: Full Range of Motion, Normal Inspection, Non Tender, Supple, Carotid Bruit Respiratory: Chest Non Tender, Lungs Clear, Normal Breath Sounds, No Accessory Muscle Use, No Respiratory Distress Cardiovascular: Regular Rate, Rhythm, No Gallop, No JVD, No Murmur, Normal Peripheral Pulses, Irregularly Irregular Gastrointestinal: Normal Bowel Sounds, No Organomegaly, No Pulsatile Mass, Non Tender, Soft Back: Normal Inspection, No CVA Tenderness, No Vertebral Tenderness Extremity: Normal Capillary Refill, Normal Inspection, Normal Range of Motion, Non Tender, No Calf Tenderness, Pedal Edema Neurologic/Psychiatric: Alert, Oriented x3, No Motor/Sensory Deficits, Normal Mood/Affect, supercharger mechanic II-XII Norm as Tested, Motor Weakness (generalized) Skin: Normal Color, Warm/Dry Lymphatic: No Adenopathy Results/Procedures Lab Laboratory Tests 09/29/21 05:44 Patient resulted labs reviewed. FIM Transfers Therapy Code Descriptions/Definitions Functional [place] Measure: 0=Not Assessed/NA 4=Minimal Assistance 1=Total Assistance 5=Supervision or Setup 2=Maximal Assistance 6=Modified [place] 3=Moderate Assistance 7=Complete IndependenceSCALE: Activities may be completed with or without assistive devices. 5-Hqpzmzltgx-tgbgrpu completes the activity by him/herself with no assistance from a helper. 5-Set-up or Clean-up Assistance-helper sets up or cleans up; patient completes activity. [place] assists only prior to or following the activity. 4-Supervision or Touching Assistance-helper provides verbal cues and/or touching/steadying and/or contact guard assistance as patient completes a ctivity. Assistance may be provided throughout the activity or intermittently. 3-Partial/Moderate Assistance-helper does LESS THAN HALF the effort. [place] lifts, holds or supports trunk or limbs, but provides less than half the effort. 2-Substantial/Maximal Assistance-helper does MORE THAN HALF the effort. [place] lifts or holds trunk or limbs and provides more than half the effort. 4-Qqxvtsgbe-ylvfrh does ALL the effort. Patient does none of the effort to complete the activity. Or, the assistance of 2 or more helpers is required for the patient to complete the activity. If activity was not attempted, code reason: 7-Patient Refused. 9-Not Applicable-not attempted and the patient did not perform the activity before the current illness, exacerbation or injury. 10-Not Attempted due to Environmental Limitations-(lack of equipment, weather restraints, etc.). 88-Not Attempted due to Medical Conditions or Safety Concerns. Roll Left to Right (QC): 3 Sit to Lying (QC): 3 Sit to Stand (QC): 4 Chair/Pvd-ay-Uqvrq Xfer(QC): 3 Car Transfer (QC): 3 Gait Training Does the Patient Walk?: Yes Distance: 150' x2 Walk 10 feet (QC): 5 Walk 50 ft with 2 Turns(QC): 4 Walk 150 ft (QC): 4 Walking 10ft/uneven surface-QC: 88 Gait Persons Needed: 1 Gait Assistive Device: FWW Wheelchair Training Does the Pt Use a Wheelchair?: No Wheel 50 ft with 2 turns (QC): 9 Wheel 150 ft (QC): 9 Stair Training 1 Step (curb) (QC): 88 4 Steps (QC): 88 12 Steps (QC): 88 Balance Picking up an Object (QC): 88 ADL-Treatment Eating (QC): 5 Oral Hygiene (QC): 4 Shower/Bathe Self (QC): 4 Upper Body Dressing (QC): 4 Lower Body Dressing (QC): 3 (min) On/Off Footwear (QC): 4 (Extra time and min cues to incorporate both UE's as pt bent at waist to reach feet. Less swelling exhibited in BLE's this date. ) Toileting Hygiene (QC): 4 Toilet Transfer (QC): 4 Assessment/Plan Assessment and Plan Assess & Plan/Chief Complaint Assessment: CHF Right shoulder soft tissue injury status post injection by Dr. Huerta on 09/23/2021 LE edema - due to CHF and lymphedema CAD Paroxysmal Atrial Fibrillation - OAC with Eliquis PAD Venous insufficiency Hyperlipidemia Hypothyroidism CKD-3 - followed by [facility] CAD FABRIZIO - on CPAP therapy and is managed by the Pulm services H/o gout Hyperbilirubinemia due to liver congestion work-up for [place] and cirrhosis negative Ascites on last ultrasound Plan: Ortho consult Monitor renal function Cardiology consultation Rehab protocol 09/24/2021: Appreciate Dr. Huerta Continue aggressive therapy Wrap legs Use home CPAP 09/25/21: Therapy Wraps legs Pain control 09/26/21: Wrap legs Shoulder pain management 09/27/21: Shoulder and right arm pain management Supportive care 09/28/2021: Pain management Supportive care 09/29/2021: Pain control Aggressive therapy (1) Congestive heart failure Status: Acute (2) Bilateral lower extremity pain Status: Acute (3) Chronic kidney disease (CKD) Status: Acute (4) Generalized weakness Status: Acute (5) Anasarca Status: Acute VERNELL ROMAN DO Sep 29, 2021 08:52
[2021-09-29] MEDS ORDERED: FUROSEMIDE 40 MG (LASIX) TAB PO SCH (09:00)
--- NOTE | 2021-09-29 09:29 | Occupational Ther Daily Note ---
OT Current Status-Daily Note Subjective Pt alert, sitting in recliner with BLE raised when OT entered. Pt agreed to therapy. Pain reported in RUE, nursing notified. Mental Status/Objective Patient Orientation: Person, Place, Time, Situation Attachments: IV ADL-Treatment Pt agreed to complete UB/LB dressing. After set up, pt donned UB dressing and required increased time due to pain in RUE. Pt able to thread BLE through LB dressing by lifting LE. Pt sit-stand from recliner to FWW with CGA. Pt required min A to hike LB dressing. Pt then requested to complete grooming and oral hygiene. Pt ambulated to bathroom using FWW with CGA. Pt completed oral hygiene and grooming while standing at sink with close supervision. Pt requested to use bathroom. Pt transferred to toilet with CGA. Pt sit-stand from toilet using grab bars with CGA. Pt completed toilet hygiene and hiked LB dressing with CGA. Pt then complete hand hygiene while standing at sink with close supervision. Pt then requested resting break before heading to gym. OT assisted with wrapping BLE due to edema. Therapy Code Descriptions/Definitions Functional [place] Measure: 0=Not Assessed/NA 4=Minimal Assistance 1=Total Assistance 5=Supervision or Setup 2=Maximal Assistance 6=Modified [place] 3=Moderate Assistance 7=Complete IndependenceSCALE: Activities may be completed with or without assistive devices. 4-Qzshnijmdf-kjkskmd completes the activity by him/herself with no assistance from a helper. 5-Set-up or Clean-up Assistance-helper sets up or cleans up; patient completes activity. [place] assists only prior to or following the activity. 4-Supervision or Touching Assistance-helper provides verbal cues and/or touching /steadying and/or contact guard assistance as patient completes activity. Assistance may be provided throughout the activity or intermittently. 3-Partial/Moderate Assistance-helper does LESS THAN HALF the effort. [place] lifts, holds or supports trunk or limbs, but provides less than half the effort. 2-Substantial/Maximal Assistance-helper does MORE THAN HALF the effort. [place] lifts or holds trunk or limbs and provides more than half the effort. 6-Vxzmlzyri-ffmzma does ALL the effort. Patient does none of the effort to complete the activity. Or, the assistance of 2 or more helpers is required for the patient to complete the activity. If activity was not attempted, code reason: 7-Patient Refused. 9-Not Applicable-not attempted and the patient did not perform the activity before the current illness, exacerbation or injury. 10-Not Attempted due to Environmental Limitations-(lack of equipment, weather restraints, etc.). 88-Not Attempted due to Medical Conditions or Safety Concerns. Other Treatment Pt participated in functional mobility task using FWW from room to gym for increased activity tolerance. Pt required resting break mcfp through mobility task due to low endurance and fatigue. Once in gym, pt participated in BUE ROM a nd dynamic standing task of transferring rings across arch to increase BUE ROM for improved independence with ADLs. When transferring rings across arch using RUE, pt was able to raise RUE ~45 degrees before grasping ring with LUE. Pt required multiple resting breaks throughout task due to increase in fatigue. Pt participated in FM task of manipulating theraputty to locate beads to increase hand strength for improved independence with opening/closing fasteners. Pt able to manipulate theraputty well using BUE. Pt ambulated from gym to room using FWW with CGA. Pt transferred to recliner with CGA. Pt required assist from therapist to scoot back against recliner, by reclining chair back and pt was able to use LUE to push self back against chair. After session, pt sitting in recliner. All needs met, in room and call light in reach. Education OT Patient Education: Correct positioning, Energy conservation, Purpose of tx/functional activities, Safety issues Teaching Recipient: Patient, Significant Other Teaching Methods: Demonstration, Discussion Response to Teaching: Verbalize Understanding, Return Demonstration OT Short Term Goals Short Term Goals Time Frame: Oct 02, 2021 Eatin Oral hygiene: 4 Toileting hygiene: 4 Shower/bathe self: 3 (min) Upper body dressin Lower body dressin (min) Putting on/taking off footwear: 3 OT Self Defense Instructor Goals Alf Goals Time Frame: Oct 13, 2021 Eating (QC): 6 Oral Hygiene (QC): 6 Toileting Hygiene (QC): 6 Shower/Bathe Self (QC): 4 Upper Body Dressing (QC): 4 Lower Body Dressing (QC): 5 On/Off Footwear (QC): 4 1=Demonstrate adherence to instructed precautions during ADL tasks. 2=Patient will verbalize/demonstrate understanding of assistive devices/modifications for ADL. 3=Patient will improve strength/tolerance for activity to enable patient to perform ADL's. OT Education/Plan Problem List/Assessment Assessment: Decreased Activ Tolerance, Decreased UE Strength, Impaired Self- Care Skills, Restricted Funct UE ROM Discharge Recommendations Plan/Recommendations: Continue POC Treatment Plan/Plan of Care Patient would benefit from OT for education, treatment and training to promote independence in ADL's, mobility, safety and/or upper extremity function for ADL's. Plan of Care: ADL Retraining, Functional Mobility, Group Exercise/Act as Ind, U E Funct Exercise/Act Treatment Duration: Oct 13, 2021 Frequency: At least 5 of 7 days/Wk (IRF) Estimated Hrs Per Day: 1.5 hours per day Agreement: Yes Rehab Potential: Fair Time/GCodes Start Time: 08:00 Stop Time: 09:30 Total Time Billed (hr/min): 90 Billed Treatment Time 1 visit- ADL 2 (36 mins) FA 4 (52 mins) LOUIE GRAMAJO Sep 29, 2021 09:29
--- NOTE | 2021-09-29 10:23 | Progress Note - Cardiology ---
Cardiology SOAP Progress Note Objective: I&O/Vital Signs Weight (Pounds): 211 Weight (Ounces): 8.0 Weight (Calculated Kilograms): 95.689005 Constitutional: AAO x 3, well-developed, well-nourished Respiratory: No accessory muscle use; other (good, bilat air entry) Cardiovascular: regular rate-rhythm, S1 and S2, systolic murmur (soft HSM at card apex) Gastrointestional: No tender; soft; No guarding, No rebound; audible bowel sounds Extremities: swelling (moderate, bilat leg edema), clubbing, cyanosis Neurologic/Psychiatric: oriented x 3, other (moves all limb; limited at R shoulder due to R shoulder pain) Skin: No rash on exposed areas, No ulcerations on exposed areas Results/Procedures: Labs Microbiology 10/03/21 Blood Culture - Preliminary, Resulted No growth A/P: Assessment: Right shoulder discomfort following a non-syncopal fall in Jul 2021 - management is by Dr Bertrand Leg swelling due to chronic cor pulmonale and due to chronic lymphedema - consider chronic pulm thromboembolism, inadequately treated FABRIZIO, pulm fibrosis, primary pulm hypertension, etc CAD - Cardiac cath of 10-07-15 showed minimal coronary plaques without any obstructive disease. LVEF 60-65%. Mod elevation of LVEDP. No significant MR - MPI of 03-10-2021 shows no evidence of ischemia or infarction. LVEF 70% Paroxysmal Atrial Fibrillation - OAC with Eliquis, low dose per PCP d/t propensity to bleeding, advanced age and CKD Mod pulm htn and chronic cor pulmonale - consider chronic pulm thromboembolism, inadequately treated FABRIZIO, pulm fibrosis, primary pulm hypertension, etc - Echo of 03-09-2021 showed LVEF 70-75%. Mod MR. Mod to severe TR. PASP 50-55 mmHg - Echo of 09-23-21:LVEF 60-65%, mod MR, triv AI, mod TR, PASP 50-55 mmHg (not significantly changed from the study of February 2021) PAD - arterial Doppler of February 2021 reported mod atheromatous plaque on both sides w/o evidence of hemodynamic significance Hyperlipidemia - unable to take statins - followed by her PCP Obesity - with a BMI of approximately 40 Hypothyroidism - managed by PCP CKD-3. - Chronic renal insuff with Cr ranging between 1 and 1.4. CKD stage 3, followed by [facility] Impaired fasting glucose - managed by PCP Carotid dz - Mild bilateral carotid art disease on carotid u/s of 02-27-2021 FABRIZIO - for which she is on CPAP therapy and is managed by the Pulm services H/o gout - managed by PCP Plan: * Continue diuretic regimen * Compression stocking during the daytime for control of leg swelling * Monitor labs NEAL LIM Sep 29, 2021 10:23
--- NOTE | 2021-09-29 10:59 | Physical Therapy Daily Note ---
PT Daily Note-Current Subjective Pt sitting in recliner upon arrival. Pt agrees to PT. Pt continues to reports pain in R UE. Pain Numeric Pain Scale: 7 Location Body Site: Elbow Pain Description: Ache Comment: Reports pain from elbow to shoulder. Mental Status Patient Orientation: Person, Place, Time, Situation Transfers SCALE: Activities may be completed with or without assistive devices. 4-Pburvmfyos-vmbkavo completes the activity by him/herself with no assistance from a helper. 5-Set-up or Clean-up Assistance-helper sets up or cleans up; patient completes activity. [place] assists only prior to or following the activity. 4-Supervision or Touching Assistance-helper provides verbal cues and/or touching/steadying and/or contact guard assistance as patient completes activity. Assistance may be provided throughout the activity or intermittently. 3-Partial/Moderate Assistance-helper does LESS THAN HALF the effort. [place] lifts, holds or supports trunk or limbs, but provides less than half the effort. 2-Substantial/Maximal Assistance-helper does MORE THAN HALF the effort. [place] lifts or holds trunk or limbs and provides more than half the effort. 0-Vkoxmslzs-rmztto does ALL the effort. Patient does none of the effort to complete the activity. Or, the assistance of 2 or more helpers is required for the patient to complete the activity. If activity was not attempted, code reason: 7-Patient Refused. 9-Not Applicable-not attempted and the patient did not perform the activity before the current illness, exacerbation or injury. 10-Not Attempted due to Environmental Limitations-(lack of equipment, weather restraints, etc.). 88-Not Attempted due to Medical Conditions or Safety Concerns. Sit to Stand (QC): 4 Toilet Transfer (QC): 4 Weight Bearing Full Weight Bearing Full Weight Bearing Gait Training Does the Patient Walk?: Yes Distance: 150' x2 Walk 10 feet (QC): 5 Walk 50 ft with 2 Turns(QC): 5 Walk 150 ft (QC): 5 Gait Persons Needed: 1 Gait Assistive Device: FWW Lowered FWW one notch per pt request due to discomfort in R elbow. Wheelchair Training Does the Pt Use a Wheelchair?: No Exercises Standing: Hip Abduction, Hamstring curls, Heel/toe raises, Marching Standing Reps: 15 NuStep Minutes: 11 NuStep Workload: 4 Treatments TF to standing and uses BR before leaving for tx. Pt amb. in hallway then uses NuStep for 11m at WL 4. Pt then completes Standing EX at //bars with a couple short RB. Pt amb. in hallway and returns to room to rest in recliner. All needs met, call light in hand. Assessment Current Status: Good Progress Pt limited a little bit by pain but reports feeling better when FWW lowered. PT Short Term Goals Short Term Goals Time Frame: Sep 30, 2021 Roll Left & Right: 4 Sit to lyin Lying to sitting on side of be: 3 Sit to stand: 4 Chair/bxj-up-ziyug transfer: 4 Walk 10 feet: 4 Walk 50 feet with two turns: 4 Walk 150 feet: 4 PT Retirement Goals Home Lighting Adviser Goals PT Retirement Goals Time Frame: Oct 14, 2021 Roll Left & Right (QC): 4 Sit to Lying (QC): 4 Lying-Sitting on Side/Bed(QC): 4 Sit to Stand (QC): 4 Chair/Rwi-jv-Mgzzs Xfer(QC): 4 Toilet Transfer (QC): 4 Car Transfer (QC): 3 Does the Patient Walk: Yes Walk 10 feet (QC): 4 Walk 50ft with 2 Turns (QC): 4 Walk 150 ft (QC): 4 Walking 10ft on Uneven Surface: 4 1 Step (curb) (QC): 4 4 Steps (QC): 88 12 Steps (QC): 88 Picking up an Object (QC): 4 Wheel 50 feet with 2 turns (QC: 9 Wheel 150 feet: 9 PT Plan Problem List Problem List: Activity Tolerance, Functional Strength Treatment/Plan Treatment Plan: Continue Plan of Care Treatment Plan: Bed Mobility, Education, Functional Activity [place], Functional Strength, Group Therapy, Gait, Safety, Therapeutic Exercise, Transfers Treatment Duration: Oct 14, 2021 Frequency: At least 5 of 7 days/Wk (IRF) Estimated Hrs Per Day: 1.5 hours per day Patient and/or Family Agrees t: Yes Safety Risks/Education Patient Education: Gait Training, Correct Positioning Teaching Recipient: Patient Teaching Methods: Discussion Response to Teaching: Verbalize Understanding Time/GCodes Time In: 1000 Time Out: 1045 Total Billed Treatment Time: 45 Total Billed Treatment 1, GT (20m) & EX x2 (25m) ASHOK LORD COMPLIANCE EXAMINER Sep 29, 2021 10:59
--- NOTE | 2021-09-29 11:09 | Progress Note - Cardiology ---
Cardiology SOAP Progress Note Subjective: R arm pain persistent No shortness of breath at rest Leg swelling better No cp No palp or syncope Gen malaise and weakness present No n/v/d Objective: I&O/Vital Signs 09/29/21 09/29/21 07:29 09:01 Temp 37.0 Pulse 88 Resp 18 B/P (MAP) 115/56 (75) Pulse Ox 93 O2 Delivery Room Air Room Air Weight (Pounds): 211 Weight (Ounces): 8.0 Weight (Calculated Kilograms): 95.008044 Constitutional: AAO x 3, well-developed, well-nourished Respiratory: No accessory muscle use; other (good, bilat air entry) Cardiovascular: regular rate-rhythm, S1 and S2, systolic murmur (soft HSM at card apex) Gastrointestional: No tender; soft; No guarding, No rebound; audible bowel sounds Extremities: swelling (moderate, bilat leg edema), clubbing, cyanosis Neurologic/Psychiatric: oriented x 3, other (moves all limb; limited at R shoulder due to R shoulder pain) Skin: No rash on exposed areas, No ulcerations on exposed areas Results/Procedures: Labs Laboratory Tests 09/29/21 05:44: Sodium Level 134L, Potassium Level 4.5, Chloride Level 100, Carbon Dioxide Level 23, Anion Gap 11, Blood Urea Nitrogen 33H, Creatinine 1.11, Estimat Glomerular Filtration Rate 47, BUN/Creatinine Ratio 30, Glucose Level 74, Calcium Level 9.1 Laboratory Tests 09/28/21 05:30 09/29/21 05:44 A/P: Assessment: Right shoulder discomfort following a non-syncopal fall in Jul 2021 - management is by Dr Bertrand Leg swelling due to chronic cor pulmonale and due to chronic lymphedema - consider chronic pulm thromboembolism, inadequately treated FABRIZIO, pulm fibrosis, primary pulm hypertension, etc CAD - Cardiac cath of 10-07-15 showed minimal coronary plaques without any obstructive disease. LVEF 60-65%. Mod elevation of LVEDP. No significant MR - MPI of 03-10-2021 shows no evidence of ischemia or infarction. LVEF 70% Paroxysmal Atrial Fibrillation - OAC with Eliquis, low dose per PCP d/t propensity to bleeding, advanced age and CKD Mod pulm htn and chronic cor pulmonale - consider chronic pulm thromboembolism, inadequately treated FABRIZIO, pulm fibrosis, primary pulm hypertension, etc - Echo of 03-09-2021 showed LVEF 70-75%. Mod MR. Mod to severe TR. PASP 50-55 mmHg - Echo of 09-23-21:LVEF 60-65%, mod MR, triv AI, mod TR, PASP 50-55 mmHg (not significantly changed from the study of February 2021) PAD - arterial Doppler of February 2021 reported mod atheromatous plaque on both sides w/o evidence of hemodynamic significance Hyperlipidemia - unable to take statins - followed by her PCP Obesity - with a BMI of approximately 40 Hypothyroidism - managed by PCP CKD-3. - Chronic renal insuff with Cr ranging between 1 and 1.4. CKD stage 3, followed by [facility] Impaired fasting glucose - managed by PCP Carotid dz - Mild bilateral carotid art disease on carotid u/s of 02-27-2021 FABRIZIO - for which she is on CPAP therapy and is managed by the Pulm services H/o gout - managed by PCP Plan: * Continue diuretic regimen * Compression stocking during the daytime for control of leg swelling * Monitor labs ISABELLE CARLTON MD FACP FAC CCDS Sep 29, 2021 11:09
--- NOTE | 2021-09-29 11:45 | Speech Therapy Daily Note ---
Speech Daily Progress Note Subjective Date Seen by Provider: Sep 29, 2021 Time Seen by Provider: 00:30 Patient was resting in her recliner using her right hand to sign checks for her . She states she's been able to do more with it but today it was hurting. Objective Patient demonstrated ability to answer questions related to self and needs with 85% given minimal cues. She utilizes safety for oral intake with current diet without cues. Assessment Assessment Current Status: Good Progress Treatment Plan Continue Plan of Care Speech Short Term Goals Short Term Goals Short Term Goals 1) Patient will complete memory tasks related to her daily needs at 80% or greater with minimal cues. 2) Patient will complete safety awareness tasks related to her daily needs at 80% or greater with minimal cues. 3) Patient will complete problem solving tasks related to her daily needs at 80% or greater with minimal cues. 4) Patient will demonstrate ability to consume Dysphagia II diet level with left hand at 90% or greater. Speech Finish Painter Goals Fdc Goals Patient will increase functional level for ability to complete daily tasks with minimal assist. Patient will maintain adequate nutrition/hydration with alternate hand utilization. Speech-Plan Patient/Family Goals Patient/Family Goals: Patient plans to return home where she lives with her . She also plans to continue skilled therapy through home health services. Treatment Plan Speech Therapy Treatment Plan: Continue Plan of Care Treatment Duration: Oct 02, 2021 Frequency: 4 times per week (Patient will receive skilled ST 4-5x per week) Estimated Hrs Per Day: .5 hour per day Rehab Potential: Fair Barriers to Learning: Patient's debility and age Safety Risks/Education Teaching Recipient: Patient, Significant Other Teaching Methods: Demonstration, Discussion Response to Teaching: Verbalize Understanding, Return Demonstration Education Topics Provided: Continued safety with intake and communication Time Speech Therapy Time In: 11:00 Speech Therapy Time Out: 11:30 Total Billed Time: 30 Billed Treatment Time 1, LIZET, EVER Fisher Sep 29, 2021 11:45
--- NOTE | 2021-09-29 15:20 | Physical Therapy Daily Note ---
PT Daily Note-Current Subjective Pt sitting in recliner upon arrival. Pt agrees to PT. Pain Location Body Site: Elbow Pain Description: Ache Comment: Reports but doesn't rate Mental Status Patient Orientation: Person, Place, Time, Situation (4) Transfers SCALE: Activities may be completed with or without assistive devices. 5-Pfvwqvjaei-ltyxorb completes the activity by him/herself with no assistance from a helper. 5-Set-up or Clean-up Assistance-helper sets up or cleans up; patient completes activity. [place] assists only prior to or following the activity. 4-Supervision or Touching Assistance-helper provides verbal cues and/or touching/steadying and/or contact guard assistance as patient completes activity. Assistance may be provided throughout the activity or intermittently. 3-Partial/Moderate Assistance-helper does LESS THAN HALF the effort. [place] lifts, holds or supports trunk or limbs, but provides less than half the effort. 2-Substantial/Maximal Assistance-helper does MORE THAN HALF the effort. [place] lifts or holds trunk or limbs and provides more than half the effort. 7-Hornjfpap-oqadij does ALL the effort. Patient does none of the effort to complete the activity. Or, the assistance of 2 or more helpers is required for the patient to complete the activity. If activity was not attempted, code reason: 7-Patient Refused. 9-Not Applicable-not attempted and the patient did not perform the activity before the current illness, exacerbation or injury. 10-Not Attempted due to Environmental Limitations-(lack of equipment, weather restraints, etc.). 88-Not Attempted due to Medical Conditions or Safety Concerns. Sit to Stand (QC): 4 Weight Bearing Full Weight Bearing Full Weight Bearing Gait Training Does the Patient Walk?: Yes Distance: 150' x2 Walk 10 feet (QC): 5 Walk 50 ft with 2 Turns(QC): 5 Walk 150 ft (QC): 5 Gait Persons Needed: 1 Gait Assistive Device: FWW Wheelchair Training Does the Pt Use a Wheelchair?: No Exercises Seated Therapy Exercises: Ankle pumps, Long arc quads, Hip flexion, Hip abd/add, Glut set Seated Reps: 10 Treatments TF to standing and amb. in hallway. Pt completes Seated Ex then amb. back to room. Pt resting in recliner with all needs met, call light in hand. Assessment Current Status: Good Progress Pt still reporting pain in R UE even after FWW was lowered in morning session. PT Short Term Goals Short Term Goals Time Frame: Sep 30, 2021 Roll Left & Right: 4 Sit to lyin Lying to sitting on side of be: 3 Sit to stand: 4 Chair/sgy-is-frnhw transfer: 4 Walk 10 feet: 4 Walk 50 feet with two turns: 4 Walk 150 feet: 4 PT Wool Shearer Goals Correction Goals PT Correction Goals Time Frame: Oct 14, 2021 Roll Left & Right (QC): 4 Sit to Lying (QC): 4 Lying-Sitting on Side/Bed(QC): 4 Sit to Stand (QC): 4 Chair/Ehi-kw-Hgqqe Xfer(QC): 4 Toilet Transfer (QC): 4 Car Transfer (QC): 3 Does the Patient Walk: Yes Walk 10 feet (QC): 4 Walk 50ft with 2 Turns (QC): 4 Walk 150 ft (QC): 4 Walking 10ft on Uneven Surface: 4 1 Step (curb) (QC): 4 4 Steps (QC): 88 12 Steps (QC): 88 Picking up an Object (QC): 4 Wheel 50 feet with 2 turns (QC: 9 Wheel 150 feet: 9 PT Plan Problem List Problem List: Activity Tolerance, Functional Strength Treatment/Plan Treatment Plan: Continue Plan of Care Treatment Plan: Bed Mobility, Education, Functional Activity [place], Functional Strength, Group Therapy, Gait, Safety, Therapeutic Exercise, Transfers Treatment Duration: Oct 14, 2021 Frequency: At least 5 of 7 days/Wk (IRF) Estimated Hrs Per Day: 1.5 hours per day Patient and/or Family Agrees t: Yes Safety Risks/Education Patient Education: Gait Training, Correct Positioning Teaching Recipient: Patient Teaching Methods: Discussion Response to Teaching: Verbalize Understanding Time/GCodes Time In: 1430 Time Out: 1500 Total Billed Treatment Time: 30 Total Billed Treatment 1, GT (15m) & EX (15m) ASHOK LORD ACCOUNTING INSTRUCTOR Sep 29, 2021 15:20
[2021-09-29 20:15] VITALS: BP 103/66
[2021-09-30] MEDS: LEVOTHYROXINE 25 MCG (LEVOTHROID) TAB PO SCH (06:33)
[2021-09-30] MEDS: LEVOTHYROXINE 112 MCG (LEVOTHROID) TAB PO SCH (06:33)
[2021-09-30 07:57] VITALS: BP 108/53
[2021-09-30] MEDS: meTOprolol SUCCINATE 100 MG (TOPROL XL) TAB PO SCH (09:11)
[2021-09-30] MEDS: APIXABAN 2.5 MG (ELIQUIS) TABLET PO SCH ×2 (09:12→20:38)
[2021-09-30] MEDS: SENNA W/DOCUSATE (SENOKOT S) TABLET PO SCH ×2 (09:12→20:35)
[2021-09-30] MEDS: ALLOPURINOL 300 MG (ZYLOPRIM) TAB PO SCH (09:12)
[2021-09-30] MEDS: FUROSEMIDE 40 MG (LASIX) TAB PO SCH (09:12)
[2021-09-30] MEDS: KCL 20 MEQ TAB (K-DUR) PO SCH ×2 (09:12→17:28)
[2021-09-30] MEDS: LACTOBACILLUS ACIDOPHILUS (PROBIOTIC) CAPSULE PO SCH (09:12)
[2021-09-30] MEDS: DOCUSATE SODIUM 100 MG (COLACE) CAP PO SCH ×2 (09:12→20:34)
[2021-09-30] MEDS: DICLOFENAC 1% GEL 100 GM (VOLTAREN) TUBE TOP SCH ×4 (09:17→20:39)
--- NOTE | 2021-09-30 09:42 | Speech Therapy Daily Note ---
Speech Daily Progress Note Subjective Date Seen by Provider: Sep 30, 2021 Time Seen by Provider: 00:30 Patient was resting in her chair, pleased that she had so much more ROM in her right arm with minimal pain. Assessment Assessment Current Status: Good Progress Treatment Plan Continue Plan of Care Speech Short Term Goals Short Term Goals Short Term Goals 1) Patient will complete memory tasks related to her daily needs at 80% or greater with minimal cues. 2) Patient will complete safety awareness tasks related to her daily needs at 80% or greater with minimal cues. 3) Patient will complete problem solving tasks related to her daily needs at 80% or greater with minimal cues. 4) Patient will demonstrate ability to consume Dysphagia II diet level with left hand at 90% or greater. Speech Block Piler Goals Care Home Goals Patient will increase functional level for ability to complete daily tasks with minimal assist. Patient will maintain adequate nutrition/hydration with alternate hand utilization. Speech-Plan Patient/Family Goals Patient/Family Goals: Patient plans to return home where she lives with her . She will have home health services as well as family nearby to assist as needed. Treatment Plan Speech Therapy Treatment Plan: Continue Plan of Care Treatment Duration: Oct 02, 2021 Frequency: 4 times per week (Patient will receive skilled ST 4-5x per week) Estimated Hrs Per Day: .5 hour per day Rehab Potential: Fair Barriers to Learning: Patient's cognitive function, however deficits have mostly resolved. Pt/Family Agrees to Plan: Yes Safety Risks/Education Teaching Recipient: Patient Teaching Methods: Demonstration, Discussion Response to Teaching: Verbalize Understanding, Return Demonstration Education Topics Provided: Continued safety and communication Time Speech Therapy Time In: 09:30 Speech Therapy Time Out: 10:00 Total Billed Time: 30 Billed Treatment Time 1, EVER Fisher Sep 30, 2021 09:42
--- NOTE | 2021-09-30 09:55 | Occupational Ther Daily Note ---
OT Current Status-Daily Note Subjective Pt reports less pain in RUE this date; 12/24. Appearance Left sitting in chair, all needs within reach, family in room. Mental Status/Objective Patient Orientation: Person, Place, Situation Attachments: IV ADL-Treatment Therapy Code Descriptions/Definitions Functional [place] Measure: 0=Not Assessed/NA 4=Minimal Assistance 1=Total Assistance 5=Supervision or Setup 2=Maximal Assistance 6=Modified [place] 3=Moderate Assistance 7=Complete IndependenceSCALE: Activities may be completed with or without assistive devices. 9-Calgvcxwqe-dsnyiyv completes the activity by him/herself with no assistance from a helper. 5-Set-up or Clean-up Assistance-helper sets up or cleans up; patient completes activity. [place] assists only prior to or following the activity. 4-Supervision or Touching Assistance-helper provides verbal cues and/or touching/steadying and/or contact guard assistance as patient completes activity. Assistance may be provided throughout the activity or intermittently. 3-Partial/Moderate Assistance-helper does LESS THAN HALF the effort. [place] lifts, holds or supports trunk or limbs, but provides less than half the effort. 2-Substantial/Maximal Assistance-helper does MORE THAN HALF the effort. [place] lifts or holds trunk or limbs and provides more than half the effort. 6-Beykybggl-texdxu does ALL the effort. Patient does none of the effort to complete the activity. Or, the assistance of 2 or more helpers is required for the patient to complete the activity. If activity was not attempted, code reason: 7-Patient Refused. 9-Not Applicable-not attempted and the patient did not perform the activity before the current illness, exacerbation or injury. 10-Not Attempted due to Environmental Limitations-(lack of equipment, weather restraints, etc.). 88-Not Attempted due to Medical Conditions or Safety Concerns. Upper Body Dressing (QC): 3 Lower Body Dressing (QC): 4 On/Off Footwear: 4 Toileting Hygiene (QC): 4 Toilet Transfer (QC): 4 Pt retrieved clothes with use of walker and SBA. Reminder to drape clothing over top of walker. She stood at sink for grooming tasks, sup for safety. No lob or unsteadiness exhibited. Continues to use L hand to comb top of head due to pain and impaired shoulder ROM in Right arm. She sat in w/c to don clothing. Extra time to thread BLE's into underwear/pants, but no assist needed. She stood to manage up to waist with SBA-CGA, extra time to bring over R hip, again due to impaired UE ROM. Pt more willing to use RUE this date during functional tasks. Good recall of compensatory strategies when donning shirt, min a to mold puller R shoulder. Other Treatment Family brought up concern regarding bed mobility and pt having difficult time lifting legs into bed at home. OT discussed compensatory methods and option of using leg pattern wheel maker. OT discussed with PT on practicing bed mobility with equipment (PRN). Education OT Patient Education: Correct positioning, Energy conservation, Modified ADL techniques, Progress toward Goal/Update tx plan, Purpose of tx/functional activities, Safety issues, Transfer techniques Teaching Recipient: Patient Teaching Methods: Demonstration, Discussion Response to Teaching: Verbalize Understanding, Return Demonstration OT Short Term Goals Short Term Goals Time Frame: Oct 02, 2021 Eatin Oral hygiene: 4 Toileting hygiene: 4 Shower/bathe self: 3 (min) Upper body dressin Lower body dressin (min) Putting on/taking off footwear: 3 OT Prison Goals Cuff Maker Goals Time Frame: Oct 13, 2021 Eating (QC): 6 Oral Hygiene (QC): 6 Toileting Hygiene (QC): 6 Shower/Bathe Self (QC): 4 Upper Body Dressing (QC): 4 Lower Body Dressing (QC): 5 On/Off Footwear (QC): 4 1=Demonstrate adherence to instructed precautions during ADL tasks. 2=Patient will verbalize/demonstrate understanding of assistive devices/modifications for ADL. 3=Patient will improve strength/tolerance for activity to enable patient to perform ADL's. OT Education/Plan Problem List/Assessment Assessment: Decreased Activ Tolerance, Decreased UE Strength, Edema, Impaired Coordination, Impaired I ADL's, Impaired Self-Care Skills, Restricted Funct UE ROM Discharge Recommendations Plan/Recommendations: Continue POC Treatment Plan/Plan of Care Treatment,Training & Education: Yes Patient would benefit from OT for education, treatment and training to promote independence in ADL's, mobility, safety and/or upper extremity function for ADL's. Plan of Care: ADL Retraining, Functional Mobility, Group Exercise/Act as Ind, UE Funct Exercise/Act Treatment Duration: Oct 13, 2021 Frequency: At least 5 of 7 days/Wk (IRF) Estimated Hrs Per Day: 1.5 hours per day Agreement: Yes Rehab Potential: Fair Time/GCodes Start Time: 08:48 Stop Time: 09:30 Total Time Billed (hr/min): 42 Billed Treatment Time 1 visit ADL x3 Glenna Reynoso OT Sep 30, 2021 09:55
[2021-09-30] MEDS: polyethylene glycoL POWDER 17 GM (MIRALAX) PACK PO SCH ×2 (10:19→20:34)
--- NOTE | 2021-09-30 10:55 | Physical Therapy Daily Note ---
PT Daily Note-Current Subjective Pt sitting in recliner upon arrival. Pt agrees to PT. Pain Location Body Site: Elbow Pain Description: Ache Comment: Reports but doesn't rate Mental Status Patient Orientation: Person, Place, Time, Situation Transfers SCALE: Activities may be completed with or without assistive devices. 2-Xabymkhfsj-whhroto completes the activity by him/herself with no assistance from a helper. 5-Set-up or Clean-up Assistance-helper sets up or cleans up; patient completes activity. [place] assists only prior to or following the activity. 4-Supervision or Touching Assistance-helper provides verbal cues and/or touching/steadying and/or contact guard assistance as patient completes activity. Assistance may be provided throughout the activity or intermittently. 3-Partial/Moderate Assistance-helper does LESS THAN HALF the effort. [place] lifts, holds or supports trunk or limbs, but provides less than half the effort. 2-Substantial/Maximal Assistance-helper does MORE THAN HALF the effort. [place] lifts or holds trunk or limbs and provides more than half the effort. 7-Yfdivzmgi-kzxiis does ALL the effort. Patient does none of the effort to complete the activity. Or, the assistance of 2 or more helpers is required for the patient to complete the activity. If activity was not attempted, code reason: 7-Patient Refused. 9-Not Applicable-not attempted and the patient did not perform the activity before the current illness, exacerbation or injury. 10-Not Attempted due to Environmental Limitations-(lack of equipment, weather restraints, etc.). 88-Not Attempted due to Medical Conditions or Safety Concerns. Sit to Stand (QC): 3 Min A for start tx but Mod A as pt fatigues Weight Bearing Full Weight Bearing Full Weight Bearing Gait Training Does the Patient Walk?: Yes Distance: 150' Walk 10 feet (QC): 5 Walk 50 ft with 2 Turns(QC): 5 Walk 150 ft (QC): 5 Gait Persons Needed: 1 Exercises Standing: Hip Abduction, Hamstring curls, Heel/toe raises, Marching Standing Reps: 10 Treatments TF to standing and amb. to EOB. Pt practices w/Leg Provider Network Mgr w/o success then attempts w/RESCUE WORKER assistance. Pt is Mod A for Lifting legs into bed. RESCUE WORKER assists with donning compression socks and garments. Pt amb. in hallway taking RB after walk. Pt completes Standing Ex in //bars. Pt returns to room to rest in bed w/all needs met, call light in hands. Assessment Current Status: Good Progress Pt has improved with sit to stands as well as ambulation. Pt still struggling with lifting legs into bed. Leg Provider Network Mgr has been attempted although not successfully. Pt's family is looking into getting a shorter bed for easier transfer. PT Short Term Goals Short Term Goals Time Frame: Sep 30, 2021 Roll Left & Right: 4 Sit to lyin Lying to sitting on side of be: 3 Sit to stand: 4 Chair/teb-ga-wasbv transfer: 4 Walk 10 feet: 4 Walk 50 feet with two turns: 4 Walk 150 feet: 4 PT Assisted Goals Assisted Goals PT Educational [employer] President Goals Time Frame: Oct 14, 2021 Roll Left & Right (QC): 4 Sit to Lying (QC): 4 Lying-Sitting on Side/Bed(QC): 4 Sit to Stand (QC): 4 Chair/Gim-iq-Pzagy Xfer(QC): 4 Toilet Transfer (QC): 4 Car Transfer (QC): 3 Does the Patient Walk: Yes Walk 10 feet (QC): 4 Walk 50ft with 2 Turns (QC): 4 Walk 150 ft (QC): 4 Walking 10ft on Uneven Surface: 4 1 Step (curb) (QC): 4 4 Steps (QC): 88 12 Steps (QC): 88 Picking up an Object (QC): 4 Wheel 50 feet with 2 turns (QC: 9 Wheel 150 feet: 9 PT Plan Problem List Problem List: Activity Tolerance, Functional Strength Treatment/Plan Treatment Plan: Continue Plan of Care Treatment Plan: Bed Mobility, Education, Functional Activity [place], Functional Strength, Group Therapy, Gait, Safety, Therapeutic Exercise, Transfers Treatment Duration: Oct 14, 2021 Frequency: At least 5 of 7 days/Wk (IRF) Estimated Hrs Per Day: 1.5 hours per day Patient and/or Family Agrees t: Yes Safety Risks/Education Patient Education: Transfer Techniques, Correct Positioning Teaching Recipient: Patient, Significant Other Response to Teaching: Verbalize Understanding Time/GCodes Time In: 1000 Time Out: 1045 Total Billed Treatment Time: 45 Total Billed Treatment 1, FA (15m), GT (15m) & EX (15m) ASHOK LORD RESCUE WORKER Sep 30, 2021 10:55
--- NOTE | 2021-09-30 12:30 | PM&R Progress Note ---
Subjective HPI/CC On Admission Date Seen by Provider: Sep 30, 2021 Time Seen by Provider: 12:00 Subjective/Events-last exam 09/30/2021: Pt having no issues K-Pad used with help Ambulates with 150 feet Everyone is very hesitant about her going home Talked about her debility and her lymphedema and the fact that it is a progressive type of situation Daughter at the bedside does not appear to be heavily involved with any ADL help 09/29/2021: Pt doing better Standby assist Bowels moved 2 days ago K Pad to the right arm is helpful 09/28/2021: Pt doing a lot better Albumin 2.6 Creatinine 1. 28 Checked meds and labs Working hard 09/27/21: Patient doing better DC MVI due to nausea Suppository given and had complete evacuation of bowels finally TONY wraps to lower legs working out well for her Diclofenac gel with Kpad working well for her right shoulder and arm DC daily weights 09/26/21: Patient doing well at bedside Wrapping legs Patient and her would do well with assisted living 09/25/21: Patient doing better than she thinks she is Pain both shoulders limits her Patient appears to be frightened about what is to come with decline Working with therapy Wrapping legs is really helping her 09/24/2021: Patient settling in well Was already able to walk around Right shoulder pain improved since Dr. Huerta injected it Has been brought her CPAP into use at night Wrapping legs with Tony wraps Speech therapy will evaluate dysphagia Review of Systems General: Fatigue, Malaise Musculoskeletal: arm pain, leg pain Objective Exam Vital Signs Vital Signs Date Time Temp Pulse Resp B/P (MAP) Pulse Ox O2 Delivery O2 Flow Rate FiO2 09/30/21 20:42 Room Air 09/30/21 20:00 37.1 95 20 107/56 (73) 97 Capillary Refill : General Appearance: No Apparent Distress, WD/WN, Chronically ill, Obese HEENT: PERRL/EOMI, Normal ENT Inspection, Pharynx Normal Neck: Full Range of Motion, Normal Inspection, Non Tender, Supple, Carotid Bruit Respiratory: Chest Non Tender, Lungs Clear, Normal Breath Sounds, No Accessory Muscle Use, No Respiratory Distress Cardiovascular: Regular Rate, Rhythm, No Gallop, No JVD, No Murmur, Normal Peripheral Pulses, Irregularly Irregular Gastrointestinal: Normal Bowel Sounds, No Organomegaly, No Pulsatile Mass, Non Tender, Soft Back: Normal Inspection, No CVA Tenderness, No Vertebral Tenderness Extremity: Normal Capillary Refill, Normal Inspection, Normal Range of Motion, Non Tender, No Calf Tenderness, Pedal Edema Neurologic/Psychiatric: Alert, Oriented x3, No Motor/Sensory Deficits, Normal Mood/Affect, jacquard lace weaver II-XII Norm as Tested, Motor Weakness (generalized) Skin: Normal Color, Warm/Dry Lymphatic: No Adenopathy Results/Procedures Lab Patient resulted labs reviewed. FIM Transfers Therapy Code Descriptions/Definitions Functional [place] Measure: 0=Not Assessed/NA 4=Minimal Assistance 1=Total Assistance 5=Supervision or Setup 2=Maximal Assistance 6=Modified [place] 3=Moderate Assistance 7=Complete IndependenceSCALE: Activities may be completed with or without assistive devices. 7-Ezkbswecbh-hyvedli completes the activity by him/herself with no assistance from a helper. 5-Set-up or Clean-up Assistance-helper sets up or cleans up; patient completes activity. [place] assists only prior to or following the activity. 4-Supervision or Touching Assistance-helper provides verbal cues and/or touching/steadying and/or contact guard assistance as patient completes activity. Assistance may be provided throughout the activity or intermittently. 3-Partial/Moderate Assistance-helper does LESS THAN HALF the effort. [place] lifts, holds or supports trunk or limbs, but provides less than half the effort. 2-Substantial/Maximal Assistance-helper does MORE THAN HALF the effort. [place] lifts or holds trunk or limbs and provides more than half the effort. 6-Oqlbkpfwc-gplbhe does ALL the effort. Patient does none of the effort to complete the activity. Or, the assistance of 2 or more helpers is required for the patient to complete the activity. If activity was not attempted, code reason: 7-Patient Refused. 9-Not Applicable-not attempted and the patient did not perform the activity before the current illness, exacerbation or injury. 10-Not Attempted due to Environmental Limitations-(lack of equipment, weather restraints, etc.). 88-Not Attempted due to Medical Conditions or Safety Concerns. Roll Left to Right (QC): 3 Sit to Lying (QC): 3 Sit to Stand (QC): 3 Chair/Mgz-po-Wyvim Xfer(QC): 3 Car Transfer (QC): 3 Gait Training Does the Patient Walk?: Yes Distance: 150' Walk 10 feet (QC): 5 Walk 50 ft with 2 Turns(QC): 5 Walk 150 ft (QC): 5 Walking 10ft/uneven surface-QC: 88 Gait Persons Needed: 1 Gait Assistive Device: FWW Wheelchair Training Does the Pt Use a Wheelchair?: No Wheel 50 ft with 2 turns (QC): 9 Wheel 150 ft (QC): 9 Stair Training 1 Step (curb) (QC): 88 4 Steps (QC): 88 12 Steps (QC): 88 Balance Picking up an Object (QC): 88 ADL-Treatment Eating (QC): 5 Oral Hygiene (QC): 4 Shower/Bathe Self (QC): 4 Upper Body Dressing (QC): 3 Lower Body Dressing (QC): 4 On/Off Footwear (QC): 4 Toileting Hygiene (QC): 4 Toilet Transfer (QC): 4 Assessment/Plan Assessment and Plan Assess & Plan/Chief Complaint Assessment: CHF Right shoulder soft tissue injury status post injection by Dr. Huerta on 09/23/2021 LE edema - due to CHF and lymphedema CAD Paroxysmal Atrial Fibrillation - OAC with Eliquis PAD Venous insufficiency Hyperlipidemia Hypothyroidism CKD-3 - followed by [facility] CAD FABRIZIO - on CPAP therapy and is managed by the Pulm services H/o gout Hyperbilirubinemia due to liver congestion work-up for [place] and cirrhosis negative Ascites on last ultrasound Plan: Ortho consult Monitor renal function Cardiology consultation Rehab protocol 09/24/2021: Appreciate Dr. Huerta Continue aggressive therapy Wrap legs Use home CPAP 09/25/21: Therapy Wraps legs Pain control 09/26/21: Wrap legs Shoulder pain management 09/27/21: Shoulder and right arm pain management Supportive care 09/28/2021: Pain management Supportive care 09/29/2021: Pain control Aggressive therapy 09/30/2021: Supportive care Discharge plan next week (1) Congestive heart failure Status: Acute (2) Bilateral lower extremity pain Status: Acute (3) Chronic kidney disease (CKD) Status: Acute (4) Generalized weakness Status: Acute (5) Anasarca Status: Acute VERNELL ROMAN DO Sep 30, 2021 12:30
--- NOTE | 2021-09-30 14:32 | Therapy Group Daily Note ---
Therapy Daily Group Note Patient Education Topic Other List Below Exercises LE Seated Exercise, UE Exercise Session Ratio (pt:therapist): 7:2 Goal of Session: Education on ARU Expectations, Memory Strategies, UE/LE Strengthing Goal Met for this Session: Yes Pt Benefit of Group: Contributions to Others, F/U Use of Strategies @Home, Increased Functional Safety, Increased Functional Strength, Improved Cognition, Recognition of Peers, Socialization Other/Notes Pt ambulated using FWW to ARU [facility] area for OT/PT group. Group consisted of introductions (name, place living, childhood memory), socialization, B UE/LE seated exercises, educational topics of ARU description/expectations and memory. Pt introduced self appropriately and actively listened to peers. Pt able to complete B UE/LE WFL with minimal modifications due to medical issues. Pt acknowledged understanding of educational topics by nodding affirmative and giving own personal strategies. After session, pt lying in bed with call light/phone in reach. All needs met in room. Start Time: 13:00 Stop Time: 14:00 Total Billed Treatment Time: 60 Total Billed Treatment 1-MOOKIE CARMEN Sep 30, 2021 14:32
[2021-09-30 20:00] VITALS: BP 107/56
[2021-10-01] VITALS (7 sets, daily range): BP systolic 95–118; BP diastolic 50–62
[2021-10-01] MEDS: LEVOTHYROXINE 25 MCG (LEVOTHROID) TAB PO SCH (05:50)
[2021-10-01] MEDS: LEVOTHYROXINE 112 MCG (LEVOTHROID) TAB PO SCH (05:50)
[2021-10-01] MEDS: meTOprolol SUCCINATE 100 MG (TOPROL XL) TAB PO SCH ×3 (08:06→11:17)
[2021-10-01] MEDS: APIXABAN 2.5 MG (ELIQUIS) TABLET PO SCH ×2 (08:07→20:16)
[2021-10-01] MEDS: LACTOBACILLUS ACIDOPHILUS (PROBIOTIC) CAPSULE PO SCH (08:07)
[2021-10-01] MEDS: ALLOPURINOL 300 MG (ZYLOPRIM) TAB PO SCH (08:07)
[2021-10-01] MEDS: KCL 20 MEQ TAB (K-DUR) PO SCH ×2 (08:08→17:37)
[2021-10-01] MEDS: polyethylene glycoL POWDER 17 GM (MIRALAX) PACK PO SCH ×2 (08:18→21:48)
[2021-10-01] MEDS: SENNA W/DOCUSATE (SENOKOT S) TABLET PO SCH ×2 (08:19→21:48)
[2021-10-01] MEDS: DICLOFENAC 1% GEL 100 GM (VOLTAREN) TUBE TOP SCH ×4 (08:19→20:16)
[2021-10-01] MEDS: DOCUSATE SODIUM 100 MG (COLACE) CAP PO SCH ×2 (08:19→21:48)
--- NOTE | 2021-10-01 08:56 | Occupational Ther Daily Note ---
OT Current Status-Daily Note Subjective Pt complains of double vision in L eye. RN aware. Appearance Pt left sitting in chair, spouse in room. Mental Status/Objective Attachments: IV ADL-Treatment Therapy Code Descriptions/Definitions Functional [place] Measure: 0=Not Assessed/NA 4=Minimal Assistance 1=Total Assistance 5=Supervision or Setup 2=Maximal Assistance 6=Modified [place] 3=Moderate Assistance 7=Complete IndependenceSCALE: Activities may be completed with or without assistive devices. 0-Trabcvmora-tcuuugb completes the activity by him/herself with no assistance from a helper. 5-Set-up or Clean-up Assistance-helper sets up or cleans up; patient completes activity. [place] assists only prior to or following the activity. 4-Supervision or Touching Assistance-helper provides verbal cues and/or touching/steadying and/or contact guard assistance as patient completes activity. Assistance may be provided throughout the activity or intermittently. 3-Partial/Moderate Assistance-helper does LESS THAN HALF the effort. [place] lifts, holds or supports trunk or limbs, but provides less than half the effort. 2-Substantial/Maximal Assistance-helper does MORE THAN HALF the effort. [place] lifts or holds trunk or limbs and provides more than half the effort. 7-Qcmkkayav-eebxny does ALL the effort. Patient does none of the effort to complete the activity. Or, the assistance of 2 or more helpers is required for the patient to complete the activity. If activity was not attempted, code reason: 7-Patient Refused. 9-Not Applicable-not attempted and the patient did not perform the activity before the current illness, exacerbation or injury. 10-Not Attempted due to Environmental Limitations-(lack of equipment, weather restraints, etc.). 88-Not Attempted due to Medical Conditions or Safety Concerns. Eating (QC): 4 Oral Hygiene (QC): 4 Upper Body Dressing (QC): 4 Lower Body Dressing (QC): 4 Toileting Hygiene (QC): 4 Toilet Transfer (QC): 4 Pt sitting in chair at OT arrival. She reports difficulty eating secondary to new double vision. OT provided pt with eye patch. Pt verbalizes improvement with eye covered. She continues to use L hand when feeding self. Post cue to use R, pt able to manipulate utensil and bring to mouth without difficulty. She dressed while seated in chair. Good recall of compensatory strategies taught in previous sessions. Extra time only to don shirt due to pain in RUE. She bent at waist to thread BLE's into clothing, extra time needed. With use of UE, pt able to lift LE's much higher off floor this date. She stood with SBA-CGA to manage clothing up to waist. OT donned compression socks and leg wraps. She stood at the sink for grooming tasks. Able to brush teeth and wash face with R hand, schulte hairs with Left. Other Treatment Pt able to tolerate shoulder PROM to ~160 degrees this date. Pain only notable at 40-60 degrees. Possible impingement? Unable to maintain shoulder at 90 degrees secondary to weakness. Pt completed scapula retraction exercises with yellow theraband, 3x3 Education OT Patient Education: Correct positioning, Exercise program, Modified ADL techniques, Progress toward Goal/Update tx plan, Purpose of tx/functional activities, Reviewed precautions, Safety issues Teaching Recipient: Patient Teaching Methods: Demonstration, Discussion Response to Teaching: Verbalize Understanding, Return Demonstration OT Short Term Goals Short Term Goals Time Frame: Oct 02, 2021 Eatin Oral hygiene: 4 Toileting hygiene: 4 Shower/bathe self: 3 (min) Upper body dressin Lower body dressin (min) Putting on/taking off footwear: 3 OT Detention Goals Detention Goals Time Frame: Oct 13, 2021 Eating (QC): 6 Oral Hygiene (QC): 6 Toileting Hygiene (QC): 6 Shower/Bathe Self (QC): 4 Upper Body Dressing (QC): 4 Lower Body Dressing (QC): 5 On/Off Footwear (QC): 4 1=Demonstrate adherence to instructed precautions during ADL tasks. 2=Patient will verbalize/demonstrate understanding of assistive devices/modifications for ADL. 3=Patient will improve strength/tolerance for activity to enable patient to perform ADL's. OT Education/Plan Problem List/Assessment Assessment: Decreased Activ Tolerance, Decreased UE Strength, Impaired Funct Balance, Impaired I ADL's, Impaired Self-Care Skills, Restricted Funct UE ROM Discharge Recommendations Plan/Recommendations: Continue POC Treatment Plan/Plan of Care Treatment,Training & Education: Yes Patient would benefit from OT for education, treatment and training to promote independence in ADL's, mobility, safety and/or upper extremity function for ADL's. Plan of Care: ADL Retraining, Functional Mobility, Group Exercise/Act as Ind, UE Funct Exercise/Act Treatment Duration: Oct 13, 2021 Frequency: At least 5 of 7 days/Wk (IRF) Estimated Hrs Per Day: 1.5 hours per day Agreement: Yes Rehab Potential: Fair Time/GCodes Start Time: 07:43 Stop Time: 08:58 Total Time Billed (hr/min): 75 Billed Treatment Time 1 visit ADL x4 (55 min) EX (20 min) Glenna Reynoso OT Oct 01, 2021 08:56
--- NOTE | 2021-10-01 09:46 | Speech Therapy Daily Note ---
Speech Daily Progress Note Subjective Date Seen by Provider: Oct 01, 2021 Time Seen by Provider: 00:30 Patient was resting in her recliner. Patient complaining of double vision in her left eye this morning. Objective Patient completed a series of questions related to her safe upon her return home at 95% without cues. Assessment Assessment Current Status: Good Progress Treatment Plan Continue Plan of Care Speech Short Term Goals Short Term Goals Short Term Goals 1) Patient will complete memory tasks related to her daily needs at 80% or greater with minimal cues. 2) Patient will complete safety awareness tasks related to her daily needs at 80% or greater with minimal cues. 3) Patient will complete problem solving tasks related to her daily needs at 80% or greater with minimal cues. 4) Patient will demonstrate ability to consume Dysphagia II diet level with left hand at 90% or greater. Speech Alf Goals Plaster Mold Maker Goals Patient will increase functional level for ability to complete daily tasks with minimal assist. Patient will maintain adequate nutrition/hydration with alternate hand utilization. Speech-Plan Patient/Family Goals Patient/Family Goals: Patient plans on returning to her home where she lives with her . Their children live nearby and will be supportive of daily needs. Treatment Plan Speech Therapy Treatment Plan: Continue Plan of Care Treatment Duration: Oct 02, 2021 Frequency: 4 times per week (Patient will receive skilled ST 4-5x per week) Estimated Hrs Per Day: .5 hour per day Rehab Potential: Fair Barriers to Learning: Patient's recent decline in health and age. Pt/Family Agrees to Plan: Yes Safety Risks/Education Teaching Recipient: Patient, Significant Other Teaching Methods: Demonstration, Discussion Response to Teaching: Verbalize Understanding, Return Demonstration Education Topics Provided: Continued safety upon her return home. Time Speech Therapy Time In: 09:30 Speech Therapy Time Out: 10:00 Total Billed Time: 30 Billed Treatment Time 1MOHINDER [address] Oct 01, 2021 09:46
--- NOTE | 2021-10-01 10:58 | Physical Therapy Daily Note ---
PT Daily Note-Current Subjective Pt. and present. Pt.states she has had double vision today and has had this in the past . Pt. states it only lasts a brief time and goes away. Pt. has a patch on the left eye today to alleviate this for now. Pt. c/o pain and disfunction in R shoulder which she states began with a fall. feels she had improved from this but it is back again and bothering her even more. Pt. agrees to Rx Pain Numeric Pain Scale: 6 Location: Right Location Body Site: Shoulder Pain Description: Ache Comment: mostly with attempts at movement Mental Status Patient Orientation: Normal For Age Attachments: Other-See Comments (eye patch left eye, wraps bilat LEs) Transfers SCALE: Activities may be completed with or without assistive devices. 5-Ekrxxgsboj-xdhwwql completes the activity by him/herself with no assistance from a helper. 5-Set-up or Clean-up Assistance-helper sets up or cleans up; patient completes activity. [place] assists only prior to or following the activity. 4-Supervision or Touching Assistance-helper provides verbal cues and/or touching/steadying and/or contact guard assistance as patient completes activity. Assistance may be provided throughout the activity or intermittently. 3-Partial/Moderate Assistance-helper does LESS THAN HALF the effort. [place] lifts, holds or supports trunk or limbs, but provides less than half the effort. 2-Substantial/Maximal Assistance-helper does MORE THAN HALF the effort. [place] lifts or holds trunk or limbs and provides more than half the effort. 6-Zzzkxvqdc-poapwl does ALL the effort. Patient does none of the effort to complete the activity. Or, the assistance of 2 or more helpers is required for the patient to complete the activity. If activity was not attempted, code reason: 7-Patient Refused. 9-Not Applicable-not attempted and the patient did not perform the activity before the current illness, exacerbation or injury. 10-Not Attempted due to Environmental Limitations-(lack of equipment, weather restraints, etc.). 88-Not Attempted due to Medical Conditions or Safety Concerns. Roll Left & Right (QC): 5 Sit to Lying (QC): 4 Lying to Sitting/Side of Bed(Q: 3 Sit to Stand (QC): 4 Car Transfer (QC): 3 (needed assist in out bilat LEs) sit to stand from armchair practiced and bed TRFs simulating the bed she plans to use at home Weight Bearing Full Weight Bearing Full Weight Bearing Gait Training Does the Patient Walk?: Yes Walk 10 feet (QC): 5 Walk 50 ft with 2 Turns(QC): 5 Walk 150 ft (QC): 5 Gait Persons Needed: 1 Gait Assistive Device: FWW slow, small steps, shuffles, head down Exercises Supine Ex: Bridging, Ankle pumps, Quad Set, Glut sets, Heel Slides, Short Arc Quads, Scooting ( up in recliner and left and right in supine), Straight leg raise (assisted), Hip abd/add Supine Reps: 12 Seated Therapy Exercises: Ankle pumps, Sit to stand, Long arc quads Seated Reps: 12 Treatments as above Assessment Current Status: Good Progress at rest seated after gait pt c/o some dyspnea, O2 sats recorded by nursing initially at 81% but pt.did not seem to be in distress. This elevated with rest to >90% quickly and pt did not have low O2 sats after last leg of gait with O2 sat of 91% when reaching room after Rx PT Short Term Goals Short Term Goals Time Frame: Sep 30, 2021 Roll Left & Right: 4 Sit to lyin Lying to sitting on side of be: 3 Sit to stand: 4 Chair/nqf-tb-hslzl transfer: 4 Walk 10 feet: 4 Walk 50 feet with two turns: 4 Walk 150 feet: 4 PT Chcf Goals Chcf Goals PT Chcf Goals Time Frame: Oct 14, 2021 Roll Left & Right (QC): 4 Sit to Lying (QC): 4 Lying-Sitting on Side/Bed(QC): 4 Sit to Stand (QC): 4 Chair/Ttd-yt-Iuhzy Xfer(QC): 4 Toilet Transfer (QC): 4 Car Transfer (QC): 3 Does the Patient Walk: Yes Walk 10 feet (QC): 4 Walk 50ft with 2 Turns (QC): 4 Walk 150 ft (QC): 4 Walking 10ft on Uneven Surface: 4 1 Step (curb) (QC): 4 4 Steps (QC): 88 12 Steps (QC): 88 Picking up an Object (QC): 4 Wheel 50 feet with 2 turns (QC: 9 Wheel 150 feet: 9 PT Plan Treatment/Plan Treatment Plan: Continue Plan of Care Treatment Plan: Bed Mobility, Education, Functional Activity [place], Functional Strength, Group Therapy, Gait, Safety, Therapeutic Exercise, Transfers Treatment Duration: Oct 14, 2021 Frequency: At least 5 of 7 days/Wk (IRF) Estimated Hrs Per Day: 1.5 hours per day Patient and/or Family Agrees t: Yes Safety Risks/Education Patient Education: Gait Training, Transfer Techniques, Correct Positioning, Disease Process, Safety Issues Teaching Recipient: Patient Teaching Methods: Demonstration, Discussion Response to Teaching: Verbalize Understanding, Return Demonstration, Reinforcement Needed Time/GCodes Time In: 1000 Time Out: 1100 Total Billed Treatment Time: 60 Total Billed Treatment 1,EX15m,FA25m,GT20m NOHELIA MELCHOR MOLD BUNCH TRIMMER Oct 01, 2021 10:58
[2021-10-01] MEDS: FUROSEMIDE 40 MG (LASIX) TAB PO SCH (11:17)
--- NOTE | 2021-10-01 11:36 | Progress Note - Cardiology ---
Cardiology SOAP Progress Note Subjective: No cp or palp or syncope No shortness of breath at rest Gen malaise, improving No n/v/d Improved leg swelling R arm pain persistent Objective: I&O/Vital Signs 10/01/21 10/01/21 10/01/21 10/01/21 07:57 08:15 08:25 08:37 Temp 36.4 Pulse 80 83 90 Resp 16 18 B/P (MAP) 96/51 (66) 95/53 (67) 110/51 (70) Pulse Ox 90 94 O2 Delivery Room Air Room Air Room Air 10/01/21 10/01/21 10/01/21 10:54 11:11 11:16 Pulse 81 78 80 Resp 20 20 20 B/P (MAP) 102/50 (67) 118/62 (80) Pulse Ox 92 94 95 O2 Delivery Room Air Nasal Cannula Nasal Cannula O2 Flow Rate 2.00 2.00 Weight (Pounds): 211 Weight (Ounces): 8.0 Weight (Calculated Kilograms): 95.188338 Constitutional: AAO x 3, well-developed, well-nourished Respiratory: No accessory muscle use; other (good, bilat air entry) Cardiovascular: regular rate-rhythm, S1 and S2, systolic murmur (soft HSM at card apex) Gastrointestional: No tender; soft; No guarding, No rebound; audible bowel sounds Extremities: swelling (moderate, bilat leg edema), clubbing, cyanosis Neurologic/Psychiatric: oriented x 3, other (moves all limb; limited at R shoulder due to R shoulder pain) Skin: No rash on exposed areas, No ulcerations on exposed areas A/P: Assessment: Right shoulder discomfort following a non-syncopal fall in Jul 2021 - management is by Dr Bertrand Leg swelling due to chronic cor pulmonale and due to chronic lymphedema - consider chronic pulm thromboembolism, inadequately treated FABRIZIO, pulm fibrosis, primary pulm hypertension, etc CAD - Cardiac cath of 10-07-15 showed minimal coronary plaques without any obstructive disease. LVEF 60-65%. Mod elevation of LVEDP. No significant MR - MPI of 03-10-2021 shows no evidence of ischemia or infarction. LVEF 70% Paroxysmal Atrial Fibrillation - OAC with Eliquis, low dose per PCP d/t propensity to bleeding, advanced age and CKD Mod pulm htn and chronic cor pulmonale - consider chronic pulm thromboembolism, inadequately treated FABRIZIO, pulm fibrosis, primary pulm hypertension, etc - Echo of 03-09-2021 showed LVEF 70-75%. Mod MR. Mod to severe TR. PASP 50-55 mmHg - Echo of 09-23-21:LVEF 60-65%, mod MR, triv AI, mod TR, PASP 50-55 mmHg (not significantly changed from the study of February 2021) PAD - arterial Doppler of February 2021 reported mod atheromatous plaque on both sides w/o evidence of hemodynamic significance Hyperlipidemia - unable to take statins - followed by her PCP Obesity - with a BMI of approximately 40 Hypothyroidism - managed by PCP CKD-3. - Chronic renal insuff with Cr ranging between 1 and 1.4. CKD stage 3, followed by [facility] Impaired fasting glucose - managed by PCP Carotid dz - Mild bilateral carotid art disease on carotid u/s of 02-27-2021 FABRIZIO - for which she is on CPAP therapy and is managed by the Pulm services H/o gout - managed by PCP Plan: * Continue diuretic regimen * Compression stocking during the daytime for control of leg swelling * Monitor labs ISABELLE CARLTON MD FACP FAC CCDS Oct 01, 2021 11:36
--- NOTE | 2021-10-01 12:21 | PM&R Progress Note ---
Subjective HPI/CC On Admission Date Seen by Provider: Oct 01, 2021 Time Seen by Provider: 12:20 Subjective/Events-last exam 10/01/2021: Patient doing well Reported double vision so PT put a patch daughter Dr. Roland is her eye doctor Somatic complaints continue May now require 2 L of oxygen which was suspected all along Ultram for pain 09/30/2021: Pt having no issues K-Pad used with help Ambulates with 150 feet Everyone is very hesitant about her going home Talked about her debility and her lymphedema and the fact that it is a progressive type of situation Daughter at the bedside does not appear to be heavily involved with any ADL help 09/29/2021: Pt doing better Standby assist Bowels moved 2 days ago K Pad to the right arm is helpful 09/28/2021: Pt doing a lot better Albumin 2.6 Creatinine 1. 28 Checked meds and labs Working hard 09/27/21: Patient doing better DC MVI due to nausea Suppository given and had complete evacuation of bowels finally TONY wraps to lower legs working out well for her Diclofenac gel with Kpad working well for her right shoulder and arm DC daily weights 09/26/21: Patient doing well at bedside Wrapping legs Patient and her would do well with assisted living 09/25/21: Patient doing better than she thinks she is Pain both shoulders limits her Patient appears to be frightened about what is to come with decline Working with therapy Wrapping legs is really helping her 09/24/2021: Patient settling in well Was already able to walk around Right shoulder pain improved since Dr. Huerta injected it Has been brought her CPAP into use at night Wrapping legs with Tony wraps Speech therapy will evaluate dysphagia Review of Systems General: Fatigue HEENT: Visual Changes Pulmonary: Dyspnea Objective Exam Vital Signs Vital Signs Date Time Temp Pulse Resp B/P (MAP) Pulse Ox O2 Delivery O2 Flow Rate FiO2 10/01/21 21:00 Room Air 10/01/21 20:15 2.00 10/01/21 20:00 37.1 88 18 100/54 (69) 93 Capillary Refill : General Appearance: No Apparent Distress, WD/WN, Chronically ill, Obese HEENT: PERRL/EOMI, Normal ENT Inspection, Pharynx Normal Neck: Full Range of Motion, Normal Inspection, Non Tender, Supple, Carotid Bruit Respiratory: Chest Non Tender, Lungs Clear, Normal Breath Sounds, No Accessory Muscle Use, No Respiratory Distress Cardiovascular: Regular Rate, Rhythm, No Gallop, No JVD, No Murmur, Normal Peripheral Pulses, Irregularly Irregular Gastrointestinal: Normal Bowel Sounds, No Organomegaly, No Pulsatile Mass, Non Tender, Soft Back: Normal Inspection, No CVA Tenderness, No Vertebral Tenderness Extremity: Normal Capillary Refill, Normal Inspection, Normal Range of Motion, Non Tender, No Calf Tenderness, Pedal Edema Neurologic/Psychiatric: Alert, Oriented x3, No Motor/Sensory Deficits, Normal Mood/Affect, bulldozer operator II-XII Norm as Tested, Motor Weakness (generalized) Skin: Normal Color, Warm/Dry Lymphatic: No Adenopathy Results/Procedures Lab Patient resulted labs reviewed. FIM Transfers Therapy Code Descriptions/Definitions Functional [place] Measure: 0=Not Assessed/NA 4=Minimal Assistance 1=Total Assistance 5=Supervision or Setup 2=Maximal Assistance 6=Modified [place] 3=Moderate Assistance 7=Complete IndependenceSCALE: Activities may be completed with or without assistive devices. 3-Nxchzvjwxj-twjnpmm completes the activity by him/herself with no assistance from a helper. 5-Set-up or Clean-up Assistance-helper sets up or cleans up; patient completes activity. [place] assists only prior to or following the activity. 4-Supervision or Touching Assistance-helper provides verbal cues and/or touching/steadying and/or contact guard assistance as patient completes activity. Assistance may be provided throughout the activity or intermittently. 3-Partial/Moderate Assistance-helper does LESS THAN HALF the effort. [place] lifts, holds or supports trunk or limbs, but provides less than half the effort. 2-Substantial/Maximal Assistance-helper does MORE THAN HALF the effort. [place] lifts or holds trunk or limbs and provides more than half the effort. 6-Yrpxklfbb-drkiyv does ALL the effort. Patient does none of the effort to complete the activity. Or, the assistance of 2 or more helpers is required for the patient to complete the activity. If activity was not attempted, code reason: 7-Patient Refused. 9-Not Applicable-not attempted and the patient did not perform the activity before the current illness, exacerbation or injury. 10-Not Attempted due to Environmental Limitations-(lack of equipment, weather restraints, etc.). 88-Not Attempted due to Medical Conditions or Safety Concerns. Roll Left to Right (QC): 5 Sit to Lying (QC): 4 Sit to Stand (QC): 4 Chair/Tki-pg-Knyit Xfer(QC): 3 Car Transfer (QC): 3 (needed assist in out bilat LEs) Gait Training Does the Patient Walk?: Yes Distance: 150' Walk 10 feet (QC): 5 Walk 50 ft with 2 Turns(QC): 5 Walk 150 ft (QC): 5 Walking 10ft/uneven surface-QC: 88 Gait Persons Needed: 1 Gait Assistive Device: FWW Wheelchair Training Does the Pt Use a Wheelchair?: No Wheel 50 ft with 2 turns (QC): 9 Wheel 150 ft (QC): 9 Stair Training 1 Step (curb) (QC): 88 4 Steps (QC): 88 12 Steps (QC): 88 Balance Picking up an Object (QC): 88 ADL-Treatment Eating (QC): 4 Oral Hygiene (QC): 4 Shower/Bathe Self (QC): 4 Upper Body Dressing (QC): 4 Lower Body Dressing (QC): 4 On/Off Footwear (QC): 4 Toileting Hygiene (QC): 4 Toilet Transfer (QC): 4 Assessment/Plan Assessment and Plan Assess & Plan/Chief Complaint Assessment: CHF Right shoulder soft tissue injury status post injection by Dr. Huerta on 09/23/2021 LE edema - due to CHF and lymphedema CAD Paroxysmal Atrial Fibrillation - OAC with Eliquis PAD Venous insufficiency Hyperlipidemia Hypothyroidism CKD-3 - followed by [facility] CAD FABRIZIO - on CPAP therapy and is managed by the Pulm services H/o gout Hyperbilirubinemia due to liver congestion work-up for [place] and cirrhosis negat dave Ascites on last ultrasound Plan: Ortho consult Monitor renal function Cardiology consultation Rehab protocol 09/24/2021: Appreciate Dr. Huerta Continue aggressive therapy Wrap legs Use home CPAP 09/25/21: Therapy Wraps legs Pain control 09/26/21: Wrap legs Shoulder pain management 09/27/21: Shoulder and right arm pain management Supportive care 09/28/2021: Pain management Supportive care 09/29/2021: Pain control Aggressive therapy 09/30/2021: Supportive care Discharge plan next week 10/01/2021: Supportive care Vision change not reflecting any organic basis right now (1) Congestive heart failure Status: Acute (2) Bilateral lower extremity pain Status: Acute (3) Chronic kidney disease (CKD) Status: Acute (4) Generalized weakness Status: Acute (5) Anasarca Status: Acute VERNELL ROMAN DO Oct 01, 2021 12:21
--- NOTE | 2021-10-01 14:23 | Physical Therapy Daily Note ---
PT Daily Note-Current Subjective Pt. up in recliner, wants to walk and toilet. Pain Location: No Pain Reported Mental Status Patient Orientation: Normal For Age Attachments: Oxygen Transfers SCALE: Activities may be completed with or without assistive devices. 9-Vciqungihq-tepztgi completes the activity by him/herself with no assistance fr om a helper. 5-Set-up or Clean-up Assistance-helper sets up or cleans up; patient completes activity. [place] assists only prior to or following the activity. 4-Supervision or Touching Assistance-helper provides verbal cues and/or touching/steadying and/or contact guard assistance as patient completes activity. Assistance may be provided throughout the activity or intermittently. 3-Partial/Moderate Assistance-helper does LESS THAN HALF the effort. [place] lifts, holds or supports trunk or limbs, but provides less than half the effort. 2-Substantial/Maximal Assistance-helper does MORE THAN HALF the effort. [place] lifts or holds trunk or limbs and provides more than half the effort. 7-Ahuefgbcp-gjtieu does ALL the effort. Patient does none of the effort to complete the activity. Or, the assistance of 2 or more helpers is required for the patient to complete the activity. If activity was not attempted, code reason: 7-Patient Refused. 9-Not Applicable-not attempted and the patient did not perform the activity before the current illness, exacerbation or injury. 10-Not Attempted due to Environmental Limitations-(lack of equipment, weather restraints, etc.). 88-Not Attempted due to Medical Conditions or Safety Concerns. sit to stand from chair and toilet required min to CGA Weight Bearing Full Weight Bearing Full Weight Bearing Gait Training Does the Patient Walk?: Yes Gait Assistive Device: FWW pt. ambulated 150 ft CGA, with one small standing rest break, good tolerance Treatments pt. toileted with assist pants up down min. cleaned self indep, in recliner after Rx with call navarro Assessment Current Status: Good Progress PT Short Term Goals Short Term Goals Time Frame: Sep 30, 2021 Roll Left & Right: 4 Sit to lyin Lying to sitting on side of be: 3 Sit to stand: 4 Chair/jpu-ad-qkatv transfer: 4 Walk 10 feet: 4 Walk 50 feet with two turns: 4 Walk 150 feet: 4 PT Prison Goals Reservations Manager Goals PT Prison Goals Time Frame: Oct 14, 2021 Roll Left & Right (QC): 4 Sit to Lying (QC): 4 Lying-Sitting on Side/Bed(QC): 4 Sit to Stand (QC): 4 Chair/Msp-oa-Iosdx Xfer(QC): 4 Toilet Transfer (QC): 4 Car Transfer (QC): 3 Does the Patient Walk: Yes Walk 10 feet (QC): 4 Walk 50ft with 2 Turns (QC): 4 Walk 150 ft (QC): 4 Walking 10ft on Uneven Surface: 4 1 Step (curb) (QC): 4 4 Steps (QC): 88 12 Steps (QC): 88 Picking up an Object (QC): 4 Wheel 50 feet with 2 turns (QC: 9 Wheel 150 feet: 9 PT Plan Treatment/Plan Treatment Plan: Continue Plan of Care Treatment Plan: Bed Mobility, Education, Functional Activity [place], Functional Strength, Group Therapy, Gait, Safety, Therapeutic Exercise, Transfers Treatment Duration: Oct 14, 2021 Frequency: At least 5 of 7 days/Wk (IRF) Estimated Hrs Per Day: 1.5 hours per day Patient and/or Family Agrees t: Yes Safety Risks/Education Patient Education: Gait Training, Transfer Techniques, Correct Positioning, Disease Process, Safety Issues Teaching Recipient: Patient Teaching Methods: Demonstration, Discussion Response to Teaching: Verbalize Understanding, Return Demonstration, Reinforcement Needed Time/GCodes Time In: 1400 Time Out: 1415 Total Billed Treatment Time: 15 Total Billed Treatment 1,GT15m NOHELIA MELCHOR OPHTHALMIC NURSE Oct 01, 2021 14:23
[2021-10-02] MEDS: LEVOTHYROXINE 112 MCG (LEVOTHROID) TAB PO SCH (05:35)
[2021-10-02] MEDS: LEVOTHYROXINE 25 MCG (LEVOTHROID) TAB PO SCH (05:35)
[2021-10-02 07:58] VITALS: BP 97/53
[2021-10-02] MEDS: APIXABAN 2.5 MG (ELIQUIS) TABLET PO SCH (09:59)
[2021-10-02] MEDS: ALLOPURINOL 300 MG (ZYLOPRIM) TAB PO SCH (10:14)
[2021-10-02] MEDS: FUROSEMIDE 40 MG (LASIX) TAB PO SCH (10:14)
[2021-10-02] MEDS: LACTOBACILLUS ACIDOPHILUS (PROBIOTIC) CAPSULE PO SCH (10:14)
[2021-10-02] MEDS: meTOprolol TARTRATE 50 MG (LOPRESSOR) TAB PO SCH ×2 (10:14→21:00)
[2021-10-02] MEDS: KCL 20 MEQ TAB (K-DUR) PO SCH (10:14)
[2021-10-02] MEDS: DICLOFENAC 1% GEL 100 GM (VOLTAREN) TUBE TOP SCH ×4 (10:15→21:32)
[2021-10-02] MEDS: SENNA W/DOCUSATE (SENOKOT S) TABLET PO SCH ×2 (10:17→21:04)
[2021-10-02] MEDS: DOCUSATE SODIUM 100 MG (COLACE) CAP PO SCH ×2 (10:17→21:00)
[2021-10-02] MEDS: polyethylene glycoL POWDER 17 GM (MIRALAX) PACK PO SCH ×2 (10:17→21:04)
[2021-10-02 10:18] VITALS: BP 93/51
--- NOTE | 2021-10-02 10:29 | Progress Note - Cardiology ---
Cardiology SOAP Progress Note Subjective: Gen malaise and weakness present No cp or palp or syncope No n/v/d Leg swelling improved to usual baseline (not resolved) Objective: I&O/Vital Signs 10/02/21 10/02/21 07:58 10:18 Temp 36.7 Pulse 92 93 Resp 18 18 B/P (MAP) 97/53 (68) 93/51 (65) Pulse Ox 89 92 O2 Delivery Room Air Nasal Cannula O2 Flow Rate 2.00 Weight (Pounds): 211 Weight (Ounces): 8.0 Weight (Calculated Kilograms): 95.402981 Constitutional: AAO x 3, well-developed, well-nourished Respiratory: No accessory muscle use; other (good, bilat air entry) Cardiovascular: regular rate-rhythm, S1 and S2, systolic murmur (soft HSM at card apex) Gastrointestional: No tender; soft; No guarding, No rebound; audible bowel sounds Extremities: swelling (moderate, bilat leg edema), clubbing, cyanosis Neurologic/Psychiatric: oriented x 3, other (moves all limb; limited at R shoulder due to R shoulder pain) Skin: No rash on exposed areas, No ulcerations on exposed areas A/P: Assessment: Right shoulder discomfort following a non-syncopal fall in Jul 2021 - management is by Dr Bertrand Leg swelling due to chronic cor pulmonale and due to chronic lymphedema - consider chronic pulm thromboembolism, inadequately treated FABRIZIO, pulm fibrosis, primary pulm hypertension, etc CAD - Cardiac cath of 10-07-15 showed minimal coronary plaques without any obstructive disease. LVEF 60-65%. Mod elevation of LVEDP. No significant MR - MPI of 03-10-2021 shows no evidence of ischemia or infarction. LVEF 70% Paroxysmal Atrial Fibrillation - OAC with Eliquis, low dose per PCP d/t propensity to bleeding, advanced age and CKD Mod pulm htn and chronic cor pulmonale - consider chronic pulm thromboembolism, inadequately treated FABRIZIO, pulm fibrosis, primary pulm hypertension, etc - Echo of 03-09-2021 showed LVEF 70-75%. Mod MR. Mod to severe TR. PASP 50-55 mmHg - Echo of 09-23-21:LVEF 60-65%, mod MR, triv AI, mod TR, PASP 50-55 mmHg (not significantly changed from the study of February 2021) PAD - arterial Doppler of February 2021 reported mod atheromatous plaque on both sides w/o evidence of hemodynamic significance Hyperlipidemia - unable to take statins - followed by her PCP Obesity - with a BMI of approximately 40 Hypothyroidism - managed by PCP CKD-3. - Chronic renal insuff with Cr ranging between 1 and 1.4. CKD stage 3, followed by [facility] Impaired fasting glucose - managed by PCP Carotid dz - Mild bilateral carotid art disease on carotid u/s of 02-27-2021 FABRIZIO - for which she is on CPAP therapy and is managed by the Pulm services H/o gout - managed by PCP Plan: * BP relatively low. Reduce furosemide to 40 daily (and K to 10 daily). Change from Toprol XL 200 daily to metoprolol tartrate 50 bid (with bp hold parameters) * Compression stocking during the daytime for control of leg swelling * Monitor labs ISABELLE CARLTON MD FACP FAC CCDS Oct 02, 2021 10:29
--- NOTE | 2021-10-02 10:44 | Occupational Ther Daily Note ---
OT Current Status-Daily Note Subjective Sitting in chair, agreeable to treatment. Appearance Returned to sitting in recliner, all needs within reach, spouse in room. Mental Status/Objective Attachments: IV, Oxygen ADL-Treatment Therapy Code Descriptions/Definitions Functional [place] Measure: 0=Not Assessed/NA 4=Minimal Assistance 1=Total Assistance 5=Supervision or Setup 2=Maximal Assistance 6=Modified [place] 3=Moderate Assistance 7=Complete IndependenceSCALE: Activities may be completed with or without assistive devices. 6-Vdpxxtxbji-xjvgadr completes the activity by him/herself with no assistance from a helper. 5-Set-up or Clean-up Assistance-helper sets up or cleans up; patient completes activity. [place] assists only prior to or following the activity. 4-Supervision or Touching Assistance-helper provides verbal cues and/or touching/steadying and/or contact guard assistance as patient completes activity. Assistance may be provided throughout the activity or intermittently. 3-Partial/Moderate Assistance-helper does LESS THAN HALF the effort. [place] lifts, holds or supports trunk or limbs, but provides less than half the effort. 2-Substantial/Maximal Assistance-helper does MORE THAN HALF the effort. [place] lifts or holds trunk or limbs and provides more than half the effort. 9-Kdztofyid-iyduxn does ALL the effort. Patient does none of the effort to complete the activity. Or, the assistance of 2 or more helpers is required for the patient to complete the activity. If activity was not attempted, code reason: 7-Patient Refused. 9-Not Applicable-not attempted and the patient did not perform the activity before the current illness, exacerbation or injury. 10-Not Attempted due to Environmental Limitations-(lack of equipment, weather restraints, etc.). 88-Not Attempted due to Medical Conditions or Safety Concerns. Shower/Bathe Self (QC): 4 Upper Body Dressing (QC): 4 Lower Body Dressing (QC): 4 Toileting Hygiene (QC): 4 Toilet Transfer (QC): 3 Pt on 2L o2 at OT arrival. Oxygen 91%. 2L remained donned during shower. Task completed ~50% in sitting/standing. Supervision only when pt moves from sit>stand. Extra time to rise, but no assist required. Good recall on use of LHS to wash below knees. Clothing donned seated on shower seat. Good recall of compensatory strategies taught in previous sessions. Extra time only to don shirt due to pain in RUE. She bent at waist to thread BLE's into clothing, extra time needed. With use of UE, pt able to lift LE's much higher off floor this date. She stood with SBA-CGA to manage clothing up to waist. OT donned compression socks and leg wraps. Prior to shower, pt urinated in toilet. Blood noted in stool and on underwear. RN notified. Pt needing assist to lift from low toilet this date. At end of session: BP-97/53, O2-91%, HR-92 bpm. Education OT Patient Education: Correct positioning, Energy conservation, Progress toward Goal/Update tx plan, Purpose of tx/functional activities, Transfer techniques Teaching Recipient: Patient Teaching Methods: Demonstration, Discussion Response to Teaching: Verbalize Understanding OT Short Term Goals Short Term Goals Time Frame: Oct 02, 2021 Eatin Oral hygiene: 4 Toileting hygiene: 4 Shower/bathe self: 3 (min) Upper body dressin Lower body dressin (min) Putting on/taking off footwear: 3 OT Prison Goals Prison Goals Time Frame: Oct 13, 2021 Eating (QC): 6 Oral Hygiene (QC): 6 Toileting Hygiene (QC): 6 Shower/Bathe Self (QC): 4 Upper Body Dressing (QC): 4 Lower Body Dressing (QC): 5 On/Off Footwear (QC): 4 1=Demonstrate adherence to instructed precautions during ADL tasks. 2=Patient will verbalize/demonstrate understanding of assistive devices/modifications for ADL. 3=Patient will improve strength/tolerance for activity to enable patient to perform ADL's. OT Education/Plan Problem List/Assessment Assessment: Decreased Activ Tolerance, Decreased UE Strength, Impaired Coordination, Impaired I ADL's, Impaired Self-Care Skills, Restricted Funct UE ROM Discharge Recommendations Plan/Recommendations: Continue POC Treatment Plan/Plan of Care Treatment,Training & Education: Yes Patient would benefit from OT for education, treatment and training to promote independence in ADL's, mobility, safety and/or upper extremity function for ADL's. Plan of Care: ADL Retraining, Functional Mobility, Group Exercise/Act as Ind, UE Funct Exercise/Act Treatment Duration: Oct 13, 2021 Frequency: At least 5 of 7 days/Wk (IRF) Estimated Hrs Per Day: 1.5 hours per day Agreement: Yes Rehab Potential: Fair Time/GCodes Start Time: 08:25 Stop Time: 09:25 Total Time Billed (hr/min): 60 Billed Treatment Time 1 visit ADL x4 Glenna Reynoso OT Oct 02, 2021 10:44
--- NOTE | 2021-10-02 11:07 | Physical Therapy Daily Note ---
PT Daily Note-Current Subjective Pt. and present. Nurse brings meds. Pt. agrees to PT. No c/o Pain Location: No Pain Reported Mental Status Patient Orientation: Normal For Age Attachments: Oxygen (2L) Transfers SCALE: Activities may be completed with or without assistive devices. 7-Hvbyotejau-cftzcgu completes the activity by him/herself with no assistance from a helper. 5-Set-up or Clean-up Assistance-helper sets up or cleans up; patient completes activity. [place] assists only prior to or following the activity. 4-Supervision or Touching Assistance-helper provides verbal cues and/or touching/steadying and/or contact guard assistance as patient completes activity. Assistance may be provided throughout the activity or intermittently. 3-Partial/Moderate Assistance-helper does LESS THAN HALF the effort. [place] lifts, holds or supports trunk or limbs, but provides less than half the effort. 2-Substantial/Maximal Assistance-helper does MORE THAN HALF the effort. [place] lifts or holds trunk or limbs and provides more than half the effort. 2-Aducditwp-ydlnnv does ALL the effort. Patient does none of the effort to complete the activity. Or, the assistance of 2 or more helpers is required for the patient to complete the activity. If activity was not attempted, code reason: 7-Patient Refused. 9-Not Applicable-not attempted and the patient did not perform the activity before the current illness, exacerbation or injury. 10-Not Attempted due to Environmental Limitations-(lack of equipment, weather restraints, etc.). 88-Not Attempted due to Medical Conditions or Safety Concerns. Sit to Stand (QC): 4 audible crepitus in knees wit sit to stand Weight Bearing Full Weight Bearing Full Weight Bearing Gait Training Does the Patient Walk?: Yes Walk 10 feet (QC): 5 Walk 50 ft with 2 Turns(QC): 5 Walk 150 ft (QC): 5 Gait Persons Needed: 1 Gait Assistive Device: FWW assist for port O2 . Pt. performed 360 degree turns no LOB, retro gait 12 ft slow, no LOB, tight turns left and right and fig 8s no LOB. O2 sats briefly at 89% and then steady with activity at 90% or above. HR at 118 with activity then reduced to 90 with recovery Exercises Seated Therapy Exercises: Ankle pumps, Sit to stand, Long arc quads Seated Reps: 15 Standing: Hip Abduction, Hamstring curls, Heel/toe raises, 3 way Ex=Flex, Abd, Ext, Mini squats, Sit to Stand Standing Reps: 12 Assessment Current Status: Good Progress PT Short Term Goals Short Term Goals Time Frame: Sep 30, 2021 Roll Left & Right: 4 Sit to lyin Lying to sitting on side of be: 3 Sit to stand: 4 Chair/ziw-dx-zltmq transfer: 4 Walk 10 feet: 4 Walk 50 feet with two turns: 4 Walk 150 feet: 4 PT Diet Attendant Goals Half-Way Goals PT Diet Attendant Goals Time Frame: Oct 14, 2021 Roll Left & Right (QC): 4 Sit to Lying (QC): 4 Lying-Sitting on Side/Bed(QC): 4 Sit to Stand (QC): 4 Chair/Mmm-nf-Lrmht Xfer(QC): 4 Toilet Transfer (QC): 4 Car Transfer (QC): 3 Does the Patient Walk: Yes Walk 10 feet (QC): 4 Walk 50ft with 2 Turns (QC): 4 Walk 150 ft (QC): 4 Walking 10ft on Uneven Surface: 4 1 Step (curb) (QC): 4 4 Steps (QC): 88 12 Steps (QC): 88 Picking up an Object (QC): 4 Wheel 50 feet with 2 turns (QC: 9 Wheel 150 feet: 9 PT Plan Treatment/Plan Treatment Plan: Continue Plan of Care Treatment Plan: Bed Mobility, Education, Functional Activity [place], Functional Strength, Group Therapy, Gait, Safety, Therapeutic Exercise, Transfers Treatment Duration: Oct 14, 2021 Frequency: At least 5 of 7 days/Wk (IRF) Estimated Hrs Per Day: 1.5 hours per day Patient and/or Family Agrees t: Yes Safety Risks/Education Patient Education: Gait Training, Transfer Techniques, Correct Positioning, Disease Process, Safety Issues Teaching Recipient: Patient Teaching Methods: Demonstration, Discussion Response to Teaching: Verbalize Understanding, Return Demonstration, R einforcement Needed Time/GCodes Time In: 1000 Time Out: 1100 Total Billed Treatment Time: 60 Total Billed Treatment 1,GT30m,EX30m NOHELIA MELCHOR TIRE RECAPPER Oct 02, 2021 11:07
--- NOTE | 2021-10-02 11:11 | Speech Therapy Daily Note ---
Speech Daily Progress Note Subjective Date Seen by Provider: Oct 02, 2021 Time Seen by Provider: 00:30 Patient was resting in her recliner with her present. Patient states the doctor has reduced her BP medication. Objective Patient is able to utilize her right arm some for eating her meals with 90%. Patient demonstrated recall of information for safety. Assessment Assessment Current Status: Good Progress Treatment Plan Continue Plan of Care Speech Short Term Goals Short Term Goals Short Term Goals 1) Patient will complete memory tasks related to her daily needs at 80% or greater with minimal cues. 2) Patient will complete safety awareness tasks related to her daily needs at 80% or greater with minimal cues. 3) Patient will complete problem solving tasks related to her daily needs at 80% or greater with minimal cues. 4) Patient will demonstrate ability to consume Dysphagia II diet level with left hand at 90% or greater. Speech Mcc Goals Mcc Goals Patient will increase functional level for ability to complete daily tasks with minimal assist. Patient will maintain adequate nutrition/hydration with alternate hand utilization. Speech-Plan Patient/Family Goals Patient/Family Goals: Patient plans on returning to her home where she lives with her . Her children will be available to help as needed. Treatment Plan Speech Therapy Treatment Plan: Continue Plan of Care Treatment Duration: Oct 05, 2021 Frequency: 4 times per week (Patient will receive skilled ST 4-5x per week) Estimated Hrs Per Day: .5 hour per day Rehab Potential: Fair Barriers to Learning: Patient's recent decline in health. Pt/Family Agrees to Plan: Yes Safety Risks/Education Teaching Recipient: Patient, Significant Other Teaching Methods: Demonstration, Discussion Response to Teaching: Verbalize Understanding, Return Demonstration Education Topics Provided: Continued safety upon her return home. Time Speech Therapy Time In: 11:00 Speech Therapy Time Out: 11:30 Total Billed Time: 30 Billed Treatment Time 1, LIZET, SLEVER Gates Oct 02, 2021 11:11
--- NOTE | 2021-10-02 13:15 | PM&R Progress Note ---
Subjective HPI/CC On Admission Date Seen by Provider: Oct 02, 2021 Time Seen by Provider: 13:00 Subjective/Events-last exam 10/02/21: Patient doing well Vaginal bleeding noted a small amount TV and pelvic USG ordered Left eye patch worn due to double vision BP 93/61 HR [address] Hammond decreased Lopressor Lasix 40mg PO BID maintained 10/01/2021: Patient doing well Reported double vision so PT put a patch daughter Dr. Roland is her eye doctor Somatic complaints continue May now require 2 L of oxygen which was suspected all along Ultram for pain 09/30/2021: Pt having no issues K-Pad used with help Ambulates with 150 feet Everyone is very hesitant about her going home Talked about her debility and her lymphedema and the fact that it is a progressive type of situation Daughter at the bedside does not appear to be heavily involved with any ADL help 09/29/2021: Pt doing better Standby assist Bowels moved 2 days ago K Pad to the right arm is helpful 09/28/2021: Pt doing a lot better Albumin 2.6 Creatinine 1. 28 Checked meds and labs Working hard 09/27/21: Patient doing better DC MVI due to nausea Suppository given and had complete evacuation of bowels finally TONY wraps to lower legs working out well for her Diclofenac gel with Kpad working well for her right shoulder and arm DC daily weights 09/26/21: Patient doing well at bedside Wrapping legs Patient and her would do well with assisted living 09/25/21: Patient doing better than she thinks she is Pain both shoulders limits her Patient appears to be frightened about what is to come with decline Working with therapy Wrapping legs is really helping her 09/24/2021: Patient settling in well Was already able to walk around Right shoulder pain improved since Dr. Huerta injected it Has been brought her CPAP into use at night Wrapping legs with Tony wraps Speech therapy will evaluate dysphagia Review of Systems General: Fatigue, Malaise Pulmonary: Dyspnea Objective Exam Vital Signs Vital Signs Date Time Temp Pulse Resp B/P (MAP) Pulse Ox O2 Delivery O2 Flow Rate FiO2 10/02/21 21:00 Room Air 10/02/21 19:18 36.4 72 20 98/54 (69) 94 2.00 Capillary Refill : General Appearance: No Apparent Distress, WD/WN, Chronically ill, Obese HEENT: PERRL/EOMI, Normal ENT Inspection, Pharynx Normal Neck: Full Range of Motion, Normal Inspection, Non Tender, Supple, Carotid Bruit Respiratory: Chest Non Tender, Lungs Clear, Normal Breath Sounds, No Accessory Muscle Use, No Respiratory Distress Cardiovascular: Regular Rate, Rhythm, No Gallop, No JVD, No Murmur, Normal Peripheral Pulses, Irregularly Irregular Gastrointestinal: Normal Bowel Sounds, No Organomegaly, No Pulsatile Mass, Non Tender, Soft Back: Normal Inspection, No CVA Tenderness, No Vertebral Tenderness Extremity: Normal Capillary Refill, Normal Inspection, Normal Range of Motion, Non Tender, No Calf Tenderness, Pedal Edema Neurologic/Psychiatric: Alert, Oriented x3, No Motor/Sensory Deficits, Normal Mood/Affect, supervisor research shop II-XII Norm as Tested, Motor Weakness (generalized) Skin: Normal Color, Warm/Dry Lymphatic: No Adenopathy Results/Procedures Lab Patient resulted labs reviewed. FIM Transfers Therapy Code Descriptions/Definitions Functional [place] Measure: 0=Not Assessed/NA 4=Minimal Assistance 1=Total Assistance 5=Supervision or Setup 2=Maximal Assistance 6=Modified [place] 3=Moderate Assistance 7=Complete IndependenceSCALE: Activities may be completed with or without assistive devices. 2-Wlxqvaamxg-dczcsqm completes the activity by him/herself with no assistance from a helper. 5-Set-up or Clean-up Assistance-helper sets up or cleans up; patient completes activity. [place] assists only prior to or following the activity. 4-Supervision or Touching Assistance-helper provides verbal cues and/or touching/steadying and/or contact guard assistance as patient completes activity. Assistance may be provided throughout the activity or intermittently. 3-Partial/Moderate Assistance-helper does LESS THAN HALF the effort. [place] lifts, holds or supports trunk or limbs, but provides less than half the effort. 2-Substantial/Maximal Assistance-helper does MORE THAN HALF the effort. [place] lifts or holds trunk or limbs and provides more than half the effort. 2-Gliqvinxq-xzfmqn does ALL the effort. Patient does none of the effort to complete the activity. Or, the assistance of 2 or more helpers is required for the patient to complete the activity. If activity was not attempted, code reason: 7-Patient Refused. 9-Not Applicable-not attempted and the patient did not perform the activity before the current illness, exacerbation or injury. 10-Not Attempted due to Environmental Limitations-(lack of equipment, weather restraints, etc.). 88-Not Attempted due to Medical Conditions or Safety Concerns. Roll Left to Right (QC): 5 Sit to Lying (QC): 4 Sit to Stand (QC): 4 Chair/Pjb-os-Ooybz Xfer(QC): 3 Car Transfer (QC): 3 (needed assist in out bilat LEs) Gait Training Does the Patient Walk?: Yes Distance: 150' Walk 10 feet (QC): 5 Walk 50 ft with 2 Turns(QC): 5 Walk 150 ft (QC): 5 Walking 10ft/uneven surface-QC: 88 Gait Persons Needed: 1 Gait Assistive Device: FWW Wheelchair Training Does the Pt Use a Wheelchair?: No Wheel 50 ft with 2 turns (QC): 9 Wheel 150 ft (QC): 9 Stair Training 1 Step (curb) (QC): 88 4 Steps (QC): 88 12 Steps (QC): 88 Balance Picking up an Object (QC): 88 ADL-Treatment Eating (QC): 4 Oral Hygiene (QC): 4 Shower/Bathe Self (QC): 4 Upper Body Dressing (QC): 4 Lower Body Dressing (QC): 4 On/Off Footwear (QC): 4 Toileting Hygiene (QC): 4 Toilet Transfer (QC): 3 Assessment/Plan Assessment and Plan Assess & Plan/Chief Complaint Assessment: CHF Right shoulder soft tissue injury status post injection by Dr. Huerta on 09/23/2021 LE edema - due to CHF and lymphedema CAD Paroxysmal Atrial Fibrillation - OAC with Eliquis PAD Venous insufficiency Hyperlipidemia Hypothyroidism CKD-3 - followed by [facility] CAD FABRIZIO - on CPAP therapy and is managed by the Pulm services H/o gout Hyperbilirubinemia due to liver congestion work-up for [place] and cirrhosis negative Ascites on last ultrasound Plan: Ortho consult Monitor renal function Cardiology consultation Rehab protocol DUB? USG ordered 09/24/2021: Appreciate Dr. Huerta Continue aggressive therapy Wrap legs Use home CPAP 09/25/21: Therapy Wraps legs Pain control 09/26/21: Wrap legs Shoulder pain management 09/27/21: Shoulder and right arm pain management Supportive care 09/28/2021: Pain management Supportive care 09/29/2021: Pain control Aggressive therapy 09/30/2021: Supportive care Discharge plan next week 10/01/2021: Supportive care Vision change not reflecting any organic basis right now 10/02/21: Monitor DUB USG Cardiology (1) Congestive heart failure Status: Acute (2) Bilateral lower extremity pain Status: Acute (3) Chronic kidney disease (CKD) Status: Acute (4) Generalized weakness Status: Acute (5) Anasarca Status: Acute VERNELL ROMAN DO Oct 02, 2021 13:15
[2021-10-02] MEDS: SALIVA STIMULANT MOUTH SPRAY (BIOTENE) 1.5 OZ MM PRN ×2 (14:19→17:02)
--- NOTE | 2021-10-02 14:24 | Diagnostic Imaging Report ---
PROCEDURE: US Non-ob pelvis comp/trans. TECHNIQUE: Multiple realtime grayscale images were obtained of the pelvis in various projections endovaginally. Transabdominal imaging was also performed. INDICATION: Dysfunctional uterine bleeding. FINDINGS: Uterus measures 5.8 x 4.9 x 3 cm. Endometrial stripe is 3 mm. Neither ovary is demonstrated. There is no free fluid. There are some venous varicosities. IMPRESSION: 1. No evidence of uterine or endometrial masses. 2. Pelvic varicosities. Dictated by: Dictated on workstation # [id number]
--- NOTE | 2021-10-02 14:38 | Therapy Group Daily Note ---
Therapy Daily Group Note Patient Education Topic Home Safety, Fall Prevention, Other List Below (balance) Exercises LE Seated Exercise, UE Exercise Session Ratio (pt:therapist): 3:1 Goal of Session: Education on ARU Expectations, Other (list) Goal Met for this Session: Yes Pt Benefit of Group: Increased Functional Safety, Socialization Other/Notes Patient in recliner pre tx, Pt. ambulated to group with assistance and O2. After group pt. c/o extreme weakness and required w/c assist back to room. Nursing present to assess pt. Each patient had to introduce themselves and answer a question involving memory and critical thinking. Patients then participate in a group discussion, led by therapists about home safety, balance, safety strategies and fall prevention. Each patient also had to direct the others to do an exercise, which they had on a card in hand. When done, patient is transported back to room and transfers to chair with nurse call, phone, tray, all needs met. Start Time: 13:00 Stop Time: 14:00 Total Billed Treatment Time: 60 Total Billed Treatment 1,[facility] NOHELIA MELCHOR DYEING MACHINE TENDER Oct 02, 2021 14:38
[2021-10-02 19:18] VITALS: BP 98/54
[2021-10-03] MEDS: LEVOTHYROXINE 25 MCG (LEVOTHROID) TAB PO SCH (06:13)
[2021-10-03] MEDS: LEVOTHYROXINE 112 MCG (LEVOTHROID) TAB PO SCH (06:13)
[2021-10-03 07:30] VITALS: BP 88/51
[2021-10-03] MEDS: SENNA W/DOCUSATE (SENOKOT S) TABLET PO SCH (08:02)
[2021-10-03] MEDS: meTOprolol TARTRATE 50 MG (LOPRESSOR) TAB PO SCH (08:02)
[2021-10-03] MEDS: polyethylene glycoL POWDER 17 GM (MIRALAX) PACK PO SCH (08:02)
[2021-10-03 08:58] VITALS: BP 88/51
[2021-10-03] MEDS: ALLOPURINOL 300 MG (ZYLOPRIM) TAB PO SCH (08:59)
[2021-10-03] MEDS: KCL 20 MEQ TAB (K-DUR) PO SCH (08:59)
[2021-10-03] MEDS: LACTOBACILLUS ACIDOPHILUS (PROBIOTIC) CAPSULE PO SCH (08:59)
[2021-10-03] MEDS: DOCUSATE SODIUM 100 MG (COLACE) CAP PO SCH (08:59)
[2021-10-03] MEDS: DICLOFENAC 1% GEL 100 GM (VOLTAREN) TUBE TOP SCH ×2 (09:01→13:00)
[2021-10-03 10:33] VITALS: BP 89/51
[2021-10-03] MEDS: FUROSEMIDE 40 MG (LASIX) TAB PO SCH (11:09)
--- NOTE | 2021-10-03 11:25 | Physical Therapy Progress Note ---
Therapy Progress Note Pt leaving unit for x-ray. Will resume on 10/05/2021 GUCCI DAIGLE DPT Oct 03, 2021 11:25
--- NOTE | 2021-10-03 11:45 | PM&R Progress Note ---
Subjective HPI/CC On Admission Date Seen by Provider: Oct 03, 2021 Time Seen by Provider: 12:00 Subjective/Events-last exam 10/02/21: Patient doing well Vaginal bleeding noted a small amount TV and pelvic USG ordered Left eye patch worn due to double vision BP 93/61 HR [address] Hammond decreased Lopressor Lasix 40mg PO BID maintained 10/01/2021: Patient doing well Reported double vision so PT put a patch daughter Dr. Roland is her eye doctor Somatic complaints continue May now require 2 L of oxygen which was suspected all along Ultram for pain 09/30/2021: Pt having no issues K-Pad used with help Ambulates with 150 feet Everyone is very hesitant about her going home Talked about her debility and her lymphedema and the fact that it is a progressive type of situation Daughter at the bedside does not appear to be heavily involved with any ADL help 09/29/2021: Pt doing better Standby assist Bowels moved 2 days ago K Pad to the right arm is helpful 09/28/2021: Pt doing a lot better Albumin 2.6 Creatinine 1. 28 Checked meds and labs Working hard 09/27/21: Patient doing better DC MVI due to nausea Suppository given and had complete evacuation of bowels finally TONY wraps to lower legs working out well for her Diclofenac gel with Kpad working well for her right shoulder and arm DC daily weights 09/26/21: Patient doing well at bedside Wrapping legs Patient and her would do well with assisted living 09/25/21: Patient doing better than she thinks she is Pain both shoulders limits her Patient appears to be frightened about what is to come with decline Working with therapy Wrapping legs is really helping her 09/24/2021: Patient settling in well Was already able to walk around Right shoulder pain improved since Dr. Huerta injected it Has been brought her CPAP into use at night Wrapping legs with Tony wraps Speech therapy will evaluate dysphagia Objective Exam Vital Signs Vital Signs Date Time Temp Pulse Resp B/P (MAP) Pulse Ox O2 Delivery O2 Flow Rate FiO2 10/03/21 10:33 89/51 (64) 92 Nasal Cannula 5.00 10/03/21 07:30 36.4 96 16 Capillary Refill : General Appearance: No Apparent Distress, WD/WN, Chronically ill, Obese HEENT: PERRL/EOMI, Normal ENT Inspection, Pharynx Normal Neck: Full Range of Motion, Normal Inspection, Non Tender, Supple, Carotid Bruit Respiratory: Chest Non Tender, Lungs Clear, Normal Breath Sounds, No Accessory Muscle Use, No Respiratory Distress Cardiovascular: Regular Rate, Rhythm, No Gallop, No JVD, No Murmur, Normal Peripheral Pulses, Irregularly Irregular Gastrointestinal: Normal Bowel Sounds, No Organomegaly, No Pulsatile Mass, Non Tender, Soft Back: Normal Inspection, No CVA Tenderness, No Vertebral Tenderness Extremity: Normal Capillary Refill, Normal Inspection, Normal Range of Motion, Non Tender, No Calf Tenderness, Pedal Edema Neurologic/Psychiatric: Alert, Oriented x3, No Motor/Sensory Deficits, Normal Mood/Affect, distributor advertising material II-XII Norm as Tested, Motor Weakness (generalized) Skin: Normal Color, Warm/Dry Lymphatic: No Adenopathy Results/Procedures Lab Laboratory Tests 10/03/21 12:47 Patient resulted labs reviewed. FIM Transfers Therapy Code Descriptions/Definitions Functional [place] Measure: 0=Not Assessed/NA 4=Minimal Assistance 1=Total Assistance 5=Supervision or Setup 2=Maximal Assistance 6=Modified [place] 3=Moderate Assistance 7=Complete IndependenceSCALE: Activities may be completed with or without assistive devices. 7-Ptaetguezk-jbftdew completes the activity by him/herself with no assistance from a helper. 5-Set-up or Clean-up Assistance-helper sets up or cleans up; patient completes activity. [place] assists only prior to or following the activity. 4-Supervision or Touching Assistance-helper provides verbal cues and/or touching/steadying and/or contact guard assistance as patient completes activity. Assistance may be provided throughout the activity or intermittently. 3-Partial/Moderate Assistance-helper does LESS THAN HALF the effort. [place] lifts, holds or supports trunk or limbs, but provides less than half the effort. 2-Substantial/Maximal Assistance-helper does MORE THAN HALF the effort. [place] lifts or holds trunk or limbs and provides more than half the effort. 2-Hyawnzgid-tduhuc does ALL the effort. Patient does none of the effort to complete the activity. Or, the assistance of 2 or more helpers is required for the patient to complete the activity. If activity was not attempted, code reason: 7-Patient Refused. 9-Not Applicable-not attempted and the patient did not perform the activity before the current illness, exacerbation or injury. 10-Not Attempted due to Environmental Limitations-(lack of equipment, weather restraints, etc.). 88-Not Attempted due to Medical Conditions or Safety Concerns. Roll Left to Right (QC): 5 Sit to Lying (QC): 4 Sit to Stand (QC): 4 Chair/Edo-bu-Orfuj Xfer(QC): 3 Car Transfer (QC): 3 (needed assist in out bilat LEs) Gait Training Does the Patient Walk?: Yes Distance: 150' Walk 10 feet (QC): 5 Walk 50 ft with 2 Turns(QC): 5 Walk 150 ft (QC): 5 Walking 10ft/uneven surface-QC: 88 Gait Persons Needed: 1 Gait Assistive Device: FWW Wheelchair Training Does the Pt Use a Wheelchair?: No Wheel 50 ft with 2 turns (QC): 9 Wheel 150 ft (QC): 9 Stair Training 1 Step (curb) (QC): 88 4 Steps (QC): 88 12 Steps (QC): 88 Balance Picking up an Object (QC): 88 ADL-Treatment Eating (QC): 4 Oral Hygiene (QC): 4 Shower/Bathe Self (QC): 4 Upper Body Dressing (QC): 4 Lower Body Dressing (QC): 4 On/Off Footwear (QC): 4 Toileting Hygiene (QC): 4 Toilet Transfer (QC): 3 Assessment/Plan Assessment and Plan Assess & Plan/Chief Complaint Assessment: CHF Right shoulder soft tissue injury status post injection by Dr. Huerta on 09/23/2021 LE edema - due to CHF and lymphedema CAD Paroxysmal Atrial Fibrillation - OAC with Eliquis PAD Venous insufficiency Hyperlipidemia Hypothyroidism CKD-3 - followed by [facility] CAD FABRIZIO - on CPAP therapy and is managed by the Pulm services H/o gout Hyperbilirubinemia due to liver congestion work-up for Aponte and cirrhosis negative Ascites on last ultrasound Plan: Ortho consult Monitor renal function Cardiology consultation Rehab protocol DUB? USG ordered 09/24/2021: Appreciate Dr. Huerta Continue aggressive therapy Wrap legs Use home CPAP 09/25/21: Therapy Wraps legs Pain control 09/26/21: Wrap legs Shoulder pain management 09/27/21: Shoulder and right arm pain management Supportive care 09/28/2021: Pain management Supportive care 09/29/2021: Pain control Aggressive therapy 09/30/2021: Supportive care Discharge plan next week 10/01/2021: Supportive care Vision change not reflecting any organic basis right now 10/02/21: Monitor DUB USG Cardiology (1) Congestive heart failure Status: Acute (2) Bilateral lower extremity pain Status: Acute (3) Chronic kidney disease (CKD) Status: Acute (4) Generalized weakness Status: Acute (5) Anasarca Status: Acute VERNELL ROMAN DO Oct 03, 2021 11:44
[2021-10-03 12:53] LABS: BASOPHILS % (AUTO) 0 % (0-10); EOSINOPHILS # (AUTO) 0.1 10^3/uL (0.0-0.3); EOSINOPHILS % (AUTO) 1 % (0-10); HEMATOCRIT 37 % (35-52); HEMOGLOBIN 12.7 g/dL (11.5-16.0); LYMPHOCYTES # (AUTO) 0.4 10^3/uL (1.0-4.0); LYMPHOCYTES % (AUTO) 3 % (12-44); MEAN CORPUSCULAR HEMOGLOBIN 32 pg (25-34); MEAN CORPUSCULAR HGB CONC 35 g/dL (32-36); MEAN CORPUSCULAR VOLUME 92 fL (80-99); MEAN PLATELET VOLUME 11.4 fL (9.0-12.2); MONOCYTES # (AUTO) 0.1 10^3/uL (0.0-1.0); MONOCYTES % (AUTO) 1 % (0-12); NEUTROPHILS # (AUTO) 13.7 10^3/uL (1.8-7.8); NEUTROPHILS % (AUTO) 91 % (42-75); PLATELET COUNT 165 10^3/uL (130-400); WHITE BLOOD COUNT 15.1 10^3/uL (4.3-11.0)
[2021-10-03 13:01] LABS: ALBUMIN 2.4 GM/DL (3.2-4.5)
[2021-10-03 13:02] LABS: POTASSIUM 6.1 MMOL/L (3.6-5.0)
[2021-10-03 13:03] LABS: CALCIUM 9.8 MG/DL (8.5-10.1)
[2021-10-03 13:04] LABS: TOTAL PROTEIN 6.5 GM/DL (6.4-8.2)
[2021-10-03 13:06] LABS: BILIRUBIN,TOTAL 5.9 MG/DL (0.1-1.0)
[2021-10-03 13:08] LABS: CREATININE SERUM 2.31 MG/DL (0.60-1.30)
[2021-10-03 13:11] LABS: ANISOCYTOSIS MODERATE; BAND NEUTROPHILS 30 %; BASOPHILS % (MANUAL) 0 %; EOSINOPHILS % (MANUAL) 1 %; LYMPHOCYTES % (MANUAL) 5 %; METAMYELOCYTES % 2 %; MONOCYTES % (MANUAL) 1 %; NEUTROPHILS % (MANUAL) 61 %
--- NOTE | 2021-10-03 13:35 | Diagnostic Imaging Report ---
CLINICAL INDICATION: Patient with shortness of breath. Exam: Chest x-ray PA and lateral views. Comparisons: Chest x-ray dated 08/07/2021. Findings: There is progression of cardiomegaly with pulmonary vascular congestion which is most pronounced centrally. There is interval development of consolidation in the left lung base and concern for left pleural effusion. There is no pneumothorax. The remainder of this exam shows no significant interval change compared to the prior study of comparison. IMPRESSION: 1: There is progression of cardiomegaly and pulmonary vascular congestion which is most pronounced centrally. These findings may related to congestive heart failure. 2: There is interval development of consolidation in the left lung base and possible left pleural effusion. Pneumonia may be considered. Dictated by: Dictated on workstation # [id number]
[2021-10-03] MEDS ORDERED: NS IV 1000 ML 1,000 ML IV SCH (14:30)
--- NOTE | 2021-10-03 14:33 | Discharge Summary ---
Diagnosis/Chief Complaint Date of Admission Sep 23, 2021 at 13:00 Date of Discharge Discharge Diagnosis Assessment: Sepsis for pneumonia with hypoxia and hypotension and acute renal failure requiring transfer to cardiac stepdown now DNR with poor prognosis CHF Right shoulder soft tissue injury status post injection by Dr. Huerta on 09/23/2021 LE edema - due to CHF and lymphedema CAD Paroxysmal Atrial Fibrillation - OAC with Eliquis PAD Venous insufficiency Hyperlipidemia Hypothyroidism CKD-3 - followed by [facility] CAD FABRIZIO - on CPAP therapy and is managed by the Pulm services H/o gout Hyperbilirubinemia due to liver congestion work-up for Aponte and cirrhosis negat dave Ascites on last ultrasound Plan: Ortho consult Monitor renal function Cardiology consultation Rehab protocol DUB? USG ordered 09/24/2021: Appreciate Dr. Huerta Continue aggressive therapy Wrap legs Use home CPAP 09/25/21: Therapy Wraps legs Pain control 09/26/21: Wrap legs Shoulder pain management 09/27/21: Shoulder and right arm pain management Supportive care 09/28/2021: Pain management Supportive care 09/29/2021: Pain control Aggressive therapy 09/30/2021: Supportive care Discharge plan next week 10/01/2021: Supportive care Vision change not reflecting any organic basis right now 10/02/21: Monitor DUB USG Cardiology (1) Congestive heart failure Status: Acute (2) Bilateral lower extremity pain Status: Acute (3) Chronic kidney disease (CKD) Status: Acute (4) Generalized weakness Status: Acute (5) Anasarca Status: Acute Discharge Summary Discharge Physical Examination Allergies: Coded Allergies: codeine (Verified Allergy, Unknown, 08/06/21) erythromycin base (Verified Allergy, Unknown, 09/12/21) ethyl alcohol (Verified Allergy, Unknown, 09/12/21) hydrocodone (Verified Allergy, Unknown, 09/12/21) levofloxacin (Verified Allergy, Unknown, 08/06/21) metronidazole (Verified Allergy, Unknown, 08/06/21) penicillin G (Verified Allergy, Unknown, 08/06/21) Vitals & I&Os Vital Signs Date Time Temp Pulse Resp B/P (MAP) Pulse Ox O2 Delivery O2 Flow Rate FiO2 10/03/21 10:33 89/51 (64) 92 Nasal Cannula 5.00 10/03/21 07:30 36.4 96 16 General Appearance: Other (Chronically ill, anxious) Respiratory: Other (Diminished in the bases) Psych/Mental Status: Mental Status NL Hospital Course Was the Problem List Reviewed?: Yes Standard hospital course after she was admitted for weakness due to cor pulmonale, atrial fibrillation and right-sided heart failure. Chronic lymphedema managed with Tony wraps with good results. Patient was doing well but continued to decline the last 2 days of hospital stay chest x-ray revealed pneumonia and labs revealed multisystem organ failure with hypotension and sepsis. She was transferred to cardiac stepdown unit is maintained a DO NOT RESUSCITATE and poor prognosis comfort care likely in the future. Labs (last 24 hrs) Laboratory Tests 09/24/21 05:19: White Blood Count 8.6, Red Blood Count 3.90, Hemoglobin 12.4, Hematocrit 36, Mean Corpuscular Volume 92, Mean Corpuscular Hemoglobin 32, Mean Corpuscular Hemoglobin Concent 35, Red Cell Distribution Width 18.5H, Platelet Count 106L, Mean Platelet Volume 13.2H, Immature Granulocyte % (Auto) 1, Neutrophils (%) (Auto) 85H, Lymphocytes (%) (Auto) 8L, Monocytes (%) (Auto) 7, Eosinophils (%) (Auto) 0, Basophils (%) (Auto) 0, Neutrophils # (Auto) 7.3, Lymphocytes # (Auto) 0.7L, Monocytes # (Auto) 0.6, Eosinophils # (Auto) 0.0, Basophils # (Auto) 0.0, Immature Granulocyte # (Auto) 0.0, Percent Immature Platelet Fraction 9.8H, Sodium Level 139, Potassium Level 4.0, Chloride Level 102, Carbon Dioxide Level 24, Anion Gap 13, Blood Urea Nitrogen 42H, Creatinine 1.17, Estimat Glomerular Filtration Rate 45, BUN/Creatinine Ratio 36, Glucose Level 93, Calcium Level 8.9, Corrected Calcium 10.1, Total Bilirubin 3.7H, Aspartate Amino Transf (AST/SGOT) 38H, Alanine Aminotransferase (ALT/SGPT) 21, Alkaline Phosphatase 129, Total Protein 5.9L, Albumin 2.5L 09/28/21 05:30: White Blood Count 10.0, Red Blood Count 4.08, Hemoglobin 12.7, Hematocrit 38, Mean Corpuscular Volume 92, Mean Corpuscular Hemoglobin 31, Mean Corpuscular Hemoglobin Concent 34, Red Cell Distribution Width 18.5H, Platelet Count 213, Mean Platelet Volume 12.7H, Immature Granulocyte % (Auto) 1, Neutrophils (%) (Auto) 82H, Lymphocytes (%) (Auto) 8L, Monocytes (%) (Auto) 8, Eosinophils (%) (Auto) 0, Basophils (%) (Auto) 0, Neutrophils # (Auto) 8.2H, Lymphocytes # (Auto) 0.8L, Monocytes # (Auto) 0.8, Eosinophils # (Auto) 0.0, Basophils # (Auto) 0.0, Immature Granulocyte # (Auto) 0.1, Sodium Level 135, Potassium Level 4.3, Chloride Level 100, Carbon Dioxide Level 23, Anion Gap 12, Blood Urea Nitrogen 36H, Creatinine 1.28, Estimat Glomerular Filtration Rate 40, BUN/Creatinine Ratio 28, Glucose Level 83, Calcium Level 9.2, Corrected Calcium 10.3H, Total Bilirubin 3.7H, Aspartate Amino Transf (AST/SGOT) 34, Alanine Aminotransferase (ALT/SGPT) 21, Alkaline Phosphatase 152H, Total Protein 6.0L, Albumin 2.6L 09/29/21 05:44: Sodium Level 134L, Potassium Level 4.5, Chloride Level 100, Carbon Dioxide Level 23, Anion Gap 11, Blood Urea Nitrogen 33H, Creatinine 1.11, Estimat Glomerular Filtration Rate 47, BUN/Creatinine Ratio 30, Glucose Level 74, Calcium Level 9.1 10/03/21 12:47: White Blood Count 15.1H, Red Blood Count 4.01, Hemoglobin 12.7, Hematocrit 37, Mean Corpuscular Volume 92, Mean Corpuscular Hemoglobin 32, Mean Corpuscular Hemoglobin Concent 35, Red Cell Distribution Width 18.7H, Platelet Count 165, Mean Platelet Volume 11.4, Immature Granulocyte % (Auto) 5, Neutrophils (%) (Auto) 91H, Lymphocytes (%) (Auto) 3L, Monocytes (%) (Auto) 1, Eosinophils (%) (Auto) 1, Basophils (%) (Auto) 0, Neutrophils # (Auto) 13.7H, Lymphocytes # (Auto) 0.4L, Monocytes # (Auto) 0.1, Eosinophils # (Auto) 0.1, Basophils # (Auto) 0.0, Immature Granulocyte # (Auto) 0.7H, Sodium Level 127L, Potassium Level 6.1H, Chloride Level 94L, Carbon Dioxide Level 18L, Anion Gap 15H, Blood Urea Nitrogen 57H, Creatinine 2.31H, Estimat Glomerular Filtration Rate 20, BUN/Creatinine Ratio 25, Glucose Level 47*L, Calcium Level 9.8, Corrected Calcium 11.1H, Total Bilirubin 5.9H, Aspartate Amino Transf (AST/SGOT) 47H, Alanine Aminotransferase (ALT/SGPT) 22, Alkaline Phosphatase 189H, Total Protein 6.5, Albumin 2.4L, Neutrophils % (Manual) 61, Lymphocytes % (Manual) 5, Monocytes % (Manual) 1, Eosinophils % (Manual) 1, Basophils % (Manual) 0, Metamyelocytes % 2, Band Neutrophils 30, Anisocytosis MODERATE, B-Type Natriuretic Peptide 573.8H, Procalcitonin 12.43H 10/03/21 14:36: Glucometer 89 Pending Labs Laboratory Tests 09/24/21 05:19: White Blood Count 8.6, Red Blood Count 3.90, Hemoglobin 12.4, Hematocrit 36, Mean Corpuscular Volume 92, Mean Corpuscular Hemoglobin 32, Mean Corpuscular Hemoglobin Concent 35, Red Cell Distribution Width 18.5, Platelet Count 106, Mean Platelet Volume 13.2, Immature Granulocyte % (Auto) 1, Neutrophils (%) (Auto) 85, Lymphocytes (%) (Auto) 8, Monocytes (%) (Auto) 7, Eosinophils (%) (Auto) 0, Basophils (%) (Auto) 0, Neutrophils # (Auto) 7.3, Lymphocytes # (Auto) 0.7, Monocytes # (Auto) 0.6, Eosinophils # (Auto) 0.0, Basophils # (Auto) 0.0, Immature Granulocyte # (Auto) 0.0, Percent Immature Platelet Fraction 9.8, Sodium Level 139, Potassium Level 4.0, Chloride Level 102, Carbon Dioxide Level 24, Anion Gap 13, Blood Urea Nitrogen 42, Creatinine 1.17, Estimat Glomerular Filtration Rate 45, BUN/Creatinine Ratio 36, Glucose Level 93, Calcium Level 8.9, Corrected Calcium 10.1, Total Bilirubin 3.7, Aspartate Amino Transf (AST/SGOT) 38, Alanine Aminotransferase (ALT/SGPT) 21, Alkaline Phosphatase 129, Total Protein 5.9, Albumin 2.5 09/28/21 05:30: White Blood Count 10.0, Red Blood Count 4.08, Hemoglobin 12.7, Hematocrit 38, Mean Corpuscular Volume 92, Mean Corpuscular Hemoglobin 31, Mean Corpuscular Hemoglobin Concent 34, Red Cell Distribution Width 18.5, Platelet Count 213, Mean Platelet Volume 12.7, Immature Granulocyte % (Auto) 1, Neutrophils (%) (Auto) 82, Lymphocytes (%) (Auto) 8, Monocytes (%) (Auto) 8, Eosinophils (%) (Auto) 0, Basophils (%) (Auto) 0, Neutrophils # (Auto) 8.2, Lymphocytes # (Auto) 0.8, Monocytes # (Auto) 0.8, Eosinophils # (Auto) 0.0, Basophils # (Auto) 0.0, Immature Granulocyte # (Auto) 0.1, Sodium Level 135, Potassium Level 4.3, Chloride Level 100, Carbon Dioxide Level 23, Anion Gap 12, Blood Urea Nitrogen 36, Creatinine 1.28, Estimat Glomerular Filtration Rate 40, BUN/Creatinine Ratio 28, Glucose Level 83, Calcium Level 9.2, Corrected Calcium 10.3, Total Bilirubin 3.7, Aspartate Amino Transf (AST/SGOT) 34, Alanine Aminotransferase (ALT/SGPT) 21, Alkaline Phosphatase 152, Total Protein 6.0, Albumin 2.6 09/29/21 05:44: Sodium Level 134, Potassium Level 4.5, Chloride Level 100, Carbon Dioxide Level 23, Anion Gap 11, Blood Urea Nitrogen 33, Creatinine 1.11, Estimat Glomerular Filtration Rate 47, BUN/Creatinine Ratio 30, Glucose Level 74, Calcium Level 9.1 10/03/21 12:47: White Blood Count 15.1, Red Blood Count 4.01, Hemoglobin 12.7, Hematocrit 37, Mean Corpuscular Volume 92, Mean Corpuscular Hemoglobin 32, Mean Corpuscular Hemoglobin Concent 35, Red Cell Distribution Width 18.7, Platelet Count 165, Mean Platelet Volume 11.4, Immature Granulocyte % (Auto) 5, Neutrophils (%) (Auto) 91, Lymphocytes (%) (Auto) 3, Monocytes (%) (Auto) 1, Eosinophils (%) (Auto) 1, Basophils (%) (Auto) 0, Neutrophils # (Auto) 13.7, Lymphocytes # (Auto) 0.4, Monocytes # (Auto) 0.1, Eosinophils # (Auto) 0.1, Basophils # (Auto) 0.0, Immature Granulocyte # (Auto) 0.7, Sodium Level 127, Potassium Level 6.1, Chloride Level 94, Carbon Dioxide Level 18, Anion Gap 15, Blood Urea Nitrogen 57, Creatinine 2.31, Estimat Glomerular Filtration Rate 20, BUN/Creatinine Ratio 25, Glucose Level 47, Calcium Level 9.8, Corrected Calcium 11.1, Total Bilirubin 5.9, Aspartate Amino Transf (AST/SGOT) 47, Alanine Aminotransferase (ALT/SGPT) 22, Alkaline Phosphatase 189, Total Protein 6.5, Albumin 2.4, Neutrophils % (Manual) 61, Lymphocytes % (Manual) 5, Monocytes % (Manual) 1, Eosinophils % (Manual) 1, Basophils % (Manual) 0, Metamyelocytes % 2, Band Neutrophils 30, Anisocytosis MODERATE, B-Type Natriuretic Peptide 573.8, Procalcitonin 12.43 10/03/21 14:36: Glucometer 89 Discharge Home Medications: Active Scripts Active Torsemide 20 Mg Tablet 90 Mg PO DAILY 90 Days Reported WhiteSo1 Capsule (l Gasseri/B Bifidum/B Longum) 1 Each Capsule 1 Each PO DAILY Levothyroxine Sodium 137 Mcg Tablet 137 Mcg PO DAILY Tramadol HCl 50 Mg Tablet 50 Mg PO Q8H PRN Potassium Chloride 20 Meq Tab.er.prt 20 Meq PO BID Flintstones Complete Chew Tab (Ped Multivit #43/Iron Fumarate) 18 Mg Tab.chew 18 Mg PO BID Eliquis (Apixaban) 2.5 Mg Tablet 2.5 Mg PO BID Allopurinol 300 Mg Tablet 300 Mg PO DAILY Metoprolol Succinate 200 Mg Tab.er.24h 200 Mg PO DAILY Instructions to patient/family Please see electronic discharge instructions given to patient. Diagnosis/Problems Diagnosis/Problems (1) Congestive heart failure Status: Acute (2) Bilateral lower extremity pain Status: Acute (3) Chronic kidney disease (CKD) Status: Acute (4) Generalized weakness Status: Acute (5) Anasarca Status: Acute VERNELL ROMAN DO Oct 03, 2021 14:33
[2021-10-03] MEDS ORDERED: DEXTROSE 50% 50 ML (IMS) SYR IV NR (14:45)
[2021-10-03] MEDS ORDERED: DEXTROSE 50% 50 ML (IMS) SYR ONE (14:47)
[2021-10-04] MEDS ORDERED: KCL 10 MEQ TAB (MICRO K) PO SCH (08:00)
--- NOTE | 2021-10-05 07:53 | Therapy Team Discharge Summary ---
Therapy Discharge Summary Discharge Recommendations Date of Discharge Oct 03, 2021 at 15:30 Occupational Therapy Decreased Activ Tolerance, Decreased UE Strength, Impaired Coordination, Impa ired I ADL's, Impaired Self-Care Skills, Restricted Funct UE ROM Speech-Language Pathology Patient was admitted to the ARU due to CHF and debility. The patient has had multiple health issues throughout her stay. She was diagnosed with pneumonia and was moved to cardiac stepdown on 10/03/21. PT Underwear Finisher Goals Fdc Goals PT Fdc Goals Time Frame: Oct 14, 2021 Roll Left to Right (QC): 4 Sit to Lying (QC): 4 Lying-Sitting on Side/Bed(QC): 4 Sit to Stand (QC): 4 Chair/War-kr-Gzptq Xfer(QC): 4 Car Transfer (QC): 3 Does the Patient Walk: Yes Walk 10 feet (QC): 4 Walk 10ft-Uneven Surface(QC): 4 Walk 50ft with 2 Turns (QC): 4 Walk 150 ft (QC): 4 Wheel 50 feet with 2 turns (QC: 9 1 Step (curb) (QC): 4 4 Steps (QC): 88 12 Steps (QC): 88 Picking up an Object (QC): 4 OT Fdc Goals Fdc Goals Time Frame: Oct 13, 2021 Eating (QC): 6 Oral Hygiene (QC): 6 Shower/Bathe Self (QC): 4 Upper Body Dressing (QC): 4 Lower Body Dressing (QC): 5 On/Off Footwear (QC): 4 Toileting Hygiene (QC): 6 Toilet/Commode Transfer (QC): 4 1=Demonstrate adherence to instructed precautions during ADL tasks. 2=Patient will verbalize/demonstrate understanding of assistive devices/modifications for ADL. 3=Patient will improve strength/tolerance for activity to enable patient to perf orm ADL's. Speech Fdc Goals Fdc Goals Patient will increase functional level for ability to complete daily tasks with minimal assist. Patient will maintain adequate nutrition/hydration with alternate hand utili zation. EVER ESTES Oct 05, 2021 07:53
--- NOTE | 2021-10-05 10:55 | Therapy Team Discharge Summary ---
Therapy Discharge Summary Discharge Recommendations Date of Discharge Oct 03, 2021 at 15:30 Physical Therapy Patient came to rehab with right shoulder pain and BLE edema. Upon evaluation patient performed rolling with min assist, supine <-> sit mod assist, sit <-> stand and transfers min assist, car transfer mod assist, ambulate 100' with a rolling walker with CGA (including 50' with at least 2 turns of 90 degrees). Patient has been performing bed mobility and transfer training, balance and endurance training, functional strengthening, gait training, and education. Patient was ambulating and doing transfers with CGA but had to be transferred upstairs due to medical complications. Final quality codes were not obtained. Patient will be discharged from PT at this time. Occupational Therapy Decreased Activ Tolerance, Decreased UE Strength, Impaired Coordination, Impaired I ADL's, Impaired Self-Care Skills, Restricted Funct UE ROM PT Alf Goals Alf Goals PT Alf Goals Time Frame: Oct 14, 2021 Roll Left to Right (QC): 4 Sit to Lying (QC): 4 Lying-Sitting on Side/Bed(QC): 4 Sit to Stand (QC): 4 Chair/Mjj-lk-Opkyt Xfer(QC): 4 Car Transfer (QC): 3 Does the Patient Walk: Yes Walk 10 feet (QC): 4 Walk 10ft-Uneven Surface(QC): 4 Walk 50ft with 2 Turns (QC): 4 Walk 150 ft (QC): 4 Wheel 50 feet with 2 turns (QC: 9 1 Step (curb) (QC): 4 4 Steps (QC): 88 12 Steps (QC): 88 Picking up an Object (QC): 4 OT Metal Reed Tuner Goals Alf Goals Time Frame: Oct 13, 2021 Eating (QC): 6 Oral Hygiene (QC): 6 Shower/Bathe Self (QC): 4 Upper Body Dressing (QC): 4 Lower Body Dressing (QC): 5 On/Off Footwear (QC): 4 Toileting Hygiene (QC): 6 Toilet/Commode Transfer (QC): 4 1=Demonstrate adherence to instructed precautions during ADL tasks. 2=Patient will verbalize/demonstrate understanding of assistive devices/modifications for ADL. 3=Patient will improve strength/tolerance for activity to enable patient to perform ADL's. Speech Metal Reed Tuner Goals Alf Goals Patient will increase functional level for ability to complete daily tasks with minimal assist. Patient will maintain adequate nutrition/hydration with alternate hand utilization. CARI OG PT Oct 05, 2021 10:55
--- NOTE | 2021-10-05 13:54 | Therapy Team Discharge Summary ---
Therapy Discharge Summary Discharge Recommendations Date of Discharge Oct 03, 2021 at 15:30 Occupational Therapy Patient was admitted to the ARU due to CHF and debility. The patient has had multiple health issues throughout her stay. She did not meet all of her retirement goals due to a new diagnosis of pneumonia and being transferred to cardiac stepdown on 10/03/21. At time of d/c pt was: SBA-CGA for bathing, upper body dressing, lower body dressing, toileting, and min a for toilet transfers. Pt is now d/c from inpatient rehab and will be d/c from OT. Decreased Activ Tolerance, Decreased UE Strength, Impaired Coordination, Impaired I ADL's, Impaired Self-Care Skills, Restricted Funct UE ROM PT Foam Rubber Mixer Goals Foam Rubber Mixer Goals PT Foam Rubber Mixer Goals Time Frame: Oct 14, 2021 Roll Left to Right (QC): 4 Sit to Lying (QC): 4 Lying-Sitting on Side/Bed(QC): 4 Sit to Stand (QC): 4 Chair/Mgf-dw-Yyjbj Xfer(QC): 4 Car Transfer (QC): 3 Does the Patient Walk: Yes Walk 10 feet (QC): 4 Walk 10ft-Uneven Surface(QC): 4 Walk 50ft with 2 Turns (QC): 4 Walk 150 ft (QC): 4 Wheel 50 feet with 2 turns (QC: 9 1 Step (curb) (QC): 4 4 Steps (QC): 88 12 Steps (QC): 88 Picking up an Object (QC): 4 OT Foam Rubber Mixer Goals Foam Rubber Mixer Goals Time Frame: Oct 13, 2021 Eating (QC): 6 (met) Oral Hygiene (QC): 6 (not met) Shower/Bathe Self (QC): 4 (met) Upper Body Dressing (QC): 4 (met) Lower Body Dressing (QC): 5 (not met) On/Off Footwear (QC): 4 (met) Toileting Hygiene (QC): 6 (not met) Toilet/Commode Transfer (QC): 4 (not met) 1=Demonstrate adherence to instructed precautions during ADL tasks. 2=Patient will verbalize/demonstrate understanding of assistive devices/modifications for ADL. 3=Patient will improve strength/tolerance for activity to enable patient to perform ADL's. Speech Senior Living Goals Foam Rubber Mixer Goals Patient will increase functional level for ability to complete daily tasks with minimal assist. Patient will maintain adequate nutrition/hydration with alternate hand u tilization. Glenna Reynoso OT Oct 05, 2021 13:54
== END 2021-10-03 15:30 | disposition short-term general hospital (02) | DRG 91 ==
PROVIDERS: ADMIT Internal Medicine; ATTEND Internal Medicine
DX: G72.89 Other specified myopathies (principal); A41.9 Sepsis, unspecified organism; J18.9 Pneumonia, unspecified organism; I13.0 Hypertensive heart and chronic kidney disease with heart failure and stage 1 through stage 4 chronic kidney disease, or unspecified chronic kidney disease; R18.8 Other ascites; N17.9 Acute kidney failure, unspecified; I50.9 Heart failure, unspecified; N18.30 Chronic kidney disease, stage 3 unspecified; Z66 Do not resuscitate; I27.81 Cor pulmonale (chronic); I27.20 Pulmonary hypertension, unspecified; I08.1 Rheumatic disorders of both mitral and tricuspid valves; G47.33 Obstructive sleep apnea (adult) (pediatric); S49.81XD Other specified injuries of right shoulder and upper arm, subsequent encounter; K76.1 Chronic passive congestion of liver; M10.9 Gout, unspecified; I25.10 Atherosclerotic heart disease of native coronary artery without angina pectoris; E66.9 Obesity, unspecified; I48.0 Paroxysmal atrial fibrillation; E78.00 Pure hypercholesterolemia, unspecified; E78.5 Hyperlipidemia, unspecified; M19.91 Primary osteoarthritis, unspecified site; E03.9 Hypothyroidism, unspecified; R73.01 Impaired fasting glucose; I77.9 Disorder of arteries and arterioles, unspecified; H26.9 Unspecified cataract; H91.90 Unspecified hearing loss, unspecified ear; I87.2 Venous insufficiency (chronic) (peripheral); H53.2 Diplopia; I89.0 Lymphedema, not elsewhere classified; N93.9 Abnormal uterine and vaginal bleeding, unspecified; Z68.35 Body mass index [BMI] 35.0-35.9, adult; Z79.01 Long term (current) use of anticoagulants; Z82.49 Family history of ischemic heart disease and other diseases of the circulatory system; Z88.6 Allergy status to analgesic agent; Z88.1 Allergy status to other antibiotic agents; Z88.0 Allergy status to penicillin; Z91.018 Allergy to other foods; W19.XXXD Unspecified fall, subsequent encounter
CPT/HCPCS: 36415; 71046; 76830; 76856; 80048; 80053; 82947; 83880; 84145; 85007; 85025; 85027; 87040; 94760

== ENCOUNTER 2021-10-03 14:19 | Inpatient (IN) | payer MEDICARE ==
[~2021-10-03] VITALS: Ht 160 cm; Wt 92.0 kg
[2021-10-03] MEDS ORDERED: DEXTROSE 50% 50 ML (IMS) SYR IV NR (15:30)
[2021-10-03] MEDS ORDERED: NS IV 1000 ML 1,000 ML IV SCH (15:30)
[2021-10-03] MEDS ORDERED: RT-ALBUTEROL SULF 2.5 MG/3 ML PRE-MIX VIAL INH PRN (16:00)
[2021-10-03] MEDS ORDERED: FLEET ENEMA ADULT 1 EA BTL PR PRN (16:15)
[2021-10-03] MEDS ORDERED: CALCIUM CARBONATE 500 MG (TUMS) TAB.CHEW PO PRN (16:15)
[2021-10-03] MEDS ORDERED: diphenhydrAMINE 25 MG TAB (BENADRYL) PO PRN (16:15)
[2021-10-03] MEDS ORDERED: LOPERAMIDE 2 MG (IMODIUM) TABLET PO PRN (16:15)
[2021-10-03] MEDS ORDERED: BISACODYL 10 MG SUPP (DULCOLAX) PR PRN (16:15)
[2021-10-03] MEDS ORDERED: LACTULOSE SYRUP 10GM/15ML (ENULOSE) 30ML UDC PO PRN (16:15)
[2021-10-03] MEDS ORDERED: ALPRAZolam 0.25 MG (XANAX) TAB PO PRN (16:15)
[2021-10-03] MEDS ORDERED: ONDANSETRON 4 MG (ZOFRAN) ORAL DISSOLVE TAB PO PRN (16:15)
[2021-10-03] MEDS ORDERED: MELATONIN 3 MG TABLET PO PRN (16:15)
[2021-10-03] MEDS ORDERED: CATHETER FLUSH 10 ML SYR IV PRN (16:15)
[2021-10-03] MEDS ORDERED: DOCUSATE SODIUM 100 MG (COLACE) CAP PO PRN (16:15)
[2021-10-03] MEDS ORDERED: SALIVA STIMULANT MOUTH SPRAY (BIOTENE) 1.5 OZ MM PRN (16:15)
[2021-10-03] MEDS ORDERED: CEFEPIME INJECTION 2,000 MG in NS (IVPB) 50 ML IV SCH (16:30)
--- NOTE | 2021-10-03 16:46 | Cardiology Progress Note ---
Progress Note-Cardiology Events since last exam Date Seen by Provider: Oct 03, 2021 Time Seen by Provider: 16:39 Events since last exam We are following her due to right-sided heart failure. This morning while she was on the inpatient rehabilitation unit she became acutely more short of breath. She states that her peripheral edema started getting worse today. She was seen by the rehab physician who transferred her up to the inpatient cardiac stepdown unit. She was given intravenous Lasix this morning. Now she is getting 1 L of IV normal saline. She states her breathing is improved from this morning but not completely back to normal. Her chronic lower extremity edema is slightly worse today, as outlined above. She denies chest pain, palpitations, or syncope. Certain portions of this document may have been dictated utilizing voice recognition technology. Inherent to this technology, typographical and grammatical errors may exist. As much as I am diligent to identify and correct these mistakes, some errors may remain in the document. Vitals Last set of Vitals Signs Vital Signs 10/03/21 10/03/21 15:16 16:15 Temp 37.0 Pulse 94 Resp 26 B/P (MAP) 99/58 Pulse Ox 91 O2 Delivery Nasal Cannula O2 Flow Rate 5.00 Exam Vital Signs Vital Signs Date Time Temp Pulse Resp B/P (MAP) Pulse Ox O2 Delivery O2 Flow Rate FiO2 10/03/21 16:15 94 26 99/58 91 Nasal Cannula 5.00 10/03/21 15:16 37.0 Physical Exam General: Alert. No acute distress. Eye: No xanthelasma. HENT: Normocephalic. Neck: Jugular venous pressure does not appear elevated. Respiratory: Lungs are clear to auscultation. Respirations are non-labored. Breath sounds are equal. Symmetrical chest wall expansion. Cardiovascular: Normal rate. Regular rhythm. No murmur. No gallop. 3+ bilateral pretibial edema. Gastrointestinal: Soft. Normal bowel sounds. Skin: Warm. Dry. Neurologic: Alert and oriented to person, place, time. Cranial nerves 3-11 grossly intact. Psychiatric: Cooperative. Appropriate mood & affect. She is obese. Labs Laboratory Tests Test 10/03/21 15:05 Range/Units Lactic Acid Level 3.28 *H 0.50-2.00 MMOL/L Diagnosis/Problems Diagnosis/Problems (1) Acute on chronic right heart failure Assessment & Plan: She likely has chronic venous stasis on top of her cor pulmonale. Unfortunately, her renal function has worsened. This makes management of the edema quite difficult. She received IV furosemide this morning but is now getting IV fluids. I have asked the nurse to stop the IV fluids after 1 L. We will obtain a follow-up metabolic panel in the morning. She may actually benefit from high-dose diuretic which could paradoxically improve her renal function. I will await the results of tomorrow's metabolic panel. (2) Cor pulmonale Assessment & Plan: She has moderate pulmonary hypertension. This is contributing to the right-sided heart failure. We will proceed as above. Given her advanced age and comorbid conditions, I would not recommend an extensive evaluation for secondary causes of pulmonary hypertension. This would be unlikely to change her long-term prognosis and management. (3) Paroxysmal atrial fibrillation Assessment & Plan: According to my partners note, the patient has paroxysmal atrial fibrillation but the telemetry strips I reviewed showed persistent atrial fibrillation. I will obtain a follow-up electrocardiogram. We will continue apixaban for stroke prophylaxis. She is on the lower dose due to age over [age] and creatinine above 1.5. Beta-danny is presently on hold due to low blood pressures. (4) Coronary artery disease without angina pectoris Assessment & Plan: She had mild coronary artery disease at cardiac catheterization in 2014. She is not having any angina. (5) Acute kidney injury superimposed on chronic kidney disease Assessment & Plan: As above, her kidney function deteriorated over the past 24- 48 hours. We will proceed as above. BEKAH PENA JR, MD Oct 03, 2021 16:46
[2021-10-03 16:57] LABS: ABG BASE EXCESS -2.4 MMOL/L (-2.5-2.5); ABG OXYGEN SATURATION 97 % (94-100); ABG PCO2 31 MMHG (35-45); ABG PH 7.44 (7.37-7.43); ABG PO2 83 MMHG (79-93)
[2021-10-03 17:00] LABS: PATIENT TEMP 37; VENTILATOR NO
[2021-10-03] MEDS: DOXYCYCLINE INJECTION 100 MG in NS (IVPB) 100 ML IV SCH (17:17)
[2021-10-03] MEDS: NS IV 1000 ML 1,000 ML IV SCH (17:20)
[2021-10-03] MEDS: DICLOFENAC 1% GEL 100 GM (VOLTAREN) TUBE TOP SCH ×2 (17:23→21:00)
[2021-10-03] MEDS: RT-ALBUTEROL/IPRATROPIUM 3 ML (DUONEB) VIAL INH SCH ×2 (18:44→23:49)
--- NOTE | 2021-10-03 19:22 | History & Physical ---
History of Present Illness HPI/Chief Complaint Chief complaint: Sepsis due to pneumonia with hypoxia and acute renal failure History present illness: This is an 81-year-old white female new clinic patient of mine who presented to cardiac stepdown unit emergently from inpatient rehab stay for 11 days due to weakness and chronic lower extremity edema who has a history of cor pulmonale due to longstanding obstructive sleep apnea causing right-sided heart failure and chronic lymphedema. She has severe valvular heart disease including tricuspid and mitral regurgitation but not a surgical candidate. She continued to have lower blood pressures the last 2 days and last labs were stable but chest x-ray obtained due to continued hypoxia 5 L required revealed pneumonia and labs showed evidence of sepsis. She now has hyponatremia, acute renal failure, liver failure, pneumonia, congestive heart failure, atrial fibrillation with rapid ventricular response, hypoxia and will likely rapidly declined. Family was notified and updated. She was a DO NOT RESUSCITATE. Source: patient, RN/MD, old records Exam Limitations: clinical condition Date Seen 10/03/21 Time Seen by a Provider: 16:00 Attending Physician Yulisa Bertrand DO PCP Yulisa Bertrand DO Referring Physician Date of Admission Oct 03, 2021 at 15:44 Home Medications & Allergies Home Medications Reviewed patient Home Medication Reconciliation performed by pharmacy medication reconciliations product safety technician and/or nursing. Patients Allergies have been reviewed. Allergies Allergies Coded Allergies codeine (Verified Allergy, Unknown, 08/06/21) erythromycin base (Verified Allergy, Unknown, 09/12/21) ethyl alcohol (Verified Allergy, Unknown, 09/12/21) hydrocodone (Verified Allergy, Unknown, 09/12/21) levofloxacin (Verified Allergy, Unknown, 08/06/21) metronidazole (Verified Allergy, Unknown, 08/06/21) penicillin G (Verified Allergy, Unknown, 08/06/21) Past [id number]-[id number]-[id number] Hx Past Med/Social Hx: Reviewed Nursing Past Med/Soc Hx, Reviewed and Corrections made Patient Social History Marrital Status: Employed/Student: retired Alcohol Use: Denies Use Smoking Status: Never a Smoker 2nd Hand Smoke Exposure: No Immunizations Up To Date Tetanus Booster (TDap): Less than 5yrs Date of Pneumonia Vaccine: Oct 14, 2009 Date of Influenza Vaccine: Aug 19, 2021 Past Medical History Surgeries: Eye Surgery, Orthopedic Respiratory: Sleep Apnea Currently Using CPAP: Yes Cardiac: Atrial Fibrillation, Chronic Edema/Swelling, High Cholesterol, Hypertension, Valvular Heart Disease Neurological: Neuropathy Reproductive: No Genitourinary: Renal Failure Musculoskeletal: Arthritis, Gout Endocrine: Hypothyroidsim HEENT: Cataract Loss of Vision: Bilateral Hearing Impairment: Hard of Hearing History of Blood Disorders: No Family History Cancer 09 SISTER (breast ) FH: atrial fibrillation Family history: Hypertension 03 FATHER son History of - disorder 09 SISTER (lupus) Myocardial infarction 03 MOTHER Stroke 03 FATHER Heart Disease, Hypertension, Stroke Review of Systems Constitutional: see HPI, malaise, weakness EENTM: no symptoms reported Respiratory: dyspnea on exertion, short of breath Cardiovascular: edema Gastrointestinal: no symptoms reported Genitourinary: no symptoms reported Musculoskeletal: back pain, joint pain Skin: see HPI Psychiatric/Neurological: Depressed All Other Systems Reviewed Negative Unless Noted: Yes Physical Exam Physical Exam Vital Signs Vital Signs - First Documented 10/03/21 15:16 Temp 37.0 Pulse 97 Resp 25 B/P (MAP) 107/61 Pulse Ox 92 O2 Delivery Nasal Cannula O2 Flow Rate 5.00 Capillary Refill : Height, Weight, BMI Height: 5'3.50" Weight: 211lbs. 8.0oz. 95.805288xt; 35.15 BMI Method:Stated General Appearance: WD/WN, Chronically ill, Mild Distress, Obese, Other (Esteban and ashen and acutely ill) Eyes: Bilateral Eye Normal Inspection, Bilateral Eye PERRL HEENT: PERRL/EOMI, Normal ENT Inspection, Pharynx Normal Neck: Full Range of Motion, Normal Inspection, Non Tender, Supple, Carotid Bruit Respiratory: Chest Non Tender, No Accessory Muscle Use, No Respiratory Distress, Decreased Breath Sounds Cardiovascular: No Gallop, No JVD, No Murmur, Normal Peripheral Pulses, Irregularly Irregular, Tachycardia Gastrointestinal: Normal Bowel Sounds, No Organomegaly, No Pulsatile Mass, Non Tender, Soft Back: Normal Inspection, No CVA Tenderness, No Vertebral Tenderness Extremity: Normal Capillary Refill, Normal Inspection, Normal Range of Motion, Non Tender, No Calf Tenderness, Pedal Edema, Swelling Neurologic/Psychiatric: Alert, Oriented x3, No Motor/Sensory Deficits, Normal Mood/Affect Skin: Normal Color, Warm/Dry Lymphatic: No Adenopathy Results Results/Procedures Labs Laboratory Tests 10/04/21 04:31 Patient resulted labs reviewed. Assessment/Plan Admission Diagnosis Assessment: Sepsis Pneumonia Multisystem organ failure Acute kidney failure Right heart failure acute on chronic Cor pulmonale Obstructive sleep apnea on CPAP Atrial fibrillation with current rapid ventricular response Hypotension not due to sepsis Advanced age DO NOT RESUSCITATE Chronic lower extremity edema lymphedema Valvular heart disease not a surgical management Plan: Supportive care IV fluid Cardiology consult Oxygen IV antibiotics DO NOT RESUSCITATE Plan comfort care management tomorrow Admission Status: Inpatient Order (span 2 midnights) Reason for Inpatient Admission: Sepsis YULISA BERTRAND DO Oct 03, 2021 19:22
[2021-10-03] MEDS: APIXABAN 2.5 MG (ELIQUIS) TABLET PO SCH (21:00)
[2021-10-03] MEDS: SENNA W/DOCUSATE (SENOKOT S) TABLET PO SCH (21:00)
[2021-10-03] MEDS: polyethylene glycoL POWDER 17 GM (MIRALAX) PACK PO SCH (21:00)
[2021-10-04] MEDS: RT-ALBUTEROL/IPRATROPIUM 3 ML (DUONEB) VIAL INH SCH ×2 (02:49→07:35)
[2021-10-04 05:04] LABS: BASOPHILS % (AUTO) 0 % (0-10); EOSINOPHILS # (AUTO) 0.1 10^3/uL (0.0-0.3); EOSINOPHILS % (AUTO) 0 % (0-10); HEMATOCRIT 37 % (35-52); HEMOGLOBIN 13.2 g/dL (11.5-16.0); LYMPHOCYTES # (AUTO) 0.3 10^3/uL (1.0-4.0); LYMPHOCYTES % (AUTO) 2 % (12-44); MEAN CORPUSCULAR HEMOGLOBIN 31 pg (25-34); MEAN CORPUSCULAR HGB CONC 35 g/dL (32-36); MEAN CORPUSCULAR VOLUME 88 fL (80-99); MEAN PLATELET VOLUME 11.8 fL (9.0-12.2); MONOCYTES # (AUTO) 0.2 10^3/uL (0.0-1.0); MONOCYTES % (AUTO) 1 % (0-12); NEUTROPHILS # (AUTO) 18.2 10^3/uL (1.8-7.8); NEUTROPHILS % (AUTO) 93 % (42-75); PLATELET COUNT 232 10^3/uL (130-400); WHITE BLOOD COUNT 19.5 10^3/uL (4.3-11.0)
[2021-10-04] MEDS: DOXYCYCLINE INJECTION 100 MG in NS (IVPB) 100 ML IV SCH (05:08)
[2021-10-04 05:23] LABS: ALBUMIN 2.4 GM/DL (3.2-4.5)
[2021-10-04 05:24] LABS: POTASSIUM 6.2 MMOL/L (3.6-5.0)
[2021-10-04 05:25] LABS: CALCIUM 10.1 MG/DL (8.5-10.1)
[2021-10-04 05:26] LABS: TOTAL PROTEIN 6.1 GM/DL (6.4-8.2)
[2021-10-04 05:28] LABS: BILIRUBIN,TOTAL 6.2 MG/DL (0.1-1.0)
[2021-10-04 05:30] LABS: CREATININE SERUM 2.52 MG/DL (0.60-1.30)
[2021-10-04 05:34] LABS: CLARITY,URINE CLOUDY; COLOR,URINE YELLOW; PH,URINE 6.5 (5-9)
[2021-10-04 05:35] LABS: GLUCOSE, URINE (UA) NEGATIVE (NEGATIVE); KETONES,URINE NEGATIVE (NEGATIVE); NITRITE,URINE POSITIVE (NEGATIVE); PROTEIN,URINE 1+ (NEGATIVE)
[2021-10-04 05:36] LABS: BILIRUBIN,URINE NEGATIVE (NEGATIVE); LEUKOCYTE ESTERASE ,URINE 3+ (NEGATIVE)
[2021-10-04 05:38] LABS: BACTERIA,URINE LARGE /HPF; RBC,URINE 25-50 /HPF; WBC,URINE >100 /HPF
[2021-10-04] MEDS ORDERED: DEXTROSE 50% 50 ML (IMS) SYR ONE (05:51)
[2021-10-04] MEDS ORDERED: DEXTROSE 50% 50 ML (IMS) SYR IV ONE (06:15)
[2021-10-04] MEDS ORDERED: LEVOTHYROXINE 25 MCG (LEVOTHROID) TAB PO SCH (06:30)
[2021-10-04] MEDS ORDERED: LEVOTHYROXINE 112 MCG (LEVOTHROID) TAB PO SCH (06:30)
[2021-10-04] MEDS: SENNA W/DOCUSATE (SENOKOT S) TABLET PO SCH (07:42)
[2021-10-04] MEDS: polyethylene glycoL POWDER 17 GM (MIRALAX) PACK PO SCH (07:42)
[2021-10-04] MEDS: APIXABAN 2.5 MG (ELIQUIS) TABLET PO SCH (08:16)
[2021-10-04] MEDS: DICLOFENAC 1% GEL 100 GM (VOLTAREN) TUBE TOP SCH (08:24)
[2021-10-04] MEDS ORDERED: LACTOBACILLUS ACIDOPHILUS (PROBIOTIC) CAPSULE PO SCH (09:00)
[2021-10-04] MEDS: NS IV 1000 ML 1,000 ML IV SCH (09:05)
--- NOTE | 2021-10-04 10:39 | Progress Note ---
Subjective Date Seen by a Provider: Oct 04, 2021 Time Seen by a Provider: 10:30 Subjective/Events-last exam Patient declining rapidly Multisystem organ failure Patient showing signs of progression Atrial fibrillation with RVR Kidney failure Liver failure Spoke with family which included and daughter and son and they all agree she is at the end stage of her life We will place her on comfort care and allow family to visit. Focused Exam Lactate Level 10/03/21 17:26: Lactic Acid Level 2.86*H 10/03/21 19:29: Lactic Acid Level 3.02*H 10/03/21 21:40: Lactic Acid Level 3.17*H Objective Exam Last Set of Vital Signs Vital Signs Date Time Temp Pulse Resp B/P (MAP) Pulse Ox O2 Delivery O2 Flow Rate FiO2 10/04/21 08:44 89 Nasal Cannula 10.00 10/04/21 08:31 36.8 118 20 120/55 Capillary Refill : I&O Intake and Output 10/04/21 00:00 Intake Total 1300 ml Balance 1300 ml Intake Oral 150 ml IV Total 1150 ml # Voids 1 Daily Weight Change Unsure General: Other (Near comatose, tachypneic, liu, jaundiced) Results Lab Laboratory Tests 10/03/21 15:05: Lactic Acid Level 3.28*H 10/03/21 16:45: Blood Gas Puncture Site R RADIAL, Blood Gas Patient Temperature 37, Arterial Blood pH 7.44H, Arterial Blood Partial Pressure CO2 31L, Arterial Blood Partial Pressure O2 83, Arterial Blood HCO3 21L, Arterial Blood Total CO2 22.0, Arterial Blood Oxygen Saturation 97, Arterial Blood Base Excess -2.4, Alexander Test NA, Blood Gas Ventilator Setting NO, Blood Gas Inspired Oxygen UNK 10/03/21 17:26: Lactic Acid Level 2.86*H, Ammonia 20 10/03/21 19:29: Lactic Acid Level 3.02*H 10/03/21 21:40: Lactic Acid Level 3.17*H 10/04/21 04:30: Urine Color YELLOW, Urine Clarity CLOUDY, Urine pH 6.5, Urine Specific [place] 1.010L, Urine Protein 1+H, Urine Glucose (UA) NEGATIVE, Urine Ketones NEGATIVE, Urine Nitrite POSITIVEH, Urine Bilirubin NEGATIVE, Urine Urobilinogen 1, Urine Leukocyte Esterase 3+H, Urine RBC (Auto) 3+H, Urine RBC 25-50H, Urine WBC >100H, Urine Crystals NONE, Urine Bacteria LARGEH, Urine Casts NONE, Urine Mucus NEGATIVE, Urine Culture Indicated YES 10/04/21 04:31: White Blood Count 19.5H, Red Blood Count 4.24, Hemoglobin 13.2, Hematocrit 37, Mean Corpuscular Volume 88, Mean Corpuscular Hemoglobin 31, Mean Corpuscular Hemoglobin Concent 35, Red Cell Distribution Width 18.2H, Platelet Count 232, Mean Platelet Volume 11.8, Immature Granulocyte % (Auto) 4, Neutrophils (%) (Auto) 93H, Lymphocytes (%) (Auto) 2L, Monocytes (%) (Auto) 1, Eosinophils (%) (Auto) 0, Basophils (%) (Auto) 0, Neutrophils # (Auto) 18.2H, Lymphocytes # (Auto) 0.3L, Monocytes # (Auto) 0.2, Eosinophils # (Auto) 0.1, Basophils # (Auto) 0.0, Immature Granulocyte # (Auto) 0.7H, Sodium Level 129L, Potassium Level 6.2H, Chloride Level 96L, Carbon Dioxide Level 16L, Anion Gap 17H, Blood Urea Nitrogen 60H, Creatinine 2.52H, Estimat Glomerular Filtration Rate 18, BUN/Creatinine Ratio 24, Glucose Level 37*L, Calcium Level 10.1, Corrected Calcium 11.4H, Total Bilirubin 6.2H, Aspartate Amino Transf (AST/SGOT) 50H, Alanine Aminotransferase (ALT/SGPT) 21, Alkaline Phosphatase 232H, Total Protein 6.1L, Albumin 2.4L 10/04/21 06:41: Glucometer 72 Assessment/Plan Assessment/Plan Assess & Plan/Chief Complaint Assessment: Multisystem organ failure End-of-life Plan: Comfort care protocol Clinical Quality Measures End of Life/Advance Care Plan: Advance Care discuss with: family member (s) End of Life Care: Comfort Measures VERNELL ROMAN DO Oct 04, 2021 10:39
[2021-10-04] MEDS ORDERED: ONDANSETRON 4 MG/2 ML (SDV) Z0FRAN IVP PRN (10:45)
[2021-10-04] MEDS ORDERED: GLYCOPYRROLATE 0.2 MG/ML (ROBINUL) 2 ML VIAL IV PRN (10:45)
[2021-10-04] MEDS ORDERED: ARTIFICAL TEARS 0.4 ML UNIT DOSE (REFRESH PLUS) OU PRN (10:45)
[2021-10-04] MEDS ORDERED: SALIVA STIMULANT MOUTH SPRAY (BIOTENE) 1.5 OZ MM PRN (10:45)
[2021-10-04] MEDS ORDERED: RT-ALBUTEROL/IPRATROPIUM 3 ML (DUONEB) VIAL INH PRN (10:45)
[2021-10-04] MEDS ORDERED: BISACODYL 10 MG SUPP (DULCOLAX) PR PRN (10:45)
[2021-10-04] MEDS ORDERED: ACETAMINOPHEN 650 MG SUPP (TYLENOL) PR PRN (10:45)
[2021-10-04] MEDS: morphine INJ 4 MG/ML 1 ML (VIAL/SYRINGE) IV PRN ×5 (12:53→22:41)
[2021-10-04] MEDS: LORazepam INJ 2 MG/ML (ATIVAN) VIAL IVP PRN ×5 (12:53→22:41)
[2021-10-05] MEDS: LORazepam INJ 2 MG/ML (ATIVAN) VIAL IVP PRN ×4 (01:24→18:19)
[2021-10-05] MEDS: morphine INJ 4 MG/ML 1 ML (VIAL/SYRINGE) IV PRN ×5 (01:24→18:19)
--- NOTE | 2021-10-05 10:33 | Progress Note ---
Subjective Date Seen by a Provider: Oct 05, 2021 Time Seen by a Provider: 11:00 Subjective/Events-last exam Patient on comfort care protocol Family at the bedside Patient comatose Focused Exam Lactate Level 10/03/21 17:26: Lactic Acid Level 2.86*H 10/03/21 19:29: Lactic Acid Level 3.02*H 10/03/21 21:40: Lactic Acid Level 3.17*H Objective Exam Last Set of Vital Signs Vital Signs Date Time Temp Pulse Resp B/P (MAP) Pulse Ox O2 Delivery O2 Flow Rate FiO2 10/05/21 08:00 Room Air 10/04/21 12:04 90 12.00 10/04/21 08:31 36.8 118 20 120/55 Capillary Refill : I&O Intake and Output 10/05/21 00:00 Intake Total 130 ml Output Total 150 ml Balance -20 ml Intake Oral 30 ml IV Total 100 ml Output Urine Total 150 ml # Voids 2 # Bowel Movements 3 General: Other (Comatose) Assessment/Plan Assessment/Plan Assess & Plan/Chief Complaint Assessment: Multisystem organ failure End-of-life Plan: Comfort care protocol VERNELL ROMAN DO Oct 05, 2021 10:33
[2021-10-06] MEDS: morphine INJ 4 MG/ML 1 ML (VIAL/SYRINGE) IV PRN ×3 (00:40→06:25)
[2021-10-06] MEDS: LORazepam INJ 2 MG/ML (ATIVAN) VIAL IVP PRN ×2 (01:13→04:25)
--- NOTE | 2021-10-06 08:36 | Discharge Summary ---
Diagnosis/Chief Complaint Date of Admission Oct 03, 2021 at 15:44 Date of Discharge Discharge Diagnosis Assessment: Comfort care protocol until passing away Sepsis Pneumonia Multisystem organ failure Acute kidney failure Right heart failure acute on chronic Cor pulmonale Obstructive sleep apnea on CPAP Atrial fibrillation with current rapid ventricular response Hypotension not due to sepsis Advanced age DO NOT RESUSCITATE Chronic lower extremity edema lymphedema Valvular heart disease not a surgical management Discharge Summary Discharge Physical Examination Allergies: Coded Allergies: codeine (Verified Allergy, Unknown, 08/06/21) erythromycin base (Verified Allergy, Unknown, 09/12/21) ethyl alcohol (Verified Allergy, Unknown, 09/12/21) hydrocodone (Verified Allergy, Unknown, 09/12/21) levofloxacin (Verified Allergy, Unknown, 08/06/21) metronidazole (Verified Allergy, Unknown, 08/06/21) penicillin G (Verified Allergy, Unknown, 08/06/21) Vitals & I&Os Vital Signs Date Time Temp Pulse Resp B/P (MAP) Pulse Ox O2 Delivery O2 Flow Rate FiO2 10/06/21 06:23 Room Air 10/04/21 12:04 90 12.00 10/04/21 08:31 36.8 118 20 120/55 Hospital Course Was the Problem List Reviewed?: Yes Patient had a brief hospital course after she was admitted from inpatient rehab after acute decompensation due to pneumonia causing sepsis and multisystem organ failure. Aggressive care was initiated along with IV fluids and IV antibiotics but it was clear she was at the end stage of her life and family agreed for comfort care protocol and were at the bedside when she . Labs (last 24 hrs) Laboratory Tests 10/03/21 15:05: Lactic Acid Level 3.28*H 10/03/21 16:45: Blood Gas Puncture Site R RADIAL, Blood Gas Patient Temperature 37, Arterial Blood pH 7.44H, Arterial Blood Partial Pressure CO2 31L, Arterial Blood Partial Pressure O2 83, Arterial Blood HCO3 21L, Arterial Blood Total CO2 22.0, Arterial Blood Oxygen Saturation 97, Arterial Blood Base Excess -2.4, Alexander Test NA, Blood Gas Ventilator Setting NO, Blood Gas Inspired Oxygen UNK 10/03/21 17:26: Lactic Acid Level 2.86*H, Ammonia 20 10/03/21 19:29: Lactic Acid Level 3.02*H 10/03/21 21:40: Lactic Acid Level 3.17*H 10/04/21 04:30: Urine Color YELLOW, Urine Clarity CLOUDY, Urine pH 6.5, Urine Specific [place] 1.010L, Urine Protein 1+H, Urine Glucose (UA) NEGATIVE, Urine Ketones NEGATIVE, Urine Nitrite POSITIVEH, Urine Bilirubin NEGATIVE, Urine Urobilinogen 1, Urine Leukocyte Esterase 3+H, Urine RBC (Auto) 3+H, Urine RBC 25-50H, Urine WBC >100H, Urine Crystals NONE, Urine Bacteria LARGEH, Urine Casts NONE, Urine Mucus NEGATIVE, Urine Culture Indicated YES 10/04/21 04:31: White Blood Count 19.5H, Red Blood Count 4.24, Hemoglobin 13.2, Hematocrit 37, Mean Corpuscular Volume 88, Mean Corpuscular Hemoglobin 31, Mean Corpuscular Hemoglobin Concent 35, Red Cell Distribution Width 18.2H, Platelet Count 232, Mean Platelet Volume 11.8, Immature Granulocyte % (Auto) 4, Neutrophils (%) (Auto) 93H, Lymphocytes (%) (Auto) 2L, Monocytes (%) (Auto) 1, Eosinophils (%) (Auto) 0, Basophils (%) (Auto) 0, Neutrophils # (Auto) 18.2H, Lymphocytes # (Auto) 0.3L, Monocytes # (Auto) 0.2, Eosinophils # (Auto) 0.1, Basophils # (Auto) 0.0, Immature Granulocyte # (Auto) 0.7H, Sodium Level 129L, Potassium Level 6.2H, Chloride Level 96L, Carbon Dioxide Level 16L, Anion Gap 17H, Blood Urea Nitrogen 60H, Creatinine 2.52H, Estimat Glomerular Filtration Rate 18, BUN/Creatinine Ratio 24, Glucose Level 37*L, Calcium Level 10.1, Corrected Calcium 11.4H, Total Bilirubin 6.2H, Aspartate Amino Transf (AST/SGOT) 50H, Alanine Aminotransferase (ALT/SGPT) 21, Alkaline Phosphatase 232H, Total Protein 6.1L, Albumin 2.4L 10/04/21 06:41: Glucometer 72 Microbiology 10/04/21 Urine Culture - Preliminary, Resulted Mixed Bacterial Latosha Testing In Progress Pending Labs Microbiology Date/Time Source Procedure Growth Status 10/04/21 04:30 Urine U Cath,Nos Urine Culture - Preliminary Mixed Bacterial [place]ha Testing In Progress Resulted Laboratory Tests 10/03/21 15:05: Lactic Acid Level 3.28 10/03/21 16:45: Blood Gas Puncture Site R RADIAL, Blood Gas Patient Temperature 37, Arterial Blood pH 7.44, Arterial Blood Partial Pressure CO2 31, Arterial Blood Partial Pressure O2 83, Arterial Blood HCO3 21, Arterial Blood Total CO2 22.0, Arterial Blood Oxygen Saturation 97, Arterial Blood Base Excess -2.4, Alexander Test NA, Blood Gas Ventilator Setting NO, Blood Gas Inspired Oxygen UNK 10/03/21 17:26: Lactic Acid Level 2.86, Ammonia 20 10/03/21 19:29: Lactic Acid Level 3.02 10/03/21 21:40: Lactic Acid Level 3.17 10/04/21 04:30: Urine Color YELLOW, Urine Clarity CLOUDY, Urine pH 6.5, Urine Specific [place] 1.010, Urine Protein 1+, Urine Glucose (UA) NEGATIVE, Urine Ketones NEGATIVE, Urine Nitrite POSITIVE, Urine Bilirubin NEGATIVE, Urine Urobilinogen 1, Urine Leukocyte Esterase 3+, Urine RBC (Auto) 3+, Urine RBC 25-50, Urine WBC >100, Urine Crystals NONE, Urine Bacteria LARGE, Urine Casts NONE, Urine Mucus NEGATIVE, Urine Culture Indicated YES 10/04/21 04:31: White Blood Count 19.5, Red Blood Count 4.24, Hemoglobin 13.2, Hematocrit 37, Mean Corpuscular Volume 88, Mean Corpuscular Hemoglobin 31, Mean Corpuscular Hemoglobin Concent 35, Red Cell Distribution Width 18.2, Platelet Count 232, Mean Platelet Volume 11.8, Immature Granulocyte % (Auto) 4, Neutrophils (%) (Auto) 93, Lymphocytes (%) (Auto) 2, Monocytes (%) (Auto) 1, Eosinophils (%) (Auto) 0, Basophils (%) (Auto) 0, Neutrophils # (Auto) 18.2, Lymphocytes # (Auto) 0.3, Monocytes # (Auto) 0.2, Eosinophils # (Auto) 0.1, Basophils # (Auto) 0.0, Immature Granulocyte # (Auto) 0.7, Sodium Level 129, Potassium Level 6.2, Chloride Level 96, Carbon Dioxide Level 16, Anion Gap 17, Blood Urea Nitrogen 60, Creatinine 2.52, Estimat Glomerular Filtration Rate 18, BUN/Creatinine Ratio 24, Glucose Level 37, Calcium Level 10.1, Corrected Calcium 11.4, Total Bilirubin 6.2, Aspartate Amino Transf (AST/SGOT) 50, Alanine Aminotransferase (ALT/SGPT) 21, Alkaline Phosphatase 232, Total Protein 6.1, Albumin 2.4 10/04/21 06:41: Glucometer 72 Discharge Home Medications: Active Scripts Active Torsemide 20 Mg Tablet 90 Mg PO DAILY 90 Days Reported [facility] Cyanogen Capsule (l Gasseri/B Bifidum/B Longum) 1 Each Capsule 1 Each PO DAILY Levothyroxine Sodium 137 Mcg Tablet 137 Mcg PO DAILY Tramadol HCl 50 Mg Tablet 50 Mg PO Q8H PRN Potassium Chloride 20 Meq Tab.er.prt 20 Meq PO BID Flintstones Complete Chew Tab (Ped Multivit #43/Iron Fumarate) 18 Mg Tab.chew 18 Mg PO BID Eliquis (Apixaban) 2.5 Mg Tablet 2.5 Mg PO BID Allopurinol 300 Mg Tablet 300 Mg PO DAILY Metoprolol Succinate 200 Mg Tab.er.24h 200 Mg PO DAILY Instructions to patient/family Please see electronic discharge instructions given to patient. VERNELL ROMAN DO Oct 06, 2021 08:36
== END 2021-10-06 10:59 | disposition expired | DRG 871 ==
LOC: CSD 15:44 → 4TH 10-04 17:02
PROVIDERS: ADMIT Internal Medicine; ATTEND Internal Medicine
DX: A41.9 Sepsis, unspecified organism (principal); J18.9 Pneumonia, unspecified organism; N17.9 Acute kidney failure, unspecified; I13.0 Hypertensive heart and chronic kidney disease with heart failure and stage 1 through stage 4 chronic kidney disease, or unspecified chronic kidney disease; I50.813 Acute on chronic right heart failure; N18.9 Chronic kidney disease, unspecified; G47.33 Obstructive sleep apnea (adult) (pediatric); Z66 Do not resuscitate; Z51.5 Encounter for palliative care; I27.81 Cor pulmonale (chronic); K72.90 Hepatic failure, unspecified without coma; I48.91 Unspecified atrial fibrillation; I89.0 Lymphedema, not elsewhere classified; I08.1 Rheumatic disorders of both mitral and tricuspid valves; E78.00 Pure hypercholesterolemia, unspecified; G62.9 Polyneuropathy, unspecified; H54.7 Unspecified visual loss; H91.90 Unspecified hearing loss, unspecified ear; I95.9 Hypotension, unspecified; R54 Age-related physical debility; I27.20 Pulmonary hypertension, unspecified; I48.0 Paroxysmal atrial fibrillation; I25.10 Atherosclerotic heart disease of native coronary artery without angina pectoris; Z99.89 Dependence on other enabling machines and devices; Z79.890 Hormone replacement therapy; Z79.899 Other long term (current) drug therapy; Z79.01 Long term (current) use of anticoagulants; Z88.0 Allergy status to penicillin; Z88.5 Allergy status to narcotic agent; Z88.1 Allergy status to other antibiotic agents
CPT/HCPCS: 36415; 80053; 81000; 82140; 82805; 82947; 83605; 85025; 87077; 87088; 93005; 94640; 94664; 94760